=== PATIENT | female | born 1935 | race Caucasian/White ===

== ENCOUNTER 2016-09-18 09:58 | Outpatient (CLI) | payer MEDICARE, OTHER | END 2016-09-18 09:59 | disposition home or self-care (01) | DX: M75.02 Adhesive capsulitis of left shoulder (principal); S46.812A Strain of other muscles, fascia and tendons at shoulder and upper arm level, left arm, initial encounter; M19.012 Primary osteoarthritis, left shoulder ==

== ENCOUNTER 2016-10-07 11:17 | Outpatient (CLI) | payer MEDICARE, OTHER | END 2016-10-07 11:18 | disposition home or self-care (01) | DX: Z01.818 Encounter for other preprocedural examination (principal); L03.011 Cellulitis of right finger; L02.511 Cutaneous abscess of right hand ==

== ENCOUNTER 2016-10-09 10:15 | Day surgery (SDC) | payer MEDICARE, OTHER ==
[2016-10-09] MEDS ORDERED: LACTATED RINGERS 1,000 ML IV ONE ×2 (12:38→13:15)
[2016-10-09] MEDS ORDERED: ePHEDrine 50 MG/ML AMP IVP ONE (12:40)
[2016-10-09] MEDS ORDERED: HYDROmorphone 1 MG/ML SYRINGE IVP ONE (12:40)
[2016-10-09] MEDS ORDERED: KETOROLAC 30 MG/ML VIAL IVP ONE (12:40)
[2016-10-09] MEDS ORDERED: fentaNYL 100 MCG/2 ML VIAL IVP ONE (12:40)
[2016-10-09] MEDS ORDERED: LIDOCAINE-MPF 2% 5 ML VIAL IM ONE (12:40)
[2016-10-09] MEDS ORDERED: ACETAMINOPHEN 1,000 MG/100 ML VIAL IV ONE (12:40)
[2016-10-09] MEDS ORDERED: PROPOFOL 200 MG/20 ML VIAL IVP ONE (12:40)
[2016-10-09] MEDS ORDERED: SILVER SULFADIAZINE CREAM 25 GM TUBE TOP ONE (12:57)
== END 2016-10-09 10:16 | disposition home or self-care (01) ==
PROC: 0J9J0ZZ Drainage of Right Hand Subcutaneous Tissue and Fascia, Open Approach (ICD-10-PCS; principal; 2016-10-09 12:00)
DX: M00.041 Staphylococcal arthritis, right hand (principal); B95.62 Methicillin resistant Staphylococcus aureus infection as the cause of diseases classified elsewhere; Z16.24 Resistance to multiple antibiotics; Z88.0 Allergy status to penicillin; Z88.2 Allergy status to sulfonamides; Z79.82 Long term (current) use of aspirin; E78.5 Hyperlipidemia, unspecified; I10 Essential (primary) hypertension; J45.909 Unspecified asthma, uncomplicated; Z87.891 Personal history of nicotine dependence; J44.9 Chronic obstructive pulmonary disease, unspecified; M10.9 Gout, unspecified; I25.10 Atherosclerotic heart disease of native coronary artery without angina pectoris; Z95.1 Presence of aortocoronary bypass graft
CPT/HCPCS: 26010; 81599; 87015; 87070; 87077; 87101; 87116; 87181; 87205; 87206; A9270; J0131; J1170; J7120

== ENCOUNTER 2016-10-21 11:23 | Emergency (ER) | payer MEDICARE, OTHER ==
[2016-10-21] MEDS ORDERED: cefTRIAXone 1 GM in SODIUM CHLORIDE 0.9% MINIBAG 100 ML IV STA (14:02)
[2016-10-21] MEDS ORDERED: cefTRIAXone 1 GM VIAL ONE (14:03)
[2016-10-21] MEDS ORDERED: SODIUM CHLORIDE 0.9% 1,000 ML IV ONE (15:56)
== END 2016-10-21 16:56 | disposition home or self-care (01) ==
DX: E86.0 Dehydration (principal); R07.89 Other chest pain; N30.00 Acute cystitis without hematuria; K52.1 Toxic gastroenteritis and colitis; T36.95XA Adverse effect of unspecified systemic antibiotic, initial encounter; I10 Essential (primary) hypertension; E78.00 Pure hypercholesterolemia, unspecified; I25.10 Atherosclerotic heart disease of native coronary artery without angina pectoris; Z95.1 Presence of aortocoronary bypass graft; J44.9 Chronic obstructive pulmonary disease, unspecified; G47.30 Sleep apnea, unspecified; E11.9 Type 2 diabetes mellitus without complications; K21.9 Gastro-esophageal reflux disease without esophagitis; M19.90 Unspecified osteoarthritis, unspecified site; M10.9 Gout, unspecified; Z79.82 Long term (current) use of aspirin

== ENCOUNTER 2017-01-18 18:35 | Outpatient (CLI) | payer MEDICARE, OTHER | END 2017-01-18 18:36 | disposition critical access hospital (66) | LOC: EMS 18:35 | PROVIDERS: ATTEND Surgery | DX: S01.111A Laceration without foreign body of right eyelid and periocular area, initial encounter (principal); W20.8XXA Other cause of strike by thrown, projected or falling object, initial encounter; W18.39XA Other fall on same level, initial encounter; Y93.K9 Activity, other involving animal care; Y92.007 Garden or yard of unspecified non-institutional (private) residence as the place of occurrence of the external cause | CPT/HCPCS: A0425; A0429 ==

== ENCOUNTER 2017-01-18 19:00 | Emergency (ER) | payer MEDICARE, OTHER ==
[2017-01-18 19:07] VITALS: BP 145/73
--- NOTE | 2017-01-18 19:13 | ED Physician Documentation ---
History of Present Illness - Stated complaint Stated Complaint: FALL - Chief complaint Chief Complaint: Heent - History obtained from History obtained from: Patient, EMS - History of Present Illness Timing: Today Pain level max: 0 Pain level now: 0 - Additonal information Additional information: hit in head by a bird feeder and lacerated her forehead. No LOC. Not on blood thinners. No headache. 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 Cardiovascular: CABG HEENT: Tonsil/Adenoidectomy - Present Medications Home Medications: Ambulatory Orders Medication Instructions Recorded Confirmed Acyclovir 400 mg PO DAILY 04/04/13 01/18/17 Allopurinol 200 mg PO DAILY 04/04/13 01/18/17 Aspirin Chewable [St Matteo 81 mg PO DAILY 04/04/13 01/18/17 Aspirin] Cholecalciferol (Vitamin D3) 2,000 unit PO DAILY 04/04/13 01/18/17 [Vitamin D] Ubidecarenone [Coq-10] 200 mg PO DAILY 04/04/13 01/18/17 Adalimumab [Humira] 20 mg SQ ONCE 10/07/16 01/18/17 Metoprolol Tartrate 25 mg PO DAILY 10/09/16 01/18/17 Saccharomyces Boulardii [Florastor] 500 mg PO BID #30 capsule 10/21/16 01/18/17 - Allergies Allergies/Adverse Reactions: Allergies Allergy/AdvReac Type Severity Reaction Status Date / Time promethazine HCl * Allergy Severe UNCONSCIOUS Verified 10/21/16 11:35 [From Phenergan] fentanyl Allergy Unknown unknown Verified 10/21/16 11:35 Penicillins Allergy Hives Verified 10/21/16 11:35 Sulfa (Sulfonamide Allergy Hives Verified 10/21/16 11:35 Antibiotics) - Social History Does the pt smoke?: No Smoking Status: Never smoker Does the pt drink ETOH?: Yes Does the pt have substance abuse?: No - Immunizations Immunizations are current?: Yes - POLST Patient has POLST: Yes PD ED PE NORMAL - Vitals Vital signs reviewed: Yes - General General: Alert and oriented X 3, No acute distress, Well developed/nourished - HEENT HEENT: PERRL, EOMI, Ears normal, Moist mucous membranes, Pharynx benign, Other ( 1cm, vertical R sided forehead laceration. no scalp hematoma. No palpable skull fractures) - Neck Neck: Supple, no meningeal sign - Derm Derm: Warm and dry - Neuro Neuro: Alert and oriented X 3 - Psych Psych: Normal mood, Normal affect Results - Vitals Vitals: Vital Signs - 24 hr 01/18/17 19:01 Temperature 36.1 C L Heart Rate 52 L Respiratory 18 Rate Blood Pressure 145/73 H O2 Saturation 100 Oxygen O2 Source Room air Procedures - Laceration (location) forehead Length in cm: 1 Wound type: Linear, Into subcut fat, Clean Neurovascular status: Sensory intact, Motor intact, Vascular intact Wound Preparation: Irrigated copiously NS Skin layer closure: Dermabond, Steri strips Other: Patient tolerated well, No complications, Neurovascular intact, Dressing applied, Tetanus booster given (tdap) Complexity: Simple PD MEDICAL DECISION MAKING - ED course Complexity details: reviewed results, re-evaluated patient, considered differential, d/w patient, d/w family ED course: Patient is an 81-year-old female who sustained a laceration of the forehead today, this was repaired with Dermabond and Steri-Strips. Tolerated well. Warnings of infection and instructions on wound care given at bedside. Also counseled on how to minimize scarring. No evidence of intracranial hemorrhage, skull fracture. No evidence of concussion. Patient counseled regarding signs and symptoms for which I believe and urgent re-evaluation would be necessary. Patient with good understanding of and agreement to plan and is comfortable going home at this time This document was made in part using voice recognition software. While efforts are made to proofread this document, sound alike and grammatical errors may occur. Departure - Departure Disposition: 01 Home, Self Care Clinical Impression: Forehead laceration Qualifiers: Encounter type: initial encounter Qualified Code(s): S01.81XA - Laceration without foreign body of other part of head, initial encounter Condition: Good Instructions: ED Laceration Facial Skin Glue Follow-Up: Noah Tyler MD [Primary Care Provider] - Within 1 week (for wound check ) Comments: Return if you worsen. Keep the wound clean. Discharge Date/Time: 01/18/17 19:35
== END 2017-01-18 19:35 | disposition home or self-care (01) ==
LOC: EDUNIT# → SUPCPDRO 19:00 → ED 19:00
DX: S01.81XA Laceration without foreign body of other part of head, initial encounter (principal); W22.8XXA Striking against or struck by other objects, initial encounter; I10 Essential (primary) hypertension; E78.00 Pure hypercholesterolemia, unspecified; E11.9 Type 2 diabetes mellitus without complications; I25.10 Atherosclerotic heart disease of native coronary artery without angina pectoris; J44.9 Chronic obstructive pulmonary disease, unspecified; G47.30 Sleep apnea, unspecified; K21.9 Gastro-esophageal reflux disease without esophagitis; M19.90 Unspecified osteoarthritis, unspecified site; M10.9 Gout, unspecified; Z79.82 Long term (current) use of aspirin
CPT/HCPCS: 12011; 99282; 99283

== ENCOUNTER 2017-01-26 12:12 | Outpatient (CLI) | payer MEDICARE, OTHER ==
[2017-01-28 20:17] LABS: TEST RESULT REPORT (())
== END 2017-01-26 12:13 | disposition home or self-care (01) ==
LOC: LAB 12:12
PROVIDERS: ATTEND Physician Assistant Medical
DX: L40.0 Psoriasis vulgaris (principal); Z79.899 Other long term (current) drug therapy
CPT/HCPCS: 36415; 81599

== ENCOUNTER 2017-01-26 22:13 | Outpatient (CLI) | payer MEDICARE, OTHER | END 2017-01-26 22:14 | disposition critical access hospital (66) | LOC: EMS 22:13 | PROVIDERS: ATTEND Surgery | DX: R11.2 Nausea with vomiting, unspecified (principal); R51 Headache; R53.1 Weakness | CPT/HCPCS: A0425; A0427 ==

== ENCOUNTER 2017-01-26 22:28 | Emergency (ER) | payer MEDICARE, OTHER ==
[2017-01-26] MEDS ORDERED: ONDANSETRON 4 MG/2 ML VIAL IVP STA (22:46)
[2017-01-26] MEDS ORDERED: ONDANSETRON 4 MG/2 ML VIAL ONE (22:50)
--- NOTE | 2017-01-26 23:43 | ED Physician Documentation ---
PD HPI NVD - Stated complaint Stated Complaint: N/V/D - Chief complaint Chief Complaint: Abd Pain - History obtained from History obtained from: Patient - History of Present Illness Timing - onset: Today (this morning) Timing - details: Abrupt onset, Waxing and waning Pain level max: 0 Pain level now: 0 Associated symptoms: No: Fever, Abdominal pain Recently seen: Not recently seen - Additonal information Additional information: c/o nausea and vomiting since this AM, increasing fatigue and generalized headache Review of Systems Constitutional: reports: Fatigue. denies: Fever, Chills, Sweats Cardiac: reports: Reviewed and negative Respiratory: reports: Reviewed and negative GI: reports: Nausea, Vomiting. denies: Abdominal Pain, Constipation, Diarrhea : denies: Dysuria, Frequency Neurologic: reports: Generalized weakness, Headache. 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 Cardiovascular: CABG HEENT: Tonsil/Adenoidectomy - Present Medications Home Medications: Ambulatory Orders Medication Instructions Recorded Confirmed Acyclovir 400 mg PO DAILY 04/04/13 01/18/17 Allopurinol 200 mg PO DAILY 04/04/13 01/18/17 Aspirin Chewable [St Matteo 81 mg PO DAILY 04/04/13 01/18/17 Aspirin] Cholecalciferol (Vitamin D3) 2,000 unit PO DAILY 04/04/13 01/18/17 [Vitamin D] Ubidecarenone [Coq-10] 200 mg PO DAILY 04/04/13 01/18/17 Adalimumab [Humira] 20 mg SQ ONCE 10/07/16 01/18/17 Metoprolol Tartrate 25 mg PO DAILY 10/09/16 01/18/17 Saccharomyces Boulardii [Florastor] 500 mg PO BID #30 capsule 10/21/16 01/18/17 Ondansetron Odt [Zofran] 4 mg TL Q6H PRN #10 tablet 01/27/17 - Allergies Allergies/Adverse Reactions: Allergies Allergy/AdvReac Type Severity Reaction Status Date / Time promethazine HCl * Allergy Severe UNCONSCIOUS Verified 01/26/17 22:36 [From Phenergan] fentanyl Allergy Unknown unknown Verified 01/26/17 22:36 Penicillins Allergy Hives Verified 01/26/17 22:36 Sulfa (Sulfonamide Allergy Hives Verified 01/26/17 22:36 Antibiotics) - Social History Does the pt smoke?: No Smoking Status: Never smoker Does the pt drink ETOH?: Yes Does the pt have substance abuse?: No - Immunizations Immunizations are current?: Yes - POLST Patient has POLST: Yes PD ED PE NORMAL - Vitals Vital signs reviewed: Yes - General General: Alert and oriented X 3, No acute distress, Well developed/nourished - HEENT HEENT: PERRL, EOMI - Neck Neck: Supple, no meningeal sign - Cardiac Cardiac: RRR, No murmur - Respiratory Respiratory: No respiratory distress, Clear bilaterally - Abdomen Abdomen: Normal bowel sounds, Soft, Non tender, Non distended - Derm Derm: Normal color, Warm and dry - Neuro Neuro: Alert and oriented X 3 Results - Vitals Vitals: Vital Signs - 24 hr 01/26/17 01/27/17 01/27/17 22:33 00:14 01:23 Temperature 36.5 C Heart Rate 74 90 80 Respiratory 16 15 16 Rate Blood Pressure 178/96 H 170/78 H 149/118 H O2 Saturation 97 96 96 Oxygen O2 Source Room air - Labs Labs: Laboratory Tests 01/27/17 01/27/17 01/27/17 00:08 00:25 00:25 WBC 6.2 RBC 3.65 L Hgb 12.0 Hct 36.0 L MCV 98.8 MCH 32.9 H MCHC 33.3 RDW 14.1 Plt Count 179 MPV 7.8 L Neut # 4.0 Lymph # 1.5 [place] # 0.5 Eos # 0.2 Baso # 0.1 Absolute Nucleated RBC 0.00 Nucleated RBCs 0.0 Sodium 138 Potassium 4.1 Chloride 105 Carbon Dioxide 23 Anion Gap 10.0 BUN 25 H Creatinine 1.3 H Estimated GFR (MDRD) 39 L Glucose 112 H Calcium 8.8 Total Bilirubin 0.8 AST 20 ALT 12 Alkaline Phosphatase 72 Total Protein 6.5 L Albumin 3.9 Globulin 2.6 Albumin/Globulin Ratio 1.5 Lipase 16 L Urine Color YELLOW Urine Clarity CLEAR Urine pH 6.0 Ur Specific [place] 1.020 Urine Protein NEGATIVE Urine Glucose (UA) NEGATIVE Urine Ketones NEGATIVE Urine Occult Blood NEGATIVE Urine Nitrite NEGATIVE Urine Bilirubin NEGATIVE Urine Urobilinogen 0.2 (NORMAL) Ur Leukocyte Esterase NEGATIVE Ur Microscopic Review NOT INDICATED Urine Culture Comments NOT INDICATED PD MEDICAL DECISION MAKING - ED course Complexity details: reviewed results, re-evaluated patient, considered differential, d/w patient ED course: On reevaluation, after IV fluids and IV zofran, patient reports symptoms have resolved. MMM, she is comfortable with d/c home Departure - Departure Disposition: Home, Self Care Clinical Impression: Vomiting Condition: Good Instructions: ED Nausea Vomiting Follow-Up: Noah Tyler MD [Primary Care Provider] - Prescriptions: Ondansetron Odt [Zofran] 4 mg TL Q6H PRN #10 tablet PRN Reason: Nausea / Vomiting Discharge Date/Time: 01/27/17 01:35
[2017-01-27] MEDS ORDERED: SODIUM CHLORIDE 0.9% 500 ML IV STA
[2017-01-27 00:32] LABS: BASOPHILS # (AUTO) 0.1 10^3/uL (0.0-0.1); BASOPHILS % (AUTO) 1.3 %; EOSINOPHILS # (AUTO) 0.2 10^3/uL (0.0-0.7); EOSINOPHILS % (AUTO) 2.8 %; LYMPHOCYTES # (AUTO) 1.5 10^3/uL (1.5-3.5); LYMPHOCYTES % (AUTO) 23.6 %; MEAN CORPUSCULAR HEMOGLOBIN 32.9 pg (27.0-31.0); MEAN CORPUSCULAR HGB CONC 33.3 g/dL (32.0-36.0); MEAN CORPUSCULAR VOLUME 98.8 fL (81.0-99.0); MEAN PLATELET VOLUME 7.8 fL (7.9-10.8); MONOCYTES # (AUTO) 0.5 10^3/uL (0.0-1.0); MONOCYTES % (AUTO) 8.1 %; NEUTROPHILS % (AUTO) 64.2 %; RED BLOOD COUNT 3.65 10^6/uL (4.20-5.40); RED CELL DISTRIBUTION WIDTH 14.1 % (12.0-15.0); UNCORRECTED WHITE BLOOD COUNT 6.2 x10^3/uL; WHITE BLOOD COUNT 6.2 x10^3/uL (4.8-10.8)
[2017-01-27 00:43] LABS: ALBUMIN/GLOBULIN RATIO 1.5 (1.0-2.2); BILIRUBIN,TOTAL 0.8 mg/dL (0.2-1.0); CREATININE 1.3 mg/dL (0.4-1.0); TOTAL PROTEIN 6.5 g/dL (6.7-8.2)
[2017-01-27 00:51] LABS: CALCIUM 8.8 mg/dL (8.5-10.3); POTASSIUM 4.1 mmol/L (3.5-5.0)
[2017-01-27 00:52] LABS: BILIRUBIN,URINE NEGATIVE (NEGATIVE)
[2017-01-27 00:53] LABS: UA CHARGE (STRIP ONLY) YES; UR CULTURE IF IND NOT INDICATED
[2017-01-27] MEDS ORDERED: ONDANSETRON ODT 4 MG Prepack 2 TL STA (01:18)
[2017-01-27] MEDS ORDERED: ONDANSETRON ODT 4 MG Prepack 2 TL ONE (01:23)
[2017-01-27 01:29] VITALS: BP 149/118
== END 2017-01-27 01:35 | disposition home or self-care (01) ==
LOC: EDUNIT# → ED 22:28
DX: R11.2 Nausea with vomiting, unspecified (principal); I10 Essential (primary) hypertension; I25.10 Atherosclerotic heart disease of native coronary artery without angina pectoris; Z79.82 Long term (current) use of aspirin
CPT/HCPCS: 36415; 80053; 81001; 81003; 81599; 83690; 85025; 87086; 96361; 96374; 99283; 99284

== ENCOUNTER 2017-02-03 22:31 | Outpatient (CLI) | payer MEDICARE, OTHER | END 2017-02-03 22:32 | disposition EMS.NT | LOC: EMS 22:31 | PROVIDERS: ATTEND Surgery | DX: Z03.89 Encounter for observation for other suspected diseases and conditions ruled out (principal); W18.30XA Fall on same level, unspecified, initial encounter; Y92.002 Bathroom of unspecified non-institutional (private) residence as the place of occurrence of the external cause ==

== ENCOUNTER 2017-06-12 20:17 | Outpatient (CLI) | payer MEDICARE, OTHER | END 2017-06-12 20:18 | disposition critical access hospital (66) | LOC: EMS 20:17 | PROVIDERS: ATTEND Surgery | DX: R55 Syncope and collapse (principal) | CPT/HCPCS: A0425; A0427 ==

== ENCOUNTER 2017-06-12 21:17 | Emergency (ER) | payer MEDICARE, OTHER ==
--- NOTE | 2017-06-12 21:19 | ED Physician Documentation ---
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 When I ask if she felt like she was going to pass out before she did, she is unsure. She had similar episode few weeks ago but did not seek medical attention. EMS found blood sugar to be in the 60s, gave PO glucose. EMS also noted patient's SBP was 160s sitting but 90s standing Review of Systems Constitutional: reports: Reviewed and negative Eyes: reports: Reviewed and negative Ears: reports: Reviewed and negative Cardiac: reports: Reviewed and negative Respiratory: reports: Reviewed and negative GI: reports: Reviewed and negative : denies: Dysuria, Frequency Musculoskeletal: reports: Neck pain (chronic). denies: Back pain, Extremity pain, Joint pain, Pain with weight bearing Neurologic: denies: Generalized weakness, Focal weakness, Numbness PD PAST MEDICAL HISTORY - Past Medical History Cardiovascular: High cholesterol - Present Medications Home Medications: Ambulatory Orders Medication Instructions Recorded Confirmed Acyclovir 400 mg PO DAILY 04/04/13 01/18/17 Allopurinol 200 mg PO DAILY 04/04/13 01/18/17 Aspirin Chewable [St Matteo 81 mg PO DAILY 04/04/13 01/18/17 Aspirin] Cholecalciferol (Vitamin D3) 2,000 unit PO DAILY 04/04/13 01/18/17 [Vitamin D] Ubidecarenone [Coq-10] 200 mg PO DAILY 04/04/13 01/18/17 Adalimumab [Humira] 20 mg SQ ONCE 10/07/16 01/18/17 Metoprolol Tartrate 25 mg PO DAILY 10/09/16 01/18/17 Saccharomyces Boulardii [Florastor] 500 mg PO BID #30 capsule 10/21/16 01/18/17 Ondansetron Odt [Zofran] 4 mg TL Q6H PRN #10 tablet 01/27/17 - Allergies Allergies/Adverse Reactions: Allergies Allergy/AdvReac Type Severity Reaction Status Date / Time promethazine HCl * Allergy Severe UNCONSCIOUS Verified 06/12/17 21:25 [From Phenergan] fentanyl Allergy Unknown unknown Verified 06/12/17 21:25 Penicillins Allergy Hives Verified 06/12/17 21:25 Sulfa (Sulfonamide Allergy Hives Verified 06/12/17 21:25 Antibiotics) - Living Situation Living Situation: reports: Alone Living Arrangement: reports: At home PD ED PE NORMAL - Vitals Vital signs reviewed: Yes - General General: Alert and oriented X 3, No acute distress, Well developed/nourished - HEENT HEENT: PERRL, EOMI, Moist mucous membranes - Neck Neck: Supple, no meningeal sign, No bony TTP - Cardiac Cardiac: RRR, No murmur - Respiratory Respiratory: No respiratory distress, Clear bilaterally - Abdomen Abdomen: Soft, Non tender, Non distended - Back Back: No spinal TTP - Derm Derm: Warm and dry, Other (faint echymosis left side of face) - Extremities Extremities: No tenderness to palpate, Normal ROM s pain, No edema - Neuro Neuro: Alert and oriented X 3, 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[employer]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-12 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, No motor deficit, No sensory deficit, Normal speech Eye Opening: Spontaneous Motor: Obeys Commands Verbal: Oriented GCS Score: 15 Results - Vitals Vitals: Vital Signs - 24 hr 06/12/17 06/12/17 06/12/17 21:18 21:26 23:49 Temperature 36.2 C L Heart Rate 63 68 Respiratory 14 Rate Blood Pressure 144/62 H 107/59 L O2 Saturation 98 95 Oxygen O2 Source Room air - EKG (time done) No standard instances Rate: Rate (enter#) (67) Rhythm: NSR Black: LAD Intervals: Normal LA QRS: LVH Ischemia: ST elevation c/w repol, Other (biphasic T V4, inverted T waves V5, V6 , I, aVL) Compare to prior EKG: Unchanged from prior EKG (similiar morphology in all leads compared to 10/21/16 EKG) - Labs Labs: Laboratory Tests 06/12/17 06/12/17 06/12/17 21:35 21:35 21:35 WBC 4.9 RBC 3.50 L Hgb 11.6 L Hct 34.2 L MCV 97.5 MCH 33.1 H MCHC 34.0 RDW 13.9 Plt Count 188 MPV 7.9 Neut # 2.2 Lymph # 1.8 [place] # 0.4 Eos # 0.4 Baso # 0.0 Absolute Nucleated RBC 0.00 Nucleated RBC % 0.0 PT 11.2 INR 1.0 APTT 28.2 Sodium 137 Potassium 3.8 Chloride 102 Carbon Dioxide 22 Anion Gap 13.0 BUN 26 H Creatinine 1.3 H Estimated GFR (MDRD) 39 L Glucose 81 Calcium 8.8 Troponin I Urine Color Urine Clarity Urine pH Ur Specific [place] Urine Protein Urine Glucose (UA) Urine Ketones Urine Occult Blood Urine Nitrite Urine Bilirubin Urine Urobilinogen Ur Leukocyte Esterase Ur Microscopic Review Urine Culture Comments Ethyl Alcohol 220.8 06/12/17 06/12/17 21:35 22:21 WBC RBC Hgb Hct MCV MCH MCHC RDW Plt Count MPV Neut # Lymph # [place] # Eos # Baso # Absolute Nucleated RBC Nucleated RBC % PT INR APTT Sodium Potassium Chloride Carbon Dioxide Anion Gap BUN Creatinine Estimated GFR (MDRD) Glucose Calcium Troponin I < 0.04 Urine Color YELLOW Urine Clarity CLEAR Urine pH 5.5 Ur Specific [place] <=1.005 Urine Protein NEGATIVE Urine Glucose (UA) NEGATIVE Urine Ketones NEGATIVE Urine Occult Blood NEGATIVE Urine Nitrite NEGATIVE Urine Bilirubin NEGATIVE Urine Urobilinogen 0.2 (NORMAL) Ur Leukocyte Esterase NEGATIVE Ur Microscopic Review NOT INDICATED Urine Culture Comments NOT INDICATED Ethyl Alcohol - Rads (name of study) chest xray Radiology: Prelim report reviewed, See rad report PD MEDICAL DECISION MAKING - ED course Complexity details: reviewed old records, reviewed results, re-evaluated patient , considered differential, d/w patient ED course: EKG is unchanged compared to previous and blood tests, UA, and CXR are reassuring (elevated blood ethanol level noted, although she is AAOx3, answers quickly, clearly, and appropriately). Given her age, recurrence of syncope (two episodes within past few weeks), and h/o CABG, I recommended admission to hospital for further testing and cardiac monitoring, but she refuses this. She says she has an appointment tomorrow she cannot miss. Risks and benefits of admission vs. leaving AMA were discussed, including potential for recurrence of syncope, stroke, heart attack, permanent disability, and , were discussed. Patient expresses a clear understanding of this but still wishes to leave AMA. I encouraged her to return at any time she feels she needs to be reevaluated, and to follow-up with her doctor as soon as possible. Departure - Departure Disposition: 07 Against Medical Advice Clinical Impression: Syncope Qualifiers: Syncope type: unspecified Qualified Code(s): R55 - Syncope and collapse Condition: Stable Instructions: ED Fainting Unkn Cause Follow-Up: Noah Tyler MD [Primary Care Provider] - Discharge Date/Time: 06/13/17 00:33
[2017-06-12] MEDS ORDERED: SODIUM CHLORIDE 0.9% 500 ML IV STA (21:43)
[2017-06-12 21:45] LABS: BASOPHILS % (AUTO) 0.7 %; EOSINOPHILS # (AUTO) 0.4 10^3/uL (0.0-0.7); EOSINOPHILS % (AUTO) 9.2 %; HCT - HEMATOCRIT 34.2 % (37.0-47.0); HGB - HEMOGLOBIN 11.6 g/dL (12.0-16.0); LYMPHOCYTES # (AUTO) 1.8 10^3/uL (1.5-3.5); LYMPHOCYTES % (AUTO) 37.8 %; MEAN CORPUSCULAR HEMOGLOBIN 33.1 pg (27.0-31.0); MEAN CORPUSCULAR VOLUME 97.5 fL (81.0-99.0); MEAN PLATELET VOLUME 7.9 fL (7.9-10.8); MONOCYTES # (AUTO) 0.4 10^3/uL (0.0-1.0); MONOCYTES % (AUTO) 8.2 %; NEUTROPHILS # (AUTO) 2.2 10^3/uL (1.5-6.6); NEUTROPHILS % (AUTO) 44.1 %; RED CELL DISTRIBUTION WIDTH 13.9 % (12.0-15.0); UNCORRECTED WHITE BLOOD COUNT 4.9 x10^3/uL; WHITE BLOOD COUNT 4.9 x10^3/uL (4.8-10.8)
[2017-06-12 21:51] LABS: PT - PROTHROMBIN TIME 11.2 secs (9.9-12.6)
[2017-06-12 21:54] LABS: CALCIUM 8.8 mg/dL (8.5-10.3); CREATININE 1.3 mg/dL (0.4-1.0); POTASSIUM 3.8 mmol/L (3.5-5.0)
[2017-06-12 21:58] LABS: PARTIAL THROMBOPLASTIN TIME 28.2 secs (24.9-33.3)
--- NOTE | 2017-06-12 22:16 | XRAY Preliminary Report ---
Exam: XR CHEST 2 VIEW PA/LAT IMPRESSION: Stable exam. No acute cardiopulmonary disease seen. [facility] SITE ID: [id number]
--- NOTE | 2017-06-12 22:19 | XRAY Report ---
EXAM: CHEST RADIOGRAPHY EXAM DATE: 06/12/2017 09:48 PM. CLINICAL HISTORY: Syncope. COMPARISON: Chest 10/21/2016. TECHNIQUE: 2 views. FINDINGS: Lungs/Pleura: Small calcified right midlung pulmonary nodule appears unchanged. No pleural effusion, consolidation, airspace disease or pneumothorax. Mediastinum: Heart and mediastinal contours are unremarkable. Other: Sternotomy wires again noted. IMPRESSION: Stable exam. No acute cardiopulmonary disease seen. [facility] Referring Provider Line: [phone] SITE ID: [id number]
[2017-06-12 22:35] LABS: BILIRUBIN,URINE NEGATIVE (NEGATIVE); PH,URINE 5.5 PH (5.0-7.5)
[2017-06-12 22:39] LABS: UA CHARGE (STRIP ONLY) YES; UR CULTURE IF IND NOT INDICATED
[2017-06-12 23:50] VITALS: BP 107/59
== END 2017-06-13 00:33 | disposition left against medical advice (07) ==
LOC: EDUNIT# → ED 21:17
DX: R55 Syncope and collapse (principal); Z53.29 Procedure and treatment not carried out because of patient's decision for other reasons; I25.10 Atherosclerotic heart disease of native coronary artery without angina pectoris; Z95.1 Presence of aortocoronary bypass graft; E16.2 Hypoglycemia, unspecified; Z79.82 Long term (current) use of aspirin
CPT/HCPCS: 36415; 71020; 80048; 81003; 84484; 85025; 85610; 85730; 93005; 99284; 99285; G0480; 80320; 81001; 87086

== ENCOUNTER 2017-07-23 10:08 | Outpatient (CLI) | payer MEDICARE, OTHER ==
[2017-07-23 10:24] LABS: BASOPHILS # (AUTO) 0.1 10^3/uL (0.0-0.1); BASOPHILS % (AUTO) 1.2 %; EOSINOPHILS # (AUTO) 0.8 10^3/uL (0.0-0.7); EOSINOPHILS % (AUTO) 13.3 %; LYMPHOCYTES # (AUTO) 1.7 10^3/uL (1.5-3.5); LYMPHOCYTES % (AUTO) 29.2 %; MEAN CORPUSCULAR HEMOGLOBIN 32.3 pg (27.0-31.0); MEAN CORPUSCULAR HGB CONC 33.1 g/dL (32.0-36.0); MEAN CORPUSCULAR VOLUME 97.7 fL (81.0-99.0); MEAN PLATELET VOLUME 6.9 fL (7.9-10.8); MONOCYTES # (AUTO) 0.5 10^3/uL (0.0-1.0); MONOCYTES % (AUTO) 9.2 %; NEUTROPHILS # (AUTO) 2.8 10^3/uL (1.5-6.6); NEUTROPHILS % (AUTO) 47.1 %; PLT - PLATELET COUNT 202 10^3/uL (130-450); RED BLOOD COUNT 3.72 10^6/uL (4.20-5.40); RED CELL DISTRIBUTION WIDTH 13.5 % (12.0-15.0); WHITE BLOOD COUNT 5.9 x10^3/uL (4.8-10.8)
[2017-07-23 10:34] LABS: ALBUMIN 4.4 g/dL (3.2-5.5); ALBUMIN/GLOBULIN RATIO 1.8 (1.0-2.2); BILIRUBIN,TOTAL 0.6 mg/dL (0.2-1.0); CALCIUM 9.6 mg/dL (8.5-10.3); CREATININE 1.3 mg/dL (0.4-1.0); TOTAL PROTEIN 6.9 g/dL (6.7-8.2); URIC ACID 7.5 mg/dL (2.6-7.2)
== END 2017-07-23 10:09 | disposition home or self-care (01) ==
LOC: LAB 10:08
PROVIDERS: ATTEND Internal Medicine
DX: L40.9 Psoriasis, unspecified (principal); N18.4 Chronic kidney disease, stage 4 (severe); I12.9 Hypertensive chronic kidney disease with stage 1 through stage 4 chronic kidney disease, or unspecified chronic kidney disease; M10.9 Gout, unspecified
CPT/HCPCS: 36415; 80053; 84550; 85025

== ENCOUNTER 2017-07-23 10:31 | Outpatient (CLI) | payer MEDICARE, OTHER ==
--- NOTE | 2017-07-23 19:37 | XRAY Report ---
DATE OF SERVICE: 07/23/2017 TWO VIEW CHEST: 07/23/2017 CLINICAL INDICATION: Productive cough. COMPARISON: 06/12/2017 Frontal and lateral views of the chest demonstrate changes of previous cardiac surgery. Changes of old granulomatous disease are stable. The lungs are clear. No effusion or pneumothorax is present. IMPRESSION: Stable postoperative changes and changes of old granulomatous disease. No evidence of acute cardiopulmonary disease. No significant interval change. TD: 07/23/2017 20:35
== END 2017-07-23 10:32 | disposition home or self-care (01) ==
LOC: DI 10:31
PROVIDERS: ATTEND Internal Medicine
DX: R05 Cough (principal); L40.9 Psoriasis, unspecified; I12.9 Hypertensive chronic kidney disease with stage 1 through stage 4 chronic kidney disease, or unspecified chronic kidney disease; N18.4 Chronic kidney disease, stage 4 (severe); M10.9 Gout, unspecified
CPT/HCPCS: 36415; 71046; 80053; 84550; 85025

== ENCOUNTER 2017-09-16 08:46 | Outpatient (CLI) | payer MEDICARE, OTHER ==
--- NOTE | 2017-09-17 18:00 | Mammography Report ---
DIGITAL SCREENING MAMMOGRAM: 09/16/2017 CLINICAL INDICATION: An 82-year-old nulliparous patient with history of benign biopsy for screening. COMPARISON: 08/2011, 02/2010, 07/2008. TECHNIQUE: Routine CC and MLO projections were obtained of the breasts. FINDINGS: The breasts again demonstrate fatty replacement. Coarse and punctate, typically benign calcifications are present. Intramammary lymph nodes are stable. No suspicious masses, clustered microcalcifications, or regions of architectural distortion are identified. IMPRESSION: BENIGN FINDINGS. RECOMMENDATION: Routine annual screening unless otherwise clinically indicated. BIRADS category 2 benign findings. STANDARD QUALIFYING STATEMENTS 1. This examination was reviewed with the aid of Computed-Aided Detection (CAD). 2. A negative or benign imaging report should not delay biopsy if clinically suspicious findings are present. Consider surgical consultation if warranted. More than 5% of cancers are not identified by imaging. 3. Dense breasts may obscure an underlying neoplasm. TD: 09/17/2017 17:59
== END 2017-09-16 08:47 | disposition home or self-care (01) ==
LOC: DI 08:46
PROVIDERS: ATTEND Internal Medicine
DX: Z12.31 Encounter for screening mammogram for malignant neoplasm of breast (principal)
CPT/HCPCS: 77067

== ENCOUNTER 2017-09-16 08:48 | Outpatient (CLI) | payer MEDICARE, OTHER ==
--- NOTE | 2017-09-16 11:51 | Ultrasound Report ---
PELVIC ULTRASOUND: 09/16/2017 CLINICAL INDICATION: Postmenopausal bleeding. TECHNIQUE: Transabdominal pelvic ultrasound performed for global evaluation. Transvaginal pelvic ultrasound performed for detailed evaluation. Real-time scanning performed and static images obtained. FINDINGS: The transabdominal imaging is limited, as the patient is incontinent, and could not fill her bladder. The uterus and ovaries are surgically absent. No pelvic mass or free fluid is appreciated transabdominally or transvaginally. IMPRESSION: POSTOPERATIVE CHANGES OF HYSTERECTOMY. NO EVIDENCE OF PELVIC MASS. TD: 09/16/2017 11:50
== END 2017-09-16 08:49 | disposition home or self-care (01) ==
LOC: DI 08:48
PROVIDERS: ATTEND Obstetrics & Gynecology
DX: N95.0 Postmenopausal bleeding (principal); Z90.710 Acquired absence of both cervix and uterus
CPT/HCPCS: 76830; 76856

== ENCOUNTER 2017-12-13 08:44 | Inpatient (IN) | payer MEDICARE, OTHER ==
[2017-12-13] MEDS ORDERED: ONDANSETRON 4 MG/2 ML VIAL IVP STA (09:09)
[2017-12-13] MEDS ORDERED: ACETAMINOPHEN 1,000 MG/100 ML 100 ML IV STA (09:09)
[2017-12-13] MEDS ORDERED: SODIUM CHLORIDE 0.9% 1,000 ML IV ONE (09:09)
--- NOTE | 2017-12-13 09:13 | ED Physician Documentation ---
History of Present Illness - Stated complaint Stated Complaint: FEMALE - Chief complaint Chief Complaint: Abd Pain - Additonal information Additional information: hx from pt and friend 82 female pmhx HLD DM CAD s/p CABG 2005 COPD UTIs gout pshx hyst and appy seems she was dx with gout 12/02 and started on colchicine then developed NVD and suprapubic abd pain similar to sx with prior UTIs on 12/07 was dx with UTI in clinic (per pt report had + UA dipstick, no culture results in EMR) and rx macrobid her sx are not better she still has NVD - no just dry heaves, diarrhea is greeen s blood no specific urinary sx such as freq dysuria or hematuria abd pain is worse and more diffuse no flank pain no fever chills has been off colchicine for many days but sx persists no travel no bad food no sick contacts Review of Systems Constitutional: reports: Fatigue. denies: Fever, Chills Cardiac: denies: Chest pain / pressure Respiratory: denies: Dyspnea GI: reports: Abdominal Pain, Nausea, Vomiting, Diarrhea. denies: Hematemesis, Bloody / black stool : denies: Dysuria, Frequency, Hematuria Musculoskeletal: denies: Back pain Neurologic: reports: Generalized weakness Endocrine: denies: Easy bruising / bleeding Immunocompromised: denies: Immunocompromised PD PAST MEDICAL HISTORY - Past Medical History Cardiovascular: High cholesterol Respiratory: COPD, Shortness of breath, Sleep apnea, Other Endocrine/Autoimmune: Type 2 diabetes GI: GERD, GI bleed IT SYSTEMS ADMINISTRATOR: None : Incontinence HEENT: None Psych: Depression, Anxiety Musculoskeletal: Osteoarthritis, Gout, Chronic back pain Derm: None - Past Surgical History Past Surgical History: Yes General: Colonoscopy Ortho: Spine surgery /IT SYSTEMS ADMINISTRATOR: Hysterectomy Cardiovascular: CABG HEENT: Tonsil/Adenoidectomy - Present Medications Home Medications: Ambulatory Orders Medication Instructions Recorded Confirmed Acyclovir 400 mg PO DAILY 04/04/13 01/18/17 Allopurinol 200 mg PO DAILY 04/04/13 01/18/17 Aspirin Chewable [St Matteo 81 mg PO DAILY 04/04/13 01/18/17 Aspirin] Cholecalciferol (Vitamin D3) 2,000 unit PO DAILY 04/04/13 01/18/17 [Vitamin D] Ubidecarenone [Coq-10] 200 mg PO DAILY 04/04/13 01/18/17 Metoprolol Tartrate 25 mg PO DAILY 10/09/16 01/18/17 Saccharomyces Boulardii [Florastor] 500 mg PO BID #30 capsule 10/21/16 01/18/17 Ondansetron Odt [Zofran] 4 mg TL Q6H PRN #10 tablet 01/27/17 Ustekinumab [Stelara] 45 mg SUBQ 12/13/17 - Allergies Allergies/Adverse Reactions: Allergies Allergy/AdvReac Type Severity Reaction Status Date / Time promethazine HCl * Allergy Severe UNCONSCIOUS Verified 06/12/17 21:25 [From Phenergan] fentanyl Allergy Unknown unknown Verified 06/12/17 21:25 Penicillins Allergy Hives Verified 06/12/17 21:25 Sulfa (Sulfonamide Allergy Hives Verified 06/12/17 21:25 Antibiotics) - Social History Does the pt smoke?: No Smoking Status: Never smoker Does the pt drink ETOH?: Yes Does the pt have substance abuse?: No - Immunizations Immunizations are current?: Yes - POLST Patient has POLST: Yes PD ED PE NORMAL - Vitals Vital signs reviewed: Yes - HEENT HEENT: Atraumatic, Other (little dry) - Neck Neck: Supple, no meningeal sign - Cardiac Cardiac: RRR - Respiratory Respiratory: No respiratory distress, Clear bilaterally - Abdomen Abdomen: Other (+ BS soft, TTP diffusely but most TTP RUQ and RLQ, ? RLQ hernia , no rebound or guarding, no pulsatile mass) - Female Female : Deferred (s/p hyst) - Back Back: No CVA TTP - Derm Derm: Normal color - Extremities Extremities: No deformity - Neuro Neuro: Alert and oriented X 3 Results - Vitals Vitals: Vital Signs - 24 hr 12/13/17 12/13/17 12/13/17 08:53 10:46 13:15 Temperature 36.3 C L Heart Rate 69 67 69 Respiratory 18 18 18 Rate Blood Pressure 150/79 H 175/74 H 169/82 H O2 Saturation 96 97 97 Oxygen O2 Source Room air - Labs Labs: Laboratory Tests 12/13/17 12/13/17 12/13/17 09:20 09:20 11:40 WBC 4.1 L RBC 3.83 L Hgb 12.5 Hct 38.5 MCV 100.4 H MCH 32.6 H MCHC 32.5 RDW 14.7 Plt Count 176 MPV 8.6 Neut # (Auto) 1.9 Lymph # (Auto) 0.9 L Day # (Auto) 0.8 Eos # (Auto) 0.5 Baso # (Auto) 0.0 Absolute Nucleated RBC 0.00 Nucleated RBC % 0.0 Sodium 136 Potassium 4.1 Chloride 100 L Carbon Dioxide 24 Anion Gap 12.0 BUN 29 H Creatinine 1.5 H Estimated GFR (MDRD) 33 L Glucose 110 H Calcium 10.5 H Total Bilirubin 1.1 H AST 65 H ALT 44 Alkaline Phosphatase 110 Total Protein 6.6 L Albumin 3.7 Globulin 2.9 Albumin/Globulin Ratio 1.3 Lipase 18 L Urine Color YELLOW Urine Clarity CLEAR Urine pH 6.0 Ur Specific Basom 1.010 Urine Protein NEGATIVE Urine Glucose (UA) NEGATIVE Urine Ketones 15 H Urine Occult Blood NEGATIVE Urine Nitrite NEGATIVE Urine Bilirubin NEGATIVE Urine Urobilinogen 0.2 (NORMAL) Ur Leukocyte Esterase NEGATIVE Ur Microscopic Review NOT INDICATED Urine Culture Comments NOT INDICATED - Rads (name of study) CT AP Radiology: See rad report (hiatal hernia, calcified mitral valve, CBD 12 mm rec sono, no bowel infection/obstruction/perf) PD MEDICAL DECISION MAKING - ED course ED course: afebrile and nl WBC but slightly elev bili and AST and both CT and sono show a possible dilated CBD d/w pt and d/w hospitalist and will obs for MRCP no need to transfer at this point as not a confirmed dx and pt does not have sx of cholangitis - Sepsis Event Vital Signs: Vital Signs - 24 hr 12/13/17 12/13/17 12/13/17 08:53 10:46 13:15 Temperature 36.3 C L Heart Rate 69 67 69 Respiratory 18 18 18 Rate Blood Pressure 150/79 H 175/74 H 169/82 H O2 Saturation 96 97 97 Oxygen O2 Source Room air Departure - Departure Disposition: ED Place in Observation Clinical Impression: Diarrhea, Abnormal abdominal CT scan, Abnormal ultrasound of abdomen, Renal insufficiency Abdominal pain Qualifiers: Abdominal location: right upper quadrant Qualified Code(s): R10.11 - Right upper quadrant pain Vomiting Qualifiers: Vomiting type: unspecified Vomiting Intractability: non-intractable Nausea presence: with nausea Qualified Code(s): R11.2 - Nausea with vomiting, unspecified Condition: Fair Discharge Date/Time: 12/13/17 15:05
[2017-12-13 09:26] LABS: BASOPHILS % (AUTO) 0.5 %; EOSINOPHILS # (AUTO) 0.5 10^3/uL (0.0-0.7); EOSINOPHILS % (AUTO) 12.3 %; HGB - HEMOGLOBIN 12.5 g/dL (12.0-16.0); LYMPHOCYTES # (AUTO) 0.9 10^3/uL (1.5-3.5); LYMPHOCYTES % (AUTO) 21.4 %; MEAN CORPUSCULAR HEMOGLOBIN 32.6 pg (27.0-31.0); MEAN CORPUSCULAR HGB CONC 32.5 g/dL (32.0-36.0); MEAN CORPUSCULAR VOLUME 100.4 fL (81.0-99.0); MEAN PLATELET VOLUME 8.6 fL (7.9-10.8); MONOCYTES # (AUTO) 0.8 10^3/uL (0.0-1.0); MONOCYTES % (AUTO) 19.1 %; NEUTROPHILS # (AUTO) 1.9 10^3/uL (1.5-6.6); NEUTROPHILS % (AUTO) 46.7 %; PLT - PLATELET COUNT 176 10^3/uL (130-450); RED BLOOD COUNT 3.83 10^6/uL (4.20-5.40); RED CELL DISTRIBUTION WIDTH 14.7 % (12.0-15.0); WHITE BLOOD COUNT 4.1 x10^3/uL (4.8-10.8)
[2017-12-13 09:38] LABS: ALBUMIN 3.7 g/dL (3.2-5.5); ALBUMIN/GLOBULIN RATIO 1.3 (1.0-2.2); BILIRUBIN,TOTAL 1.1 mg/dL (0.2-1.0); CALCIUM 10.5 mg/dL (8.5-10.3); CREATININE 1.5 mg/dL (0.4-1.0); TOTAL PROTEIN 6.6 g/dL (6.7-8.2)
--- NOTE | 2017-12-13 10:09 | CT Report ---
Procedure Date: 12/13/2017 Accession Number: [id number] / [id number] Procedure: CT - Abdomen/Pelvis W/O CPT Code: FULL RESULT: EXAM: CT ABDOMEN AND PELVIS EXAM DATE: 12/13/2017 09:37 AM. CLINICAL HISTORY: Abd pain. COMPARISONS: None. TECHNIQUE: Routine helical CT imaging was performed through the abdomen and pelvis. IV contrast: No. Enteric contrast: No. Reconstructions: Coronal and sagittal. In accordance with CT protocol optimization, one or more of the following dose reduction techniques were utilized for this exam: automated exposure control, adjustment of mA and/or KV based on patient size, or use of iterative reconstructive technique. FINDINGS: Lung Bases: Small hiatal hernia. Calcification of the mitral annulus noted. Liver: Within normal limits. Gallbladder/Bile Ducts: There is apparent dilatation of the common bile duct measuring approximately 12 mm. Spleen: Within normal limits. Pancreas: Within normal limits. Adrenal Glands: With normal limits Kidneys: Within normal limits. Peritoneal Cavity/Bowel: A small amount of retained contrast is seen within the distal bowel. No free fluid, free air or adenopathy. No masses or acute inflammatory process. The appendix is not well visualized Pelvic Organs: Evaluation within the right pelvis is limited due to artifact from hip prosthesis. Appear within normal limits. Vasculature: No aneurysms or other significant abnormality. Bones: Right hip prosthesis noted. Extensive degenerative changes are seen in the lumbar spine. Other: None. IMPRESSION: 1. Apparent dilatation of the common bile duct measuring approximately 12 mm. Ultrasound may be useful for further evaluation. 2. Otherwise no acute abnormality identified on this limited noncontrast exam. RADIA
[2017-12-13] MEDS ORDERED: MORPHINE 2 MG/ML SYRINGE IVP STA (10:33)
[2017-12-13 11:46] LABS: BILIRUBIN,URINE NEGATIVE (NEGATIVE); GLUCOSE, URINE (UA) NEGATIVE (NEGATIVE); KETONES,URINE (UA) 15 mg/dL (NEGATIVE); LEUKOCYTE ESTERASE, URINE NEGATIVE (NEGATIVE); NITRITE,URINE NEGATIVE (NEGATIVE); OCCULT BLOOD,URINE NEGATIVE (NEGATIVE); PROTEIN,URINE NEGATIVE (NEGATIVE); UROBILINOGEN,URINE 0.2 (NORMAL) E.U./dL (NORMAL)
[2017-12-13 11:48] LABS: CLARITY,URINE CLEAR (CLEAR)
--- NOTE | 2017-12-13 12:07 | Ultrasound Report ---
Procedure Date: 12/13/2017 Accession Number: [id number] / [id number] Procedure: US - Abdomen Limited CPT Code: FULL RESULT: EXAM: ABDOMEN ULTRASOUND LIMITED, RUQ EXAM DATE: 12/13/2017 11:41 AM. CLINICAL HISTORY: Elevated bilirubin and dilated common bile duct on CT. COMPARISON: 12/13/2017. TECHNIQUE: Real-time scanning was performed with static images obtained. FINDINGS: Liver: Liver parenchyma is heterogeneous and mildly hyperechoic. No discrete liver masses or intrahepatic bile duct dilation. However, evaluation for masses is limited secondary to the echogenicity. 13.9 cm. Main portal vein flow: Hepatopetal. Gallbladder: No gallstones, pericholecystic fluid or gallbladder wall thickening. Per report, the patient had pain in the right upper quadrant during imaging. Biliary System: CBD measures 12 mm. Questionable echogenic, non-shadowing and nonobstructing debris in the lower common bile duct. No definite mass or intrahepatic bile duct dilation. Pancreas: Not well seen. No gross abnormality. Right kidney: 9.5 cm. Atrophic and echogenic. No hydronephrosis or stones. Other: None. IMPRESSION: 1. No gallstones or sonographic evidence of acute cholecystitis. The patient did have right upper quadrant pain during imaging. Findings are nonspecific. No intrahepatic bile duct dilation. 2. Pancreas poorly seen. 3. Mildly prominent common bile duct with possible debris in the lower common bile duct. This could be evaluated with ERCP. Choledocholithiasis remains on the differential. RADIA
[2017-12-13] MEDS ORDERED: ONDANSETRON 4 MG/2 ML VIAL IVP PRN (14:26)
[2017-12-13] MEDS ORDERED: ZOLPIDEM 5 MG TABLET PO PRN (14:26)
[2017-12-13] MEDS ORDERED: ACETAMINOPHEN 325 MG TABLET PO PRN (14:26)
[2017-12-13] MEDS ORDERED: cloNIDine 0.1 MG TABLET PO PRN (14:36)
--- NOTE | 2017-12-13 14:44 | HISTORY & PHYSICAL EXAMINATION ---
Chief Complaint - Chief Complaint Chief Complaint: right upper quadrant pain History of Present Illness - Admitted From Admitted From:: ER - History Obtained From History obtained from: Pt - History of Present Illness HPI Comment/Other: Ms. Regalado is 82-yrs-old female with a PMH significance for HLD, COPD, shortness of breath, sleep apnea, GERD, GI bleeding, urinary incontinence, Depression, Anxiety, psoriatic arthritis, Gout, Chronic back pain, who present ER for complaint of right upper quadrant pain. pt reported she started to have right upper quadrant pain from today morning. Pain was located at right upper quadrant and did not radiate to the back. Pt report she has been nausea and vomiting, and with ghzei-dytkm-[id number]-like diarrhea for a week. pt report she can not ate down food. Pt denies recent travel. Pt denies chest pain, shortness of breath, fever, chill, hematemesis, black stool. She report she was treated for UTI one week ago when she was found to have UTI in the PCP office. US of abdomen limited reveals no gallstones or sonographic evidence of acute cholecystitis, mildly prominent common bile duct with possible debris in the lower common bile duct. CT of abdomen without contrast reveals apparent dilatation of the common bile duct, otherwise no acute abnormality identified. pt is afebrile, slight elevated blood pressure otherwise hemodynamical stable. Lab test in ER reveals WBC 4.1, Lipase 18, AST 65, total bilirubin 1.1, Bun 29, creatinine 1.5. History - Past Medical History Cardiovascular: reports: High cholesterol Respiratory: reports: COPD, Shortness of breath, Sleep apnea, Other Endocrine/Autoimmune: reports: Type 2 diabetes GI: reports: GERD, GI bleed DIRECTOR CUSTOM: reports: None : reports: Incontinence HEENT: reports: None Psych: reports: Depression, Anxiety Musculoskeletal: reports: Osteoarthritis, Gout, Chronic back pain Derm: reports: None MRSA Hx?: No - Past Surgical History General: reports: Colonoscopy Ortho: reports: Spine surgery /DIRECTOR CUSTOM: reports: Hysterectomy Cardiovascular: reports: CABG HEENT: reports: Tonsil/Adenoidectomy - Family & Social History Family History: Mother: (pt does not know much about her father health conditons), CAD, CVA/TIA ( from major stroke), Father: Family History Comment/Other: pt report 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 she had three children. She is living [facility] with one of her child. Living arrangement: At home Living Situation: With family Social History Notes: pt report she quitted cigarette smoking 25 yrs ago, no alcohol and drug issue. - Substance History Use: Uses substance without health or social issues: NONE Abuse: Recurrent use of substance despite neg consequences: NONE - POLST Patient has POLST: Yes POLST Status: DNR Meds/Allgy - Home Medications Home Medications: Ambulatory Orders Medication Instructions Recorded Confirmed Acyclovir 400 mg PO DAILY 04/04/13 01/18/17 Allopurinol 200 mg PO DAILY 04/04/13 01/18/17 Aspirin Chewable [St Matteo 81 mg PO DAILY 04/04/13 01/18/17 Aspirin] Cholecalciferol (Vitamin D3) 2,000 unit PO DAILY 04/04/13 01/18/17 [Vitamin D] Ubidecarenone [Coq-10] 200 mg PO DAILY 04/04/13 01/18/17 Adalimumab [Humira] 20 mg SQ ONCE 10/07/16 01/18/17 Metoprolol Tartrate 25 mg PO DAILY 10/09/16 01/18/17 Saccharomyces Boulardii [Florastor] 500 mg PO BID #30 capsule 10/21/16 01/18/17 Ondansetron Odt [Zofran] 4 mg TL Q6H PRN #10 tablet 01/27/17 - Allergies Allergies/Adverse Reactions: Allergies Allergy/AdvReac Type Severity Reaction Status Date / Time promethazine HCl * Allergy Severe UNCONSCIOUS Verified 06/12/17 21:25 [From Phenergan] fentanyl Allergy Unknown unknown Verified 06/12/17 21:25 Penicillins Allergy Hives Verified 06/12/17 21:25 Sulfa (Sulfonamide Allergy Hives Verified 06/12/17 21:25 Antibiotics) Review of Systems - Constitutional Constitutional: reports: Fatigue. denies: Fever, Chills, Malaise, Weakness, Poor appetite, Diaphoresis, Night sweats - Eyes Eyes: denies: Pain, Irritation, Amaurosis, Blurred vision, Spots in vision, Field loss, Vision loss, Dipolpia - Ears, Nose & Throat Ears, Nose & Throat: denies: Ear pain, Hearing loss, Hearing aids, Tinnitus, Vertigo, Nasal pain, Nasal discharge, Nosebleeds, Nasal obstruction, Nasal congestion, Postnasal drainage, Sore throat, Mouth lesions, Bleeding gums - Cardiovascular Cariovascular: denies: Irregular heart rate, Palpitations, Chest pain, Edema, Lightheadedness, Syncope, Exertional dyspnea, Decr. exercise tolerance - Respiratory Respiratory: denies: Cough, Sputum production, Wheezing, Snoring, Hemoptysis, Orthopnea, SOB at rest, SOB with exertion, Apnea - Gastrointestinal Gastrointestinal: reports: Abdominal pain, Diarrhea, Nausea, Vomiting. denies: Abdominal distention, Constipation, Change in bowel habits, Rectal bleeding, Black stools, Bloody stools, Bile emesis, Pierre blood emesis, Coffee grounds emesis, Reflux/heartburn - Genitourinary Genitourinary: reports: Incontinence. denies: Dysuria, Frequency, Urgency, Hematuria, Flank pain, Nocturia, Urethral discharge - Musculoskeletal Musculoskeletal: denies: Muscle pain, Back pain, Muscle aches, Stiffness, Limited range of motion, Muscle weakness, Gout, Joint pain - Integumentary Integumentary: denies: Rash, Pruritis, Lesions, Dryness, Lumps, Acne, Pigment changes - Neurological Neurological: denies: General weakness, Focal weakness, Headache, Dizziness, Numbness, Memory problems, Pre-existing deficit, Abnormal gait, Seizures, Incoordination, Slurred speech - Psychiatric Psychiatric: denies: Depression, Anxiety, Suicidal, Delusions, Hallucinations, Homicidal - Endocrine Endocrine: denies: Polyuria, Polydypsia, Polyphagia, Intolerance to cold, Intolerance to heat - Hematologic/Lymphatic Hematologic/Lymphatic: denies: Anemia, Bruising, Petechiae, Blood clots, Lymphadenopathy, Bleeding tendencies, Recurrent infections Exam - Vital Signs Reviewed Vital Signs: Yes Vital Signs: Vital Signs x48h Temp Pulse Resp BP Pulse Ox 12/13/17 13:15 69 18 169/82 H 97 12/13/17 10:46 67 18 175/74 H 97 12/13/17 08:53 36.3 C L 69 18 150/79 H 96 - Physical Exam General Appearance: positive: Alert, Mild distress. negative: Lethargic Eyes Bilateral: positive: Normal inspection, PERRL, No lid inflammation, Conjunctivae nml ENT: positive: ENT inspection nml, Pharynx nml, No signs of dehydration. negative: Purulent nasal drainage, Pharyngeal erythema, Oral lesions Neck: positive: Nml inspection, Thyroid nml, No JVD, Trachea midline. negative : Thyromegaly, Lymphadenopathy (R), Lymphadenopathy (L), Stiff neck, Carotid bruit, Swelling/bruising, Tracheal deviation Respiratory: positive: Chest non-tender, No respiratory distress, Breath sounds nml. negative: Wheezes, Rales, Rhonchi Cardiovascular: positive: Regular rate & rhythm, No murmur, No gallop. negative : Irregularly irregular, Extrasystoles, Tachycardia, Bradycardia, JVD present, Systolic murmur, Diastolic murmur Peripheral Pulses: positive: 2+ Abdomen: positive: Non-tender, No organomegaly, Nml bowel sounds, No distention , Other (abdomen is soft, pt report pain when palpatation on right upper quadrant). negative: Tenderness, Guarding, Rebound Back: positive: Nml inspection. negative: CVA tenderness (R), CVA tenderness (L ) Skin: positive: Color nml, No rash, Warm, Dry. negative: Cyanosis, Diaphoresis , Pallor Extremities: positive: Non-tender, Full ROM, Nml appearance. negative: Calf tenderness Neurologic/Psychiatric: positive: Oriented x3, Motor nml, Sensation nml, Mood/ affect nml. negative: Weakness, Sensory loss, Facial droop, Slurred/abnml speech, Depressed mood/affect Conclusion/Plan - Problem List (1) Right upper quadrant abdominal pain Conclusion/Plan: pt present right upper quadrant beginning today. CT and US does not reveals clear etiology consult with surgeon, follow up pain control MRCP, follow up IVF with NS clear diet, advanced as tolerated renal adjusted Zosyn initiate (2) Nausea & vomiting Conclusion/Plan: unknown etiology, can be virus infection daily lab to correct electrolyte IVF of NS antiemesis PRN clear diet, advanced as tolerated (3) Diarrhea Conclusion/Plan: pt report green liquid diarrhea. check C.diff, Ova/para follow up IVF NS daily lab and vital monitor (4) Dehydration Conclusion/Plan: pt present elevated BUN and creatinine compared pervious study hydration with IVF of NS, precaution of fluid overload daily lab monitor (5) HTN (hypertension) Conclusion/Plan: resume home metoprolol add Clonidine PRN vital monitor (6) Hx of coronary artery disease Conclusion/Plan: stable, resume home Aspirin tele and vital monitor (7) Gout Conclusion/Plan: resume home Allopurinal (8) DVT prophylaxis Conclusion/Plan: SCD and Heparin (9) Do not intubate, cardiopulmonary resuscitation (CPR)-only code status Conclusion/Plan: pt clearly request DNR - Lab Results Fish Bones: 12/13/17 09:20 12/13/17 09:20 Core Measures - Anticipated LOS I expect patient to be DC'd or transferred within 96 hours.: Yes - DVT/VTE - Prophylaxis VTE/DVT Device ordered at admit?: Yes VTE/DVT Prophylaxis med ordered at admit?: Yes
[2017-12-13] MEDS ORDERED: SODIUM CHLORIDE 0.9% 1,000 ML IV SCH ×2 (15:00)
[2017-12-13] MEDS: PANTOPRAZOLE 40 MG VIAL IVP SCH (16:06)
[2017-12-13] MEDS: SODIUM CHLORIDE FLUSH 0.9% 10 ML SYRINGE IVP SCH (16:06)
[2017-12-13] MEDS: PIPERACILLIN/TAZOBACTAM 2.25 GM in SODIUM CHLORIDE 0.9% MINIBAG 100 ML IV SCH ×2 (16:11→21:07)
--- NOTE | 2017-12-13 17:59 | CONSULTATION NOTE ---
Referring Provider Name of Referring Provider:: Pablo Consult Date: 12/13/17 Chief Complaint - Chief Complaint Chief Complaint: N/V/D History of Present Illness - Admitted From Admitted From:: ER - History Obtained From Records Reviewed: yes History obtained from: pt Exam Limitations: none - History of Present Illness HPI Comment/Other: 82 yo female with 6 day hx of N/V/D, described as vomiting and retching after every meal, and 4-7 loose watery green stools/day. No fever,chills, hematemesis , hematochezia, melena. She has noted upper abdominal discomfort the past several days which she attributes to repeated vomiting. She reports a similar episode several yrs ago while living in [place], thought to be due to an UTI and treated with antibiotics with resolution. She saw her PCP 2 days ago and was started on an antibiotic, but she reports that she was unable to keep the medication down, so she presented to the ER today and was admittted. She reports chronic urinary incontinence but no suprapubic or flank pain. She reports a colonoscopy approx 8 yrs ago where several small polyps were removed and no f/u was scheduled. Neg FH CRC. She notes occasional heartburn without dysphagia. She denies food intolerance, hx hepatitis/jaundice, acholic stools, hx PUD. She reports FH gallbladder disease in her mother. She denies recent travel, unusual oral intake, or contact with others who are ill with similar sx. She lives locally. History - Past Medical History Cardiovascular: reports: High cholesterol Respiratory: reports: COPD, Shortness of breath, Sleep apnea, Other Neuro: reports: None Endocrine/Autoimmune: reports: Type 2 diabetes GI: reports: GERD (heartburn several times a week treated with papaya pills with relief.), GI bleed SCALEMAN: reports: None : reports: Incontinence HEENT: reports: None Psych: reports: Depression, Anxiety Musculoskeletal: reports: Osteoarthritis, Gout, Chronic back pain Derm: reports: Psoriasis MRSA Hx?: No - Past Surgical History General: reports: Appendectomy, Colonoscopy Ortho: reports: Spine surgery /SCALEMAN: reports: Hysterectomy, Oophrectomy Cardiovascular: reports: CABG HEENT: reports: Tonsil/Adenoidectomy - Family & Social History Family History: Mother: (pt does not know much about her father health conditons), CAD, CVA/TIA ( from major stroke), Father: Family History Comment/Other: Neg for GI tumors; + gallbladder disease in mother ; pt report she is . she had three children. She is living in [place]. Living arrangement: At home Living Situation: Alone Social History Notes: pt report she quitted cigarette smoking 25 yrs ago, no alcohol and drug issue. - Substance History Use: Uses substance without health or social issues: Alcohol (1 drink daily) Abuse: Recurrent use of substance despite neg consequences: NONE Dependence: Experiences withdrawal or developed tolerances: NONE - POLST Patient has POLST: Yes POLST Status: DNR Meds/Allgy - Home Medications Home Medications: Ambulatory Orders Medication Instructions Recorded Confirmed Acyclovir 400 mg PO DAILY 04/04/13 01/18/17 Allopurinol 200 mg PO DAILY 04/04/13 01/18/17 Aspirin Chewable [St Matteo 81 mg PO DAILY 04/04/13 01/18/17 Aspirin] Cholecalciferol (Vitamin D3) 2,000 unit PO DAILY 04/04/13 01/18/17 [Vitamin D] Ubidecarenone [Coq-10] 200 mg PO DAILY 04/04/13 01/18/17 Metoprolol Tartrate 25 mg PO DAILY 10/09/16 01/18/17 Saccharomyces Boulardii [Florastor] 500 mg PO BID #30 capsule 10/21/16 01/18/17 Ondansetron Odt [Zofran] 4 mg TL Q6H PRN #10 tablet 01/27/17 Ustekinumab [Stelara] 45 mg SUBQ 12/13/17 - Allergies Allergies/Adverse Reactions: Allergies Allergy/AdvReac Type Severity Reaction Status Date / Time promethazine HCl * Allergy Severe UNCONSCIOUS Verified 06/12/17 21:25 [From Phenergan] fentanyl Allergy Unknown unknown Verified 06/12/17 21:25 Penicillins Allergy Hives Verified 06/12/17 21:25 Sulfa (Sulfonamide Allergy Hives Verified 06/12/17 21:25 Antibiotics) Review of Systems - Constitutional Constitutional: denies: Fever, Chills - Cardiovascular Cariovascular: denies: Chest pain - Gastrointestinal Gastrointestinal: reports: Abdominal pain (upper abdominal discomfort past several days), Diarrhea, Change in bowel habits, Nausea, Vomiting, Reflux/ heartburn (several times per week). denies: Constipation, Rectal bleeding, Black stools, Bloody stools, Bile emesis, Pierre blood emesis, Coffee grounds emesis - Genitourinary Genitourinary: reports: Incontinence. denies: Dysuria, Hematuria, Flank pain - Hematologic/Lymphatic Hematologic/Lymphatic: denies: Bruising, Petechiae, Blood clots, Bleeding tendencies - All Other Systems All Other Systems: reports: Reviewed and negative Exam - Vital Signs Reviewed Vital Signs: Yes Vital Signs: Vital Signs x48h Temp Pulse Resp BP Pulse Ox 12/13/17 16:00 36.6 C 66 20 140/59 H 98 - Physical Exam General Appearance: positive: Alert, Mild distress (c/o nausea) Eyes Bilateral: positive: Normal inspection, Conjunctivae nml, No scleral icterus ENT: positive: Pharynx nml, Dry mucous membranes Neck: positive: Nml inspection, No JVD. negative: Lymphadenopathy (R), Lymphadenopathy (L) Respiratory: positive: Chest non-tender, No respiratory distress, Breath sounds nml. negative: Wheezes, Rales, Rhonchi Cardiovascular: positive: Regular rate & rhythm, No murmur, No gallop Abdomen: positive: Non-tender, No organomegaly, Nml bowel sounds, No distention. negative: Guarding, Rebound, Hepatomegaly, Splenomegaly, Mass Back: positive: Nml inspection. negative: CVA tenderness (R), CVA tenderness (L ) Skin: positive: Color nml, Warm, Dry Extremities: positive: Non-tender. negative: Pedal edema, Calf tenderness Neurologic/Psychiatric: positive: Oriented x3 Conclusion/Plan - Diagnosis Diagnosis: N/V/D associated with mild abn lft's and mild biliary ductal dilatation in an 82 yo. DDX includes viral syndrome, med side effect(? monoclonal antibody therapy, etc), biliary tract disease, including choledocholithiasis. Her abdomen is benign and there is no evidence of sepsis clinically at this time. - Plan Plan: Agree with admission, symptomatic therapy, hydration, empiric antibiotic therapy , and MRCP in am. Will follow. - Lab Results Lab results reviewed: Yes Fish Bones: 12/13/17 09:20 12/13/17 09:20 Other Lab Results: Bili 1.1; ALT 60's, other lft's nl; lipase nl. - Diagnostic Imaging Results Diagnostic Imaging Results: positive: Final report reviewed, Read independently Diagnostic Imaging Results Comments: CT abd/pelvis neg except dilated CBD at 1.2 cm. US abd: nl gallbladder, mild CBD dilatation with possible debris in distal duct. Results - Results Fish Bones: 12/13/17 09:20 12/13/17 09:20 - Intake & Output Intake & Output: Intake & Output 12/10/17 12/11/17 12/12/17 12/13/17 23:59 23:59 23:59 23:59 Intake Total 100 Balance 100
[2017-12-13] MEDS: MORPHINE 2 MG/ML SYRINGE IVP PRN (19:40)
[2017-12-13] MEDS: HEPARIN 5,000 UNIT/ML VIAL SUBQ SCH (20:02)
[2017-12-13] MEDS ORDERED: TEMAZEPAM 15 MG CAPSULE PO PRN (20:19)
[2017-12-14] MEDS: SODIUM CHLORIDE FLUSH 0.9% 10 ML SYRINGE IVP SCH ×3 (00:26→16:13)
[2017-12-14] MEDS: SODIUM CHLORIDE FLUSH 0.9% 10 ML SYRINGE IVP PRN ×4 (02:42→06:45)
[2017-12-14] MEDS: PIPERACILLIN/TAZOBACTAM 2.25 GM in SODIUM CHLORIDE 0.9% MINIBAG 100 ML IV SCH ×4 (04:10→21:58)
[2017-12-14 05:41] LABS: BASOPHILS % (AUTO) 1.1 %; EOSINOPHILS # (AUTO) 0.5 10^3/uL (0.0-0.7); EOSINOPHILS % (AUTO) 11.4 %; HGB - HEMOGLOBIN 11.1 g/dL (12.0-16.0); LYMPHOCYTES % (AUTO) 25.7 %; MEAN CORPUSCULAR HEMOGLOBIN 32.5 pg (27.0-31.0); MEAN CORPUSCULAR HGB CONC 32.2 g/dL (32.0-36.0); MEAN CORPUSCULAR VOLUME 100.8 fL (81.0-99.0); MEAN PLATELET VOLUME 8.8 fL (7.9-10.8); MONOCYTES # (AUTO) 0.8 10^3/uL (0.0-1.0); MONOCYTES % (AUTO) 20.8 %; NEUTROPHILS # (AUTO) 1.7 10^3/uL (1.5-6.6); PLT - PLATELET COUNT 151 10^3/uL (130-450); RED BLOOD COUNT 3.43 10^6/uL (4.20-5.40); RED CELL DISTRIBUTION WIDTH 14.8 % (12.0-15.0); WHITE BLOOD COUNT 4.1 x10^3/uL (4.8-10.8)
[2017-12-14 05:58] LABS: ALBUMIN 2.8 g/dL (3.2-5.5); ALBUMIN/GLOBULIN RATIO 1.1 (1.0-2.2); BILIRUBIN,TOTAL 0.8 mg/dL (0.2-1.0); CALCIUM 8.9 mg/dL (8.5-10.3); CREATININE 1.4 mg/dL (0.4-1.0); MAGNESIUM 1.3 mg/dL (1.7-2.8); TOTAL PROTEIN 5.3 g/dL (6.7-8.2)
[2017-12-14] MEDS: PANTOPRAZOLE 40 MG VIAL IVP SCH (06:41)
[2017-12-14] MEDS: MAGNESIUM SULFATE 2 GRAM 2 GM/50 ML BAG IV SCH ×2 (07:11→10:12)
[2017-12-14] MEDS: SODIUM CHLORIDE 0.9% 1,000 ML IV SCH (10:07)
[2017-12-14] MEDS: MAGNESIUM OXIDE 400 MG TABLET PO SCH (10:14)
[2017-12-14] MEDS: ASPIRIN CHEW 81 MG TABLET PO SCH (10:14)
[2017-12-14] MEDS: METOPROLOL TARTRATE 25 MG TABLET PO SCH (10:14)
[2017-12-14] MEDS: HEPARIN 5,000 UNIT/ML VIAL SUBQ SCH ×2 (10:15→20:18)
[2017-12-14] MEDS: POLYETHYLENE GLYCOL 3350 17 GM PACKET PO SCH (10:21)
--- NOTE | 2017-12-14 15:21 | PROVIDER PROGRESS NOTE ---
Subjective - Prog Note Date Prog Note Date: 12/14/17 - Subjective Pt reports feeling: Improved Subjective: pt report her upper quadrant pain is better controlled, report some nausea at morning but no vomiting. No chest pain, SOB, fever, chill. No diarrhea now. pt failed to do MRI and refused to try again with Ativan. pt presented extreme phobia in the MRI setting. She asked for opened MRI. Unfortunately we do not have opened MRI. I explained to pt, she may have it as out-pt. I called Dr. Jaya Cat. Dr. Cat recommend pt stay overnight to check if her upper quadrant pain is more controlled, N/V is better, may d/c tomorrow. Current Medications - Current Medications Current Medications: Active Medications Acetaminophen (Tylenol) 650 mg PO Q4HR PRN PRN Reason: Pain 1 to 4 Aspirin ([facility] Matteo Aspirin) 81 mg PO DAILY [facility] Last Admin: 12/14/17 10:14 Dose: 81 mg Clonidine HCl (Catapres) 0.1 mg PO BID PRN PRN Reason: Hypertensive Emergency Heparin Sodium (Porcine) () 2,500 unit SUBQ BID [facility] Last Admin: 12/14/17 10:15 Dose: 2,500 unit Piperacillin Sod/Tazobactam (Sod 2.25 gm/ Sodium Chloride) 100 mls @ 200 mls/ hr IV Q6H [facility] Last Infusion: 12/14/17 11:54 Dose: Infused Sodium Chloride (Normal Saline 0.9%) 1,000 mls @ 75 mls/hr IV .[id number] [facility] Last Admin: 12/14/17 10:07 Dose: 75 mls/hr Magnesium Oxide (Mag Ox) 400 mg PO DAILYWM [facility] Last Admin: 12/14/17 10:14 Dose: 400 mg Metoprolol Tartrate (Lopressor) 25 mg PO DAILY [facility] Last Admin: 12/14/17 10:14 Dose: 25 mg Morphine Sulfate (Morphine) 2 mg IVP Q2H PRN PRN Reason: Pain 8 to 10 Last Admin: 12/13/17 19:40 Dose: 2 mg Ondansetron HCl (Zofran Inj) 4 mg IVP Q6HR PRN PRN Reason: Nausea / Vomiting Pantoprazole Sodium (Protonix) 40 mg IVP QDAC [facility] Last Admin: 12/14/17 06:41 Dose: 40 mg Polyethylene Glycol (Miralax) 17 gm PO DAILY [facility] Last Admin: 12/14/17 10:21 Dose: Not Given Sodium Chloride (Normal Saline Flush 0.9%) 10 ml IVP PRN PRN PRN Reason: NEEDED PER PROVIDER ORDERS Last Admin: 12/14/17 06:45 Dose: 10 ml Sodium Chloride (Normal Saline Flush 0.9%) 10 ml IVP 0100,0900,1700 [facility] Last Admin: 12/14/17 14:43 Dose: Not Given Temazepam (Restoril) 15 mg PO QPM PRN PRN Reason: Insomnia Allopurinol 300 mg PO DAILY 04/04/13 Aspirin Chewable [[facility] Matteo Aspirin] 81 mg PO DAILY 04/04/13 Cholecalciferol (Vitamin D3) [Vitamin D] 2,000 unit PO DAILY 04/04/13 Ustekinumab [Stelara] 45 mg SUBQ 12/13/17 Atorvastatin Calcium [Atorvastatin Calcium] 20 mg PO DAILY 12/14/17 Mirabegron [Myrbetriq] 25 mg PO DAILY 12/14/17 Multivitamin/Iron/Folic Acid [Centrum Adults Tablet] 1 each PO DAILY 12/14/17 [place]-3/Dha/Epa/Fish Oil [Fish Oil Gummies] 1 each PO DAILY 12/14/17 Psyllium Husk [Fiber] 5 g PO DAILY 12/14/17 hydrOXYzine HCl [Hydroxyzine HCl] 10 mg PO QPM 12/14/17 Objective - Vital Signs/Intake & Output Reviewed Vital Signs: Yes Vital Signs: Vital Signs x48h Temp Pulse Resp BP Pulse Ox 12/14/17 13:00 36.4 C L 61 18 128/52 L 97 Intake & Output: Intake & Output 12/11/17 12/12/17 12/13/17 12/14/17 23:59 23:59 23:59 23:59 Intake Total 720 Balance 720 - Objective General Appearance: positive: No acute distress, Alert. negative: Lethargic Eyes Bilateral: positive: Normal inspection, PERRL, No lid inflammation, Conjunctivae nml ENT: positive: ENT inspection nml, Pharynx nml, No signs of dehydration. negative: Purulent nasal drainage, Pharyngeal erythema, Oral lesions Neck: positive: Nml inspection, Thyroid nml, No JVD, Trachea midline. negative : Thyromegaly, Lymphadenopathy (R), Lymphadenopathy (L), Stiff neck, Carotid bruit, Swelling/bruising, Tracheal deviation Respiratory: positive: Chest non-tender, No respiratory distress, Breath sounds nml. negative: Wheezes, Rales, Rhonchi Cardiovascular: positive: Regular rate & rhythm, No murmur, No gallop. negative : Irregularly irregular, Extrasystoles, Tachycardia, Bradycardia, JVD present, Systolic murmur, Diastolic murmur Peripheral Pulses: 2+ Radial (R), 2+ Radial (L), 2+ Dorsalis pedis (R), 2+ Dorsalis pedis (L) Abdomen: positive: Non-tender, No organomegaly, Nml bowel sounds, No distention. negative: Tenderness, Guarding, Rebound Back: positive: Nml inspection. negative: CVA tenderness (R), CVA tenderness (L ) Skin: positive: Color nml, No rash, Warm, Dry. negative: Cyanosis, Diaphoresis , Pallor Extremities: positive: Non-tender, Full ROM, Nml appearance. negative: Calf tenderness, Joint swelling, Rosana's sign/cords Neurologic/Psychiatric: positive: Oriented x3, Motor nml, Sensation nml, Mood/ affect nml. negative: Sensory loss, Facial droop, Slurred/abnml speech, Depressed mood/affect - Lab Results Fish Bones: 12/15/17 05:20 12/15/17 05:20 ABX Reporting Has patient been on IV antibiotics over the past 48 hours?: Yes Assessment/Plan - Problem List (1) Right upper quadrant abdominal pain Impression: Conclusion/Plan: pt report mild upper quadrant pain but is better than yesterday, once nausea at morning but no vomiting. pt refused to have MRCP due to phobia, even given ativan, pt does not desire to try plan transfer to other acute hospital for ERCP if pt continue to have symptoms IVF with NS clear diet, advanced as tolerated pt present right upper quadrant beginning today. CT and US does not reveals clear etiology consult with surgeon, follow up pain control MRCP, follow up IVF with NS clear diet, advanced as tolerated renal adjusted Zosyn initiate (2) Nausea & vomiting Conclusion/Plan: antiemesis PRN clear diet, advanced as tolerated unknown etiology, can be virus infection daily lab to correct electrolyte IVF of NS antiemesis PRN clear diet, advanced as tolerated (3) Diarrhea Conclusion/Plan: resolved pt report green liquid diarrhea. check C.diff, Ova/para follow up IVF NS daily lab and vital monitor (4) Dehydration Conclusion/Plan: improved, continue gently hydration IVF pt present elevated BUN and creatinine compared pervious study hydration with IVF of NS, precaution of fluid overload daily lab monitor (5) HTN (hypertension) Conclusion/Plan: resume home metoprolol add Clonidine PRN vital monitor (6) Hx of coronary artery disease Conclusion/Plan: stable, resume home Aspirin tele and vital monitor (7) Gout Conclusion/Plan: resume home Allopurinal
--- NOTE | 2017-12-14 16:20 | PROVIDER PROGRESS NOTE ---
Assessment/Plan - Problem List (1) Abdominal pain Qualifiers: Abdominal location: upper abdomen, unspecified Qualified Code(s): R10.10 - Upper abdominal pain, unspecified Assessment/Plan: Persistent nausea and upper abd pain associated with dilated common bile duct on CT & US; sx concerning for choledocholithiasis or ampullary lesion/ stricture.. Rec: Since pt was unable to tolerate MRCP, suggest ERCP for further evaluation. - Current Meds Current Meds: Current Medications Generic Name Dose Route Start Last Admin Trade Name Freq PRN Reason Stop Dose Admin Acetaminophen 650 mg 12/13/17 14:26 12/14/17 16:05 Tylenol PO 650 mg Q4HR PRN Administration Pain 1 to 4 Aspirin 81 mg 12/14/17 09:00 12/14/17 10:14 [facility] Matteo Aspirin PO 81 mg DAILY [facility] Administration Heparin Sodium (Porcine) 2,500 unit 12/13/17 21:00 12/14/17 10:15 SUBQ 2,500 unit BID [facility] Administration Piperacillin Sod/Tazobactam 100 mls @ 200 mls/hr 12/13/17 16:00 12/14/17 16: 05 Sod 2.25 gm/ Sodium Chloride IV 200 mls/hr Q6H [facility] Administration Sodium Chloride 1,000 mls @ 75 mls/hr 12/14/17 08:00 12/14/17 10:07 Normal Saline 0.9% IV 75 mls/hr .[id number] [facility] Administration Magnesium Oxide 400 mg 12/14/17 07:00 12/14/17 10:14 Mag Ox PO 400 mg DAILYWM [facility] Administration Metoprolol Tartrate 25 mg 12/14/17 09:00 12/14/17 10:14 Lopressor PO 25 mg DAILY [facility] Administration Morphine Sulfate 2 mg 12/13/17 14:26 12/13/17 19:40 Morphine IVP 2 mg Q2H PRN Administration Pain 8 to 10 Ondansetron HCl 4 mg 12/13/17 14:26 12/14/17 16:13 Zofran Inj IVP 4 mg Q6HR PRN Administration Nausea / Vomiting Pantoprazole Sodium 40 mg 12/13/17 15:00 12/14/17 06:41 Protonix IVP 40 mg QDAC [facility] Administration Polyethylene Glycol 17 gm 12/14/17 09:00 12/14/17 10:21 Miralax PO Not Given DAILY [facility] Sodium Chloride 10 ml 12/13/17 14:26 12/14/17 06:45 Normal Saline Flush 0.9% IVP 10 ml PRN PRN Administration NEEDED PER PROVIDER ORDERS Sodium Chloride 10 ml 12/13/17 17:00 12/14/17 16:13 Normal Saline Flush 0.9% IVP 10 ml 0100,0900,1700 [facility] Administration - Lab Result Fish Bone Diagrams: 12/14/17 05:06 12/14/17 05:06 - Additional Planning Condition/Complexity: Stable Plan Discussed with:: Patient Time Spent: 15-30 minutes Subjective - Subjective Patient Reports: Feeling Better, Abdominal Pain, Nausea (Vomiting and diarrhea resolved; nausea and upper abd pain persist; tolerating clear liquids so far.), Other (pt developed panic attack in MRI machine; procedure was cancelled.) Objective Vital Signs: Vital Signs - 24 hr 12/14/17 12/14/17 13:00 15:33 Temperature 36.4 C L 36.6 C Heart Rate [ 61 65 Apical] Respiratory 18 18 Rate Blood Pressure 128/52 L 124/49 L [Right Brachial artery] O2 Saturation 97 96 Oxygen O2 Source Room air I&O (Last 24 Hrs): Intake and Output Totals x24h 12/12/17 12/13/17 12/14/17 23:59 23:59 23:59 Intake Total 720 Balance 720 General: Alert, Oriented x3, Cooperative, Mild distress Neck: No JVD Neuro: Alert Cardiovascular: Regular rate, Normal S1, Normal S2, No murmurs, Gallops, Rubs Respiratory: Chest non-tender, No respiratory distress, Breath sounds nml Abdomen: Soft, Other (mild upper abd tenderness with guarding; no rebound or peritoneal signs) Extremities: No edema, No tenderness/swelling - Results Results: Laboratory Results WBC 4.1 x10^3/uL (4.8-10.8) L 12/14/17 05:06 RBC 3.43 10^6/uL (4.20-5.40) L 12/14/17 05:06 Hgb 11.1 g/dL (12.0-16.0) L 12/14/17 05:06 Hct 34.6 % (37.0-47.0) L 12/14/17 05:06 MCV 100.8 fL (81.0-99.0) H 12/14/17 05:06 MCH 32.5 pg (27.0-31.0) H 12/14/17 05:06 MCHC 32.2 g/dL (32.0-36.0) 12/14/17 05:06 RDW 14.8 % (12.0-15.0) 12/14/17 05:06 Plt Count 151 10^3/uL (130-450) 12/14/17 05:06 MPV 8.8 fL (7.9-10.8) 12/14/17 05:06 Neut # (Auto) 1.7 10^3/uL (1.5-6.6) 12/14/17 05:06 Lymph # (Auto) 1.0 10^3/uL (1.5-3.5) L 12/14/17 05:06 [place] # (Auto) 0.8 10^3/uL (0.0-1.0) 12/14/17 05:06 Eos # (Auto) 0.5 10^3/uL (0.0-0.7) 12/14/17 05:06 Baso # (Auto) 0.0 10^3/uL (0.0-0.1) 12/14/17 05:06 Absolute Nucleated RBC 0.00 x10^3/uL 12/14/17 05:06 Nucleated RBC % 0.0 /100WBC 12/14/17 05:06 Sodium 138 mmol/L (135-145) 12/14/17 05:06 Potassium 3.8 mmol/L (3.5-5.0) 12/14/17 05:06 Chloride 107 mmol/L (101-111) 12/14/17 05:06 Carbon Dioxide 24 mmol/L (21-32) 12/14/17 05:06 Anion Gap 7.0 (6-13) 12/14/17 05:06 BUN 23 mg/dL (6-20) H 12/14/17 05:06 Creatinine 1.4 mg/dL (0.4-1.0) H 12/14/17 05:06 Estimated GFR (MDRD) 36 (>89) L 12/14/17 05:06 Glucose 85 mg/dL (70-100) 12/14/17 05:06 Calcium 8.9 mg/dL (8.5-10.3) 12/14/17 05:06 Magnesium 1.3 mg/dL (1.7-2.8) L 12/14/17 05:06 Total Bilirubin 0.8 mg/dL (0.2-1.0) 12/14/17 05:06 AST 54 IU/L (10-42) H 12/14/17 05:06 ALT 36 IU/L (10-60) 12/14/17 05:06 Alkaline Phosphatase 84 IU/L (42-121) 12/14/17 05:06 Total Protein 5.3 g/dL (6.7-8.2) L 12/14/17 05:06 Albumin 2.8 g/dL (3.2-5.5) L 12/14/17 05:06 Globulin 2.5 g/dL (2.1-4.2) 12/14/17 05:06 Albumin/Globulin Ratio 1.1 (1.0-2.2) 12/14/17 05:06 Lipase 18 U/L (22-51) L 12/13/17 09:20 Urine Color YELLOW 12/13/17 11:40 Urine Clarity CLEAR (CLEAR) 12/13/17 11:40 Urine pH 6.0 PH (5.0-7.5) 12/13/17 11:40 Ur Specific [place] 1.010 (1.002-1.030) 12/13/17 11:40 Urine Protein NEGATIVE mg/dL (NEGATIVE) 12/13/17 11:40 Urine Glucose (UA) NEGATIVE mg/dL (NEGATIVE) 12/13/17 11:40 Urine Ketones 15 mg/dL (NEGATIVE) H 12/13/17 11:40 Urine Occult Blood NEGATIVE (NEGATIVE) 12/13/17 11:40 Urine Nitrite NEGATIVE (NEGATIVE) 12/13/17 11:40 Urine Bilirubin NEGATIVE (NEGATIVE) 12/13/17 11:40 Urine Urobilinogen 0.2 (NORMAL) E.U./dL (NORMAL) 12/13/17 11:40 Ur Leukocyte Esterase NEGATIVE (NEGATIVE) 12/13/17 11:40 Ur Microscopic Review NOT INDICATED 12/13/17 11:40 Urine Culture Comments NOT INDICATED 12/13/17 11:40 - Procedures Procedures: Procedures ATTACH PEDICLE TO HAND (04/20/13) DRAINAGE OF R HAND SUBCU/FASCIA, OPEN APPROACH (10/09/16) OTHER LOCAL DESTRUC SKIN (04/20/13) ABX Reporting Has patient been on IV antibiotics over the past 48 hours?: No
[2017-12-14] MEDS: MORPHINE 2 MG/ML SYRINGE IVP PRN (20:16)
[2017-12-15] MEDS: SODIUM CHLORIDE 0.9% 1,000 ML IV SCH ×2 (00:16→11:26)
[2017-12-15] MEDS: SODIUM CHLORIDE FLUSH 0.9% 10 ML SYRINGE IVP SCH ×2 (00:17→08:54)
[2017-12-15] MEDS: MORPHINE 2 MG/ML SYRINGE IVP PRN (00:17)
[2017-12-15] MEDS: PIPERACILLIN/TAZOBACTAM 2.25 GM in SODIUM CHLORIDE 0.9% MINIBAG 100 ML IV SCH ×2 (04:04→09:29)
[2017-12-15] MEDS: SODIUM CHLORIDE FLUSH 0.9% 10 ML SYRINGE IVP PRN ×2 (05:58→05:59)
[2017-12-15] MEDS: PANTOPRAZOLE 40 MG VIAL IVP SCH (05:58)
[2017-12-15 06:05] LABS: BASOPHILS % (AUTO) 1.1 %; EOSINOPHILS # (AUTO) 0.6 10^3/uL (0.0-0.7); EOSINOPHILS % (AUTO) 13.9 %; HGB - HEMOGLOBIN 10.9 g/dL (12.0-16.0); LYMPHOCYTES # (AUTO) 1.3 10^3/uL (1.5-3.5); LYMPHOCYTES % (AUTO) 31.7 %; MEAN CORPUSCULAR HEMOGLOBIN 32.7 pg (27.0-31.0); MEAN CORPUSCULAR HGB CONC 32.3 g/dL (32.0-36.0); MEAN CORPUSCULAR VOLUME 101.1 fL (81.0-99.0); MEAN PLATELET VOLUME 9.1 fL (7.9-10.8); MONOCYTES # (AUTO) 0.9 10^3/uL (0.0-1.0); MONOCYTES % (AUTO) 21.6 %; NEUTROPHILS # (AUTO) 1.3 10^3/uL (1.5-6.6); NEUTROPHILS % (AUTO) 31.7 %; PLT - PLATELET COUNT 154 10^3/uL (130-450); RED BLOOD COUNT 3.32 10^6/uL (4.20-5.40); RED CELL DISTRIBUTION WIDTH 14.3 % (12.0-15.0)
[2017-12-15 06:16] LABS: ALBUMIN 2.7 g/dL (3.2-5.5); ALBUMIN/GLOBULIN RATIO 1.2 (1.0-2.2); BILIRUBIN,TOTAL 0.5 mg/dL (0.2-1.0); CREATININE 1.4 mg/dL (0.4-1.0); MAGNESIUM 2.3 mg/dL (1.7-2.8)
[2017-12-15] MEDS: HEPARIN 5,000 UNIT/ML VIAL SUBQ SCH (08:54)
[2017-12-15] MEDS: POLYETHYLENE GLYCOL 3350 17 GM PACKET PO SCH (08:54)
[2017-12-15] MEDS: METOPROLOL TARTRATE 25 MG TABLET PO SCH (08:59)
[2017-12-15] MEDS: ASPIRIN CHEW 81 MG TABLET PO SCH (08:59)
[2017-12-15] MEDS: MAGNESIUM OXIDE 400 MG TABLET PO SCH (08:59)
--- NOTE | 2017-12-15 11:08 | Discharge Plan ---
Discharge Plan Disposition: Home, Self Care Condition: Poor Prescriptions: Ciprofloxacin HCl [Cipro] 250 mg PO BID #10 tablet Ondansetron HCl [Zofran] 4 mg PO Q6H PRN #15 tablet PRN Reason: Nausea / Vomiting oxyCODONE [Roxicodone] 5 mg PO Q6H PRN #15 tablet PRN Reason: Pain Diet: Regular Activity Restrictions: Activity as Tolerated Shower Restrictions: No (fall precaution) Weight Bearing: Full Weight Instruction Topics: Ciprofloxacin tablets, Oxycodone tablets or capsules, Ondansetron tablets Additional Instructions or Follow Up instructions: You may follow up your PCP in 2-3 days, may have ERCP procedure as out-pt. Should your symptoms return or worsen, you may present ER or call 911 for help. No Smoking: If you smoke, Please STOP! Call for help. Follow-up with: Noah Tyler MD [Primary Care Provider] -
--- NOTE | 2017-12-15 11:16 | DISCHARGE SUMMARY ---
Discharge Summary Discharge Date: 12/15/17 Discharging Provider: KULKARNI Primary Care Provider: Dr. Tyler Condition at Discharge: Poor Discharge Disposition: 01 Home, Self Care Discharge Facility Name: home - DIAGNOSES Admission Diagnoses: (1) Right upper quadrant abdominal pain (2) Nausea & vomiting (3) Diarrhea (4) Dehydration (5) HTN (hypertension) (6) Hx of coronary artery disease (7) Gout Discharge Diagnoses with Status of Each Condition: (1) Right upper quadrant abdominal pain resolved. pt is tolerated the diet, and request to be d/c to home today. Pt is advised to follow up her PCP, and have ERCP as out-pt setting per surgeon Dr. Jaya snyder's recommendation. Cipro is prescribed (2) Nausea & vomiting resolved (3) Diarrhea resolved (4) Dehydration resolved, (5) HTN (hypertension) stable, follow up PCP for management (6) Hx of coronary artery disease stable, follow up PCP for management (7) Gout stable, - HPI History of Present Illness: Ms. Regalado is 82-yrs-old female with a PMH significance for HLD, COPD, shortness of breath, sleep apnea, GERD, GI bleeding, urinary incontinence, Depression, Anxiety, psoriatic arthritis, Gout, Chronic back pain, who present ER for complaint of right upper quadrant pain. pt reported she started to have right upper quadrant pain from today morning. Pain was located at right upper quadrant and did not radiate to the back. Pt report she has been nausea and vomiting, and with vlkly-sbcue-dajaeq-like diarrhea for a week. pt report she can not ate down food. Pt denies recent travel. Pt denies chest pain, shortness of breath, fever, chill, hematemesis, black stool. She report she was treated for UTI one week ago when she was found to have UTI in the PCP office. US of abdomen limited reveals no gallstones or sonographic evidence of acute cholecystitis, mildly prominent common bile duct with possible debris in the lower common bile duct. CT of abdomen without contrast reveals apparent dilatation of the common bile duct, otherwise no acute abnormality identified. pt is afebrile, slight elevated blood pressure otherwise hemodynamical stable. Lab test in ER reveals WBC 4.1, Lipase 18, AST 65, total bilirubin 1.1, Bun 29, creatinine 1.5. - ALLERGIES Allergies/Adverse Reactions: Allergies Allergy/AdvReac Type Severity Reaction Status Date / Time promethazine HCl * Allergy Severe UNCONSCIOUS Verified 06/12/17 21:25 [From Phenergan] fentanyl Allergy Unknown unknown Verified 06/12/17 21:25 Penicillins Allergy Hives Verified 06/12/17 21:25 Sulfa (Sulfonamide Allergy Hives Verified 06/12/17 21:25 Antibiotics) - MEDICATIONS Home Medications: Ambulatory Orders Medication Instructions Recorded Confirmed Allopurinol 300 mg PO DAILY 04/04/13 12/14/17 Aspirin Chewable [St Matteo 81 mg PO DAILY 04/04/13 12/14/17 Aspirin] Cholecalciferol (Vitamin D3) 2,000 unit PO DAILY 04/04/13 12/14/17 [Vitamin D3] Ustekinumab [Stelara] 45 mg SUBQ 12/13/17 Atorvastatin Calcium 20 mg PO DAILY 12/14/17 12/14/17 Mirabegron [Myrbetriq] 25 mg PO DAILY 12/14/17 12/14/17 Multivitamin/Iron/Folic Acid 1 each PO DAILY 12/14/17 12/14/17 [Centrum Adults Tablet] [place]-3/Dha/Epa/Fish Oil [Fish Oil 1 each PO DAILY 12/14/17 12/14/17 Gummies] Psyllium Husk [Fiber] 5 g PO DAILY 12/14/17 12/14/17 hydrOXYzine HCl [Hydroxyzine HCl] 10 mg PO QPM 12/14/17 12/14/17 Ciprofloxacin HCl [Cipro] 250 mg PO BID #10 tablet 12/15/17 Ondansetron HCl [Zofran] 4 mg PO Q6H PRN #15 tablet 12/15/17 oxyCODONE [Roxicodone] 5 mg PO Q6H PRN #15 tablet 12/15/17 - PHYSICAL EXAM AT DISCHARGE General Appearance: positive: No acute distress, Alert. negative: Lethargic Eyes Bilateral: positive: Normal inspection, PERRL, No lid inflammation, Conjunctivae nml ENT: positive: ENT inspection nml, Pharynx nml, No signs of dehydration. negative: Purulent nasal drainage, Pharyngeal erythema, Oral lesions Neck: positive: Nml inspection, Thyroid nml, No JVD, Trachea midline. negative : Thyromegaly, Lymphadenopathy (R), Lymphadenopathy (L), Stiff neck, Swelling/ bruising, Tracheal deviation Respiratory: positive: Chest non-tender, No respiratory distress, Breath sounds nml. negative: Wheezes, Rales, Rhonchi Cardiovascular: positive: Regular rate & rhythm, No murmur, No gallop. negative : Irregularly irregular, Extrasystoles, Tachycardia, Bradycardia, JVD present, Systolic murmur, Diastolic murmur Peripheral Pulses: positive: 2+ Abdomen: positive: Non-tender, No organomegaly, Nml bowel sounds, No distention. negative: Tenderness, Guarding, Rebound Back: positive: Nml inspection. negative: CVA tenderness (R), CVA tenderness (L ) Skin: positive: Color nml, No rash, Warm, Dry. negative: Cyanosis, Diaphoresis , Pallor Extremities: positive: Non-tender, Full ROM, Nml appearance. negative: Calf tenderness, Joint swelling, Rosana's sign/cords Neurologic/Psychiatric: positive: Oriented x3, Motor nml, Sensation nml, Mood/ affect nml. negative: Sensory loss, Facial droop, Slurred/abnml speech, Depressed mood/affect - LABS Result Diagrams: 12/15/17 05:20 12/15/17 05:20 - FOLLOW UP Follow Up: You may follow up your PCP in 2-3 days, may have ERCP procedure as out-pt. Should your symptoms return or worsen, you may present ER or call 911 for help - TIME SPENT Time Spent in Discharge (Minutes): 45
[2017-12-15] MEDS ORDERED: SIMETHICONE CHEW 80 MG TABLET PO PRN (11:18)
[2017-12-15 11:28] VITALS: BP 121/99
--- NOTE | 2017-12-15 14:45 | PROVIDER PROGRESS NOTE ---
Assessment/Plan - Problem List (1) Abdominal pain Qualifiers: Abdominal location: upper abdomen, unspecified Qualified Code(s): R10.10 - Upper abdominal pain, unspecified Assessment/Plan: Now resolved; sx appear suggestive of biliary colic/choledocholithiasis. No evidence of cholangitis. Rec: OK to advance to low fat diet and if well tolerated, arrange for outpt ERCP. - Lab Result Lab results reviewed: Yes Fish Bone Diagrams: 12/15/17 05:20 12/15/17 05:20 Other Lab Results: LFTs nl except AST 48 - Additional Planning Condition/Complexity: Improved Plan Discussed with:: Patient Time Spent: 15-30 minutes Subjective - Subjective Patient Reports: Feeling Better (N/V/D/abd pain resolved; tolerating clear liquid diet well.), Resting Comfortably, No Complaints Nursing Reports: No Complaints Objective Vital Signs: Vital Signs - 24 hr 12/14/17 12/14/17 12/15/17 15:33 20:01 00:07 Temperature 36.6 C 36.7 C 36.8 C Heart Rate [ 65 59 L 62 Apical] Respiratory 18 18 18 Rate Blood Pressure 124/49 L 129/68 148/58 H [Right Brachial artery] O2 Saturation 96 98 97 12/15/17 12/15/17 12/15/17 05:10 08:58 11:24 Temperature 36.5 C 36.6 C 36.5 C Heart Rate [ 60 63 57 L Apical] Respiratory 18 16 16 Rate Blood Pressure 151/52 H 120/50 L 121/99 H [Right Brachial artery] O2 Saturation 98 100 96 Oxygen O2 Source Room air I&O (Last 24 Hrs): Intake and Output Totals x24h 12/13/17 12/14/17 12/15/17 23:59 23:59 23:59 Intake Total 2720 1656 Output Total 100 100 Balance 2620 1556 General: Alert, Oriented x3, Cooperative HEENT: Other (sclera nonicteric) Neck: No JVD Neuro: Alert Cardiovascular: Regular rate, Normal S1, Normal S2, No murmurs, Gallops, Rubs Respiratory: Chest non-tender, No respiratory distress, Breath sounds nml Abdomen: Normal bowel sounds, Soft, No tenderness, No hepatospenomegaly, No masses Extremities: No tenderness/swelling - Results Results: Laboratory Results WBC 4.0 x10^3/uL (4.8-10.8) L 12/15/17 05:20 RBC 3.32 10^6/uL (4.20-5.40) L 12/15/17 05:20 Hgb 10.9 g/dL (12.0-16.0) L 12/15/17 05:20 Hct 33.6 % (37.0-47.0) L 12/15/17 05:20 MCV 101.1 fL (81.0-99.0) H 12/15/17 05:20 MCH 32.7 pg (27.0-31.0) H 12/15/17 05:20 MCHC 32.3 g/dL (32.0-36.0) 12/15/17 05:20 RDW 14.3 % (12.0-15.0) 12/15/17 05:20 Plt Count 154 10^3/uL (130-450) 12/15/17 05:20 MPV 9.1 fL (7.9-10.8) 12/15/17 05:20 Neut # (Auto) 1.3 10^3/uL (1.5-6.6) L 12/15/17 05:20 Lymph # (Auto) 1.3 10^3/uL (1.5-3.5) L 12/15/17 05:20 [place] # (Auto) 0.9 10^3/uL (0.0-1.0) 12/15/17 05:20 Eos # (Auto) 0.6 10^3/uL (0.0-0.7) 12/15/17 05:20 Baso # (Auto) 0.0 10^3/uL (0.0-0.1) 12/15/17 05:20 Absolute Nucleated RBC 0.01 x10^3/uL 12/15/17 05:20 Nucleated RBC % 0.1 /100WBC 12/15/17 05:20 Sodium 136 mmol/L (135-145) 12/15/17 05:20 Potassium 3.8 mmol/L (3.5-5.0) 12/15/17 05:20 Chloride 107 mmol/L (101-111) 12/15/17 05:20 Carbon Dioxide 25 mmol/L (21-32) 12/15/17 05:20 Anion Gap 4.0 (6-13) L 12/15/17 05:20 BUN 18 mg/dL (6-20) 12/15/17 05:20 Creatinine 1.4 mg/dL (0.4-1.0) H 12/15/17 05:20 Estimated GFR (MDRD) 36 (>89) L 12/15/17 05:20 Glucose 89 mg/dL (70-100) 12/15/17 05:20 Calcium 8.0 mg/dL (8.5-10.3) L 12/15/17 05:20 Magnesium 2.3 mg/dL (1.7-2.8) 12/15/17 05:20 Total Bilirubin 0.5 mg/dL (0.2-1.0) 12/15/17 05:20 AST 48 IU/L (10-42) H 12/15/17 05:20 ALT 36 IU/L (10-60) 12/15/17 05:20 Alkaline Phosphatase 74 IU/L (42-121) 12/15/17 05:20 Total Protein 5.0 g/dL (6.7-8.2) L 12/15/17 05:20 Albumin 2.7 g/dL (3.2-5.5) L 12/15/17 05:20 Globulin 2.3 g/dL (2.1-4.2) 12/15/17 05:20 Albumin/Globulin Ratio 1.2 (1.0-2.2) 12/15/17 05:20 Lipase 18 U/L (22-51) L 12/13/17 09:20 Vitamin B12 675 pg/mL (180-914) 12/15/17 05:20 Urine Color YELLOW 12/13/17 11:40 Urine Clarity CLEAR (CLEAR) 12/13/17 11:40 Urine pH 6.0 PH (5.0-7.5) 12/13/17 11:40 Ur Specific [place] 1.010 (1.002-1.030) 12/13/17 11:40 Urine Protein NEGATIVE mg/dL (NEGATIVE) 12/13/17 11:40 Urine Glucose (UA) NEGATIVE mg/dL (NEGATIVE) 12/13/17 11:40 Urine Ketones 15 mg/dL (NEGATIVE) H 12/13/17 11:40 Urine Occult Blood NEGATIVE (NEGATIVE) 12/13/17 11:40 Urine Nitrite NEGATIVE (NEGATIVE) 12/13/17 11:40 Urine Bilirubin NEGATIVE (NEGATIVE) 12/13/17 11:40 Urine Urobilinogen 0.2 (NORMAL) E.U./dL (NORMAL) 12/13/17 11:40 Ur Leukocyte Esterase NEGATIVE (NEGATIVE) 12/13/17 11:40 Ur Microscopic Review NOT INDICATED 12/13/17 11:40 Urine Culture Comments NOT INDICATED 12/13/17 11:40 - Procedures Procedures: Procedures ATTACH PEDICLE TO HAND (04/20/13) DRAINAGE OF R HAND SUBCU/FASCIA, OPEN APPROACH (10/09/16) OTHER LOCAL DESTRUC SKIN (04/20/13) ABX Reporting Has patient been on IV antibiotics over the past 48 hours?: Yes
== END 2017-12-15 13:13 | disposition home or self-care (01) | DRG 446 ==
LOC: ED 08:44 → MS2 14:26 → OBSVTOIN 12-14 12:04
PROVIDERS: ADMIT Nurse Practitioner Gerontology; ATTEND Nurse Practitioner Gerontology
DX: R10.11 Right upper quadrant pain (principal); R19.7 Diarrhea, unspecified; R94.8 Abnormal results of function studies of other organs and systems; N28.9 Disorder of kidney and ureter, unspecified; R11.2 Nausea with vomiting, unspecified; E11.9 Type 2 diabetes mellitus without complications; K83.8 Other specified diseases of biliary tract; E86.0 Dehydration; I10 Essential (primary) hypertension; J44.9 Chronic obstructive pulmonary disease, unspecified; G47.30 Sleep apnea, unspecified; E78.00 Pure hypercholesterolemia, unspecified; M10.9 Gout, unspecified; K21.9 Gastro-esophageal reflux disease without esophagitis; L40.50 Arthropathic psoriasis, unspecified; I25.10 Atherosclerotic heart disease of native coronary artery without angina pectoris; E78.5 Hyperlipidemia, unspecified; R32 Unspecified urinary incontinence; F41.9 Anxiety disorder, unspecified; F32.9 Major depressive disorder, single episode, unspecified; M19.90 Unspecified osteoarthritis, unspecified site; G89.29 Other chronic pain; M54.9 Dorsalgia, unspecified; Z66 Do not resuscitate; Z79.82 Long term (current) use of aspirin; Z79.899 Other long term (current) drug therapy; Z95.1 Presence of aortocoronary bypass graft; Z87.440 Personal history of urinary (tract) infections; Z87.19 Personal history of other diseases of the digestive system
CPT/HCPCS: 36415; 74176; 76705; 80053; 81001; 81003; 82607; 83690; 83735; 85025; 87086; 96365; 96366; 96367; 96375; 96376; 99284

== ENCOUNTER 2017-12-26 16:24 | Outpatient (CLI) | payer MEDICARE, OTHER | END 2017-12-26 16:25 | disposition critical access hospital (66) | LOC: EMS 16:24 | PROVIDERS: ATTEND Surgery | DX: R10.11 Right upper quadrant pain (principal) | CPT/HCPCS: A0425; A0429 ==

== ENCOUNTER 2017-12-26 16:41 | Emergency (ER) | payer MEDICARE, OTHER ==
[2017-12-26] MEDS ORDERED: SODIUM CHLORIDE 0.9% 1,000 ML IV ONE (16:48)
[2017-12-26] MEDS ORDERED: oxyCODONE 5 MG TABLET PO STA (16:54)
--- NOTE | 2017-12-26 16:54 | ED Physician Documentation ---
PD HPI ABD PAIN - Stated complaint Stated Complaint: ABD PX - Chief complaint Chief Complaint: Abd Pain - History obtained from History obtained from: Patient, Friend, EMS - History of Present Illness Timing - onset: Other (This is a jeromy 82-year-old woman who was admitted a couple of weeks ago for right upper quadrant pain. The workup demonstrated abnormally large common bile duct on CT, 12 mm and certainly a concern for choledocholithiasis on ultrasound. She did not tolerate MRCP because of claustrophobia and was discharged with instructions to seek a referral for an outpatient ERCP. She has seen her doctor in the interim who because of the risk of ERCP wanted to try to wait it out, however she been in pain all day every day since discharge from here which is not managed by oxycodone and today she became a little worse and more cautious and had emesis 1. She really has not been eating at all but says if she does nibble the pain does get worse. It does not radiate and it is a sharp pain.) Review of Systems Ten Systems: 10 systems reviewed and negative Constitutional: denies: Fever, Chills Cardiac: denies: Chest pain / pressure, Palpitations Respiratory: denies: Dyspnea, Cough GI: denies: Constipation, Diarrhea, Hematemesis, Bloody / black stool PD PAST MEDICAL HISTORY - Past Medical History Cardiovascular: High cholesterol Respiratory: COPD, Shortness of breath, Sleep apnea, Other Neuro: None Endocrine/Autoimmune: Type 2 diabetes GI: GERD, GI bleed [employer] DEVELOPER: None : Incontinence HEENT: None Psych: Depression, Anxiety Musculoskeletal: Osteoarthritis, Gout, Chronic back pain Derm: None - Past Surgical History Past Surgical History: Yes General: Colonoscopy Ortho: Spine surgery /[employer] DEVELOPER: Hysterectomy Cardiovascular: CABG HEENT: Tonsil/Adenoidectomy - Present Medications Home Medications: Ambulatory Orders Medication Instructions Recorded Confirmed Allopurinol 300 mg PO DAILY 04/04/13 12/14/17 Aspirin Chewable [St Matteo 81 mg PO DAILY 04/04/13 12/14/17 Aspirin] Cholecalciferol (Vitamin D3) 2,000 unit PO DAILY 04/04/13 12/14/17 [Vitamin D3] Ustekinumab [Stelara] 45 mg SUBQ 12/13/17 Atorvastatin Calcium 20 mg PO DAILY 12/14/17 12/14/17 Mirabegron [Myrbetriq] 25 mg PO DAILY 12/14/17 12/14/17 Multivitamin/Iron/Folic Acid 1 each PO DAILY 12/14/17 12/14/17 [Centrum Adults Tablet] [place]-3/Dha/Epa/Fish Oil [Fish Oil 1 each PO DAILY 12/14/17 12/14/17 Gummies] Psyllium Husk [Fiber] 5 g PO DAILY 12/14/17 12/14/17 hydrOXYzine HCl [Hydroxyzine HCl] 10 mg PO QPM 12/14/17 12/14/17 Ondansetron HCl [Zofran] 4 mg PO Q6H PRN #15 tablet 12/15/17 oxyCODONE [Roxicodone] 5 mg PO Q6H PRN #15 tablet 12/15/17 - Allergies Allergies/Adverse Reactions: Allergies Allergy/AdvReac Type Severity Reaction Status Date / Time promethazine HCl * Allergy Severe UNCONSCIOUS Verified 12/26/17 16:48 [From Phenergan] fentanyl Allergy Unknown unknown Verified 12/26/17 16:48 Penicillins Allergy Hives Verified 12/26/17 16:48 Sulfa (Sulfonamide Allergy Hives Verified 12/26/17 16:48 Antibiotics) - Social History Does the pt smoke?: No Smoking Status: Never smoker Does the pt drink ETOH?: Yes Does the pt have substance abuse?: No - Family History Family history: reports: Non contributory - Immunizations Immunizations are current?: Yes - POLST Patient has POLST: Yes POLST Status: DNR PD ED PE NORMAL - Vitals Vital signs reviewed: Yes - General General: Alert and oriented X 3, No acute distress - HEENT HEENT: PERRL, EOMI - Neck Neck: Supple, no meningeal sign, No bony TTP - Cardiac Cardiac: RRR, No murmur - Respiratory Respiratory: No respiratory distress, Clear bilaterally - Abdomen Abdomen: Other (Soft, tender in the right upper quadrant with positive Liz sign, no guarding or rebound otherwise.) - Back Back: No CVA TTP, No spinal TTP - Derm Derm: Normal color, Warm and dry - Extremities Extremities: No edema, No calf tenderness / cord - Neuro Neuro: Alert and oriented X 3, Normal speech - Psych Psych: Normal mood, Normal affect Results - Vitals Vitals: Vital Signs - 24 hr 06/12/26/17 12/26/17 16:42 16:51 19:07 Temperature 36.3 C L Heart Rate 75 74 83 Respiratory 16 16 16 Rate Blood Pressure 102/72 102/72 178/126 H O2 Saturation 99 100 100 Oxygen O2 Source Room air - Labs Labs: Laboratory Tests 12/26/17 12/26/17 12/26/17 17:03 17:03 17:03 WBC 7.5 RBC 3.51 L Hgb 11.3 L Hct 34.9 L MCV 99.3 H MCH 32.1 H MCHC 32.3 RDW 15.0 Plt Count 225 MPV 7.6 L Neut # (Auto) 5.4 Lymph # (Auto) 0.9 L [place] # (Auto) 0.6 Eos # (Auto) 0.6 Baso # (Auto) 0.0 Absolute Nucleated RBC 0.00 Nucleated RBC % 0.0 PT 12.0 INR 1.1 Sodium 138 Potassium 4.1 Chloride 101 Carbon Dioxide 29 Anion Gap 8.0 BUN 20 Creatinine 1.3 H Estimated GFR (MDRD) 39 L Glucose 104 H Calcium 8.7 Total Bilirubin 0.8 AST 25 ALT 21 Alkaline Phosphatase 109 Total Protein 6.3 L Albumin 3.7 Globulin 2.6 Albumin/Globulin Ratio 1.4 Lipase 17 L - Rads (name of study) RUQ sono Radiology: EMP read contemporaneously (Dilated common bile duct similar to prior , 13 mm) PD MEDICAL DECISION MAKING - ED course ED course: 82-year-old woman with persistent right upper quadrant pain known abnormal previous ultrasound and CT which was suggestive of choledocholithiasis but did not tolerate MRCP here and was unable to obtain referral for ERCP presents with continued severe pain that is daily. Spoke with the on-call surgeon here, Dr. Jaya Cat who recommended transfer to a facility capable of ERCP in [place] was called for transfer at 6:29 PM. Took call from Dr Peterson, accepted for eval and tx at [facility]. - Sepsis Event Vital Signs: Vital Signs - 24 hr 12/26/17 12/26/17 12/26/17 16:42 16:51 19:07 Temperature 36.3 C L Heart Rate 75 74 83 Respiratory 16 16 16 Rate Blood Pressure 102/72 102/72 178/126 H O2 Saturation 99 100 100 Oxygen O2 Source Room air Departure - Departure Disposition: 02 Transfer Acute Care Hosp Clinical Impression: Abnormal ultrasound of abdomen, Right upper quadrant abdominal pain Condition: Stable
[2017-12-26 17:09] LABS: BASOPHILS % (AUTO) 0.5 %; EOSINOPHILS # (AUTO) 0.6 10^3/uL (0.0-0.7); EOSINOPHILS % (AUTO) 7.4 %; HGB - HEMOGLOBIN 11.3 g/dL (12.0-16.0); LYMPHOCYTES # (AUTO) 0.9 10^3/uL (1.5-3.5); LYMPHOCYTES % (AUTO) 11.8 %; MEAN CORPUSCULAR HEMOGLOBIN 32.1 pg (27.0-31.0); MEAN CORPUSCULAR HGB CONC 32.3 g/dL (32.0-36.0); MEAN CORPUSCULAR VOLUME 99.3 fL (81.0-99.0); MEAN PLATELET VOLUME 7.6 fL (7.9-10.8); MONOCYTES # (AUTO) 0.6 10^3/uL (0.0-1.0); MONOCYTES % (AUTO) 7.7 %; NEUTROPHILS # (AUTO) 5.4 10^3/uL (1.5-6.6); NEUTROPHILS % (AUTO) 72.6 %; PLT - PLATELET COUNT 225 10^3/uL (130-450); RED BLOOD COUNT 3.51 10^6/uL (4.20-5.40); WHITE BLOOD COUNT 7.5 x10^3/uL (4.8-10.8)
[2017-12-26 17:13] LABS: INR 1.1 (0.8-1.2)
[2017-12-26 17:20] LABS: ALBUMIN 3.7 g/dL (3.2-5.5); ALBUMIN/GLOBULIN RATIO 1.4 (1.0-2.2); BILIRUBIN,TOTAL 0.8 mg/dL (0.2-1.0); CALCIUM 8.7 mg/dL (8.5-10.3); CREATININE 1.3 mg/dL (0.4-1.0); TOTAL PROTEIN 6.3 g/dL (6.7-8.2)
--- NOTE | 2017-12-26 18:20 | Ultrasound Report ---
Procedure Date: 12/26/2017 Accession Number: [id number] / [id number] Procedure: US - Abdomen Limited CPT Code: FULL RESULT: EXAM: ABDOMEN ULTRASOUND LIMITED, RUQ EXAM DATE: 12/26/2017 05:47 PM. CLINICAL HISTORY: RUQ pain. COMPARISON: 12/13/2017. TECHNIQUE: Real-time scanning was performed with static images obtained. FINDINGS: Liver: Normal in size with mildly heterogeneous echotexture. 14.1 cm. Main portal vein flow: Hepatopetal. Gallbladder: No stones, wall thickening, or sonographic Liz's sign. Biliary System: CBD measures 13 mm, similar to prior. No intraparenchymal duct dilation. No common duct stones evident. Distal common bile duct not well evaluated. Other: Limited evaluation of the right kidney is unremarkable. IMPRESSION: 1. No cholelithiasis. Dilated common bile duct up to 13 mm, similar to prior. No choledocholithiasis evident. Distal common bile duct is not visualized. 2. Mildly heterogeneous hepatic echotexture may reflect steatosis or other hepatocellular disease. RADIA
[2017-12-26] MEDS ORDERED: ONDANSETRON 4 MG/2 ML VIAL IVP STA ×2 (18:57→21:31)
[2017-12-26] MEDS ORDERED: KETOROLAC 60 MG/2 ML VIAL IVP STA (18:57)
[2017-12-26] MEDS ORDERED: ONDANSETRON 4 MG/2 ML VIAL IM STA (21:14)
[2017-12-26] MEDS ORDERED: ONDANSETRON 4 MG/2 ML VIAL ONE (21:25)
[2017-12-26 21:34] VITALS: BP 179/74
== END 2017-12-26 21:20 | disposition short-term general hospital (02) ==
LOC: EDUNIT# → ED 16:41
DX: R10.11 Right upper quadrant pain (principal); R93.5 Abnormal findings on diagnostic imaging of other abdominal regions, including retroperitoneum; E11.9 Type 2 diabetes mellitus without complications; J44.9 Chronic obstructive pulmonary disease, unspecified; Z79.82 Long term (current) use of aspirin
CPT/HCPCS: 36415; 76705; 80053; 83690; 85025; 85610; 96374; 96375; 99284; 99285; A9270

== ENCOUNTER 2018-03-01 08:23 | Outpatient (CLI) | payer MEDICARE, OTHER ==
[2018-03-01 08:55] LABS: BASOPHILS # (AUTO) 0.1 10^3/uL (0.0-0.1); BASOPHILS % (AUTO) 1.3 %; EOSINOPHILS # (AUTO) 1.1 10^3/uL (0.0-0.7); EOSINOPHILS % (AUTO) 18.2 %; LYMPHOCYTES # (AUTO) 1.9 10^3/uL (1.5-3.5); LYMPHOCYTES % (AUTO) 32.2 %; MEAN CORPUSCULAR HEMOGLOBIN 32.8 pg (27.0-31.0); MEAN CORPUSCULAR HGB CONC 34.1 g/dL (32.0-36.0); MEAN CORPUSCULAR VOLUME 96.1 fL (81.0-99.0); MEAN PLATELET VOLUME 7.6 fL (7.9-10.8); MONOCYTES # (AUTO) 0.5 10^3/uL (0.0-1.0); MONOCYTES % (AUTO) 7.8 %; NEUTROPHILS # (AUTO) 2.4 10^3/uL (1.5-6.6); NEUTROPHILS % (AUTO) 40.5 %; PLT - PLATELET COUNT 233 10^3/uL (130-450); RED BLOOD COUNT 3.97 10^6/uL (4.20-5.40)
[2018-03-01 09:02] LABS: ALT ALANINE AMINOTRANSFERASE 17 IU/L (10-60); AST ASPARTATE AMINOTRANSFERASE 25 IU/L (10-42)
[2018-03-01 10:10] LABS: PLATELET ESTIMATE, MANUAL NORMAL (130-450,000) (NORMAL); PLATELET MORPHOLOGY NORMAL APPEARANCE (NORMAL); RBC MORPHOLOGY (MULTIPLE) NORMAL APPEARANCE (NORMAL)
[2018-03-03 08:17] LABS: HEPATITIS B SURFACE ANTIGEN NON-REACTIVE (NON-REACTIVE)
== END 2018-03-01 08:24 | disposition home or self-care (01) ==
LOC: LAB 08:23
PROVIDERS: ATTEND Physician Assistant Medical
DX: L40.0 Psoriasis vulgaris (principal); Z79.899 Other long term (current) drug therapy
CPT/HCPCS: 36415; 81599; 84450; 84460; 85025; 86317; 86480; 87340

== ENCOUNTER 2018-05-01 20:54 | Outpatient (CLI) | payer MEDICARE, OTHER | END 2018-05-01 20:55 | disposition EMS.NT | LOC: EMS 20:54 | PROVIDERS: ATTEND Surgery | DX: R53.1 Weakness (principal); W01.0XXA Fall on same level from slipping, tripping and stumbling without subsequent striking against object, initial encounter; Y92.008 Other place in unspecified non-institutional (private) residence as the place of occurrence of the external cause ==

== ENCOUNTER 2018-07-10 09:24 | Outpatient (CLI) | payer MEDICARE ==
--- NOTE | 2018-07-12 11:28 | XRAY Report ---
Reason: MASS ON SUPERIOR LATERAL ASPECT OF LEFT KNEE Procedure Date: 07/10/2018 Accession Number: [id number] / [id number] Procedure: XR - Knee 2 View LT CPT Code: FULL RESULT: EXAM: LEFT KNEE RADIOGRAPHY EXAM DATE: 07/10/2018 09:43 AM. CLINICAL HISTORY: Mass on superior lateral aspect of left knee. COMPARISON: None. TECHNIQUE: 2 views. FINDINGS: Bones: No acute fractures or bone lesions demonstrated. Findings consistent with a healed or healing proximal fibular fracture. Joints: Normal. No effusion. No subluxations. Soft Tissues: There are 2 nodular calcifications within the medial soft tissues of the knee at the plane of the distal femoral metaphysis. There are multiple nodular and serpiginous calcifications within the medial soft tissues of the knee at the level of the tibial metaphysis with a small linear density which suggests a small surgical clip. Other radiopaque foreign body is not excluded. IMPRESSION: 1. No definite acute abnormality. 2. Multiple soft tissue calcifications within the medial knee, as above. There is also a single small linear metallic density which could represent a surgical clip or radiopaque foreign body. 3. Healed or healing proximal fibular fracture. If further evaluation for a palpable mass were indicated, MR imaging would be recommended. RADIA
== END 2018-07-10 09:25 | disposition home or self-care (01) ==
LOC: DI 09:24
PROVIDERS: ATTEND Internal Medicine
DX: M25.862 Other specified joint disorders, left knee (principal)

== ENCOUNTER 2019-05-05 16:06 | Outpatient (CLI) | payer MEDICARE ==
--- NOTE | 2019-05-06 12:26 | XRAY Report ---
Reason: L SHOULDER PAIN Procedure Date: 05/05/2019 Accession Number: [id number] / [id number] Procedure: XR - Shoulder 3 View LT CPT Code: Final Report FULL RESULT: EXAM: LEFT SHOULDER RADIOGRAPHY EXAM DATE: 05/05/2019 04:29 PM. CLINICAL HISTORY: Left shoulder pain. COMPARISON: No radiographic comparison. TECHNIQUE: 3 views. FINDINGS: Bones: Normal. No fracture or bone lesion. Joints: The glenohumeral and acromioclavicular joints are normally aligned. Mild acromioclavicular joint degenerative disease. There is severe glenohumeral joint space narrowing with a substantial subchondral sclerosis and also moderate marginal spurring and glenoid articular surface remodeling. Soft tissues: The visualized hemithorax is unremarkable. No soft tissue swelling. Vascular calcifications demonstrated. IMPRESSION: Moderate to severe glenohumeral joint osteoarthritis. RADIA
== END 2019-05-05 16:07 | disposition home or self-care (01) ==
LOC: DI 16:06
PROVIDERS: ATTEND Family Medicine
DX: M19.012 Primary osteoarthritis, left shoulder (principal)

== ENCOUNTER 2019-05-13 15:19 | Inpatient (IN) | payer MEDICARE ==
[2019-05-13 16:12] LABS: BASOPHILS # (AUTO) 0.1 10^3/uL (0.0-0.1); BASOPHILS % (AUTO) 0.6 %; EOSINOPHILS # (AUTO) 0.5 10^3/uL (0.0-0.7); EOSINOPHILS % (AUTO) 6.3 %; HGB - HEMOGLOBIN 13.6 g/dL (12.0-16.0); LYMPHOCYTES # (AUTO) 1.5 10^3/uL (1.5-3.5); LYMPHOCYTES % (AUTO) 18.3 %; MEAN CORPUSCULAR HEMOGLOBIN 31.6 pg (27.0-31.0); MEAN CORPUSCULAR HGB CONC 31.6 g/dL (32.0-36.0); MEAN PLATELET VOLUME 10.2 fL (7.9-10.8); MONOCYTES # (AUTO) 0.6 10^3/uL (0.0-1.0); MONOCYTES % (AUTO) 7.5 %; NEUTROPHILS # (AUTO) 5.5 10^3/uL (1.5-6.6); NEUTROPHILS % (AUTO) 67.1 %; PLT - PLATELET COUNT 228 10^3/uL (130-450); RED CELL DISTRIBUTION WIDTH 13.8 % (12.0-15.0); WHITE BLOOD COUNT 8.2 x10^3/uL (4.8-10.8)
[2019-05-13 16:28] LABS: ALBUMIN 3.9 g/dL (3.2-5.5); ALBUMIN/GLOBULIN RATIO 1.6 (1.0-2.2); BILIRUBIN,TOTAL 0.7 mg/dL (0.2-1.0); CALCIUM 9.5 mg/dL (8.5-10.3); CREATININE 1.3 mg/dL (0.4-1.0); TOTAL PROTEIN 6.4 g/dL (6.7-8.2)
[2019-05-13] MEDS ORDERED: HYDROmorphone 1 MG/ML CARPUJECT IVP STA ×2 (16:43→18:12)
[2019-05-13] MEDS ORDERED: SODIUM CHLORIDE 0.9% 1,000 ML IV ONE (16:43)
[2019-05-13] MEDS ORDERED: IOVERSOL 320 100 ML VIAL IVP ONE ×2 (16:45→17:16)
--- NOTE | 2019-05-13 16:45 | ED Physician Documentation ---
PD HPI ABD PAIN - Stated complaint Stated Complaint: ABD PX - Chief complaint Chief Complaint: Abd Pain - History obtained from History obtained from: Patient - History of Present Illness Timing - onset: Other (This is a 83-year-old woman who complains of pain that goes basically from the hyoid down to the pubis.'s been going on for 3 weeks and is associated with diarrhea. The diarrhea is more chronic though. She has not been nauseous. She does note long-term weight loss. We sent her to [place] for similar symptoms last year after noting a dilated common bile duct, per her the work-up showed only gallbladder sludge. She does have a history of vascular disease with carotid endarterectomy and coronary bypass.) Review of Systems Constitutional: reports: Fatigue, Weight Loss. denies: Fever, Chills Cardiac: denies: Chest pain / pressure, Palpitations Respiratory: denies: Dyspnea, Cough GI: reports: Abdominal Pain, Diarrhea. 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 : Incontinence HEENT: None Psych: Depression, Anxiety Musculoskeletal: Osteoarthritis, Gout, Chronic back pain Derm: None - Past Surgical History Past Surgical History: Yes General: Colonoscopy Ortho: Spine surgery /RACING SECRETARY AND HANDICAPPER: Hysterectomy Cardiovascular: CABG HEENT: Tonsil/Adenoidectomy - Present Medications Home Medications: Ambulatory Orders Medication Instructions Recorded Confirmed Allopurinol 300 mg PO DAILY 04/04/13 12/14/17 Aspirin Chewable [St Mat[place] 81 mg PO DAILY 04/04/13 12/14/17 Aspirin] Cholecalciferol (Vitamin D3) 2,000 unit PO DAILY 04/04/13 12/14/17 [Vitamin D3] Ustekinumab [Stelara] 45 mg SUBQ 12/13/17 Atorvastatin Calcium 20 mg PO DAILY 12/14/17 12/14/17 Mirabegron [Myrbetriq] 25 mg PO DAILY 12/14/17 12/14/17 Multivitamin/Iron/Folic Acid 1 each PO DAILY 12/14/17 12/14/17 [Centrum Adults Tablet] [place]-3/Dha/Epa/Fish Oil [Fish Oil 1 each PO DAILY 12/14/17 12/14/17 Gummies] Psyllium Husk [Fiber] 5 g PO DAILY 12/14/17 12/14/17 hydrOXYzine HCl [Hydroxyzine HCl] 10 mg PO QPM 12/14/17 12/14/17 Ondansetron HCl [Zofran] 4 mg PO Q6H PRN #15 tablet 12/15/17 oxyCODONE [Roxicodone] 5 mg PO Q6H PRN #15 tablet 12/15/17 - Allergies Allergies/Adverse Reactions: Allergies Allergy/AdvReac Type Severity Reaction Status Date / Time promethazine HCl * Allergy Severe UNCONSCIOUS Verified 05/13/19 15:45 [From Phenergan] fentanyl Allergy Unknown unknown Verified 05/13/19 15:45 Penicillins Allergy Hives Verified 05/13/19 15:45 Sulfa (Sulfonamide Allergy Hives Verified 05/13/19 15:45 Antibiotics) - Social History Does the pt smoke?: No Smoking Status: Never smoker Does the pt drink ETOH?: Yes Does the pt have substance abuse?: No - Immunizations Immunizations are current?: Yes - POLST Patient has POLST: Yes POLST Status: DNR PD ED PE NORMAL - Vitals Vital signs reviewed: Yes - General General: Alert and oriented X 3, No acute distress - HEENT HEENT: PERRL, EOMI - Neck Neck: Supple, no meningeal sign, No bony TTP - Cardiac Cardiac: RRR, No murmur - Respiratory Respiratory: No respiratory distress, Clear bilaterally - Abdomen Abdomen: Soft (Hyperactive bowel tones), Other (Minimal right upper quadrant tenderness with negative Liz sign, no surgical signs otherwise.) - Derm Derm: Normal color, Warm and dry - Extremities Extremities: No edema, No calf tenderness / cord - Neuro Neuro: Alert and oriented X 3, Normal speech Results - Vitals Vitals: Vital Signs - 24 hr 05/13/19 05/13/19 15:45 18:24 Temperature 36.6 C Heart Rate 57 L 88 Respiratory 16 18 Rate Blood Pressure 122/43 L 132/58 H O2 Saturation 97 98 Oxygen O2 Source Room air - Labs Labs: Laboratory Tests 05/13/19 05/13/19 05/13/19 16:03 16:05 16:05 WBC 8.2 RBC 4.30 Hgb 13.6 Hct 43.0 MCV 100.0 H MCH 31.6 H MCHC 31.6 L RDW 13.8 Plt Count 228 MPV 10.2 Neut # (Auto) 5.5 Lymph # (Auto) 1.5 [place] # (Auto) 0.6 Eos # (Auto) 0.5 Baso # (Auto) 0.1 Absolute Nucleated RBC 0.00 Nucleated RBC % 0.0 Sodium 140 Potassium 4.4 Chloride 105 Carbon Dioxide 26 Anion Gap 9.0 BUN 40 H Creatinine 1.3 H Estimated GFR (MDRD) 39 L Glucose 104 H Lactic Acid Calcium 9.5 Total Bilirubin 0.7 AST 17 ALT 11 Alkaline Phosphatase 70 Total Protein 6.4 L Albumin 3.9 Globulin 2.5 Albumin/Globulin Ratio 1.6 Lipase 20 L Urine Color Urine Clarity Urine pH Ur Specific [place] Urine Protein Urine Glucose (UA) Urine Ketones Urine Occult Blood Urine Nitrite Urine Bilirubin Urine Urobilinogen Ur Leukocyte Esterase Urine RBC Urine WBC Ur Squamous Epith Cells Urine Bacteria Ur Microscopic Review Urine Culture Comments Ethyl Alcohol < 5.0 05/13/19 05/13/19 17:23 18:27 WBC RBC Hgb Hct MCV MCH MCHC RDW Plt Count MPV Neut # (Auto) Lymph # (Auto) [place] # (Auto) Eos # (Auto) Baso # (Auto) Absolute Nucleated RBC Nucleated RBC % Sodium Potassium Chloride Carbon Dioxide Anion Gap BUN Creatinine Estimated GFR (MDRD) Glucose Lactic Acid 0.7 Calcium Total Bilirubin AST ALT Alkaline Phosphatase Total Protein Albumin Globulin Albumin/Globulin Ratio Lipase Urine Color YELLOW Urine Clarity CLEAR Urine pH 5.5 Ur Specific [place] 1.010 Urine Protein NEGATIVE Urine Glucose (UA) NEGATIVE Urine Ketones NEGATIVE Urine Occult Blood NEGATIVE Urine Nitrite NEGATIVE Urine Bilirubin NEGATIVE Urine Urobilinogen 0.2 (NORMAL) Ur Leukocyte Esterase TRACE H Urine RBC None Seen Urine WBC 0-3 Ur Squamous Epith Cells FEW Squamous Urine Bacteria None Seen Ur Microscopic Review INDICATED Urine Culture Comments INDICATED Ethyl Alcohol - Rads (name of study) CT A/P Radiology: EMP read contemporaneously (Ileocolic intussusception with possible mass as the cause with atherosclerosis) PD MEDICAL DECISION MAKING - ED course ED course: 83-year-old woman presents with almost subacute right-sided abdominal pain and found to have an ileocolic intussusception, potential underlying mass. Case was discussed with the surgeon, Dr. Martin at 1715., there was a delay as he was in the OR when the diagnosis was originally made. He defers to medicine for admission given her comorbidities and preop work-up. Departure - Departure Disposition: [facility] DC/Xfer Clinical Impression: Ileocolic intussusception Condition: Fair
--- NOTE | 2019-05-13 18:07 | CT Report ---
Reason: IV only, upper abd pain Procedure Date: 05/13/2019 Accession Number: [id number] / [id number] Procedure: CT - Abdomen/Pelvis W CPT Code: Final Report FULL RESULT: EXAM: CT ABDOMEN AND PELVIS EXAM DATE: 05/13/2019 05:13 PM. CLINICAL HISTORY: IV only, upper abdominal pain. COMPARISONS: ABDOMEN/PELVIS W/O 12/13/2017 9:29 AM. TECHNIQUE: Routine helical CT imaging was performed through the abdomen and pelvis. IV contrast: Yes . Enteric contrast: No . Reconstructions: Coronal and sagittal. In accordance with CT protocol optimization, one or more of the following dose reduction techniques were utilized for this exam: automated exposure control, adjustment of mA and/or KV based on patient size, or use of iterative reconstructive technique. FINDINGS: Lung Bases: Severe coronary and mitral annular calcifications. Previous median sternotomy. Liver: Unremarkable. No suspicious masses. Gallbladder/Bile Ducts: Unremarkable. Spleen: Unremarkable. Pancreas: Unremarkable. Adrenal Glands: Unremarkable. Kidneys: Unremarkable. No suspicious masses or hydronephrosis. Peritoneal Cavity/Bowel: Moderately long (approximately 10 cm) ileocolic intussusception without significant upstream obstruction or bowel dilatation. No significant mesenteric edema. Possible soft tissue density lead point on image 32 series 3 is grossly measuring 36 x 36 mm in cross-section and extending 37 mm in craniocaudal dimension on sagittal image 49. Pelvic Organs: Post hysterectomy with no adnexal masses seen. The bladder appears within normal limits. Vasculature: Severe atherosclerotic disease of the aorta and branches. No aneurysm seen. Bones: Previous right hip replacement. Severe degenerate changes of the lumbar spine. No definite acute more aggressive abnormality seen. Previous median sternotomy. Other: None. IMPRESSION: 1. Moderately long ileocolic intussusception with possible 3.7 cm mass likely point as cause. Malignancy needs to be excluded. No apparent upstream obstruction or gross acute complication. Surgical consultation suggested. 2. Severe atherosclerotic disease of the aorta and branches. Post hysterectomy. RADIA The call report notification system was initiated by Dr. Paco Torres at 06:01 PM on 05/13/2019. The above call report findings were discussed with Drew Hernandez by Dr. Paco Torres at 06:05 PM on 05/13/2019.
[2019-05-13 18:31] LABS: BILIRUBIN,URINE NEGATIVE (NEGATIVE); GLUCOSE, URINE (UA) NEGATIVE (NEGATIVE); KETONES,URINE (UA) NEGATIVE (NEGATIVE); LEUKOCYTE ESTERASE, URINE TRACE (NEGATIVE); NITRITE,URINE NEGATIVE (NEGATIVE); OCCULT BLOOD,URINE NEGATIVE (NEGATIVE); PH,URINE 5.5 PH (5.0-7.5); PROTEIN,URINE NEGATIVE (NEGATIVE); UROBILINOGEN,URINE 0.2 (NORMAL) E.U./dL (NORMAL)
[2019-05-13 18:32] LABS: CLARITY,URINE CLEAR (CLEAR)
[2019-05-13 18:39] LABS: BACTERIA,URINE None Seen /HPF (None Seen); RBC,URINE None Seen /HPF (0-5); SQUAMOUS EPITHELIAL CELL,UR FEW Squamous (<= Few)
[2019-05-13] MEDS ORDERED: oxyCODONE 5 MG TABLET PO STA (19:10)
[2019-05-13] MEDS ORDERED: cefTRIAXone 1 GM in SODIUM CHLORIDE 0.9% MINIBAG 100 ML IV STA (19:12)
[2019-05-13] MEDS ORDERED: metroNIDAZOLE 500 MG/100 ML 500 MG/100 ML BAG IV ONE (19:12)
[2019-05-13] MEDS ORDERED: SODIUM CHLORIDE FLUSH 0.9% 10 ML SYRINGE IVP PRN (19:32)
[2019-05-13] MEDS ORDERED: ONDANSETRON ODT 4 MG TABLET TL PRN (19:32)
[2019-05-13] MEDS ORDERED: ONDANSETRON 4 MG/2 ML VIAL IVP PRN (19:32)
[2019-05-13] MEDS: metroNIDAZOLE 500 MG/100 ML 500 MG/100 ML BAG IV SCH (20:04)
[2019-05-13] MEDS: HYDROmorphone 0.5 MG/0.5 ML SYRINGE IVP PRN (21:59)
[2019-05-13] MEDS: SODIUM CHLORIDE 0.9% 1,000 ML IV SCH (21:59)
[2019-05-14] MEDS: HYDROmorphone 0.5 MG/0.5 ML SYRINGE IVP PRN ×3 (00:14→06:13)
[2019-05-14] MEDS: SODIUM CHLORIDE FLUSH 0.9% 10 ML SYRINGE IVP SCH ×2 (00:49→08:38)
--- NOTE | 2019-05-14 01:16 | ADVANCE CARE PLANNING NOTE ---
Advance Care Planning - Planning Encounter Date: 05/13/19 Time: 21:00 Purpose: establish understanding of her risk of surgery in face of chronic stable angina Parties in Attendance: Niece, patient, hospitalist Decisional Capacity of the Patient: Intact. She is alert, oriented, still living independently, driving, paying her own bills, cleaning her own house. Niece, at the bedside, confirms this - Diagnosis for Encounter (1) Angina of effort Summary: This patient had an CT and had triple bypass surgery as well as coronary stenting at the same time. This was in [place], [place] in 2006. She has not had any imaging of her heart since then. No echocardiogram, no stress test that she recalls. She has almost weekly angina with moderate exertion. If she tries to do too much, too fast, she would get substernal chest pain that radiates to the left jaw, or the left arm, or at times both shoulders. It subsides with rest. She does not use sublingual nitroglycerin. She has no symptoms of congestive heart failure and denies orthopnea, pedal edema or new dyspnea on exertion in a patient has chronic emphysema. - Encounter Subjective/Patient's Story: She is a jeromy elderly female who was born in [place], but lived in [place]. Once she then moved to [place] and lived there for 54 years. She is been twice. She was a former smoker this started smoking at the age of 17 and smoked 2 packs/day until approximately 1989. She also drinks a little bit too much and drinks a bottle of scotch about every 10 days. Her second in 2004. And she was living alone when she had an CT and underwent triple bypass surgery in [place], [place], and 2006. She had three-way bypass surgery and had some intracoronary stents at that time. In 2007 she had a right carotid endarterectomy. In spite of these aggressive interventions, she felt that although she was independent, she was lonely, and she moved to be close to a nephew who invited her to move out here. While she does have 2 children, she did not necessarily want to live near them. But in 2013 she decided to live with her son in [place] and had been living with him quite happily. She adored him. He suddenly while deep sea diving in June 2016 and this threw her into a tailspin of grief, anger, severe depres prerna and anxiety. She has slowly come out of it and is very content with her life. Feels blessed with her niece and nephew in her life, and very happy to be living back on [facility] since 2016. She is still independent in that she still drives her car, does her own grocery shopping, pays her own bills. She has promised her niece and nephew never to do heavy lifting because she has back pain. She has had 4 back surgeries. She has also promised them she will not get on a step stool to get anything. The main things that bother her in life are her psoriatic arthritis with its itching ra sh, and diffuse joint pain. 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 It drives her absolutely insane and if she could find any relief and that it would tremendously improve the quality of her life. The itching and discomfort will wake her up at night to keep her up all night. But she still socialized with friends in the community, is active within her scientology (but laments that "we're all a bunch of senior citizens"), and loves being with her niece and nephew. She has chronic approximately weekly stable angina. She was admitted in November 2017 with abdominal pain and nausea, vomiting, and acute worsening of chronic diarrhea. CT of the abdomen at that time showed a dilated common bile duct at 12 mm. She was supposed to have had an ERCP at [facility]. To her knowledge that has not happened. She has not had a substantial change in her overall physical status or medical status between November 2017 and now. But 3 weeks ago she developed generalized abdominal discomfort that is worsened over the last 2 weeks. It starts in the epigastrium and goes all the way down to her suprapubic area. Chronic diarrhea is worsened again. But she denies fever, chills. She is having less and less appetite. But food does not necessarily make it worse. She came to the emergency room with this discomfort and on CAT scan she has ileocolic intussusception. She does not have a fever, she does not have an elevated white cell count. General surgery has consulted. They plan on taking the patient to the operating room. I have advised both general surgery and the patient that her NSQIP risk score is quite high because of her angina and comorbidities. She still wants to be operated on here. She does not feel that being transferred to a higher level of care with cardiology available will necessarily result in a better outcome for her. She feels that if she has a heart attack, she is not a candidate for intervention nor does she want intervention in the form of stenting or angiograms. Objective/Medical Story: Elderly female who still lives independently and is able to do her activities of daily living the presents with generalized abdominal discomfort. She is found to have intussusception without a fever or elevated white cell count. Her past medical history significant for obstructive sleep apnea, psoriatic arthritis, severe vulvar leukoplakia and lichenification that results in vulvar itching and dysuria, depression with anxiety, and coronary artery disease with bypass surgery and stenting but still with weekly stable angina on exertion. She is an ex-smoker who smoked 2 packs/day from the age of 17 until approximately a year 1989. Her COPD is stable. NSQIP score is quite high. Goals of Care: 1. To be independent as long as possible. She would always like to remain in her own home. 2. She has a strong tenriism luz maria where she feels that she will go to [facility] when she dies. She will join her son and there. As such, she would like to be DO NOT RESUSCITATE in the event of a cardiopulmonary arrest. 3. Find some relief of her vulvardynia. Plan: 1. Risk of surgery discussed with the patient, her niece, general surgeon, and anesthesia will be advised. 2. She is to have her knees bring him to her advance care directive from home which dates which she wants with end-of-life wishes and her DO NOT RESUSCITATE status 3. Probable bowel resection for her intussusception in the morning 4. When out of the hospital, ask for referral to [facility] locally for estrogen cream once a week with her clobetasol with close monthly followup until her vulvar skin improves. If this doesn't work find out of and a gyne artificial foliage arranger. Code Status: Do Not Attempt Resuscitation Time spent on advance care plannin
--- NOTE | 2019-05-14 02:38 | HISTORY & PHYSICAL EXAMINATION ---
DATE OF SERVICE: 05/13/2019 Physician: Yancy Hightower MD PRIMARY CARE PROVIDER: Isai Martin MD ADMITTING PROVIDER: Yancy Hightower MD CHIEF COMPLAINT: Abdominal pain. HISTORY OF PRESENT ILLNESS: She is a jeromy 83-year-old female who still lives independently. She drives her own car, does her own errands, dresses and feeds herself. Her abdominal history consists of a colonoscopy that was done approximately 2006 and was negative. She has had a hysterectomy. She has also had an admission for abdominal pain back in November 2017 to our hospital. At that time, an ultrasound in the emergency room showed her to have mild common bile duct dilation and normal liver function studies. A CT of the abdomen showed her to have a dilated common bile duct at 12, but otherwise normal CT with regards to gallbladder, pancreas, etc. She had a small hiatal hernia and her bilirubin was mildly elevated at 1.1. She ended up being admitted for a few days for nausea and vomiting accompanying that abdominal pain as well as diarrhea. In the discharge instructions, she was supposed to have been seen by her primary care provider and considered for a possible ERCP. As far as the patient knows, and her niece who accompanies her, there has been no ERCP. She was not aware that was being recommended. She has not had any icterus, abdominal pain or change in the color of her stool. However, starting 3 weeks ago, she started having generalized abdominal pain that started just below the hyoid down to her pubis. It has been accompanied by lack of appetite. There has been no blood in the stool. The pain is not agonizing, just constant and unremitting. She has had intermittent diarrhea. She always has loose stools, but this is worse than usual. No one else is sick around her. With kathryn's weight, she is 63.9 kg. Her weight in November 2017 was 73 kg. There have been a couple of times that she has been noted to be 158 kg in the medical record, but I think that is an error. This woman's highest weight was 86 kg in March 2013. She denies fevers, sweats. She has not had any coughing, wheezing. Her main complaints, other than this new abdominal pain, center around her joints and psoriatic arthritis and psoriasis. 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 She tries to control her vaginal discomfort and dysuria with Aspercreme. Clobetasol really does not help and Lidoderm cream does not really help. Although she has been seen by gynecology, a topical estrogen cream has not been offered. She came to the emergency room for the increasing abdominal discomfort and lack of appetite. She was evaluated by Dr. Hernandez when her temperature was 36.6, pulse rate was 57, blood pressure 122/43, respirations 16, and 97% on room air. He describes her as an alert, oriented female in no acute distress. No respiratory distress. A soft abdomen with hyperactive bowel tones. Minimal right upper quadrant tenderness with a negative Liz sign, no surgical signs seen. Her labs showed her to have a white cell count that was normal and a stable BUN and creatinine for her, maybe mildly elevated creatinine at 1.3. Liver function studies were normal. He went on to do a CT of the abdomen. CT of the abdomen shows her to have a moderately long ileocolic intussusception with possible 3.7 cm mass as the likely point of the cause of the intussusception. Malignancy as a differential is put out there. There is no apparent obstruction or gross acute complication. She has severe atherosclerotic disease of the aorta and branches. He consulted with general surgery metal bonding crib attendant, Dr. Martin. He would like to take the patient to the operating room tomorrow. In reviewing her preoperative review of systems, this patient has coronary artery disease. She had triple bypass surgery in [place], [place] in 2006 after presenting as severe angina. She also had stenting in her coronary arteries at the same time. She is not plagued by congestive heart failure or atrial fibrillation. She also has undergone a right carotid endarterectomy approximately 2007. That was done in [place]. She has angina on a regular basis, usually about once a week. She does not take nitroglycerin for it. She describes it as a substernal heaviness and discomfort that will radiate to the left arm, sometimes to both arms. It will occasionally radiate to her jaw and give her a sensation of "TMJ." She denies nausea, diaphoresis, palpitations with this angina. She has gotten so used to it that it does not alarm her. To make it go away, she just sits down, tries to relax as much as possible, and then it will go away. She has not had a stress test since her bypass surgery in 2006. She has not had an echocardiogram. She denies any history of valvular heart disease. PAST MEDICAL HISTORY 1. Coronary artery disease as above. Triple bypass surgery in [place], [place] in 2006 with intraoperative stenting as well. 2. Hypertension. 3. Hyperlipidemia. 4. G0, P0 with a total abdominal hysterectomy. 5. Urge incontinence. 6. 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 7. Psoriatic arthritis. 8. Gout has been thrown in as a diagnosis. 9. Staph arthritis infection in her right finger in September 2016 after an I and D for a ganglion cyst. 10. Depression with anxiety that was very severe at the time of her son's in 2016. She wanted to at that time. She was very angry with God that he did not take her so that she could go be with her son and previous . She says that she still has moments where she is angry and depressed, but she is much better and much happier since that time. 11. Psoriatic arthritis with pain in her shoulders, ankles, and back. 12. Spinal stenosis with 4 back surgeries. She has also had lumbar epidural steroid injections. 13. Osteoporosis. She fell and fractured her right hip in March 2014, had a repair, and 30 days later she fell again in April 2014 and had to have a redo of her hip fracture repair. 14. Obstructive sleep apnea. She really hated how the mask never fit her face. After several weeks of attempting to get used to it, she just took it off her face and has never worn a face mask again for EZRA. 15. Gastroesophageal reflux disease. 16. Hemorrhoidectomy. 17. Appendectomy. ALLERGIES: SHE IS ALLERGIC TO PROMETHAZINE, FENTANYL AND PENICILLIN. She gets a rash with the promethazine and the penicillin. Fentanyl caused her to go to sleep and not wake up because she was "in a coma" for close to 2 weeks. SHE IS ALSO ALLERGIC TO SULFA, which causes hives. MEDICATIONS ON ADMISSION 1. Allopurinol 300 mg daily. 2. Aspirin 81 mg daily. 3. Atorvastatin 20 mg daily. 4. Vitamin D 2000 units daily. 5. Hydroxyzine 10 mg q.p.m. for itching skin. 6. Myrbetriq 25 mg daily for urinary incontinence. 7. Multivitamin with iron and folic acid daily. 8. [place]-3 fish oil tablets daily. 9. Fiber daily. 10. Stelara 45 mg subcutaneous every 12 week. SOCIAL HISTORY: She was born in [place]. Quickly left that state and was taken to [place] by her father and mother; but then when she got to her , they moved to [place] and lived there for 54 years. She has been twice. Not able to have children but adopted 2. Her second in 2004. When he , her nephew asked if she wanted to come live near him here on [facility], so she came to [facility] in 2007. Lives independently. Somewhere around 2009, her son asked her to come live with him in [place] and she went to go live in [place]. Unfortunately, her son having a massive heart attack during a deep sea dive 06/2016, never survived. She came back to live on [facility] to be close to her niece and nephew. She smoked 2 packs per day starting at the age of 17 and did not stop until approximately 1989. She drinks too much. She says she will drink a large bottle of scotch and will finish it every 10 days, but because her stomach has been grumbling, she has not drank anything for 2 weeks. She has never gone through withdrawal or had drank so much that she had blackouts. PREVIOUS LEVEL OF FUNCTION: She is an independent elderly person who still drives, pays her own bills, does her own housekeeping. She has promised her niece and nephew that she will never get up on a stool, so any heavy lifting or any lifting of any objects above her head are done by her niece and nephew. She is active in her anabaptism and in her community. She had come back to live on [facility] in June 2016. FAMILY HISTORY: Dad of alcoholism, heart disease, and had a history of headaches. Mom of a stroke, but also had coronary artery disease, hyperlipidemia, arthritis, severe allergies, osteoporosis, and headaches. She had 1 brother whom she loved dearly. That was another that made her to be very anxious, depressed. He of alcoholism, anxiety, heart disease, hyperlipidemia and headaches as well. She has no children, but 2 adopted children. REVIEW OF SYSTEMS ENT: Decreased vision from presbyopia, but no problems with swallowing. PULMONARY: Emphysema is stable. She says she takes a rare inhaler, but has no recent change in cardiopulmonary endurance. No coughing, no wheezing, no phlegm production. CARDIOVASCULAR: As above. GASTROINTESTINAL: As above. JOINTS: Constantly aching. Diffuse joint pain and swelling accompanied by rashes. She has chronic back pain. 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 SKIN: Psoriatic rash. PSYCHIATRIC: Depression and anxiety as above. Currently happy. Denies any suicidal or homicidal ideation. Not depressed. ENDOCRINE: Denies polyphagia or polydipsia. CENTRAL NERVOUS SYSTEM: She has numbness and tingling of her feet and hands at times. She denies seizure, syncope. She denies memory loss. PHYSICAL EXAMINATION: She is seen in her room after being transferred from ICU to med/surg. VITAL SIGNS: Temperature is 36.6, pulse is 88, blood pressure 132/58, respirations 18, 98% on room air. She is 4 feet 11 inches tall and weighs 63.9 kg. GENERAL: She is an alert, oriented, elderly female who seems to be thin, but in no acute distress. She is comfortable lying in the bed. The generalized abdominal aching has improved since being in the ER. Niece is at the bedside. HEAD AND NECK: Unremarkable. She does not appear to be dehydrated. Oral mucosa is pink. Voice is slightly hoarse. She is slightly deaf. Pupils are reactive. No facial asymmetry. Neck is supple with shotty cervical adenopathy in the anterior cervical chains. No goiter. A right carotid endarterectomy scar is present. Left carotid bruit is audible. LUNGS: Quiet. No increased respiratory effort. No crackles, rhonchi or wheezing. No tachypnea. No use of accessory muscles and no right ventricular lift. HEART: PMI is normally placed with a regular rate and rhythm and a soft systolic ejection murmur. No rubs or gallops. ABDOMEN: Slightly distended, soft, hypoactive bowel sounds. Whereas the ER physician got right upper quadrant pain on palpation, she has no pain to my palpation right now. No rebound or guarding. EXTREMITIES: Nodular deformity of her joints, mainly hands and toes. Left shoulder has limited range of motion and she really cannot abduct more than about 40 degrees. Painful to do otherwise. No clubbing, cyanosis or edema. NEUROLOGIC: She is alert and oriented to person, place and time. Cranial nerves appear grossly intact except for mild deafness. She has focused, purposeful movements with no focal deficits on neurologic testing for strength and movement. Reflexes are symmetrical at the biceps. Slightly diminished at the knees. Unable to be obtained in the Achilles. Babinskis are negative. No tremors. LABORATORY DATA: Labs and films noted in history of present illness. ASSESSMENT/PLAN: 1. Generalized abdominal pain. This is due to intussusception of the bowel. Possible colonic mass. She does not have a fever. She does not have an elevated white cell count. Plan: Inpatient admission. Attestation: The patient will be discharged within 96 hours. General surgery consultation has already been obtained with Dr. Martin. N.p.o. after midnight. IV fluids will be continued until surgery. 2. Preoperative evaluation. Unfortunately, this elderly female has documented angina. It is stable angina, but nevertheless angina, and the patient has had triple bypass surgery and stenting. She does not have congestive heart failure, does not have atrial fibrillation, no recent MN in the last 6 months. She has stable emphysema and chronic kidney disease with a GFR of 39. Creatinine at 1.3 is stable and comparable with all her other visits in the EMR. NSQIP surgical risk calculator has her having a serious complication of 16%, any complication 19%. Cardiac complication is only 2.6%, but does not allow for current ongoing angina. She is at 11% risk of readmission and a 26% risk of being discharged to a rehab facility. Predicted length of stay is 5 days. I have shared her risk assessment with the patient, her niece, who is at the bedside, and Dr. Martin. The patient has had a rough go after losing a beloved , a beloved brother, and her son. She feels that she has a strong rastafari luz maria. She feels that whether she is operated on here or operated on at a facility with a higher level of care with specialty service available will not make a difference. If she goes on to have an MN or cardiac complication, she may consider being transferred, but she doubts she will want that. She says that she has lived a good life, she really does not feel like she is up for having some cardiac intervention, even if she does have a heart attack. As such, even though offered the possibility of transfer to a higher level of care, she has declined. 3. Stable angina. I would recommend daily EKG and daily troponins in a person who is at high risk for postoperative complication of MN. I will discuss the case with general surgery and nitrates may be used temporarily. She is not having any angina right now. Current EKG shows sinus rhythm with PACs. I think lead placement is problematic in that V2 has an R, where there is no R-wave present in V1 or V3. She has inverted T waves in the lateral leads. 4. Chronic kidney disease. While her creatinine is stable overall, there appears to be an element of some dehydration in that her BUN is 40. BUN is usually in the 20s, if not normal. Although she does not have [id number] kidney failure, I will ADD dehydration as a possibility. She has gotten IV fluids in the emergency room and will continue to get IV fluids until she goes to the OR. 5. Hypertension. The patient is currently controlled. She has been 122 and 132 systolic. Medications at home do not include antihypertensives. During her stay here, she would be a candidate for a beta-daiana because of her angina history. 6. Chronic joint pain from psoriatic arthritis. That will be treated with p.r.n. Tylenol and p.r.n. oxycodone. 7. Severe atrophic vaginitis. I did not examine her. I reviewed her medical record and discussed her review of systems. She says if there is one thing that she would like to address in her life to make her happier and more satisfied with the quality of life, is that somebody please address this problem. I explained to her to go ahead and make a followup appointment with gynecology. I would recommend low-dose estrogen therapy in the form of estrogen cream maybe once a week to the labia and introitus. Continue the clobetasol. More frequent followup with gynecology. 8. Obstructive sleep apnea history noted. The patient does not wear a mask, but it should be noted for anesthetic purposes. 9. DO NOT RESUSCITATE status. She says that has been present for a few years now. 10. Deep venous thrombosis prophylaxis with AUGUSTUS chen. TD: 05/14/2019 00:24 MTDD
[2019-05-14] MEDS: metroNIDAZOLE 500 MG/100 ML 500 MG/100 ML BAG IV SCH ×2 (03:54→11:50)
[2019-05-14 05:21] LABS: BASOPHILS % (AUTO) 0.6 %; EOSINOPHILS # (AUTO) 0.5 10^3/uL (0.0-0.7); EOSINOPHILS % (AUTO) 7.4 %; HGB - HEMOGLOBIN 12.3 g/dL (12.0-16.0); LYMPHOCYTES # (AUTO) 1.7 10^3/uL (1.5-3.5); LYMPHOCYTES % (AUTO) 26.3 %; MEAN CORPUSCULAR HEMOGLOBIN 31.7 pg (27.0-31.0); MEAN CORPUSCULAR HGB CONC 31.5 g/dL (32.0-36.0); MEAN CORPUSCULAR VOLUME 100.8 fL (81.0-99.0); MEAN PLATELET VOLUME 10.6 fL (7.9-10.8); MONOCYTES # (AUTO) 0.7 10^3/uL (0.0-1.0); MONOCYTES % (AUTO) 10.5 %; NEUTROPHILS # (AUTO) 3.6 10^3/uL (1.5-6.6); NEUTROPHILS % (AUTO) 54.9 %; PLT - PLATELET COUNT 195 10^3/uL (130-450); RED BLOOD COUNT 3.88 10^6/uL (4.20-5.40); RED CELL DISTRIBUTION WIDTH 13.8 % (12.0-15.0); WHITE BLOOD COUNT 6.6 x10^3/uL (4.8-10.8)
[2019-05-14 05:30] LABS: CALCIUM 8.8 mg/dL (8.5-10.3); CREATININE 1.1 mg/dL (0.4-1.0)
[2019-05-14] MEDS ORDERED: PANTOPRAZOLE 40 MG VIAL IVP SCH (07:00)
--- NOTE | 2019-05-14 07:33 | PROVIDER PROGRESS NOTE ---
Subjective - Prog Note Date Prog Note Date: 05/14/19 Prog Note Time: 07:31 - Subjective Pt reports feeling: No change Subjective: she is asleep, abd pain overall mild. No emesis. wakes easily to voice when I walk in the room In her notes from the ER there is mention she has DM. To her knowledge she does not and her glucose was 104 last night and this am 94. So I will not be ordering accuchecks or SS insulin. Current Medications - Current Medications Current Medications: Active Medications Hydromorphone HCl (Dilaudid Inj Syringe) 0.5 mg IVP Q2H PRN PRN Reason: PAIN 8 TO 10 Last Admin: 05/14/19 06:13 Dose: 0.5 mg Ceftriaxone Sodium 1 gm/ (Sodium Chloride) 100 mls @ 200 mls/hr IV DAILY [facility] Metronidazole (Flagyl 500 Mg/100 Ml) 500 mg in 100 mls @ 100 mls/hr IV Q8H [facility] Last Infusion: 05/14/19 05:01 Dose: Infused Sodium Chloride (Normal Saline 0.9%) 1,000 mls @ 100 mls/hr IV .Q10H [facility] Last Admin: 05/13/19 21:59 Dose: 100 mls/hr Ondansetron HCl (Zofran Inj) 4 mg IVP Q6HR PRN PRN Reason: Nausea / Vomiting Ondansetron HCl (Zofran Odt) 4 mg TL Q6HR PRN PRN Reason: Nausea / Vomiting Last Admin: 05/14/19 02:56 Dose: 4 mg Pantoprazole Sodium (Protonix) 40 mg IVP QDAC [facility] Last Admin: 05/14/19 06:13 Dose: 40 mg Sodium Chloride (Normal Saline Flush 0.9%) 10 ml IVP PRN PRN PRN Reason: NEEDED PER PROVIDER ORDERS Last Admin: 05/13/19 22:00 Dose: 10 ml Sodium Chloride (Normal Saline Flush 0.9%) 10 ml IVP 0100,0900,1700 [facility] Last Admin: 05/14/19 00:49 Dose: Not Given Allopurinol 300 mg PO DAILY 04/04/13 Aspirin Chewable [St Matteo Aspirin] 81 mg PO DAILY 04/04/13 Cholecalciferol (Vitamin D3) [Vitamin D3] 2,000 unit PO DAILY 04/04/13 Ustekinumab [Stelara] 45 mg SUBQ 12/13/17 Atorvastatin Calcium 20 mg PO DAILY 12/14/17 Mirabegron [Myrbetriq] 25 mg PO DAILY 12/14/17 Multivitamin/Iron/Folic Acid [Centrum Adults Tablet] 1 each PO DAILY 12/14/17 [place]-3/Dha/Epa/Fish Oil [Fish Oil Gummies] 1 each PO DAILY 12/14/17 Psyllium Husk [Fiber] 5 g PO DAILY 12/14/17 hydrOXYzine HCl [Hydroxyzine HCl] 10 mg PO QPM 12/14/17 Objective - Vital Signs/Intake & Output Reviewed Vital Signs: Yes Vital Signs: Vital Signs x48h Temp Pulse Resp BP Pulse Ox 05/14/19 00:00 36.3 C L 54 L 18 135/58 H 97 Intake & Output: Intake & Output 05/11/19 05/12/19 05/13/19 05/14/19 23:59 23:59 23:59 23:59 Intake Total 1200 100 Balance 1200 100 - Objective General Appearance: positive: No acute distress, Alert Eyes Bilateral: positive: PERRL ENT: positive: Dry mucous membranes (from open mouth breathing I suspect) Neck: positive: No JVD, Lymphadenopathy (R) (shotty), Lymphadenopathy (L) (shotty), Carotid bruit. negative: Stiff neck Respiratory: positive: Chest non-tender, No respiratory distress. negative: Whe ezes, Rales, Rhonchi Cardiovascular: positive: Irregularly irregular (but is sinus w PAC), Systolic murmur. negative: Tachycardia, Gallop/S4, Friction rub Abdomen: positive: No organomegaly, No distention, Other (hypoactive bowel sounds). negative: Guarding, Rebound Skin: positive: Warm, Dry Extremities: positive: Non-tender, No pedal edema Neurologic/Psychiatric: positive: Oriented x3, CN's nml (2-12), Motor nml - Lab Results Fish Bones: 05/14/19 04:35 05/14/19 04:35 Other Labs: Lab Results x24hrs 05/14/19 05/14/19 05/14/19 Range/Units 04:35 04:35 04:35 WBC 6.6 (4.8-10.8) x10^3/uL RBC 3.88 L (4.20-5.40) 10^6/uL Hgb 12.3 (12.0-16.0) g/dL Hct 39.1 (37.0-47.0) % MCV 100.8 H (81.0-99.0) fL MCH 31.7 H (27.0-31.0) pg MCHC 31.5 L (32.0-36.0) g/dL RDW 13.8 (12.0-15.0) % Plt Count 195 (130-450) 10^3/uL MPV 10.6 (7.9-10.8) fL Neut # (Auto) 3.6 (1.5-6.6) 10^3/uL Lymph # (Auto) 1.7 (1.5-3.5) 10^3/uL [place] # (Auto) 0.7 (0.0-1.0) 10^3/uL Eos # (Auto) 0.5 (0.0-0.7) 10^3/uL Baso # (Auto) 0.0 (0.0-0.1) 10^3/uL Absolute Nucleated RBC 0.00 x10^3/uL Nucleated RBC % 0.0 /100WBC Sodium 141 (135-145) mmol/L Potassium 4.2 (3.5-5.0) mmol/L Chloride 108 (101-111) mmol/L Carbon Dioxide 25 (21-32) mmol/L Anion Gap 8.0 (6-13) BUN 35 H (6-20) mg/dL Creatinine 1.1 H (0.4-1.0) mg/dL Estimated GFR (MDRD) 48 L (>89) Glucose 94 (70-100) mg/dL Lactic Acid (0.5-2.2) mmol/L Calcium 8.8 (8.5-10.3) mg/dL Total Bilirubin (0.2-1.0) mg/dL AST (10-42) IU/L ALT (10-60) IU/L Alkaline Phosphatase (42-121) IU/L Lactate Dehydrogenase (91-225) IU/L Troponin I High Sens 9.4 (2.3-14.8) ng/L Total Protein (6.7-8.2) g/dL Albumin (3.2-5.5) g/dL Globulin (2.1-4.2) g/dL Albumin/Globulin Ratio (1.0-2.2) Lipase (22-51) U/L Urine Color Urine Clarity (CLEAR) Urine pH (5.0-7.5) PH Ur Specific [place] (1.002-1.030) Urine Protein (NEGATIVE) mg/dL Urine Glucose (UA) (NEGATIVE) mg/dL Urine Ketones (NEGATIVE) mg/dL Urine Occult Blood (NEGATIVE) Urine Nitrite (NEGATIVE) Urine Bilirubin (NEGATIVE) Urine Urobilinogen (NORMAL) E.U./dL Ur Leukocyte Esterase (NEGATIVE) Urine RBC (0-5) /HPF Urine WBC (0-5) /HPF Ur Squamous Epith Cells (<= Few) Urine Bacteria (None Seen) /HPF Ur Microscopic Review Urine Culture Comments Ethyl Alcohol mg/dL 05/13/19 05/13/19 05/13/19 Range/Units 18:27 17:23 16:05 WBC (4.8-10.8) x10^3/uL RBC (4.20-5.40) 10^6/uL Hgb (12.0-16.0) g/dL Hct (37.0-47.0) % MCV (81.0-99.0) fL MCH (27.0-31.0) pg MCHC (32.0-36.0) g/dL RDW (12.0-15.0) % Plt Count (130-450) 10^3/uL MPV (7.9-10.8) fL Neut # (Auto) (1.5-6.6) 10^3/uL Lymph # (Auto) (1.5-3.5) 10^3/uL [place] # (Auto) (0.0-1.0) 10^3/uL Eos # (Auto) (0.0-0.7) 10^3/uL Baso # (Auto) (0.0-0.1) 10^3/uL Absolute Nucleated RBC x10^3/uL Nucleated RBC % /100WBC Sodium 140 (135-145) mmol/L Potassium 4.4 (3.5-5.0) mmol/L Chloride 105 (101-111) mmol/L Carbon Dioxide 26 (21-32) mmol/L Anion Gap 9.0 (6-13) BUN 40 H (6-20) mg/dL Creatinine 1.3 H (0.4-1.0) mg/dL Estimated GFR (MDRD) 39 L (>89) Glucose 104 H (70-100) mg/dL Lactic Acid 0.7 (0.5-2.2) mmol/L Calcium 9.5 (8.5-10.3) mg/dL Total Bilirubin 0.7 (0.2-1.0) mg/dL AST 17 (10-42) IU/L ALT 11 (10-60) IU/L Alkaline Phosphatase 70 (42-121) IU/L Lactate Dehydrogenase (91-225) IU/L Troponin I High Sens (2.3-14.8) ng/L Total Protein 6.4 L (6.7-8.2) g/dL Albumin 3.9 (3.2-5.5) g/dL Globulin 2.5 (2.1-4.2) g/dL Albumin/Globulin Ratio 1.6 (1.0-2.2) Lipase 20 L (22-51) U/L Urine Color YELLOW Urine Clarity CLEAR (CLEAR) Urine pH 5.5 (5.0-7.5) PH Ur Specific [place] 1.010 (1.002-1.030) Urine Protein NEGATIVE (NEGATIVE) mg/dL Urine Glucose (UA) NEGATIVE (NEGATIVE) mg/dL Urine Ketones NEGATIVE (NEGATIVE) mg/dL Urine Occult Blood NEGATIVE (NEGATIVE) Urine Nitrite NEGATIVE (NEGATIVE) Urine Bilirubin NEGATIVE (NEGATIVE) Urine Urobilinogen 0.2 (NORMAL) (NORMAL) E.U./dL Ur Leukocyte Esterase TRACE H (NEGATIVE) Urine RBC None Seen (0-5) /HPF Urine WBC 0-3 (0-5) /HPF Ur Squamous Epith Cells FEW Squamous (<= Few) Urine Bacteria None Seen (None Seen) /HPF Ur Microscopic Review INDICATED Urine Culture Comments INDICATED Ethyl Alcohol mg/dL 05/13/19 05/13/19 05/13/19 Range/Units 16:05 16:03 16:03 WBC 8.2 (4.8-10.8) x10^3/uL RBC 4.30 (4.20-5.40) 10^6/uL Hgb 13.6 (12.0-16.0) g/dL Hct 43.0 (37.0-47.0) % MCV 100.0 H (81.0-99.0) fL MCH 31.6 H (27.0-31.0) pg MCHC 31.6 L (32.0-36.0) g/dL RDW 13.8 (12.0-15.0) % Plt Count 228 (130-450) 10^3/uL MPV 10.2 (7.9-10.8) fL Neut # (Auto) 5.5 (1.5-6.6) 10^3/uL Lymph # (Auto) 1.5 (1.5-3.5) 10^3/uL [place] # (Auto) 0.6 (0.0-1.0) 10^3/uL Eos # (Auto) 0.5 (0.0-0.7) 10^3/uL Baso # (Auto) 0.1 (0.0-0.1) 10^3/uL Absolute Nucleated RBC 0.00 x10^3/uL Nucleated RBC % 0.0 /100WBC Sodium (135-145) mmol/L Potassium (3.5-5.0) mmol/L Chloride (101-111) mmol/L Carbon Dioxide (21-32) mmol/L Anion Gap (6-13) BUN (6-20) mg/dL Creatinine (0.4-1.0) mg/dL Estimated GFR (MDRD) (>89) Glucose (70-100) mg/dL Lactic Acid (0.5-2.2) mmol/L Calcium (8.5-10.3) mg/dL Total Bilirubin (0.2-1.0) mg/dL AST (10-42) IU/L ALT (10-60) IU/L Alkaline Phosphatase (42-121) IU/L Lactate Dehydrogenase 143 (91-225) IU/L Troponin I High Sens (2.3-14.8) ng/L Total Protein (6.7-8.2) g/dL Albumin (3.2-5.5) g/dL Globulin (2.1-4.2) g/dL Albumin/Globulin Ratio (1.0-2.2) Lipase (22-51) U/L Urine Color Urine Clarity (CLEAR) Urine pH (5.0-7.5) PH Ur Specific [place] (1.002-1.030) Urine Protein (NEGATIVE) mg/dL Urine Glucose (UA) (NEGATIVE) mg/dL Urine Ketones (NEGATIVE) mg/dL Urine Occult Blood (NEGATIVE) Urine Nitrite (NEGATIVE) Urine Bilirubin (NEGATIVE) Urine Urobilinogen (NORMAL) E.U./dL Ur Leukocyte Esterase (NEGATIVE) Urine RBC (0-5) /HPF Urine WBC (0-5) /HPF Ur Squamous Epith Cells (<= Few) Urine Bacteria (None Seen) /HPF Ur Microscopic Review Urine Culture Comments Ethyl Alcohol < 5.0 mg/dL ABX Reporting Has patient been on IV antibiotics over the past 48 hours?: Yes Assessment/Plan - Problem List (1) Ileocolic intussusception Impression: causing generalized abd pain that seems to have improved since being here. Exam is with soft abd and no rebound or guarding. Has bowel tones. High NSQIP risk calculated. She does not want transfer to higher level with Cardiology service. Plan: Gen Surgery consult to see her this am. she has been NPO since last night. Day #2 flagyl and rocephin per surgery request (2) CKD (chronic kidney disease) Impression: with mild dehydration from lack of po intake. Creat 1.3>1.1 BUN 40>35 improving w IVF Plan: continue fluids for now. monitor daily Qualifiers: Chronic kidney disease stage: stage 3 (moderate) Qualified Code(s): N18.3 - Chronic kidney disease, stage 3 (moderate) (3) Angina of effort Impression: with hx of CAD, s/p 3 CABG and stents. Unknown anatomy. She denies symptoms of chf. Does have approx weekly angina on average. This morning her EKG is unchanged from 05/2017 and her troponin is 9. Plan: will call anesthesia and let them know since plan is for her to go to OR today she has been on a statin. consider adding metoprolol while in house? but on her own, without meds, she is in the 50's w her pulse (4) HTN (hypertension) Impression: Systolic 132, 135 without meds. Plan: continue to monitor and add meds as necessary. Qualifiers: Hypertension type: essential hypertension Qualified Code(s): I10 - Essential (primary) hypertension
[2019-05-14] MEDS ORDERED: ALBUTEROL NEB 2.5 MG/3 ML INH PRN (07:37)
[2019-05-14] MEDS: SODIUM CHLORIDE 0.9% 1,000 ML IV SCH (08:37)
[2019-05-14] MEDS: HYDROmorphone 1 MG/ML CARPUJECT IVP PRN ×3 (08:37→14:16)
[2019-05-14] MEDS ORDERED: cefTRIAXone 1 GM in SODIUM CHLORIDE 0.9% MINIBAG 100 ML IV SCH (09:00)
--- NOTE | 2019-05-14 09:04 | CONSULTATION NOTE ---
Referring Provider Consult Date: 05/14/19 Chief Complaint - Chief Complaint Chief Complaint: intusseption terminal ileum/cecum likely due to mass History of Present Illness - Admitted From Admitted From:: ED - History Obtained From Records Reviewed: ED History - Past Medical History Cardiovascular: reports: High cholesterol Respiratory: reports: COPD, Shortness of breath, Sleep apnea, Other Neuro: reports: None Endocrine/Autoimmune: reports: Type 2 diabetes GI: reports: GERD, GI bleed SEED SORTER: reports: None : reports: Incontinence HEENT: reports: None Psych: reports: Depression, Anxiety Musculoskeletal: reports: Osteoarthritis, Gout, Chronic back pain Derm: reports: None MRSA Hx?: No - Past Surgical History General: reports: Colonoscopy Ortho: reports: Spine surgery /SEED SORTER: reports: Hysterectomy Cardiovascular: reports: CABG HEENT: reports: Tonsil/Adenoidectomy - Family & Social History Family History: Mother: (pt does not know much about her father health conditons), CAD, CVA/TIA ( from major stroke), Father: Family History Comment/Other: Neg for GI tumors; + gallbladder disease in mother; pt report she is . she had three children. She is living in [place]. Social History Notes: pt report she quitted cigarette smoking 25 yrs ago, no alcohol and drug issue. - Substance History Use: Uses substance without health or social issues: Alcohol (1 drink daily) - POLST Patient has POLST: Yes POLST Status: DNR Meds/Allgy - Home Medications Home Medications: Ambulatory Orders Medication Instructions Recorded Confirmed Allopurinol 300 mg PO DAILY 04/04/13 12/14/17 Aspirin Chewable [St Matteo 81 mg PO DAILY 04/04/13 12/14/17 Aspirin] Cholecalciferol (Vitamin D3) 2,000 unit PO DAILY 04/04/13 12/14/17 [Vitamin D3] Ustekinumab [Stelara] 45 mg SUBQ 12/13/17 Atorvastatin Calcium 20 mg PO DAILY 12/14/17 12/14/17 Mirabegron [Myrbetriq] 25 mg PO DAILY 12/14/17 12/14/17 Multivitamin/Iron/Folic Acid 1 each PO DAILY 12/14/17 12/14/17 [Centrum Adults Tablet] [place]-3/Dha/Epa/Fish Oil [Fish Oil 1 each PO DAILY 12/14/17 12/14/17 Gummies] Psyllium Husk [Fiber] 5 g PO DAILY 12/14/17 12/14/17 hydrOXYzine HCl [Hydroxyzine HCl] 10 mg PO QPM 12/14/17 12/14/17 Ondansetron HCl [Zofran] 4 mg PO Q6H PRN #15 tablet 12/15/17 oxyCODONE [Roxicodone] 5 mg PO Q6H PRN #15 tablet 12/15/17 - Allergies Allergies/Adverse Reactions: Allergies Allergy/AdvReac Type Severity Reaction Status Date / Time promethazine HCl * Allergy Severe UNCONSCIOUS Verified 05/13/19 15:45 [From Phenergan] fentanyl Allergy Unknown unknown Verified 05/13/19 15:45 Penicillins Allergy Hives Verified 05/13/19 15:45 Sulfa (Sulfonamide Allergy Hives Verified 05/13/19 15:45 Antibiotics) Review of Systems - Constitutional Constitutional: reports: Fatigue - Cardiovascular Cariovascular: reports: Chest pain - Gastrointestinal Gastrointestinal: reports: Abdominal pain (RLQ) Exam - Vital Signs Vital Signs: Vital Signs x48h Temp Pulse Resp BP Pulse Ox 05/14/19 08:05 36.5 C 55 L 18 127/60 92 - Physical Exam General Appearance: positive: No acute distress, Alert Eyes Bilateral: positive: Normal inspection Respiratory: positive: No respiratory distress, Breath sounds nml Cardiovascular: positive: Regular rate & rhythm Abdomen: positive: Tenderness (Mild generalized tenderness Mass not palpable) Conclusion and Plan - Lab Results Laboratory Results 05/14/19 04:35: Troponin I High Sens 9.4 05/14/19 04:35: Sodium 141, Potassium 4.2, Chloride 108, Carbon Dioxide 25, Anion Gap 8.0, BUN 35 H, Creatinine 1.1 H, Estimated GFR (MDRD) 48 L, Glucose 94, Calcium 8.8 05/14/19 04:35: WBC 6.6, RBC 3.88 L, Hgb 12.3, Hct 39.1, MCV 100.8 H, MCH 31.7 H, MCHC 31.5 L, RDW 13.8, Plt Count 195, MPV 10.6, Neut # (Auto) 3.6, Lymph # (Auto) 1.7, [place] # (Auto) 0.7, Eos # (Auto) 0.5, Baso # (Auto) 0.0, Absolute Nucleated RBC 0.00, Nucleated RBC % 0.0 05/13/19 18:27: Urine Color YELLOW, Urine Clarity CLEAR, Urine pH 5.5, Ur Specific [place] 1.010, Urine Protein NEGATIVE, Urine Glucose (UA) NEGATIVE, Urine Ketones NEGATIVE, Urine Occult Blood NEGATIVE, Urine Nitrite NEGATIVE, Urine Bilirubin NEGATIVE, Urine Urobilinogen 0.2 (NORMAL), Ur Leukocyte Esterase TRACE H, Urine RBC None Seen, Urine WBC 0-3, Ur Squamous Epith Cells FEW Squamous, Urine Bacteria None Seen, Ur Microscopic Review INDICATED, Urine Culture Comments INDICATED 05/13/19 17:23: Lactic Acid 0.7 05/13/19 16:05: Sodium 140, Potassium 4.4, Chloride 105, Carbon Dioxide 26, Anion Gap 9.0, BUN 40 H, Creatinine 1.3 H, Estimated GFR (MDRD) 39 L, Glucose 104 H, Calcium 9.5, Total Bilirubin 0.7, AST 17, ALT 11, Alkaline Phosphatase 70, Total Protein 6.4 L, Albumin 3.9, Globulin 2.5, Albumin/Globulin Ratio 1.6, Lipase 20 L 05/13/19 16:05: WBC 8.2, RBC 4.30, Hgb 13.6, Hct 43.0, MCV 100.0 H, MCH 31.6 H, MCHC 31.6 L, RDW 13.8, Plt Count 228, MPV 10.2, Neut # (Auto) 5.5, Lymph # (Auto) 1.5, [place] # (Auto) 0.6, Eos # (Auto) 0.5, Baso # (Auto) 0.1, Absolute Nucleated RBC 0.00, Nucleated RBC % 0.0 05/13/19 16:03: Lactate Dehydrogenase 143 05/13/19 16:03: Ethyl Alcohol < 5.0 - Diagnostic Imaging Results Diagnostic Imaging Results: positive: Final report reviewed - Diagnosis Diagnosis: Ileocolic intususseption w/mass - Plan Plan: Right colon resection once optimally managed medically.
--- NOTE | 2019-05-14 10:04 | PROVIDER PROGRESS NOTE ---
Subjective - General Admit Date: 05/13/19 Objective - Patient Data Vital Signs: Vital Signs x48h Temp Pulse Resp BP Pulse Ox 05/14/19 08:05 36.5 C 55 L 18 127/60 92 Weight: Weight 05/12/19 05/13/19 05/14/19 23:59 23:59 23:59 Weight (kg) 63.9 kg Intake & Output: Intake and Output Totals x24h 05/12/19 05/13/19 05/14/19 23:59 23:59 23:59 Intake Total 1200 1101.667 Balance 1200 1101.667 - Lab Results Lab Results: 05/14/19 04:35 05/14/19 04:35 Other Lab Results: Lab Results x24hrs 05/14/19 05/14/19 05/14/19 Range/Units 04:35 04:35 04:35 WBC 6.6 (4.8-10.8) x10^3/uL RBC 3.88 L (4.20-5.40) 10^6/uL Hgb 12.3 (12.0-16.0) g/dL Hct 39.1 (37.0-47.0) % MCV 100.8 H (81.0-99.0) fL MCH 31.7 H (27.0-31.0) pg MCHC 31.5 L (32.0-36.0) g/dL RDW 13.8 (12.0-15.0) % Plt Count 195 (130-450) 10^3/uL MPV 10.6 (7.9-10.8) fL Neut # (Auto) 3.6 (1.5-6.6) 10^3/uL Lymph # (Auto) 1.7 (1.5-3.5) 10^3/uL [place] # (Auto) 0.7 (0.0-1.0) 10^3/uL Eos # (Auto) 0.5 (0.0-0.7) 10^3/uL Baso # (Auto) 0.0 (0.0-0.1) 10^3/uL Absolute Nucleated RBC 0.00 x10^3/uL Nucleated RBC % 0.0 /100WBC Sodium 141 (135-145) mmol/L Potassium 4.2 (3.5-5.0) mmol/L Chloride 108 (101-111) mmol/L Carbon Dioxide 25 (21-32) mmol/L Anion Gap 8.0 (6-13) BUN 35 H (6-20) mg/dL Creatinine 1.1 H (0.4-1.0) mg/dL Estimated GFR (MDRD) 48 L (>89) Glucose 94 (70-100) mg/dL Lactic Acid (0.5-2.2) mmol/L Calcium 8.8 (8.5-10.3) mg/dL Total Bilirubin (0.2-1.0) mg/dL AST (10-42) IU/L ALT (10-60) IU/L Alkaline Phosphatase (42-121) IU/L Lactate Dehydrogenase (91-225) IU/L Troponin I High Sens 9.4 (2.3-14.8) ng/L Total Protein (6.7-8.2) g/dL Albumin (3.2-5.5) g/dL Globulin (2.1-4.2) g/dL Albumin/Globulin Ratio (1.0-2.2) Lipase (22-51) U/L Urine Color Urine Clarity (CLEAR) Urine pH (5.0-7.5) PH Ur Specific [place] (1.002-1.030) Urine Protein (NEGATIVE) mg/dL Urine Glucose (UA) (NEGATIVE) mg/dL Urine Ketones (NEGATIVE) mg/dL Urine Occult Blood (NEGATIVE) Urine Nitrite (NEGATIVE) Urine Bilirubin (NEGATIVE) Urine Urobilinogen (NORMAL) E.U./dL Ur Leukocyte Esterase (NEGATIVE) Urine RBC (0-5) /HPF Urine WBC (0-5) /HPF Ur Squamous Epith Cells (<= Few) Urine Bacteria (None Seen) /HPF Ur Microscopic Review Urine Culture Comments Ethyl Alcohol mg/dL 05/13/19 05/13/19 05/13/19 Range/Units 18:27 17:23 16:05 WBC (4.8-10.8) x10^3/uL RBC (4.20-5.40) 10^6/uL Hgb (12.0-16.0) g/dL Hct (37.0-47.0) % MCV (81.0-99.0) fL MCH (27.0-31.0) pg MCHC (32.0-36.0) g/dL RDW (12.0-15.0) % Plt Count (130-450) 10^3/uL MPV (7.9-10.8) fL Neut # (Auto) (1.5-6.6) 10^3/uL Lymph # (Auto) (1.5-3.5) 10^3/uL [place] # (Auto) (0.0-1.0) 10^3/uL Eos # (Auto) (0.0-0.7) 10^3/uL Baso # (Auto) (0.0-0.1) 10^3/uL Absolute Nucleated RBC x10^3/uL Nucleated RBC % /100WBC Sodium 140 (135-145) mmol/L Potassium 4.4 (3.5-5.0) mmol/L Chloride 105 (101-111) mmol/L Carbon Dioxide 26 (21-32) mmol/L Anion Gap 9.0 (6-13) BUN 40 H (6-20) mg/dL Creatinine 1.3 H (0.4-1.0) mg/dL Estimated GFR (MDRD) 39 L (>89) Glucose 104 H (70-100) mg/dL Lactic Acid 0.7 (0.5-2.2) mmol/L Calcium 9.5 (8.5-10.3) mg/dL Total Bilirubin 0.7 (0.2-1.0) mg/dL AST 17 (10-42) IU/L ALT 11 (10-60) IU/L Alkaline Phosphatase 70 (42-121) IU/L Lactate Dehydrogenase (91-225) IU/L Troponin I High Sens (2.3-14.8) ng/L Total Protein 6.4 L (6.7-8.2) g/dL Albumin 3.9 (3.2-5.5) g/dL Globulin 2.5 (2.1-4.2) g/dL Albumin/Globulin Ratio 1.6 (1.0-2.2) Lipase 20 L (22-51) U/L Urine Color YELLOW Urine Clarity CLEAR (CLEAR) Urine pH 5.5 (5.0-7.5) PH Ur Specific [place] 1.010 (1.002-1.030) Urine Protein NEGATIVE (NEGATIVE) mg/dL Urine Glucose (UA) NEGATIVE (NEGATIVE) mg/dL Urine Ketones NEGATIVE (NEGATIVE) mg/dL Urine Occult Blood NEGATIVE (NEGATIVE) Urine Nitrite NEGATIVE (NEGATIVE) Urine Bilirubin NEGATIVE (NEGATIVE) Urine Urobilinogen 0.2 (NORMAL) (NORMAL) E.U./dL Ur Leukocyte Esterase TRACE H (NEGATIVE) Urine RBC None Seen (0-5) /HPF Urine WBC 0-3 (0-5) /HPF Ur Squamous Epith Cells FEW Squamous (<= Few) Urine Bacteria None Seen (None Seen) /HPF Ur Microscopic Review INDICATED Urine Culture Comments INDICATED Ethyl Alcohol mg/dL 05/13/19 05/13/19 05/13/19 Range/Units 16:05 16:03 16:03 WBC 8.2 (4.8-10.8) x10^3/uL RBC 4.30 (4.20-5.40) 10^6/uL Hgb 13.6 (12.0-16.0) g/dL Hct 43.0 (37.0-47.0) % MCV 100.0 H (81.0-99.0) fL MCH 31.6 H (27.0-31.0) pg MCHC 31.6 L (32.0-36.0) g/dL RDW 13.8 (12.0-15.0) % Plt Count 228 (130-450) 10^3/uL MPV 10.2 (7.9-10.8) fL Neut # (Auto) 5.5 (1.5-6.6) 10^3/uL Lymph # (Auto) 1.5 (1.5-3.5) 10^3/uL [place] # (Auto) 0.6 (0.0-1.0) 10^3/uL Eos # (Auto) 0.5 (0.0-0.7) 10^3/uL Baso # (Auto) 0.1 (0.0-0.1) 10^3/uL Absolute Nucleated RBC 0.00 x10^3/uL Nucleated RBC % 0.0 /100WBC Sodium (135-145) mmol/L Potassium (3.5-5.0) mmol/L Chloride (101-111) mmol/L Carbon Dioxide (21-32) mmol/L Anion Gap (6-13) BUN (6-20) mg/dL Creatinine (0.4-1.0) mg/dL Estimated GFR (MDRD) (>89) Glucose (70-100) mg/dL Lactic Acid (0.5-2.2) mmol/L Calcium (8.5-10.3) mg/dL Total Bilirubin (0.2-1.0) mg/dL AST (10-42) IU/L ALT (10-60) IU/L Alkaline Phosphatase (42-121) IU/L Lactate Dehydrogenase 143 (91-225) IU/L Troponin I High Sens (2.3-14.8) ng/L Total Protein (6.7-8.2) g/dL Albumin (3.2-5.5) g/dL Globulin (2.1-4.2) g/dL Albumin/Globulin Ratio (1.0-2.2) Lipase (22-51) U/L Urine Color Urine Clarity (CLEAR) Urine pH (5.0-7.5) PH Ur Specific [place] (1.002-1.030) Urine Protein (NEGATIVE) mg/dL Urine Glucose (UA) (NEGATIVE) mg/dL Urine Ketones (NEGATIVE) mg/dL Urine Occult Blood (NEGATIVE) Urine Nitrite (NEGATIVE) Urine Bilirubin (NEGATIVE) Urine Urobilinogen (NORMAL) E.U./dL Ur Leukocyte Esterase (NEGATIVE) Urine RBC (0-5) /HPF Urine WBC (0-5) /HPF Ur Squamous Epith Cells (<= Few) Urine Bacteria (None Seen) /HPF Ur Microscopic Review Urine Culture Comments Ethyl Alcohol < 5.0 mg/dL - Current Medications Current Medications: Current Medications Generic Name Dose Route Start Last Admin Trade Name Eliaq PRN Reason Stop Dose Admin Hydromorphone HCl 1 mg 05/14/19 08:21 05/14/19 08:37 Dilaudid Inj Carp IVP 1 mg Q2H PRN Administration PAIN 8 TO 10 Ceftriaxone Sodium 1 gm/ 100 mls @ 200 mls/hr 05/14/19 09:00 05/14/19 08:38 Sodium Chloride IV 200 mls/hr DAILY TRISTEN Administration Metronidazole 500 mg in 100 mls @ 100 mls/hr 05/13/19 20:00 05/14/19 05:01 Flagyl 500 Mg/100 Ml IV Infused Q8H TRISTEN Infusion Sodium Chloride 1,000 mls @ 100 mls/hr 05/13/19 20:00 05/14/19 08:38 Normal Saline 0.9% IV 0 mls/hr .Q10H TRISTEN Infusion Ondansetron HCl 4 mg 05/13/19 19:32 05/14/19 02:56 Zofran Odt TL 4 mg Q6HR PRN Administration Nausea / Vomiting Pantoprazole Sodium 40 mg 05/14/19 07:00 05/14/19 06:13 Protonix IVP 40 mg QDAC TRISTEN Administration Sodium Chloride 10 ml 05/13/19 19:32 05/13/19 22:00 Normal Saline Flush 0.9% IVP 10 ml PRN PRN Administration NEEDED PER PROVIDER ORDERS Sodium Chloride 10 ml 05/14/19 01:00 05/14/19 08:38 Normal Saline Flush 0.9% IVP 10 ml 0100,0900,1700 TRISTEN Administration Impression/Plan - Problem List Problem List: Discussion w/Anesthesia regarding this patient's significant cardiac history especially angina at rest in the past 3 weeks has led us to the conclusion it would not be safe to proceed w/right colon resection here. She will be best served to have cardiology work up prior to surgery. The fact she is not obst ructed decreases the emergent nature of her situation. She is now amenable to receiving care at a higher level institution. Arrangements are in progress for transfer.
--- NOTE | 2019-05-14 10:14 | CONSULTATION NOTE ---
Consultation Report: Pt has a significant cardiac history with a history of "three coronary stents and tripple bypass" pt has also reported on and off angina with the most recent episode three weeks ago sitting down while knitting. Spoke with the surgeon and it was decided that patient will be best served to have a cardiac work up done and have her surgery at a place with availability of interventional cardiology. Pt is in agreement with this decision.
--- NOTE | 2019-05-14 12:40 | DISCHARGE SUMMARY ---
"Discharge Summary Admit Date: 05/13/19 Discharge Date: 05/14/19 Discharging Provider: [facility] Primary Care Provider: Noah Tyler Code Status: Do Not Attempt Resuscitation Condition at Discharge: Stable Discharge Disposition: 02 Transfer Acute Care Hosp Discharge Facility Name: [facility] - DIAGNOSES Admission Diagnoses: Generalized abdominal pain secondary to intussusception of the bowel Preoperative evaluation Table angina Chronic kidney disease Hypertension Chronic joint pain from psoriatic arthritis Severe atrophic vaginitis Obstructive sleep apnea Discharge Diagnoses with Status of Each Condition: Ileocolic Intussusception - stable. Plan on CT of the abdomen and pelvis. General surgery and anesthesia feel she is too high of a risk to be operated on at this facility given her history of coronary artery disease and her stable angina. She will be transferred to [facility] as she requires a higher level of care. She has been accepted by Dr. Cueva of general surgery and we are grateful for this. Rahul on ceftriaxone and Flagyl IV. She is n.p.o. and receiving IV hydration with normal saline. Lactic is normal. Stable angina - Troponin was negative here but EKG does show sinus rhythm with PACs. She does have inverted T waves in the lateral leads. Chronic kidney disease - stable. Her creatinine is stable at 1.3 which is her baseline. History of coronary artery disease - She underwent triple bypass surgery in [facility] back in 2006. She also has had intraoperative stenting. She is on aspirin and statin. Psoriatic arthritis - stable. On Stelara at home. Hypertension - stable. Is not on medications at home. Obstructive sleep apnea - stable. She is not on CPAP. - HPI History of Present Illness: H&P per Dr. Hightower on 05/13/19: She is a jeromy 83-year-old female who still lives independently. She drives her own car, does her own errands, dresses and feeds herself. Her abdominal history consists of a colonoscopy that was done approximately 2006 and was negative. She has had a hysterectomy. She is also had an admission for abdominal pain back in November 2017 to our hospital. At that time, an ultrasound in the emergency room showed her to have mild common but doubt dilatation and normal liver and liver function studies. A CT of the abdomen showed her to have a dilated common bile duct at 12, but otherwise normal CT with regards to gallbladder, pancreas, etc. She has a small hiatal hernia and her bilirubin was mildly elevated at 1.1. She ended up being admitted for a few days for nausea and vomiting accompanying that abdominal pain as well as diarrhea. In the discharge instructions, she is supposed to have been seen by her primary primary care provider and considered for possible ERCP. As far as the patient knows, and her niece who accompanies her, there has been no ERCP. She was not aware that was being recommended. She has not had any icterus, abdominal pain or change in the color of her stool. However, starting 3 weeks ago, she started having generalized abdominal pain that started just below the hyoid down to the pubis. It has been accompanied by a lack of appetite. There has been no blood in the stool. The pain is not agonizing, just constant and unremitting. She has had intermittent diarrhea. She has always has loose stools, but this is worse than usual. No one else is sick around her. With kathryn's weight, she is 63.9 kg. Her weight in November 2017 was 73 kg. There have been a couple of times that she has been noted to be 150 kg in the medical record, but I think that is an error. This woman's highest weight was 86 kg in March 2013. She denies fevers, sweats. She has not had any coughing, wheezing. Her main complaints, other than this new abdominal pain, centered around her joints and Psoriatec arthritis and psoriasis. She has had daily chronic joint pain, rash that itches and, more than anything else, is getting crazy vulvar leukoplakia and lichenification from atrophic vaginitis. She tries to control her vaginal discomfort and dysuria with a aspercreme. Clobetasol really does not help and Lidoderm cream does not really help. Although she has been seen by gynecology, topical estrogen cream has not been offered. She came to emergency room for the increasing abdominal discomfort and lack of appetite. She was evaluated by Dr. Coronel when her temperature was 36.6, pulse rate is 57, blood pressure 122/43, respirations 16, and 97% on room air. He describes as an alert, oriented female in no acute distress. No respiratory distress. Soft abdomen with hyperactive bowel tones. Minimal right upper quadrant tenderness with a negative [facility] sign, no surgical signs seen. Her labs showed her to have a white cell count that was 20 that was normal and a stable BUN and creatinine for her, may be mildly elevated creatinine at 1.3. Liver function studies were normal. He went on to do a CT of the abdomen. CT of the abdomen shows her to have a moderately long ileocolic intussusception with a possible 3.7 cm mass as likely point of the cause of the intussusception. Malignancy as a differential is put out there. There is no apparent obstruction or gross acute complication. She has severe atherosclerotic disease of the aorta and branches. He consulted with general surgery on-call, Dr. Martin. He would like the patient to the operating room tomorrow. In reviewing her tres-preoperative review of systems, this patient has coronary artery disease. She had triple bypass surgery in [place], [place] in 2006 after presenting as severe angina. She also had stenting in her coronary arteries at the same time. She is not plagued by congestive heart failure or atrial fibrillation. She is also undergone a right carotid endarterectomy approximately 2007. That was done in [place]. She has angina on a regular basis, usually about once a week. She does not take nitroglycerin for it she d escribes it as a substernal heaviness and discomfort that will radiate to left arm, sometimes to both arms. It will occasionally radiate to her jaw and give us her sensation of TMJ. She denies nausea, diaphoresis, palpitation with this angina. She has gotten so used to it that there is now on her. May go away, she has sits down, tries to relax as much as possible, then it will go away. She has not had a stress test since her bypass surgery 2006. She has not had an echocardiogram. She denies any history of valvular heart disease. - CONSULTS | PROCEDURES Consultations: General surgery. Anesthesia. Procedures: CT of the abdomen and pelvis. Abdominal ultrasound. - HOSPITAL COURSE Hospital Course: She was admitted for abdominal pain secondary to ileocolic Intussusception. She was made n.p.o. treated with IV saline. She was started on ceftriaxone and Flagyl IV. Her pain has been well controlled with Dilaudid 1 mg IV. General surgery evaluate the patient and recommended intervention. After discussing with general surgery and anesthesia, given her angina and history of coronary artery disease, there is concern she is too high of a risk to operate on at this facility. It is recommended she be transferred to higher level of care where cardiology is available. The patient has been graciously accepted by Dr. Cueva of general surgery at [facility]. Her vitals on discharge are: Temperatire of 36.6, blood pressure of 142/58, heart rate 69, respirations 20, saturating 93% on 2 L of oxygen. - ALLERGIES Allergies/Adverse Reactions: Allergies Allergy/AdvReac Type Severity Reaction Status Date / Time promethazine HCl * Allergy Severe UNCONSCIOUS Verified 05/13/19 15:45 [From Phenergan] fentanyl Allergy Unknown unknown Verified 05/13/19 15:45 Penicillins Allergy Hives Verified 05/13/19 15:45 Sulfa (Sulfonamide Allergy Hives Verified 05/13/19 15:45 Antibiotics) - MEDICATIONS Home Medications: Ambulatory Orders Medication Instructions Recorded Confirmed Allopurinol 300 mg PO DAILY 04/04/13 12/14/17 Aspirin Chewable [St Matteo 81 mg PO DAILY 04/04/13 12/14/17 Aspirin] Cholecalciferol (Vitamin D3) 2,000 unit PO DAILY 04/04/13 12/14/17 [Vitamin D3] Ustekinumab [Stelara] 45 mg SUBQ 12/13/17 Atorvastatin Calcium 20 mg PO DAILY 12/14/17 12/14/17 Mirabegron [Myrbetriq] 25 mg PO DAILY 12/14/17 12/14/17 Multivitamin/Iron/Folic Acid 1 each PO DAILY 12/14/17 12/14/17 [Centrum Adults Tablet] [place]-3/Dha/Epa/Fish Oil [Fish Oil 1 each PO DAILY 12/14/17 12/14/17 Gummies] Psyllium Husk [Fiber] 5 g PO DAILY 12/14/17 12/14/17 hydrOXYzine HCl [Hydroxyzine HCl] 10 mg PO QPM 12/14/17 12/14/17 Ondansetron HCl [Zofran] 4 mg PO Q6H PRN #15 tablet 12/15/17 oxyCODONE [Roxicodone] 5 mg PO Q6H PRN #15 tablet 12/15/17 - PHYSICAL EXAM AT DISCHARGE General Appearance: positive: No acute distress, Alert Eyes Bilateral: positive: Normal inspection ENT: positive: ENT inspection nml Neck: positive: Nml inspection Respiratory: positive: No respiratory distress. negative: Wheezes, Rales, Rhonchi Cardiovascular: positive: Regular rate & rhythm, Systolic murmur. negative: Tachycardia, Bradycardia, Diastolic murmur Abdomen: positive: No organomegaly, Tenderness (The right upper and lower quadrant. No guarding or rebound.), Abnml bowel sounds (Hypoactive). negative: Guarding, Rebound Skin: positive: No rash, Warm, Dry Extremities: positive: No pedal edema Neurologic/Psychiatric: positive: Oriented x3, Other (No focal motor deficits.). negative: Disoriented to person, Disoriented to place, Disoriented to time - LABS Result Diagrams: 05/14/19 04:35 05/14/19 04:35 - DIAGNOSTIC IMAGING Diagnostic Imaging Results: Final report reviewed - TIME SPENT Time Spent in Discharge (Minutes): 40"
[2019-05-14 14:29] VITALS: BP 142/58
== END 2019-05-14 14:48 | disposition short-term general hospital (02) | DRG 389 ==
LOC: ED 15:19 → MS2 19:32
PROVIDERS: ADMIT Specialist; ATTEND Internal Medicine
DX: K56.1 Intussusception (principal); R93.3 Abnormal findings on diagnostic imaging of other parts of digestive tract; C18.0 Malignant neoplasm of cecum; I25.119 Atherosclerotic heart disease of native coronary artery with unspecified angina pectoris; I12.9 Hypertensive chronic kidney disease with stage 1 through stage 4 chronic kidney disease, or unspecified chronic kidney disease; N18.3 Chronic kidney disease, stage 3 (moderate); I70.0 Atherosclerosis of aorta; Z86.39 Personal history of other endocrine, nutritional and metabolic disease; I49.1 Atrial premature depolarization; L40.50 Arthropathic psoriasis, unspecified; G89.29 Other chronic pain; N95.2 Postmenopausal atrophic vaginitis; E86.0 Dehydration; G47.33 Obstructive sleep apnea (adult) (pediatric); K21.9 Gastro-esophageal reflux disease without esophagitis; E78.5 Hyperlipidemia, unspecified; M81.0 Age-related osteoporosis without current pathological fracture; N39.41 Urge incontinence; J43.9 Emphysema, unspecified; K52.9 Noninfective gastroenteritis and colitis, unspecified; Z66 Do not resuscitate; Z95.1 Presence of aortocoronary bypass graft; Z95.5 Presence of coronary angioplasty implant and graft; Z79.82 Long term (current) use of aspirin; Z79.899 Other long term (current) drug therapy; Z90.710 Acquired absence of both cervix and uterus; Z87.19 Personal history of other diseases of the digestive system; Z87.310 Personal history of (healed) osteoporosis fracture; Z87.891 Personal history of nicotine dependence; Z86.59 Personal history of other mental and behavioral disorders
CPT/HCPCS: 36415; 74177; 80048; 80053; 81001; 83605; 83615; 83690; 84484; 85025; 87086; 93005; 96374; 96376; 99284; 99285; J1170; Q0162; Q9967; 80320; 81003

== ENCOUNTER 2019-05-14 14:49 | Outpatient (CLI) | payer MEDICARE | END 2019-05-14 14:50 | disposition home or self-care (01) | LOC: EMS 14:49 | PROVIDERS: ATTEND Surgery | DX: R10.9 Unspecified abdominal pain (principal) | CPT/HCPCS: A0425; A0428 ==

== ENCOUNTER 2020-01-14 01:25 | Outpatient (CLI) | payer MEDICARE | END 2020-01-14 01:26 | disposition critical access hospital (66) | LOC: EMS 01:25 | PROVIDERS: ATTEND Surgery | DX: M54.5 Low back pain (principal); M43.6 Torticollis | CPT/HCPCS: A0425; A0429 ==

== ENCOUNTER 2020-01-14 01:44 | Emergency (ER) | payer MEDICARE ==
--- NOTE | 2020-01-14 03:20 | ED Physician Documentation ---
PD HPI Fall - Stated complaint Stated Complaint: GLF/C/o NECK, BACK BILAT LE'S PX - Chief complaint Chief Complaint: Trauma Hd/Nk - History obtained from History obtained from: Patient, EMS - History of Present Illness Mechanism of injury: Slipped Fall distance: From bed Where injury occurred: Home Timing - onset: Enter time (99), Today Injury(ies) location: Neck, Back, Right Lower Extremity Quality of pain: Pain Associated symptoms: Neck pain. No: LOC, AMS, Amnesia, Seizures, Ear drainage, Nasal drainage, Weakness, Paresthesias, Dyspnea, Nausea / vomiting, Hematemesis, Abdominal distension Symptoms improve with: Rest, Position Worsens with: Movement, Palpation Contributing factors: No: Anticoagulated, Intoxicated Similar symptoms before: Diagnosis (dehydration) Recently seen: Not recently seen - Additional information Additional information: 84-year-old female with a history of coronary artery disease status post CABG and peripheral vascular disease status post carotid endarterectomy has also a history of COPD and type 2 diabetes. She has been on a recent road trip to [place] she drove to [place] and she has driven back from [place] and she arrived back from [place] yesterday. This evening she was getting out of bed to go to the bathroom and she had severe pain all over. She states she had the pain before she had a collapsed to the ground. She went to stand up and collapsed next to her bed landing on her buttocks. She complains of pain in her right hip and her low back and in the right side of her neck. She feels dehydrated. She has been driving for the past 2 days and yesterday she [place] of [place]. She denies any other specific symptoms of illness. She states the pain she is having started before her fall. Review of Systems Constitutional: reports: Myalgias, Fatigue. denies: Fever Eyes: denies: Decreased vision Ears: denies: Ear pain Nose: denies: Rhinorrhea / runny nose, Congestion Throat: denies: Sore throat Cardiac: denies: Chest pain / pressure, Palpitations, Pedal edema, Calf pain Respiratory: denies: Dyspnea, Cough GI: reports: Diarrhea. denies: Abdominal Pain, Nausea, Vomiting : denies: Dysuria, Frequency Skin: denies: Rash Musculoskeletal: reports: Neck pain, Back pain, Extremity pain, Joint pain, Pain with weight bearing Neurologic: reports: Generalized weakness. denies: Focal weakness, Numbness, Difficulty speaking, Altered mental status, Headache, Head injury, LOC PD PAST MEDICAL HISTORY - Past Medical History Past Medical History: Yes Cardiovascular: High cholesterol Respiratory: COPD, Shortness of breath, Sleep apnea, Other Neuro: None Endocrine/Autoimmune: Type 2 diabetes GI: GERD, GI bleed COMFORT FILLER: None : Incontinence HEENT: None Psych: Depression, Anxiety Musculoskeletal: Osteoarthritis, Gout, Chronic back pain Derm: None - Past Surgical History Past Surgical History: Yes General: Colonoscopy Ortho: Spine surgery /COMFORT FILLER: Hysterectomy Cardiovascular: CABG HEENT: Tonsil/Adenoidectomy - Present Medications Home Medications: Ambulatory Orders Medication Instructions Recorded Confirmed Aspirin Chewable [St Matteo 81 mg PO DAILY 04/04/13 12/14/17 Aspirin] Cholecalciferol (Vitamin D3) 2,000 unit PO DAILY 04/04/13 12/14/17 [Vitamin D3] allopurinoL [Allopurinol] 300 mg PO DAILY 04/04/13 12/14/17 Ustekinumab [Stelara] 45 mg SUBQ 12/13/17 Atorvastatin Calcium 20 mg PO DAILY 12/14/17 12/14/17 Mirabegron [Myrbetriq] 25 mg PO DAILY 12/14/17 12/14/17 Multivitamin/Iron/Folic Acid 1 each PO DAILY 12/14/17 12/14/17 [Centrum Adults Tablet] [place]-3/Dha/Epa/Fish Oil [Fish Oil 1 each PO DAILY 12/14/17 12/14/17 Gummies] Psyllium Husk [Fiber] 5 g PO DAILY 12/14/17 12/14/17 hydrOXYzine HCL [Hydroxyzine HCl] 10 mg PO QPM 12/14/17 12/14/17 Ondansetron HCl [Zofran] 4 mg PO Q6H PRN #15 tablet 12/15/17 oxyCODONE [Roxicodone] 5 mg PO Q6H PRN #15 tablet 12/15/17 - Allergies Allergies/Adverse Reactions: Allergies Allergy/AdvReac Type Severity Reaction Status Date / Time promethazine HCl * Allergy Severe UNCONSCIOUS Verified 01/14/20 01:55 [From Phenergan] fentanyl Allergy Unknown unknown Verified 01/14/20 01:55 codeine Allergy Unknown Verified 01/14/20 01:56 morphine Allergy Hallucinati Verified 01/14/20 01:56 ons Penicillins Allergy Hives Verified 01/14/20 01:55 Sulfa (Sulfonamide Allergy Hives Verified 01/14/20 01:55 Antibiotics) - Social History Does the pt smoke?: No Smoking Status: Never smoker Does the pt drink ETOH?: Yes Does the pt have substance abuse?: No - Immunizations Immunizations are current?: Yes - POLST Patient has POLST: Yes POLST Status: DNR PD ED PE NORMAL - Vitals Vital signs reviewed: Yes (Hypertensive) - General General: Alert and oriented X 3, No acute distress, Well developed/nourished - HEENT HEENT: Atraumatic, PERRL, EOMI - Neck Neck: Supple, no meningeal sign, No bony TTP, Other (There is tenderness to the right side of the neck and the paraspinous muscles) - Cardiac Cardiac: RRR, No murmur - Respiratory Respiratory: No respiratory distress, Clear bilaterally - Abdomen Abdomen: Normal bowel sounds, Soft, Non tender, Non distended, No organomegaly - Back Back: No CVA TTP, No spinal TTP - Derm Derm: Normal color, Warm and dry, No rash, Other (Skin is dry) - Extremities Extremities: No deformity, No edema, Other (The legs are equal length there is pain to palpation of the trochanter on the right and there is pain in the right hip joint with flexion extension and internal and external rotation.) - Neuro Neuro: Alert and oriented X 3, server 2-12 intact, No motor deficit, No sensory deficit, Normal speech Eye Opening: Spontaneous Motor: Obeys Commands Verbal: Oriented GCS Score: 15 - Psych Psych: Normal mood, Normal affect Results - Vitals Vitals: Vital Signs - 24 hr 01/14/20 01/14/20 01/14/20 01:43 02:41 04:41 Temperature 37.6 C H Heart Rate 78 78 76 Respiratory 16 18 16 Rate Blood Pressure 141/73 H 128/61 122/55 L O2 Saturation 98 98 97 01/14/20 01/14/20 01/14/20 06:16 07:39 08:39 Temperature 36.6 C Heart Rate 74 74 75 Respiratory 18 16 17 Rate Blood Pressure 141/57 H 120/57 L 112/81 H O2 Saturation 96 98 97 01/14/20 01/14/20 01/14/20 09:19 09:23 09:48 Temperature 36.5 C Heart Rate 72 70 Respiratory 19 21 Rate Blood Pressure 108/54 L 129/49 L O2 Saturation 98 88 L 99 Oxygen O2 Source Room air Oxygen Flow Rate 2 - Labs Labs: Laboratory Tests 01/14/20 01/14/20 01/14/20 03:55 03:55 03:55 WBC 12.5 H RBC 3.74 L Hgb 12.5 Hct 38.1 MCV 101.9 H MCH 33.4 H MCHC 32.8 RDW 13.3 Plt Count 174 MPV 9.7 Neut # (Auto) 10.3 H Lymph # (Auto) 1.1 L [place] # (Auto) 0.9 Eos # (Auto) 0.1 Baso # (Auto) 0.1 Absolute Nucleated RBC 0.00 Nucleated RBC % 0.0 Sodium 136 Potassium 4.5 Chloride 105 Carbon Dioxide 21 Anion Gap 10.0 BUN 35 H Creatinine 1.3 H Estimated GFR (MDRD) 39 L Glucose 100 Lactic Acid 0.8 Calcium 8.8 Total Bilirubin 0.6 AST 17 ALT 14 Alkaline Phosphatase 71 Total Protein 6.6 L Albumin 3.9 Globulin 2.7 Albumin/Globulin Ratio 1.4 Lipase 21 L Urine Color Urine Clarity Urine pH Ur Specific [place] Urine Protein Urine Glucose (UA) Urine Ketones Urine Occult Blood Urine Nitrite Urine Bilirubin Urine Urobilinogen Ur Leukocyte Esterase Ur Microscopic Review Urine Culture Comments 01/14/20 07:15 WBC RBC Hgb Hct MCV MCH MCHC RDW Plt Count MPV Neut # (Auto) Lymph # (Auto) [place] # (Auto) Eos # (Auto) Baso # (Auto) Absolute Nucleated RBC Nucleated RBC % Sodium Potassium Chloride Carbon Dioxide Anion Gap BUN Creatinine Estimated GFR (MDRD) Glucose Lactic Acid Calcium Total Bilirubin AST ALT Alkaline Phosphatase Total Protein Albumin Globulin Albumin/Globulin Ratio Lipase Urine Color YELLOW Urine Clarity CLEAR Urine pH 5.0 Ur Specific [place] 1.025 Urine Protein NEGATIVE Urine Glucose (UA) NEGATIVE Urine Ketones NEGATIVE Urine Occult Blood NEGATIVE Urine Nitrite NEGATIVE Urine Bilirubin NEGATIVE Urine Urobilinogen 0.2 (NORMAL) Ur Leukocyte Esterase NEGATIVE Ur Microscopic Review NOT INDICATED Urine Culture Comments NOT INDICATED Procedures - IVC sono (time) 0340 Bedside IVC sono: IVC measures (cm) (0.66), IVC collapsed c insp (cm) (complete), Profound dehydration (est 3 liter deficit) PD MEDICAL DECISION MAKING - ED course Complexity details: reviewed results, re-evaluated patient, considered differential, d/w patient ED course: 84 y/o female with a collapse at home after a 2500mile road trip is found to be severely dehydrated on interrogation of the IVC. She is complaining of overall pain and she is administered 30 mg of Toradol intravenously as well as 2 L of saline. She has marked improvement in her pain she is able to sleep easily and there are no evidence of fracture in the 3 areas imaged. We imaged her hip which shows a prior prosthesis as well as a revision. Her back show severe degenerative disease as well as her neck. These areas would be expected to hurt. I am suspecting her pain presentation has more to do with her dehydration than the mechanical fall which was only slumping to the floor from the edge of the bed. At shift change urinalysis is pending care is turned over to Dr. Aguilar. Departure - Departure Disposition: 01 Home, Self Care Clinical Impression: Dehydration, Near syncope, Generalized weakness Back strain Qualifiers: Encounter type: initial encounter Qualified Code(s): S39.012A - Strain of muscle, fascia and tendon of lower back, initial encounter Neck strain Qualifiers: Encounter type: initial encounter Qualified Code(s): S16.1XXA - Strain of muscle, fascia and tendon at neck level, initial encounter Fall from standing Qualifiers: Encounter type: initial encounter Qualified Code(s): W19.XXXA - Unspecified fall, initial encounter Condition: Stable Instructions: ED Dehydration Follow-Up: Mitch George MD [Primary Care Provider] - Comments: Frequent fluids and normal food at home. Stay well-hydrated. Return if symptoms again. Discharge Date/Time: 01/14/20 10:00
[2020-01-14] MEDS ORDERED: KETOROLAC 30 MG/ML VIAL IVP STA (03:41)
[2020-01-14] MEDS ORDERED: SODIUM CHLORIDE 0.9% 1,000 ML IV STA ×3 (03:41→07:24)
[2020-01-14 04:04] LABS: BASOPHILS # (AUTO) 0.1 10^3/uL (0.0-0.1); BASOPHILS % (AUTO) 0.4 %; EOSINOPHILS # (AUTO) 0.1 10^3/uL (0.0-0.7); EOSINOPHILS % (AUTO) 0.6 %; HGB - HEMOGLOBIN 12.5 g/dL (12.0-16.0); LYMPHOCYTES # (AUTO) 1.1 10^3/uL (1.5-3.5); MEAN CORPUSCULAR HEMOGLOBIN 33.4 pg (27.0-31.0); MEAN CORPUSCULAR HGB CONC 32.8 g/dL (32.0-36.0); MEAN CORPUSCULAR VOLUME 101.9 fL (81.0-99.0); MEAN PLATELET VOLUME 9.7 fL (7.9-10.8); MONOCYTES # (AUTO) 0.9 10^3/uL (0.0-1.0); MONOCYTES % (AUTO) 7.4 %; NEUTROPHILS # (AUTO) 10.3 10^3/uL (1.5-6.6); PLT - PLATELET COUNT 174 10^3/uL (130-450); RED BLOOD COUNT 3.74 10^6/uL (4.20-5.40); RED CELL DISTRIBUTION WIDTH 13.3 % (12.0-15.0); WHITE BLOOD COUNT 12.5 x10^3/uL (4.8-10.8)
[2020-01-14 04:22] LABS: ALBUMIN 3.9 g/dL (3.2-5.5); ALBUMIN/GLOBULIN RATIO 1.4 (1.0-2.2); BILIRUBIN,TOTAL 0.6 mg/dL (0.2-1.0); CALCIUM 8.8 mg/dL (8.5-10.3); CREATININE 1.3 mg/dL (0.4-1.0); TOTAL PROTEIN 6.6 g/dL (6.7-8.2)
[2020-01-14 07:19] LABS: GLUCOSE, URINE (UA) NEGATIVE (NEGATIVE); KETONES,URINE (UA) NEGATIVE (NEGATIVE); LEUKOCYTE ESTERASE, URINE NEGATIVE (NEGATIVE); NITRITE,URINE NEGATIVE (NEGATIVE); OCCULT BLOOD,URINE NEGATIVE (NEGATIVE); PROTEIN,URINE NEGATIVE (NEGATIVE); UROBILINOGEN,URINE 0.2 (NORMAL) E.U./dL (NORMAL)
[2020-01-14 07:36] LABS: BILIRUBIN,URINE NEGATIVE (NEGATIVE); CLARITY,URINE CLEAR (CLEAR); ICTOTEST,URINE NEGATIVE
--- NOTE | 2020-01-14 09:34 | ED Physician Documentation ---
ED Addendum - Addendum Addendum: 01/14/20 09:33 Recheck of the patient after change of shift finds her to be eating breakfast and feeling hungry. She states her pains in her neck and back are improved. She is feeling an improvement on her general weakness. She would like to go home at this time. She does appear well and no obvious significant process going on. Her urine result is normal. She had received IV hydration aiding in her improvement. Disposition the patient is discharged home in stable condition Diagnoses: 1. Dehydration 2. General weakness with near syncope 3. Neck and back strain 4. Fall from standing
[2020-01-14 09:49] VITALS: BP 129/49
--- NOTE | 2020-01-14 10:02 | XRAY Report ---
PROCEDURE: Hip w/Pelvis 2-3V RT INDICATIONS: severe right hip pain TECHNIQUE: AP pelvis with lateral view(s) of the bilateral hip(s). COMPARISON: Correlation is made with lumbar spine radiographs 01/14/2020. Correlation is made with [facility] pelvis CT 05/13/2019. FINDINGS: Bones: Right hip arthroplasty hardware is seen. No findings of hardware failure or hardware loosenin g can be seen. No fractures or dislocations. Pelvic ring appears intact. No suspicious bony lesions. Note is made of age-appropriate degenerative change of the lower lumbar spine. Soft tissues: The visualized bowel gas pattern is normal. No suspicious soft tissue calcifications. IMPRESSION: Unremarkable right hip arthroplasty hardware. Note: No significant discrepancy from the preliminary report. Reviewed by: Thierry Park MD on 01/14/2020 9:01 AM [facility] Approved by: Thierry Park MD on 01/14/2020 9:01 AM [facility] Station ID: [id number]
--- NOTE | 2020-01-14 10:07 | XRAY Report ---
PROCEDURE: Lumbar Spine 2 View INDICATIONS: fall onto buttocks pain in lower back TECHNIQUE: 3 views of the lumbar spine were acquired. COMPARISON: Correlation is made with hip radiographs 01/14/2020 and prior abdomen pelvis CT 9. FINDINGS: Study is limited by nonstandard positioning. Bones: 5 [id number] vertebrae are present. No acute vertebral body compression fractures. No suspicious bony lesions. Mild, chronic anterior wedge deformities are seen involving L2 and L3. There is a degree of vertebral body fusion seen at L1-L2 and L2-L3. Prominent disc space narrowing is seen at L3-L4 and L4-L5 and L 5-S1. Soft tissues: Overlying bowel gas pattern is normal. No suspicious soft tissue calcifications. Ath erosclerotic calcification is seen. IMPRESSION: Advanced degenerative changes are seen, which are similar to the prior CT examination. Please correlate with focal tenderness. If there is point tenderness (or other clinical concern for a fracture not seen on these plain films) then please consider a dedicated CT study for further evalua tion. Note: No significant discrepancy from the preliminary report. Reviewed by: Thierry Park MD on 01/14/2020 9:06 AM [facility] Approved by: Thierry Park MD on 01/14/2020 9:06 AM [facility] Station ID: [id number]
--- NOTE | 2020-01-14 10:19 | CT Report ---
PROCEDURE: CERVICAL SPINE WO INDICATIONS: R sided neck pain after fall TECHNIQUE: Noncontrast 3 mm thick sections acquired from the skull base to the T4 level. Sagittal and coronal r eformats were then constructed. For radiation dose reduction, the following was used: automated exp osure control, adjustment of mA and/or kV according to patient size. COMPARISON: No prior cervical spine imaging is available for review at the time of this dictation. FINDINGS: Image quality: Excellent. Bones: No fractures or dislocations. Visualized superior ribs are intact. Prominent degenerative changes are seen involving the lower cervical spine, with at least moderate di sc space narrowing at C4-C5, with moderate to severe disc space narrowing at C5-C6 and C6-C7. Relativ briseida prominent upper thoracic spine degenerative changes are seen. Calcified pannus is seen posterior to the dens. Sternotomy changes are noted. Soft tissues: Prevertebral soft tissues are normal in thickness. No paravertebral hematomas. No ap ical pneumothoraces. Atherosclerotic calcification can be seen, particularly involving the aortic arch and the left caroti d bifurcation. IMPRESSION: No acute fracture is seen. Cervical spine degenerative changes are seen, which are most prominent inferiorly. Incidental note is made of: Sternotomy Vascular calcification, including involving the left carotid bifurcation. Note: No significant discrepancy from the preliminary report. Reviewed by: Thierry Park MD on 01/14/2020 9:18 AM [facility] Approved by: Thierry Park MD on 01/14/2020 9:18 AM [facility] Station ID: [id number]
== END 2020-01-14 10:00 | disposition home or self-care (01) ==
LOC: EDUNIT# → ED 01:44
DX: E86.0 Dehydration (principal); R55 Syncope and collapse; R53.1 Weakness; S39.012A Strain of muscle, fascia and tendon of lower back, initial encounter; S16.1XXA Strain of muscle, fascia and tendon at neck level, initial encounter; W18.39XA Other fall on same level, initial encounter; Y92.003 Bedroom of unspecified non-institutional (private) residence as the place of occurrence of the external cause; M50.321 Other cervical disc degeneration at C4-C5 level; M51.36 Other intervertebral disc degeneration, lumbar region; Z96.641 Presence of right artificial hip joint; E11.9 Type 2 diabetes mellitus without complications; E11.51 Type 2 diabetes mellitus with diabetic peripheral angiopathy without gangrene; I25.10 Atherosclerotic heart disease of native coronary artery without angina pectoris; Z95.1 Presence of aortocoronary bypass graft; J44.9 Chronic obstructive pulmonary disease, unspecified; Z79.82 Long term (current) use of aspirin
CPT/HCPCS: 36415; 72100; 72125; 80053; 81001; 81003; 83605; 83690; 85025; 87040; 87086; 96361; 96374; 99284

== ENCOUNTER 2020-06-25 08:07 | Outpatient (CLI) | payer MEDICARE ==
--- NOTE | 2020-06-25 16:47 | XRAY Report ---
PROCEDURE: Shoulder 3 View LT INDICATIONS: FROZEN L SHOULDER TECHNIQUE: 4 views of the shoulder were acquired. COMPARISON: 05/05/2019. FINDINGS: Bones: No fractures or dislocations, but there is a moderate degree of AC joint osteoarthritis and a severe degree of glenohumeral joint degenerative osteoarthritis where [id number] articulation and mild to moderate remodeling of the glenoid fossa is seen.. No suspicious bony lesions. Visualized r ibs appear intact. Soft tissues: No suspicious soft tissue calcifications. IMPRESSION: No acute trauma found. Asymmetric shoulder joint osteoarthritis on the left only moderat e in severity at the AC joint but severe at the glenohumeral joint. Reviewed by: Victor M Johnston MD on 06/25/2020 4:46 PM PST Approved by: Victor M Johnston MD on 06/25/2020 4:46 PM PST Station ID: [id number]
== END 2020-06-25 23:59 | disposition home or self-care (01) ==
LOC: DI.N 08:07
PROVIDERS: ATTEND Orthopaedic Surgery
DX: M75.02 Adhesive capsulitis of left shoulder (principal); M19.012 Primary osteoarthritis, left shoulder

== ENCOUNTER 2020-10-23 02:53 | Outpatient (CLI) | payer MEDICARE | END 2020-10-23 02:54 | disposition EMS.NT | LOC: EMS 02:53 | DX: Z03.89 Encounter for observation for other suspected diseases and conditions ruled out (principal) ==

== ENCOUNTER 2021-01-31 14:50 | Emergency (ER) | payer MEDICARE ==
[2021-01-31] MEDS ORDERED: IBUPROFEN 600 MG TABLET PO STA (15:15)
--- NOTE | 2021-01-31 15:21 | ED Physician Documentation ---
History of Present Illness - Stated complaint Stated Complaint: LT LEG INJ/GLF - Chief complaint Chief Complaint: Trauma Ext - Additonal information Additional information: This is a very pleasant and well-appearing 85-year-old female who presents to the emergency department after a ground-level fall this morning. She had woken up and gone to the restroom and when walking to her chair in the kitchen she felt something sharp under her foot which caused her leg to buckle and she fell to the ground. She did not strike her head or lose consciousness. She has a history of a previous frozen shoulder and did strike her left shoulder in the fall now with increasing pain but no deformity. She is also reporting left lateral knee pain. She is typically ambulatory without a cane but has required the use of a cane today. She denies any loss of consciousness denies any headache or neck pain. No abdominal pain nausea or vomiting. Denies chest pain or shortness of air she does carry history of coronary artery disease status post CABG. Review of Systems Constitutional: denies: Fever, Chills Eyes: denies: Loss of vision, Decreased vision Ears: reports: Reviewed and negative Nose: reports: Reviewed and negative Throat: reports: Reviewed and negative Cardiac: denies: Chest pain / pressure, Palpitations, Pedal edema, Calf pain Respiratory: denies: Dyspnea, Cough GI: denies: Abdominal Pain : reports: Reviewed and negative Skin: reports: Abrasion (s) (left knee, left elbow) Musculoskeletal: reports: Joint pain (left shoulder, left knee) Neurologic: denies: Generalized weakness, Focal weakness, Numbness, Difficulty speaking, Near syncope, Syncope, Confused, Altered mental status, Headache, Head injury, LOC Psychiatric: reports: Reviewed and negative PD PAST MEDICAL HISTORY - Past Medical History Cardiovascular: High cholesterol Respiratory: COPD, Shortness of breath, Sleep apnea, Other Neuro: None Endocrine/Autoimmune: Type 2 diabetes GI: GERD, GI bleed 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 : Incontinence HEENT: None Psych: Depression, Anxiety Musculoskeletal: Osteoarthritis, Gout, Chronic back pain Derm: None - Past Surgical History Past Surgical History: Yes General: Colonoscopy Ortho: Spine surgery /BANK TELLER: Hysterectomy Cardiovascular: CABG HEENT: Tonsil/Adenoidectomy - Present Medications Home Medications: Ambulatory Orders Medication Instructions Recorded Confirmed Aspirin Chewable [St Matteo 81 mg PO DAILY 04/04/13 12/14/17 Aspirin] Cholecalciferol (Vitamin D3) 2,000 unit PO DAILY 04/04/13 12/14/17 [Vitamin D3] allopurinoL [Allopurinol] 300 mg PO DAILY 04/04/13 12/14/17 Ustekinumab [Stelara] 45 mg SUBQ 12/13/17 Atorvastatin Calcium 20 mg PO DAILY 12/14/17 12/14/17 Mirabegron [Myrbetriq] 25 mg PO DAILY 12/14/17 12/14/17 Multivitamin/Iron/Folic Acid 1 each PO DAILY 12/14/17 12/14/17 [Centrum Adults Tablet] [place]-3/Dha/Epa/Fish Oil [Fish Oil 1 each PO DAILY 12/14/17 12/14/17 Gummies] Psyllium Husk [Fiber] 5 g PO DAILY 12/14/17 12/14/17 hydrOXYzine HCL [Hydroxyzine HCl] 10 mg PO QPM 12/14/17 12/14/17 Ondansetron HCl [Zofran] 4 mg PO Q6H PRN #15 tablet 12/15/17 oxyCODONE [Roxicodone] 5 mg PO Q6H PRN #15 tablet 12/15/17 - Allergies Allergies/Adverse Reactions: Allergies Allergy/AdvReac Type Severity Reaction Status Date / Time promethazine HCl * Allergy Severe UNCONSCIOUS Verified 01/31/21 14:54 [From Phenergan] fentanyl Allergy Unknown unknown Verified 01/31/21 14:54 codeine Allergy Unknown Verified 01/31/21 14:54 morphine Allergy Hallucinati Verified 01/31/21 14:54 ons Penicillins Allergy Hives Verified 01/31/21 14:54 Sulfa (Sulfonamide Allergy Hives Verified 01/31/21 14:54 Antibiotics) - Social History Does the pt smoke?: No Smoking Status: Never smoker Does the pt drink ETOH?: Yes Does the pt have substance abuse?: No - Immunizations Immunizations are current?: Yes - POLST Patient has POLST: Yes POLST Status: DNR PD ED PE EXPANDED - General General: Alert, No acute distress, Well developed/nourished - Neck Neck: Supple w/out meningeal sx. No: Adenopathy, No tenderness, Soft tissue TTP, Bony TTP, Limited ROM (Full unrestricted range of motion of cervical spine without pain or tenderness elicited.) - Cardiac Cardiac: Regular Rate, Radial strong equal, Pedal strong equal, Cap refill < 2 sec - Respiratory Respiratory: Clear to ausultation juanpablo. No: Distress, Labored - Abdomen Abdomen: Normal Bowel sounds. No: Tender to palpation - Derm Derm: Normal color, Warm and dry. No: Rash - Extremities Extremities: Normal, Tenderness, Left elbow (superficial abrasion laterla elbow. normal flexion/extension and supination/pronation without pain elicited. no deformity), Left knee (Mild tenderness with varus stressing left knee. Some abrasion laterally. Normal Flexion and extension.). No: Deformity Results - Vitals Vitals: Vital Signs - 24 hr 01/31/21 14:54 Temperature 36.5 C Heart Rate 73 Respiratory 16 Rate Blood Pressure 150/60 H O2 Saturation 97 Oxygen O2 Source Room air - Rads (name of study) left foot Radiology: Final report received (No fracture. No acute osseous lesions.) left knee Radiology: Final report received (No fracture. No osseous lesion.) left shoulder Radiology: Final report received (No fracture. No acute osseous lesion.) left hip/pelvis Radiology: Final report received (no fracture and no osseous lesion) PD MEDICAL DECISION MAKING - ED course Complexity details: reviewed results, re-evaluated patient, d/w patient ED course: This is a very pleasant and well-appearing 85-year-old female that presents to the emergency department after ground-level fall this a.m. in which she did not strike her head but fell onto her left side shoulder and knee. She is ambulatory with a cane and requires minimal assistance. There was no neck pain or findings of head injury and she is not anticoagulated thus CT imaging of the head neck was deferred. X-ray of the left shoulder shows no acute fracture. It should be noted she does have a history of previous frozen shoulder of this joint for which she is seeing physical therapy. X-ray of the hip and knee also show no fracture. She did feel the pain in the knee was somewhat improved with an Antonio bandage. Given her age and the recurrent falls I have encouraged her to have somebody come stay with her for at least the next few days. If her pain is not improving with Tylenol or ibuprofen or she has any further falls she is to return to the ER for a second evaluation. Departure - Departure Disposition: 01 Home, Self Care Clinical Impression: Left lateral knee pain Fall Qualifiers: Encounter type: initial encounter Qualified Code(s): W19.XXXA - Unspecified fall, initial encounter Condition: Stable Record reviewed to determine appropriate education?: Yes Comments: You were seen in the emergency department today after a fall. The x-ray of your shoulder, left hip, knee and foot do not show any broken bones. I would like you to use the Antonio wrap on your leg when out of bed. Please always use a cane or walker when ambulating. I think it is best if you stay with someone or have a family member come stay with you for the next 48 to 72 hours to ensure that you are feeling okay. You can take Tylenol or ibuprofen [id number] for discomfort. If at any point you feel that your symptoms are worsening or you have another fall please return immediately to the ER for a second evaluation.
--- NOTE | 2021-01-31 16:11 | XRAY Report ---
PROCEDURE: Hip w/Pelvis 2-3V LT INDICATIONS: GLF TECHNIQUE: AP pelvis with lateral view(s) of the left hip(s). COMPARISON: None. FINDINGS: Bones: No fractures or dislocations. Postsurgical changes compatible right hip arthroplasty noted. P elvic ring appears intact. No suspicious bony lesions. Severe spine degenerative disc disease and fa cet arthropathy. Soft tissues: The visualized bowel gas pattern is normal. No suspicious soft tissue calcifications. IMPRESSION: No fracture. No acute osseous lesion. If there persistent symptoms or continued clinical concern for pathology, then repeat plain film radiographs (7-10 days) or advanced imaging (CT, MR, bone scan) sh ould be considered for further evaluation. Reviewed by: Barbara Haley MD, PhD on 01/31/2021 4:10 PM PDT Approved by: Barbara Haley MD, PhD on 01/31/2021 4:10 PM PDT Station ID: [id number]
--- NOTE | 2021-01-31 16:12 | XRAY Report ---
PROCEDURE: Foot 2 View LT INDICATIONS: fall, pain TECHNIQUE: 2 views of the foot were acquired. COMPARISON: None FINDINGS: Bones: No acute fractures or dislocations. Partially visualized orthopedic hardware placed for ORIF of medial and lateral malleoli fractures. No suspicious bony lesions. Soft tissues: No tibiotalar joint effusion. Achilles tendon appears normal. Heterotopic calcificati on noted adjacent to the base of the fifth metatarsal. IMPRESSION: No fracture. No acute osseous lesion. If there persistent symptoms or continued clinical concern for pathology, then repeat plain film radiographs (7-10 days) or advanced imaging (CT, MR, bone scan) avery uld be considered for further evaluation. Reviewed by: Barbara Haley MD, PhD on 01/31/2021 4:11 PM PDT Approved by: Barbara Haley MD, PhD on 01/31/2021 4:11 PM PDT Station ID: [id number]
--- NOTE | 2021-01-31 16:13 | XRAY Report ---
PROCEDURE: Knee 3 View LT INDICATIONS: fall; lateral pain TECHNIQUE: 3 views of the left knee(s) were acquired. COMPARISON: None. FINDINGS: Bones: No fractures or dislocations. No suspicious bony lesions. Soft tissues: No joint effusion. No suspicious soft tissue calcifications. IMPRESSION: No fracture. No osseous lesion. If there are persistent symptoms or continued clinical concern for pa thology, then repeat plain film radiographs (7-10 days) or advanced imaging (CT, MR, bone scan) shoul d be considered for further evaluation. Reviewed by: Barbara Haley MD, PhD on 01/31/2021 4:12 PM PDT Approved by: Barbara Haley MD, PhD on 01/31/2021 4:12 PM PDT Station ID: [id number]
--- NOTE | 2021-01-31 16:15 | XRAY Report ---
PROCEDURE: Shoulder 2 View LT INDICATIONS: fall; eval for fx TECHNIQUE: 2 views of the shoulder were acquired. COMPARISON: 06/25/2020. FINDINGS: Bones: No fractures or dislocations. No suspicious bony lesions. Visualized ribs appear intact. Se dada glenohumeral joint and mild acromioclavicular joint osteoarthritis. Soft tissues: No suspicious soft tissue calcifications. IMPRESSION: No fracture. No acute osseous lesion. If there persistent symptoms or continued clinical concern for pathology, then repeat plain film radiographs (7-10 days) or advanced imaging (CT, MR, bone scan) avery uld be considered for further evaluation. Reviewed by: Barbara Haley MD, PhD on 01/31/2021 4:13 PM PDT Approved by: Barbara Haley MD, PhD on 01/31/2021 4:13 PM PDT Station ID: [id number]
[2021-01-31 16:57] VITALS: BP 144/91
== END 2021-01-31 16:57 | disposition home or self-care (01) ==
LOC: ED 14:50
DX: S80.212A Abrasion, left knee, initial encounter (principal); S50.312A Abrasion of left elbow, initial encounter; W18.39XA Other fall on same level, initial encounter; Y93.01 Activity, walking, marching and hiking; Y92.000 Kitchen of unspecified non-institutional (private) residence as the place of occurrence of the external cause
CPT/HCPCS: 73030; 73502; 73562; 73620; 99282; 99284; A9270

== ENCOUNTER 2021-02-06 08:00 | Outpatient (CLI) | payer MEDICARE ==
[2021-02-06 17:52] LABS: BASOPHILS # (AUTO) 0.1 10^3/uL (0.0-0.1); BASOPHILS % (AUTO) 0.8 %; EOSINOPHILS # (AUTO) 0.3 10^3/uL (0.0-0.7); EOSINOPHILS % (AUTO) 4.1 %; HCT - HEMATOCRIT 44.6 % (37.0-47.0); HGB - HEMOGLOBIN 13.9 g/dL (12.0-16.0); LYMPHOCYTES # (AUTO) 1.4 10^3/uL (1.5-3.5); LYMPHOCYTES % (AUTO) 21.2 %; MEAN CORPUSCULAR HGB CONC 31.2 g/dL (32.0-36.0); MEAN CORPUSCULAR VOLUME 102.5 fL (81.0-99.0); MEAN PLATELET VOLUME 10.5 fL (7.9-10.8); MONOCYTES # (AUTO) 0.4 10^3/uL (0.0-1.0); MONOCYTES % (AUTO) 6.1 %; NEUTROPHILS # (AUTO) 4.4 10^3/uL (1.5-6.6); NEUTROPHILS % (AUTO) 67.6 %; PLT - PLATELET COUNT 218 10^3/uL (130-450); RED BLOOD COUNT 4.35 10^6/uL (4.20-5.40); RED CELL DISTRIBUTION WIDTH 15.4 % (12.0-15.0); WHITE BLOOD COUNT 6.6 x10^3/uL (4.8-10.8)
[2021-02-06 18:15] LABS: ALBUMIN 4.5 g/dL (3.2-5.5); CALCIUM 9.7 mg/dL (8.5-10.3); CREATININE 1.8 mg/dL (0.4-1.0); POTASSIUM 4.9 mmol/L (3.5-5.0); TOTAL PROTEIN 6.8 g/dL (6.7-8.2)
[2021-02-06 18:36] LABS: THYROID STIMULATING HORMONE 4.27 uIU/mL (0.34-5.60)
[2021-02-06 18:38] LABS: FREE T3 3.36 pg/mL (2.5-3.9)
== END 2021-02-06 23:59 | disposition home or self-care (01) ==
LOC: LAB.WCP 08:00
PROVIDERS: ATTEND Family Medicine
DX: I25.10 Atherosclerotic heart disease of native coronary artery without angina pectoris (principal); K21.9 Gastro-esophageal reflux disease without esophagitis; M10.9 Gout, unspecified; E03.9 Hypothyroidism, unspecified; G62.9 Polyneuropathy, unspecified
CPT/HCPCS: 36415; 80053; 82607; 84439; 84443; 84481; 85025

== ENCOUNTER 2021-03-20 12:52 | Outpatient (CLI) | payer MEDICARE | END 2021-03-20 12:53 | disposition EMS.NT | LOC: EMS 12:52 | DX: R53.81 Other malaise (principal); R53.1 Weakness ==

== ENCOUNTER 2021-04-02 20:24 | Outpatient (CLI) | payer MEDICARE | END 2021-04-02 20:25 | disposition critical access hospital (66) | LOC: EMS 20:24 | DX: S01.21XA Laceration without foreign body of nose, initial encounter (principal); S81.012A Laceration without foreign body, left knee, initial encounter; W18.30XA Fall on same level, unspecified, initial encounter; Y93.89 Activity, other specified; Y92.008 Other place in unspecified non-institutional (private) residence as the place of occurrence of the external cause | CPT/HCPCS: A0425; A0429 ==

== ENCOUNTER 2021-04-02 20:40 | Emergency (ER) | payer MEDICARE ==
--- NOTE | 2021-04-02 21:16 | ED Physician Documentation ---
History of Present Illness - Stated complaint Stated Complaint: GLF/ FACE LAC - Chief complaint Chief Complaint: Trauma Hd/Nk - History obtained from History obtained from: Patient - Additonal information Additional information: Patient comes emergency department chief complaint of ground-level fall after drinking alcohol tonight. Patient states that she lost her balance and fell, striking the edge of the counter she went down. She sustained a skin tear to her left knee and a small laceration to her right nasal bridge. No loss of consciousness. No hip, spine, or shoulder pain. No extremity pain. No abdominal or rib pain. No difficulty breathing. Patient states she is feeling "fine." Review of Systems Ten Systems: 10 systems reviewed and negative Constitutional: reports: Reviewed and negative Eyes: reports: Reviewed and negative Ears: reports: Reviewed and negative Nose: reports: Reviewed and negative Throat: reports: Reviewed and negative Cardiac: reports: Reviewed and negative Respiratory: reports: Reviewed and negative GI: reports: Reviewed and negative : reports: Reviewed and negative Skin: reports: Abrasion (s), Laceration (s), Other (contusions) Musculoskeletal: reports: Reviewed and negative Neurologic: reports: Reviewed and negative Psychiatric: reports: Reviewed and negative Endocrine: reports: Reviewed and negative Immunocompromised: reports: Reviewed and negative PD PAST MEDICAL HISTORY - Past Medical History Past Medical History: Yes Cardiovascular: Hypertension, High cholesterol Respiratory: COPD, Shortness of breath, Sleep apnea, Other Neuro: None Endocrine/Autoimmune: Type 2 diabetes GI: GERD, GI bleed 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 : Incontinence HEENT: None Psych: Depression, Anxiety Musculoskeletal: Osteoarthritis, Gout, Chronic back pain Derm: None - Past Surgical History Past Surgical History: Yes General: Colonoscopy Ortho: 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 Cardiovascular: CABG HEENT: Tonsil/Adenoidectomy - Present Medications Home Medications: Ambulatory Orders Medication Instructions Recorded Confirmed Aspirin Chewable [St Matteo 81 mg PO DAILY 04/04/13 04/02/21 Aspirin] Cholecalciferol (Vitamin D3) 2,000 unit PO DAILY 04/04/13 04/02/21 [Vitamin D3] allopurinoL [Allopurinol] 300 mg PO DAILY 04/04/13 04/02/21 Ustekinumab [Stelara] 45 mg SUBQ 12/13/17 Atorvastatin Calcium 20 mg PO DAILY 12/14/17 04/02/21 Mirabegron [Myrbetriq] 25 mg PO DAILY 12/14/17 04/02/21 Multivitamin/Iron/Folic Acid 1 each PO DAILY 12/14/17 04/02/21 [Centrum Adults Tablet] [place]-3/Dha/Epa/Fish Oil [Fish Oil 1 each PO DAILY 12/14/17 04/02/21 Gummies] Psyllium Husk [Fiber] 5 g PO DAILY 12/14/17 04/02/21 hydrOXYzine HCL [Hydroxyzine HCl] 10 mg PO QPM 12/14/17 04/02/21 Ondansetron HCl [Zofran] 4 mg PO Q6H PRN #15 tablet 12/15/17 oxyCODONE [Roxicodone] 5 mg PO Q6H PRN #15 tablet 12/15/17 Levothyroxine [Synthroid] 25 mcg PO DAILY 04/02/21 04/02/21 Solifenacin Succinate [Vesicare] 5 mg PO DAILY 04/02/21 04/02/21 - Allergies Allergies/Adverse Reactions: Allergies Allergy/AdvReac Type Severity Reaction Status Date / Time promethazine HCl * Allergy Severe UNCONSCIOUS Verified 04/02/21 20:48 [From Phenergan] fentanyl Allergy Unknown unknown Verified 04/02/21 20:48 codeine Allergy Unknown Verified 04/02/21 20:48 morphine Allergy Hallucinati Verified 04/02/21 20:48 ons Penicillins Allergy Hives Verified 04/02/21 20:48 Sulfa (Sulfonamide Allergy Hives Verified 04/02/21 20:48 Antibiotics) - Social History Does the pt smoke?: No Smoking Status: Never smoker Does the pt drink ETOH?: Yes Does the pt have substance abuse?: No - Immunizations Immunizations are current?: Yes - POLST Patient has POLST: Yes POLST Status: DNR PD ED PE NORMAL - Vitals Vital signs reviewed: Yes - General General: Alert and oriented X 3, No acute distress, Well developed/nourished, Other (Not clinically intoxicated.) - HEENT HEENT: Atraumatic, PERRL, EOMI, Moist mucous membranes - Neck Neck: Supple, no meningeal sign, No bony TTP, Other (No step-off) - Cardiac Cardiac: RRR, No murmur, Strong equal pulses - Respiratory Respiratory: No respiratory distress, Clear bilaterally - Abdomen Abdomen: Soft, Non tender, Non distended - Back Back: No CVA TTP, No spinal TTP - Derm Derm: Normal color, Warm and dry, No rash, Other (1 cm laceration of the right nasal bridge. No foreign body. 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 No crepitus. Results - Vitals Vitals: Vital Signs - 24 hr 04/02/21 04/03/21 23:00 00:13 Temperature 36.5 C Heart Rate 60 61 Respiratory 14 15 Rate Blood Pressure 121/62 122/60 O2 Saturation 99 98 Oxygen O2 Source Room air - Rads (name of study) CT head Radiology: Prelim report reviewed, EMP read indepedently, See rad report (neg) CT cervical spine Radiology: Prelim report reviewed, EMP read indepedently, See rad report (DJD, No acute findings) CT face Radiology: Prelim report reviewed, EMP read indepedently, See rad report (Po ssible nondisplaced nasal bone fx) Procedures - Laceration (location) Right nasal bridge Length in cm: 1 Wound type: Linear, Superficial, Clean Neurovascular status: Sensory intact, Motor intact, Vascular intact Wound preparation: Irrigated copiously NS, To the base Skin layer closure: Dermabond, Steri strips Other: Patient tolerated well, No complications, Neurovascular intact, Tetanus UTD PD MEDICAL DECISION MAKING - ED course Complexity details: reviewed results, re-evaluated patient, considered differential, d/w patient ED course: Patient is well-appearing in the emergency department. CTs of the head face and neck were performed and unremarkable. Skin tear was dressed with bacitracin and gauze after cleaning. The nasal bridge laceration was repaired with Dermabond and Steri-Strip good wound edge approximation. We have discussed wound care and the usual indications for return. Patient has a sober ride home and is clinically sober at this time. Departure - Departure Disposition: 01 Home, Self Care Clinical Impression: Skin tear Alcohol intoxication Qualifiers: Complication of substance-induced condition: uncomplicated Qualified Code(s): F10.920 - Alcohol use, unspecified with intoxication, uncomplicated Facial laceration Qualifiers: Encounter type: initial encounter Qualified Code(s): S01.81XA - Laceration without foreign body of other part of head, initial encounter Condition: Stable Instructions: ED Alcohol Intoxication, ED Laceration Facial Skin Glue Comments: CT scan of your face shows a possible slight break in your nasal bone, but it is most out of place. If this is truly a break, will heal well on its own with no further intervention. Discharge Date/Time: 04/03/21 00:13
--- NOTE | 2021-04-02 21:39 | CT Report ---
PROCEDURE: HEAD WO INDICATIONS: fall/injury TECHNIQUE: Noncontrast 4.5 mm thick angled axial sections acquired from the foramen magnum to the vertex. For r adiation dose reduction, the following was used: automated exposure control, adjustment of mA and/or kV according to patient size. COMPARISON: None. FINDINGS: Image quality: Excellent. CSF spaces: Basal cisterns are patent. No extra-axial fluid collections. Ventricles are symmetric in size and shape. Brain: No midline shift. No intracranial masses or hemorrhage. Scattered and confluent hypodensitie s are seen in the subcortical and periventricular white matter. There is diffuse cerebral and cerebel lar volume loss for age. Skull and face: Calvarium bones are intact, without suspicious lesions. Please see dedicated facial CT for facial findings. Sinuses: Visualized sinuses and mastoids are clear. IMPRESSION: 1.No acute intracranial abnormality. 2.Moderate chronic microvascular ischemic changes. Reviewed by: Ricki Arshad MD on 04/02/2021 9:37 PM PDT Approved by: Ricki Arshad MD on 04/02/2021 9:37 PM PDT Station ID: [id number]
--- NOTE | 2021-04-02 21:42 | CT Report ---
PROCEDURE: MAXILLOFACIAL WO INDICATIONS: fall/injury TECHNIQUE: Noncontrast 1.5 mm thick axial images acquired from the mandible through the frontal sinuses, with co gypsy and sagittal reformatting. For radiation dose reduction, the following was used: automated ex posure control, adjustment of mA and/or kV according to patient size. COMPARISON: None. FINDINGS: Image quality: Excellent. Bones and teeth: Suspected minimally displaced nasal bone fractures bilaterally. The nasal septum is midline. Orbital messina are intact. Sinus messina show no fracture or deformity. Visualized portions o f the mandible demonstrate no fractures or subluxation. Zygomatic arches are intact. Pterygoid plat es are intact. Visualized portions of the skull base and auditory canals are intact. Degenerative c hanges are seen at the temporomandibular joints. Degenerative changes are also seen in the included c ervical spine. Sinuses: Paranasal sinuses are aerated, without fluid levels, mucosal thickening, or mucoceles. Mastoid air cells are aerated. Soft tissues: Subcutaneous soft tissue edema is seen at the nose. No enlarged lymph nodes. No soft t issue lacerations or debris. Chronic microvascular ischemic changes and cerebral volume loss are not ed in the brain. Vascular: Visualized vascular structures appear normal in the absence of contrast. Bony vascular fo ramina and canals are intact. IMPRESSION: Suspected minimally displaced bilateral nasal bone fractures with overlying soft tissue edema, greate r on the right. Reviewed by: Ricki Arshad MD on 04/02/2021 9:41 PM PDT Approved by: Ricki Arshad MD on 04/02/2021 9:41 PM PDT Station ID: [id number]
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
[2021-04-02] MEDS ORDERED: BACITRACIN ZINC OINT 1 PACKET TOP STA (21:48)
[2021-04-03 00:14] VITALS: BP 122/60
== END 2021-04-03 00:13 | disposition home or self-care (01) ==
LOC: EDUNIT# → ED 20:40
DX: S01.21XA Laceration without foreign body of nose, initial encounter (principal); S80.212A Abrasion, left knee, initial encounter; W01.198A Fall on same level from slipping, tripping and stumbling with subsequent striking against other object, initial encounter; I10 Essential (primary) hypertension; E11.9 Type 2 diabetes mellitus without complications; F10.920 Alcohol use, unspecified with intoxication, uncomplicated
CPT/HCPCS: 12011; 70450; 70486; 72125; 99284; A9270

== ENCOUNTER 2021-06-15 12:08 | Outpatient (CLI) | payer OTHER, MEDICARE | END 2021-06-15 12:09 | disposition critical access hospital (66) | LOC: EMS 12:08 | DX: Z04.1 Encounter for examination and observation following transport accident (principal); M79.602 Pain in left arm; M54.2 Cervicalgia | CPT/HCPCS: A0425; A0429 ==

== ENCOUNTER 2021-06-15 12:19 | Emergency (ER) | payer OTHER, MEDICARE ==
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
[2021-06-15] MEDS ORDERED: ACETAMINOPHEN 325 MG TABLET PO STA (12:33)
[2021-06-15] MEDS ORDERED: KETOROLAC 30 MG/ML VIAL IM STA (12:33)
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
[2021-06-15 14:26] VITALS: BP 138/70
== END 2021-06-15 14:25 | disposition home or self-care (01) ==
LOC: EDUNIT# → ED 12:19
DX: S46.912A Strain of unspecified muscle, fascia and tendon at shoulder and upper arm level, left arm, initial encounter (principal); S16.1XXA Strain of muscle, fascia and tendon at neck level, initial encounter; S29.012A Strain of muscle and tendon of back wall of thorax, initial encounter; V49.9XXA Car occupant (driver) (passenger) injured in unspecified traffic accident, initial encounter; W22.11XA Striking against or struck by driver side automobile airbag, initial encounter; Y92.410 Unspecified street and highway as the place of occurrence of the external cause; M50.30 Other cervical disc degeneration, unspecified cervical region; M51.34 Other intervertebral disc degeneration, thoracic region; M19.012 Primary osteoarthritis, left shoulder; I10 Essential (primary) hypertension; E11.9 Type 2 diabetes mellitus without complications; Z79.82 Long term (current) use of aspirin
CPT/HCPCS: 72125; 72128; 73030; 96372; 99283; 99284; A9270

== ENCOUNTER 2021-08-10 01:06 | Outpatient (CLI) | payer MEDICARE | END 2021-08-10 01:07 | disposition critical access hospital (66) | LOC: EMS 01:06 | DX: I48.91 Unspecified atrial fibrillation (principal) | CPT/HCPCS: A0425; A0429 ==

== ENCOUNTER 2021-08-10 01:18 | Emergency (ER) | payer MEDICARE, OTHER ==
[2021-08-10] MEDS ORDERED: diltiaZEM INJ 5 MG/ML VIAL IVP STA (01:32)
[2021-08-10] MEDS ORDERED: SODIUM CHLORIDE 0.9% 1,000 ML IV STA (01:32)
[2021-08-10 01:56] LABS: BASOPHILS # (AUTO) 0.1 10^3/uL (0.0-0.1); BASOPHILS % (AUTO) 0.9 %; EOSINOPHILS # (AUTO) 0.6 10^3/uL (0.0-0.7); HCT - HEMATOCRIT 41.4 % (37.0-47.0); HGB - HEMOGLOBIN 13.1 g/dL (12.0-16.0); MEAN CORPUSCULAR HEMOGLOBIN 32.5 pg (27.0-31.0); MEAN CORPUSCULAR HGB CONC 31.6 g/dL (32.0-36.0); MEAN CORPUSCULAR VOLUME 102.7 fL (81.0-99.0); MEAN PLATELET VOLUME 9.5 fL (7.9-10.8); MONOCYTES # (AUTO) 0.6 10^3/uL (0.0-1.0); MONOCYTES % (AUTO) 8.2 %; NEUTROPHILS # (AUTO) 4.2 10^3/uL (1.5-6.6); NEUTROPHILS % (AUTO) 55.8 %; PLT - PLATELET COUNT 194 10^3/uL (130-450); RED BLOOD COUNT 4.03 10^6/uL (4.20-5.40); RED CELL DISTRIBUTION WIDTH 15.2 % (12.0-15.0); WHITE BLOOD COUNT 7.5 x10^3/uL (4.8-10.8)
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
[2021-08-10 02:08] LABS: ALBUMIN 3.8 g/dL (3.2-5.5); ALBUMIN/GLOBULIN RATIO 1.4 (1.0-2.2); ALKALINE PHOSPHATASE 65 IU/L (42-121); ALT ALANINE AMINOTRANSFERASE < 10 IU/L (10-60); AST ASPARTATE AMINOTRANSFERASE 18 IU/L (10-42); BILIRUBIN,TOTAL 0.7 mg/dL (0.2-1.0); BUN - BLOOD UREA NITROGEN 23 mg/dL (6-20); CALCIUM 8.9 mg/dL (8.5-10.3); CARBON DIOXIDE - CO2 25 mmol/L (21-32); CHLORIDE 106 mmol/L (101-111); CREATININE 1.2 mg/dL (0.4-1.0); GFR - MDRD 43 (>89); GLUCOSE 105 mg/dL (70-100); LIPASE 22 U/L (22-51); POTASSIUM 4.4 mmol/L (3.5-5.0); SODIUM 141 mmol/L (135-145); TOTAL PROTEIN 6.5 g/dL (6.7-8.2)
--- NOTE | 2021-08-10 02:11 | ED Physician Documentation ---
History of Present Illness - Stated complaint Stated Complaint: CHEST PX - Chief complaint Chief Complaint: Cardiac - History obtained from History obtained from: Patient, EMS - History of Present Illness Timing: Today - Additonal information Additional information: 85-year-old female with a history of hypertension COPD type 2 diabetes and coronary artery disease s/p CABG was working in her house today excessively feeling quite well and she got ready to go to bed this evening and as she laid down she had a pressure on her chest like someone was sitting on her chest. She became concerned and called paramedics. The patient recalls the pain started about 1130pm and lasted about 35 minutes. The medics arrived to find the patient without pain but with a heart rate of 160. This appeared regular. They were unable to demonstrate conclusively that this was atrial fibrillation. She had no symptoms and was transported the hospital. Review of Systems Constitutional: denies: Fever Eyes: denies: Decreased vision Ears: denies: Ear pain Nose: denies: Congestion Throat: denies: Sore throat Cardiac: reports: Chest pain / pressure, Palpitations. denies: Pedal edema, Calf pain Respiratory: denies: Dyspnea, Cough, Hemoptysis, Wheezing GI: denies: Abdominal Pain, Nausea, Constipation, Diarrhea : denies: Dysuria, Frequency Skin: denies: Rash Musculoskeletal: denies: Neck pain, Back pain, Extremity pain PD PAST MEDICAL HISTORY - Past Medical History Cardiovascular: Hypertension, High cholesterol Respiratory: COPD, Shortness of breath, Sleep apnea, Other Neuro: None Endocrine/Autoimmune: Type 2 diabetes GI: GERD, GI bleed DIRECTOR OF CURRICULUM AND INSTRUCTION: None : Incontinence HEENT: None Psych: Depression, Anxiety Musculoskeletal: Osteoarthritis, Gout, Chronic back pain, Other (frozen shoulder left from rotator cuff process. ) Derm: None - Past Surgical History Past Surgical History: Yes General: Colonoscopy Ortho: Spine surgery /DIRECTOR OF CURRICULUM AND INSTRUCTION: Hysterectomy Cardiovascular: CABG HEENT: Tonsil/Adenoidectomy - Present Medications Home Medications: Ambulatory Orders Medication Instructions Recorded Confirmed Aspirin Chewable [St Matteo 81 mg PO DAILY 04/04/13 04/02/21 Aspirin] Cholecalciferol (Vitamin D3) 2,000 unit PO DAILY 04/04/13 04/02/21 [Vitamin D3] allopurinoL [Allopurinol] 300 mg PO DAILY 04/04/13 04/02/21 Ustekinumab [Stelara] 45 mg SUBQ 12/13/17 Atorvastatin Calcium 20 mg PO DAILY 12/14/17 04/02/21 Mirabegron [Myrbetriq] 25 mg PO DAILY 12/14/17 04/02/21 Multivitamin/Iron/Folic Acid 1 each PO DAILY 12/14/17 04/02/21 [Centrum Adults Tablet] [place]-3/Dha/Epa/Fish Oil [Fish Oil 1 each PO DAILY 12/14/17 04/02/21 Gummies] Psyllium Husk [Fiber] 5 g PO DAILY 12/14/17 04/02/21 hydrOXYzine HCL [Hydroxyzine HCl] 10 mg PO QPM 12/14/17 04/02/21 ondansetron HCL [Zofran] 4 mg PO Q6H PRN #15 tablet 12/15/17 oxyCODONE [Roxicodone] 5 mg PO Q6H PRN #15 tablet 12/15/17 Levothyroxine [Synthroid] 25 mcg PO DAILY 04/02/21 04/02/21 Solifenacin Succinate [Vesicare] 5 mg PO DAILY 04/02/21 04/02/21 Ubidecarenone/Vit E Acet [Co Q-10 1 cap PO DAILY 08/10/21 08/10/21 100 mg Softgel] - Allergies Allergies/Adverse Reactions: Allergies Allergy/AdvReac Type Severity Reaction Status Date / Time promethazine HCl * Allergy Severe UNCONSCIOUS Verified 06/15/21 12:26 [From Phenergan] fentanyl Allergy Unknown unknown Verified 06/15/21 12:26 codeine Allergy Unknown Verified 06/15/21 12:26 morphine Allergy Hallucinati Verified 06/15/21 12:26 ons Penicillins Allergy Hives Verified 06/15/21 12:26 Sulfa (Sulfonamide Allergy Hives Verified 06/15/21 12:26 Antibiotics) dailry Allergy Unknown Uncoded 08/10/21 03:06 - Social History Does the pt smoke?: No Smoking Status: Never smoker Does the pt drink ETOH?: Yes Does the pt have substance abuse?: No - Immunizations Immunizations are current?: Yes - POLST Patient has POLST: Yes POLST Status: DNR PD ED PE NORMAL - Vitals Vital signs reviewed: Yes (tachy and hypertensive) - General General: Alert and oriented X 3, No acute distress, Well developed/nourished - HEENT HEENT: Atraumatic, PERRL, EOMI - Neck Neck: Supple, no meningeal sign, No bony TTP - Cardiac Cardiac: No murmur, Other (tachy to 150) - Respiratory Respiratory: No respiratory distress, Clear bilaterally - Abdomen Abdomen: Normal bowel sounds, Soft, Non tender, Non distended, No organomegaly - Back Back: No CVA TTP, No spinal TTP - Derm Derm: Normal color, Warm and dry, No rash - Extremities Extremities: No deformity, No edema - Neuro Neuro: Alert and oriented X 3, No motor deficit, No sensory deficit, Normal speech Eye Opening: Spontaneous Motor: Obeys Commands Verbal: Oriented GCS Score: 15 - Psych Psych: Normal mood, Normal affect Results - Vitals Vitals: Vital Signs - 24 hr 08/10/21 08/10/21 08/10/21 01:29 01:33 01:50 Temperature 36.8 C 36.8 C Heart Rate 145 H 145 H 132 H Respiratory 19 19 22 Rate Blood Pressure 127/93 H 127/93 H 152/96 H O2 Saturation 100 100 08/10/21 08/10/21 08/10/21 02:00 02:30 03:00 Temperature Heart Rate 78 92 88 Respiratory 19 20 16 Rate Blood Pressure 152/83 H 152/79 H 131/73 H O2 Saturation 99 97 98 08/10/21 08/10/21 08/10/21 03:18 03:55 04:24 Temperature Heart Rate 94 89 85 Respiratory 17 20 12 Rate Blood Pressure 131/73 H 133/107 H 145/57 H O2 Saturation 97 98 100 08/10/21 08/10/21 08/10/21 04:40 05:05 05:31 Temperature 36.0 C L Heart Rate 94 83 95 Respiratory 22 19 20 Rate Blood Pressure 127/68 139/63 H 123/64 O2 Saturation 99 100 99 08/10/21 08/10/21 06:14 06:55 Temperature 37.0 C Heart Rate 80 79 Respiratory 17 21 Rate Blood Pressure 151/93 H 165/82 H O2 Saturation 98 100 Oxygen O2 Source Room air - EKG (time done) 0122 Rate: Rate (enter#) (136) Rhythm: Sinus tachycardia QRS: LVH (with repolarization abnormality) Compare to prior EKG: Changed from prior EKG (SPT 11-16-2019 the rate has increased) Computer interpretation: Agree with computer 0200 Rate: Rate (enter#) (78) Rhythm: NSR (or ectopic atrial) QRS: LVH (with repolarization abnormality) Ischemia: Q waves Compare to prior EKG: Changed from prior EKG (SPT done earlier in the day the rate has decreased. ) Computer interpretation: Agree with computer - Labs Labs: Laboratory Tests 08/10/21 08/10/21 08/10/21 01:46 01:46 01:46 WBC 7.5 RBC 4.03 L Hgb 13.1 Hct 41.4 MCV 102.7 H MCH 32.5 H MCHC 31.6 L RDW 15.2 H Plt Count 194 MPV 9.5 Neut # (Auto) 4.2 Lymph # (Auto) 2.0 [place] # (Auto) 0.6 Eos # (Auto) 0.6 Baso # (Auto) 0.1 Absolute Nucleated RBC 0.00 Nucleated RBC % 0.0 Sodium 141 Potassium 4.4 Chloride 106 Carbon Dioxide 25 Anion Gap 10.0 BUN 23 H Creatinine 1.2 H Estimated GFR (MDRD) 43 L Glucose 105 H Lactic Acid Calcium 8.9 Total Bilirubin 0.7 AST 18 ALT < 10 L Alkaline Phosphatase 65 Troponin I High Sens 38.9 H* B-Natriuretic Peptide Total Protein 6.5 L Albumin 3.8 Globulin 2.7 Albumin/Globulin Ratio 1.4 Lipase 22 Urine Color Urine Clarity Urine pH Ur Specific [place] Urine Protein Urine Glucose (UA) Urine Ketones Urine Occult Blood Urine Nitrite Urine Bilirubin Urine Urobilinogen Ur Leukocyte Esterase Urine RBC Urine WBC Ur Squamous Epith Cells Urine Bacteria Ur Microscopic Review Urine Culture Comments Nasal Adenovirus (PCR) Nasal B. parapertussis DNA (PCR) Nasal Coronavir 229E PCR Nasal Coronavir HKU1 PCR Nasal Coronavir NL63 PCR Nasal Coronavir OC43 PCR Nasal Enterovir/Rhinovir PCR Nasal Influenza B PCR Nasal Influenza A PCR Nasal Parainfluen 1 PCR Nasal Parainfluen 2 PCR Nasal Parainfluen 3 PCR Nasal Parainfluen 4 PCR Nasal RSV (PCR) Nasal B.pertussis DNA PCR Nasal C.pneumoniae (PCR) Melvin Human Metapneumo PCR Nasal M.pneumoniae (PCR) Nasal SARS-CoV-2 (PCR) 08/10/21 08/10/21 08/10/21 01:46 01:46 02:28 WBC RBC Hgb Hct MCV MCH MCHC RDW Plt Count MPV Neut # (Auto) Lymph # (Auto) [place] # (Auto) Eos # (Auto) Baso # (Auto) Absolute Nucleated RBC Nucleated RBC % Sodium Potassium Chloride Carbon Dioxide Anion Gap BUN Creatinine Estimated GFR (MDRD) Glucose Lactic Acid 1.2 Calcium Total Bilirubin AST ALT Alkaline Phosphatase Troponin I High Sens B-Natriuretic Peptide 507 H Total Protein Albumin Globulin Albumin/Globulin Ratio Lipase Urine Color YELLOW Urine Clarity CLEAR Urine pH 6.0 Ur Specific [place] 1.020 Urine Protein TRACE Urine Glucose (UA) NEGATIVE Urine Ketones NEGATIVE Urine Occult Blood TRACE-INTA Urine Nitrite POSITIVE H Urine Bilirubin NEGATIVE Urine Urobilinogen 0.2 (NORMAL) Ur Leukocyte Esterase TRACE H Urine RBC 0-5 Urine WBC 6-10 H Ur Squamous Epith Cells RARE Squamous Urine Bacteria Few Ur Microscopic Review INDICATED Urine Culture Comments INDICATED Nasal Adenovirus (PCR) Nasal B. parapertussis DNA (PCR) Nasal Coronavir 229E PCR Nasal Coronavir HKU1 PCR Nasal Coronavir NL63 PCR Nasal Coronavir OC43 PCR Nasal Enterovir/Rhinovir PCR Nasal Influenza B PCR Nasal Influenza A PCR Nasal Parainfluen 1 PCR Nasal Parainfluen 2 PCR Nasal Parainfluen 3 PCR Nasal Parainfluen 4 PCR Nasal RSV (PCR) Nasal B.pertussis DNA PCR Nasal C.pneumoniae (PCR) [place] Human Metapneumo PCR Nasal M.pneumoniae (PCR) Nasal SARS-CoV-2 (PCR) 08/10/21 08/10/21 04:08 04:45 WBC RBC Hgb Hct MCV MCH MCHC RDW Plt Count MPV Neut # (Auto) Lymph # (Auto) [place] # (Auto) Eos # (Auto) Baso # (Auto) Absolute Nucleated RBC Nucleated RBC % Sodium Potassium Chloride Carbon Dioxide Anion Gap BUN Creatinine Estimated GFR (MDRD) Glucose Lactic Acid Calcium Total Bilirubin AST ALT Alkaline Phosphatase Troponin I High Sens 259.3 H* B-Natriuretic Peptide Total Protein Albumin Globulin Albumin/Globulin Ratio Lipase Urine Color Urine Clarity Urine pH Ur Specific [place] Urine Protein Urine Glucose (UA) Urine Ketones Urine Occult Blood Urine Nitrite Urine Bilirubin Urine Urobilinogen Ur Leukocyte Esterase Urine RBC Urine WBC Ur Squamous Epith Cells Urine Bacteria Ur Microscopic Review Urine Culture Comments Nasal Adenovirus (PCR) NOT DETECTED Nasal B. parapertussis DNA (PCR) NOT DETECTED Nasal Coronavir 229E PCR NOT DETECTED Nasal Coronavir HKU1 PCR NOT DETECTED Nasal Coronavir NL63 PCR NOT DETECTED Nasal Coronavir OC43 PCR NOT DETECTED Nasal Enterovir/Rhinovir PCR NOT DETECTED Nasal Influenza B PCR NOT DETECTED Nasal Influenza A PCR NOT DETECTED Nasal Parainfluen 1 PCR NOT DETECTED Nasal Parainfluen 2 PCR NOT DETECTED Nasal Parainfluen 3 PCR NOT DETECTED Nasal Parainfluen 4 PCR NOT DETECTED Nasal RSV (PCR) NOT DETECTED Nasal B.pertussis DNA PCR NOT DETECTED Nasal C.pneumoniae (PCR) NOT DETECTED [place] Human Metapneumo PCR NOT DETECTED Nasal M.pneumoniae (PCR) NOT DETECTED Nasal SARS-CoV-2 (PCR) NOT DETECTED - Rads (name of study) chest Radiology: Prelim report reviewed (Impression: No acute cardiopulmonary abnormality.), EMP read indepedently, See rad report Procedures - IVC sono (time) 0135 Bedside IVC sono: IVC measures (cm) (0.91), Dehydration (est 1-2 liter deficit) PD MEDICAL DECISION MAKING - ED course Complexity details: reviewed old records, reviewed results, re-evaluated patient, considered differential, d/w patient, d/w contamination consultant ([facility] hospitalist here recommends transfer ) ED course: 85 y/o female presents to the ED with an episode of chest pain that occurred as she got in to bed. Medics found her to be pain free with a heart rate at 160 and regular. Her symptoms had improved at the time the medics arrived. In the ED she is found to be rapid and occasionally irregular. It was difficult to make out the P waves in the rhythm strips. She was administered IV diltiazem and after 5mg in she had reduction of her heart rate to below 100 and she was given only 10 with reduction to the 70's. She feels well. Her strips were difficult to confirm regarding the underlying rhythm. Her initial trop was 38.9 and her second 259.3. She drinks regularly fruit juice with whiskey 2 drinks per day. The last time she went more than 4 days without alcohol was when she had her colon cancer surgery and was in the hospital for 11 days. She denies having any withdrawal symptoms. She appears to have a demand infarction and we have reached out to our area hospitals only to find a shortage of beds. Dr. Menjivar at [facility] has accepted the patient pending bed availability. She is started on a heparin drip and remains pain free. We have had a call from [facility] as a potential bed availability and at shift change care is turned over to Dr. Aguilar. Departure - Departure Disposition: 02 Transfer Acute Care Hosp Clinical Impression: NSTEMI (non-ST elevated myocardial infarction) Condition: Stable
[2021-08-10 02:33] LABS: BILIRUBIN,URINE NEGATIVE (NEGATIVE); GLUCOSE, URINE (UA) NEGATIVE (NEGATIVE); KETONES,URINE (UA) NEGATIVE (NEGATIVE); LEUKOCYTE ESTERASE, URINE TRACE (NEGATIVE); NITRITE,URINE POSITIVE (NEGATIVE); OCCULT BLOOD,URINE TRACE-INTA (NEGATIVE); PROTEIN,URINE TRACE mg/dL (NEGATIVE); UROBILINOGEN,URINE 0.2 (NORMAL) E.U./dL (NORMAL)
[2021-08-10 02:34] LABS: CLARITY,URINE CLEAR (CLEAR)
[2021-08-10 02:37] LABS: BACTERIA,URINE Few /HPF (None Seen); RBC,URINE 0-5 /HPF (0-5); SQUAMOUS EPITHELIAL CELL,UR RARE Squamous (<= Few)
[2021-08-10] MEDS ORDERED: HEPARIN 25000UNITS/500ML (D5W) 25,000 UNIT/500 ML BAG IV SCH (06:00)
[2021-08-10 06:02] LABS: B. PARAPERTUSSIS- RESP PCR PAN NOT DETECTED; B. PERTUSSIS- RESP PCR PANEL NOT DETECTED; C. PNEUMONIAE- RESP PCR PANEL NOT DETECTED; CORONAVIRUS 229E-RESP PCR NOT DETECTED; CORONAVIRUS HKU1-RESP PCR NOT DETECTED; CORONAVIRUS NL63-RESP PCR NOT DETECTED; CORONAVIRUS OC43-RESP PCR NOT DETECTED; HUMAN METAPNEUMOVIRUS NOT DETECTED; INFLUENZA A- RESP PCR PANEL NOT DETECTED; INFLUENZA B - RESP PCR PANEL NOT DETECTED; M. PNEUMONIAE- RESP PCR PANEL NOT DETECTED; PARAINFLUENZA VIRUS 1 NOT DETECTED; PARAINFLUENZA VIRUS 2 NOT DETECTED; PARAINFLUENZA VIRUS 3 NOT DETECTED; PARAINFLUENZA VIRUS 4 NOT DETECTED; RHINOVIRUS/ENTEROVIRUS NOT DETECTED; RSV- RESP PCR PANEL NOT DETECTED; SARS-CoV-2 -RESP PCR PANEL NOT DETECTED
--- NOTE | 2021-08-10 08:00 | ED Physician Documentation ---
ED Addendum - Addendum Addendum: 08/10/21 07:58Transfer center from [facility] [place] call back and connected me with both hospitalist and cardiology. I reviewed the case and findings with them and they are accepting of transfer. Disposition: The patient is transferred to acute care facility in stable condi [facility] Diagnoses: Paroxysmal atrial fibrillation 2. Chest pain 3. Elevated troponin with non-ST elevation MN.
[2021-08-10] MEDS ORDERED: ASPIRIN CHEW 81 MG TABLET PO STA (09:54)
[2021-08-10 10:23] VITALS: BP 132/57
== END 2021-08-10 10:50 | disposition short-term general hospital (02) ==
LOC: EDUNIT# → ED 01:18
DX: I21.4 Non-ST elevation (NSTEMI) myocardial infarction (principal); I48.0 Paroxysmal atrial fibrillation; I10 Essential (primary) hypertension; Z20.822 Contact with and (suspected) exposure to COVID-19; Z66 Do not resuscitate
CPT/HCPCS: 36415; 71045; 80053; 81001; 83605; 83690; 83880; 84484; 85025; 87086; 87181; 87631; 93005; 96374; 96375; 99284; 99285; A9270; 0202U; 81003; 85730

== ENCOUNTER 2021-09-11 08:34 | Outpatient (CLI) | payer MEDICARE ==
--- NOTE | 2021-09-11 10:27 | Ultrasound Report ---
PROCEDURE: Abdomen Complete INDICATIONS: ABD PAIN TECHNIQUE: Real-time scanning was performed of the abdominal and retroperitoneal organs, with image documentatio n. COMPARISON: CT abdomen and pelvis dated 05/13/2019 FINDINGS: Liver: Liver is normal in size and heterogeneous in echotexture. No focal intrahepatic abnormalitie s. Gallbladder: Gallbladder is normal in appearance without gallstones, gallbladder wall thickening, or pericholecystic fluid. Negative sonographic Liz's sign. Biliary ducts: Intrahepatic bile ducts are non-dilated. Extrahepatic bile duct caliber measures 9 m m. Normal is 6-7 mm or less in diameter, or 10 mm or less post-cholecystectomy. Pancreas: Visualized portions of the pancreas are sonographically normal. Spleen: Spleen is normal in size and homogeneous in echotexture. Kidneys: Kidneys are normal in size and echotexture. Right kidney measures 8.3 cm long; left kidney measures 8.2 cm long. No hydronephrosis or nephrolithiasis. No solid masses. There is a simple cys t in the superior pole the right kidney measuring 0.8 x 0.7 x 0.7 cm. There is a simple appearing cys t in the mid left kidney measuring 1.2 x 1.2 x 1.1 cm. Aorta: Visualized aorta is normal in caliber at less than 3 cm. Scattered calcified plaque througho ut the abdominal aorta Iliacs: Proximal common iliac arteries are normal in caliber at less than 2.5 cm. IVC: Intrahepatic inferior vena cava is patent. Miscellaneous: No free abdominal fluid. IMPRESSION: 1. Diffusely coarsened hepatic echotexture without focal intrahepatic lesions. Findings are likely re lated to hepatic steatosis or sequela of chronic hepatocellular disease. 2. Normal sonographic appearance of the gallbladder. 3. Prominent common bile duct measuring up to 9 mm in size. No evidence for choledocholithiasis. 4. Simple bilateral renal cysts. 5. Atherosclerosis. Reviewed by: Dipak Wild MD on 09/11/2021 10:25 AM PDT Approved by: Dipak Wild MD on 09/11/2021 10:25 AM PDT Station ID: [id number]
== END 2021-09-11 08:35 | disposition home or self-care (01) ==
LOC: DI 08:34
PROVIDERS: ATTEND Nurse Practitioner Family
DX: Z85.038 Personal history of other malignant neoplasm of large intestine (principal); R93.2 Abnormal findings on diagnostic imaging of liver and biliary tract; N28.1 Cyst of kidney, acquired; I70.0 Atherosclerosis of aorta

== ENCOUNTER 2021-10-24 21:43 | Outpatient (CLI) | payer MEDICARE | END 2021-10-24 21:44 | disposition critical access hospital (66) | LOC: EMS 21:43 | DX: R42 Dizziness and giddiness (principal); W18.39XA Other fall on same level, initial encounter; Y92.009 Unspecified place in unspecified non-institutional (private) residence as the place of occurrence of the external cause; Z79.01 Long term (current) use of anticoagulants | CPT/HCPCS: A0425; A0429 ==

== ENCOUNTER 2021-10-24 21:58 | Emergency (ER) | payer MEDICARE ==
--- OUTSIDE RECORDS SUMMARY | 2021-10-24 22:42 | EXTERNAL MEDICAL SUMMARY RPT | Continuity of Care Document ---
:1935 Author Organization [facility] Address [address] [place] [address] Phone Allergies No information. Encounters No information. Medications No information. Problems date description facility [id number] [facility] [employer] Results No information.
--- NOTE | 2021-10-24 23:27 | CT Report ---
PROCEDURE: HEAD WO INDICATIONS: head injury/on plavix TECHNIQUE: Noncontrast 4.5 mm thick angled axial sections acquired from the foramen magnum to the vertex. For r adiation dose reduction, the following was used: automated exposure control, adjustment of mA and/or kV according to patient size. COMPARISON: 04/02/2021 FINDINGS: Image quality: Excellent. CSF spaces: Basal cisterns are patent. No extra-axial fluid collections. Ventricles are normal in size and shape. Brain: No midline shift. No intracranial masses or hemorrhage. Marked symmetric periventricular an d bilateral white matter hypodensity. Moderate, age-related cerebral cortical atrophy. Osorio-white mat ter interface is normal. Skull and face: Calvarium and visualized facial bones are intact, without suspicious lesions. Sinuses: Visualized sinuses and mastoids are clear. IMPRESSION: 1. No CT evidence of acute intracranial trauma. 2. No fracture or significant soft tissue injury visible. 3. Age-related atrophy and marked white matter chronic microvascular ischemic change.. Reviewed by: Rosa Elena Murray MD on 10/24/2021 11:29 PM PDT Approved by: Rosa Elena Murray MD on 10/24/2021 11:29 PM PDT Station ID: [id number]
--- NOTE | 2021-10-24 23:30 | ED Physician Documentation ---
History of Present Illness - Stated complaint Stated Complaint: GLF - Chief complaint Chief Complaint: Heent - History obtained from History obtained from: Patient - Additonal information Additional information: Patient is an 86-year-old female with a recent history of HI, on Plavix who sustained a head injury at 9 PM. Patient was Reaching trying to close A curtain and fell backward striking the back of her head on the floor. She did not lose consciousness. She has a history of chronic back pain and had difficulty getting up and EMS was called. They were able to assist her up and encouraged her to come to the emergency department for evaluation.She denies feeling dizzy, lightheaded, having a headache, chest pain or difficulty breathing or prior to the fall. She would she just lost her balance as she was trying to reach for the curtain. Review of Systems Constitutional: denies: Fever Nose: denies: Congestion Cardiac: denies: Chest pain / pressure, Palpitations Respiratory: denies: Dyspnea, Cough GI: denies: Abdominal Pain, Vomiting : denies: Dysuria Musculoskeletal: denies: Neck pain Neurologic: reports: Head injury. denies: Syncope PD PAST MEDICAL HISTORY - Past Medical History Cardiovascular: Hypertension, High cholesterol Respiratory: COPD, Shortness of breath, Sleep apnea, Other Neuro: None Endocrine/Autoimmune: Type 2 diabetes GI: GERD, GI bleed MINING CONSULTANT: None : Incontinence HEENT: None Psych: Depression, Anxiety Musculoskeletal: Osteoarthritis, Gout, Chronic back pain, Other (frozen shoulder left from rotator cuff process. ) Derm: None - Past Surgical History Past Surgical History: Yes General: Colonoscopy Ortho: Spine surgery /MINING CONSULTANT: Hysterectomy Cardiovascular: CABG HEENT: Tonsil/Adenoidectomy - Present Medications Home Medications: Ambulatory Orders Medication Instructions Recorded Confirmed Aspirin Chewable [St Matteo 81 mg PO DAILY 04/04/13 04/02/21 Aspirin] Cholecalciferol (Vitamin D3) 2,000 unit PO DAILY 04/04/13 04/02/21 [Vitamin D3] allopurinoL [Allopurinol] 300 mg PO DAILY 04/04/13 04/02/21 Ustekinumab [Stelara] 45 mg SUBQ 12/13/17 Atorvastatin Calcium 20 mg PO DAILY 12/14/17 04/02/21 Mirabegron [Myrbetriq] 25 mg PO DAILY 12/14/17 04/02/21 Multivitamin/Iron/Folic Acid 1 each PO DAILY 12/14/17 04/02/21 [Centrum Adults Tablet] [place]-3/Dha/Epa/Fish Oil [Fish Oil 1 each PO DAILY 12/14/17 04/02/21 Gummies] Psyllium Husk [Fiber] 5 g PO DAILY 12/14/17 04/02/21 hydrOXYzine HCL [Hydroxyzine HCl] 10 mg PO QPM 12/14/17 04/02/21 ondansetron HCL [Zofran] 4 mg PO Q6H PRN #15 tablet 12/15/17 oxyCODONE [Roxicodone] 5 mg PO Q6H PRN #15 tablet 12/15/17 Levothyroxine [Synthroid] 25 mcg PO DAILY 04/02/21 04/02/21 Solifenacin Succinate [Vesicare] 5 mg PO DAILY 04/02/21 04/02/21 Ubidecarenone/Vit E Acet [Co Q-10 1 cap PO DAILY 08/10/21 08/10/21 100 mg Softgel] - Allergies Allergies/Adverse Reactions: Allergies Allergy/AdvReac Type Severity Reaction Status Date / Time promethazine HCl * Allergy Severe UNCONSCIOUS Verified 06/15/21 12:26 [From Phenergan] fentanyl Allergy Unknown unknown Verified 06/15/21 12:26 codeine Allergy Unknown Verified 06/15/21 12:26 morphine Allergy Hallucinati Verified 06/15/21 12:26 ons Penicillins Allergy Hives Verified 06/15/21 12:26 Sulfa (Sulfonamide Allergy Hives Verified 06/15/21 12:26 Antibiotics) dailry Allergy Unknown Uncoded 08/10/21 03:06 - Social History Does the pt smoke?: No Smoking Status: Never smoker Does the pt drink ETOH?: Yes Does the pt have substance abuse?: No - Immunizations Immunizations are current?: Yes - POLST Patient has POLST: Yes POLST Status: DNR PD ED PE NORMAL - General General: Alert and oriented X 3, No acute distress, Well developed/nourished - HEENT HEENT: Atraumatic, PERRL, EOMI, Moist mucous membranes - Neck Neck: Supple, no meningeal sign, No bony TTP, C-Spine cleared by NEXUS criteria - Cardiac Cardiac: RRR, No murmur, Strong equal pulses - Respiratory Respiratory: No respiratory distress, Clear bilaterally - Abdomen Abdomen: Normal bowel sounds, Soft, Non tender - Back Back: No spinal TTP - Derm Derm: Normal color, No rash - Extremities Extremities: No deformity, No edema - Neuro Neuro: Alert and oriented X 3, load blocker 2-12 intact, No motor deficit, Normal speech Eye Opening: Spontaneous Motor: Obeys Commands Verbal: Oriented GCS Score: 15 - Psych Psych: Normal mood, Normal affect Results - Vitals Vitals: Vital Signs - 24 hr 10/24/21 10/24/21 10/25/21 22:01 22:09 00:07 Temperature 36.2 C L 37 C Heart Rate 59 L 60 64 Respiratory 22 16 18 Rate Blood Pressure 132/78 H 167/94 H O2 Saturation 99 98 98 Oxygen O2 Source Room air PD MEDICAL DECISION MAKING - ED course Complexity details: reviewed results, d/w patient ED course: Patient evaluated after ground-level fall that appears mechanical in nature. On exam she has no visible injuries. As she is On Plavix, head CT was obtained and is negative for acute intracranial abnormalities. No other injuries noted on exam. Patient is ambulatory at discharge. Departure - Departure Disposition: 01 Home, Self Care Clinical Impression: Head injury Qualifiers: Encounter type: initial encounter Qualified Code(s): S09.90XA - Unspecified injury of head, initial encounter Condition: Stable Instructions: ED Head Injury Closed Comments: You were evaluated after a head injury this evening. You had a CT scan done of your brain which fortunately did not show any injuries on the inside of your head. Please take caution when moving around your house Try to limit any hazards that may cause you to fall. You can use Tylenol for any pain.Please try and get plenty of rest for the next day.If any times you have a worsening headache, weakness to 1 side your body, pains elsewhere or any concerns please return to the emergency department. Discharge Date/Time: 10/25/21 00:11
[2021-10-25 00:11] VITALS: BP 167/94
== END 2021-10-25 00:11 | disposition home or self-care (01) ==
LOC: EDUNIT# → ED 21:58
DX: S09.90XA Unspecified injury of head, initial encounter (principal); W18.39XA Other fall on same level, initial encounter; Y93.89 Activity, other specified; Z79.01 Long term (current) use of anticoagulants; Z66 Do not resuscitate
CPT/HCPCS: 36415; 99282; 99284

== ENCOUNTER 2022-03-18 09:22 | Emergency (ER) | payer MEDICARE ==
[2022-03-18] MEDS ORDERED: ASPIRIN CHEW 81 MG TABLET PO STA (09:42)
[2022-03-18] MEDS ORDERED: diltiaZEM INJ 5 MG/ML VIAL IVP STA (09:42)
--- NOTE | 2022-03-18 09:44 | ED Physician Documentation ---
PD HPI CHEST PAIN - Stated complaint Stated Complaint: CHEST PX - History obtained from History obtained from: Patient - Additional information Additional information: 86-year-old woman with history of COPD, coronary disease status post remote CABG. In July of this year we saw her for similar presentation to today, she had rapid A. fib and rising troponin. She was transferred up to [place] where per her report she had angiography with some sort of intervention but probably not stenting. She was awoken at 630 this morning by chest pressure. There is no associated shortness of breath. It is less painful than the last presentation. Review of Systems Ten Systems: 10 systems reviewed and negative Cardiac: reports: Chest pain / pressure Respiratory: denies: Dyspnea, Cough PD PAST MEDICAL HISTORY - Past Medical History Cardiovascular: Hypertension, High cholesterol Respiratory: COPD, Shortness of breath, Sleep apnea, Other Neuro: None Endocrine/Autoimmune: Type 2 diabetes GI: GERD, GI bleed CLOTH GRADER: None : Incontinence HEENT: None Psych: Depression, Anxiety Musculoskeletal: Osteoarthritis, Gout, Chronic back pain, Other (frozen shoulder left from rotator cuff process. ) Derm: None - Past Surgical History Past Surgical History: Yes General: Colonoscopy Ortho: Spine surgery /CLOTH GRADER: Hysterectomy Cardiovascular: CABG HEENT: Tonsil/Adenoidectomy - Present Medications Home Medications: Ambulatory Orders Medication Instructions Recorded Confirmed Aspirin Chewable [St Matteo 81 mg PO DAILY 04/04/13 04/02/21 Aspirin] Cholecalciferol (Vitamin D3) 2,000 unit PO DAILY 04/04/13 04/02/21 [Vitamin D3] allopurinoL [Allopurinol] 300 mg PO DAILY 04/04/13 04/02/21 Ustekinumab [Stelara] 45 mg SUBQ 12/13/17 Atorvastatin Calcium 20 mg PO DAILY 12/14/17 04/02/21 Mirabegron [Myrbetriq] 25 mg PO DAILY 12/14/17 04/02/21 Multivitamin/Iron/Folic Acid 1 each PO DAILY 12/14/17 04/02/21 [Centrum Adults Tablet] [place]-3/Dha/Epa/Fish Oil [Fish Oil 1 each PO DAILY 12/14/17 04/02/21 Gummies] Psyllium Husk [Fiber] 5 g PO DAILY 12/14/17 04/02/21 hydrOXYzine HCL [Hydroxyzine HCl] 10 mg PO QPM 12/14/17 04/02/21 ondansetron HCL [Zofran] 4 mg PO Q6H PRN #15 tablet 12/15/17 oxyCODONE [Roxicodone] 5 mg PO Q6H PRN #15 tablet 12/15/17 Levothyroxine [Synthroid] 25 mcg PO DAILY 04/02/21 04/02/21 Solifenacin Succinate [Vesicare] 5 mg PO DAILY 04/02/21 04/02/21 Ubidecarenone/Vit E Acet [Co Q-10 1 cap PO DAILY 08/10/21 08/10/21 100 mg Softgel] - Allergies Allergies/Adverse Reactions: Allergies Allergy/AdvReac Type Severity Reaction Status Date / Time promethazine HCl * Allergy Severe UNCONSCIOUS Verified 03/18/22 09:44 [From Phenergan] fentanyl Allergy Unknown unknown Verified 03/18/22 09:44 codeine Allergy Unknown Verified 03/18/22 09:44 morphine Allergy Hallucinati Verified 03/18/22 09:44 ons Penicillins Allergy Hives Verified 03/18/22 09:44 Sulfa (Sulfonamide Allergy Hives Verified 03/18/22 09:44 Antibiotics) dailry Allergy Unknown Uncoded 03/18/22 09:44 - Social History Does the pt smoke?: No Smoking Status: Never smoker Does the pt drink ETOH?: Yes Does the pt have substance abuse?: No - Immunizations Immunizations are current?: Yes - POLST Patient has POLST: Yes POLST Status: DNR PD ED PE NORMAL - Vitals Vital signs reviewed: Yes - General General: Alert and oriented X 3, No acute distress - HEENT HEENT: PERRL, EOMI - Neck Neck: Supple, no meningeal sign, No bony TTP - Cardiac Cardiac: Other (Rapid and regular without murmur) - Respiratory Respiratory: No respiratory distress, Clear bilaterally - Abdomen Abdomen: Non tender - Back Back: No CVA TTP, No spinal TTP - Derm Derm: Normal color, Warm and dry - Extremities Extremities: No edema, No calf tenderness / cord - Neuro Neuro: Alert and oriented X 3, Normal speech Results - Vitals Vitals: Vital Signs - 24 hr 03/18/22 03/18/22 03/18/22 09:30 10:11 10:30 Temperature 36.6 C 36.6 C Heart Rate 135 H 64 68 Respiratory 18 16 16 Rate Blood Pressure 125/98 H 122/47 L 133/67 H O2 Saturation 96 95 95 03/18/22 03/18/22 11:00 11:30 Temperature 36.6 C Heart Rate 68 68 Respiratory 16 18 Rate Blood Pressure 129/65 137/73 H O2 Saturation 95 97 Oxygen O2 Source Room air - EKG (time done) 0925 Rate: Rate (enter#) (137) Rhythm: Other (Narrow complex tachycardia without obvious P waves to me with LVH and lateral ST depression.) Compare to prior EKG: Other (Morphology is similar but more regular than the initial EKG done August 10 of this year.) Computer interpretation: Agree with computer - Labs Labs: Laboratory Tests 03/18/22 03/18/22 03/18/22 09:40 09:40 09:40 WBC 5.8 RBC 4.32 Hgb 14.3 Hct 42.8 MCV 99.1 H MCH 33.1 H MCHC 33.4 RDW 13.1 Plt Count 197 MPV 9.6 Neut # (Auto) 3.4 Lymph # (Auto) 1.4 L [place] # (Auto) 0.5 Eos # (Auto) 0.4 Baso # (Auto) 0.1 Absolute Nucleated RBC 0.00 Nucleated RBC % 0.0 Sodium 138 Potassium 4.8 Chloride 102 Carbon Dioxide 25 Anion Gap 11.0 BUN 33 H Creatinine 1.5 H Estimated GFR (MDRD) 33 L Glucose 95 Calcium 10.4 H Magnesium 1.8 Total Bilirubin 0.9 AST 19 ALT 10 Alkaline Phosphatase 73 Troponin I High Sens 29.0 H* Total Protein 7.2 Albumin 4.5 Globulin 2.7 Albumin/Globulin Ratio 1.7 03/18/22 11:33 WBC RBC Hgb Hct MCV MCH MCHC RDW Plt Count MPV Neut # (Auto) Lymph # (Auto) [place] # (Auto) Eos # (Auto) Baso # (Auto) Absolute Nucleated RBC Nucleated RBC % Sodium Potassium Chloride Carbon Dioxide Anion Gap BUN Creatinine Estimated GFR (MDRD) Glucose Calcium Magnesium Total Bilirubin AST ALT Alkaline Phosphatase Troponin I High Sens 339.5 H* Total Protein Albumin Globulin Albumin/Globulin Ratio - Rads (name of study) Single view chest x-ray is unremarkable Radiology: EMP read contemporaneously PD MEDICAL DECISION MAKING - ED course ED course: 86-year-old woman presents with a symptomatic narrow complex tachycardia. Had a similar presentation in July and her troponins went up and she was transferred to [facility]. I was able to receive her records from there and reviewed them. It was reported that she had no obstructive disease on her coronary angiogram. Results of Her diagnostic angiography were reviewed as well, she had a left heart cath with IVUS on August 13. She has diffuse coronary disease, Specifically nonfunctional with GONZALEZ to LAD, patent SVG to distal RCA, patent SVG to OM1, moderate to severe ostial left main disease 50%, no critical stenosis under IVUS, moderate proximal LAD disease 50%, FFR negative 86-year-old woman presents with a narrow complex tachydysrhythmia which resolved after the administration of 1 dose of diltiazem. She had an elevating troponin here. I discussed with her that this was very similar to what happened back in July and that there was no intervention done then and offered to send her back to [facility] and she said she would rather go home noting that if there was no intervention it was just a week in the hospital for no apparent reason. She understands the recommendation to go to a tertiary care center for cardiology evaluation but declines. Departure - Departure Disposition: 01 Home, Self Care Clinical Impression: Do not intubate, cardiopulmonary resuscitation (CPR)-only code status, Tachyar rhythmia Condition: Good Record reviewed to determine appropriate education?: Yes Instructions: Atrial Fibrillation Dc Comments: You were seen today for an elevated heart rate that caused some strain your heart. It seems like exactly What happened back in July. Call your doctor to arrange a follow-up appointment, make the next available appointment. In the interim, return anytime if worse or if new symptoms develop.
[2022-03-18 09:50] LABS: BASOPHILS # (AUTO) 0.1 10^3/uL (0.0-0.1); EOSINOPHILS # (AUTO) 0.4 10^3/uL (0.0-0.7); HCT - HEMATOCRIT 42.8 % (37.0-47.0); HGB - HEMOGLOBIN 14.3 g/dL (12.0-16.0); LYMPHOCYTES # (AUTO) 1.4 10^3/uL (1.5-3.5); LYMPHOCYTES % (AUTO) 24.4 %; MEAN CORPUSCULAR HEMOGLOBIN 33.1 pg (27.0-31.0); MEAN CORPUSCULAR HGB CONC 33.4 g/dL (32.0-36.0); MEAN CORPUSCULAR VOLUME 99.1 fL (81.0-99.0); MEAN PLATELET VOLUME 9.6 fL (7.9-10.8); MONOCYTES # (AUTO) 0.5 10^3/uL (0.0-1.0); MONOCYTES % (AUTO) 8.4 %; NEUTROPHILS # (AUTO) 3.4 10^3/uL (1.5-6.6); NEUTROPHILS % (AUTO) 58.9 %; PLT - PLATELET COUNT 197 10^3/uL (130-450); RED BLOOD COUNT 4.32 10^6/uL (4.20-5.40); RED CELL DISTRIBUTION WIDTH 13.1 % (12.0-15.0); WHITE BLOOD COUNT 5.8 x10^3/uL (4.8-10.8)
--- NOTE | 2022-03-18 09:57 | XRAY Report ---
PROCEDURE: Chest 1 View X-Ray INDICATIONS: chest pressure TECHNIQUE: One view of the chest was acquired. COMPARISON: 08/10/2021 FINDINGS: Surgical changes and devices: Median sternotomy changes. Lungs and pleura: No pleural effusions or pneumothorax. Lungs are clear. Mediastinum: Mediastinal contours appear normal. Heart size is normal. Aortic atherosclerosis. Bones and chest wall: No suspicious bony lesions. Overlying soft tissues appear unremarkable. IMPRESSION: No acute cardiopulmonary process demonstrated radiographically. Reviewed by: Blade Reddy MD on 03/18/2022 9:55 AM PDT Approved by: Blade Reddy MD on 03/18/2022 9:55 AM PDT Station ID: [id number]
[2022-03-18 10:01] LABS: ALBUMIN 4.5 g/dL (3.2-5.5); ALBUMIN/GLOBULIN RATIO 1.7 (1.0-2.2); BILIRUBIN,TOTAL 0.9 mg/dL (0.2-1.0); CALCIUM 10.4 mg/dL (8.5-10.3); CREATININE 1.5 mg/dL (0.4-1.0); MAGNESIUM 1.8 mg/dL (1.7-2.8); POTASSIUM 4.8 mmol/L (3.5-5.0); TOTAL PROTEIN 7.2 g/dL (6.7-8.2)
[2022-03-18 12:23] VITALS: BP 141/70
== END 2022-03-18 12:43 | disposition home or self-care (01) ==
LOC: ED 09:22
DX: R00.0 Tachycardia, unspecified (principal); Z66 Do not resuscitate
CPT/HCPCS: 36415; 71045; 80053; 83735; 84484; 85025; 93005; 96374; 99283; 99284; A9270

== ENCOUNTER 2022-03-19 08:36 | Emergency (ER) | payer MEDICARE ==
[2022-03-19] MEDS ORDERED: THIAMINE INJ 100 MG, MAGNESIUM SULFATE 2 GM, MULTIVITAMIN 10 ML, FOLIC ACID INJ 1 MG in... IV ONE ×5 (08:59)
[2022-03-19] MEDS ORDERED: diltiaZEM INJ 5 MG/ML VIAL IVP STA ×2 (08:59→16:50)
--- NOTE | 2022-03-19 09:03 | ED Physician Documentation ---
PD HPI CHEST PAIN - Stated complaint Stated Complaint: RAPID HEART RATE - Chief complaint Chief Complaint: Cardiac - History obtained from History obtained from: Patient - History of Present Illness Timing - onset: Today Timing - onset during: Rest Timing - duration: Minutes Timing - details: Abrupt onset, Still present Quality: Pressure Location: Substernal Improved by: Rest Similar symptoms before: Diagnosis (afib with RVR) Recently seen: Emergency Dept (yesterday) - Additional information Additional information: Gary Regalado is an 86-year-old female with a history of rapid heart rate that has been responsive to diltiazem. She was seen here in the emergency department yesterday for the same, given diltazem with good and lasting reduction in her he art rate. She did have chest pain at that time and she refused hospitalization. She had elevated troponin. She has had a similar episode in July of this year at which time she was transferred to [facility] in [place] where she did have angiogram done but apparently no stenting. She does not want to go to another hospital. Review of Systems Constitutional: denies: Fever Ears: denies: Ear pain Throat: denies: Sore throat Cardiac: reports: Chest pain / pressure, Palpitations Respiratory: reports: Dyspnea. denies: Cough GI: denies: Abdominal Pain, Nausea, Vomiting, Constipation, Diarrhea : reports: Frequency, Incontinent. denies: Dysuria Skin: denies: Rash Musculoskeletal: denies: Neck pain, Back pain, Extremity pain Neurologic: denies: Generalized weakness, Focal weakness, Numbness PD PAST MEDICAL HISTORY - Past Medical History Cardiovascular: Hypertension, High cholesterol Respiratory: COPD, Shortness of breath, Sleep apnea, Other Neuro: None Endocrine/Autoimmune: Type 2 diabetes GI: GERD, GI bleed IMPROVEMENT NURSE: None : Incontinence HEENT: None Psych: Depression, Anxiety Musculoskeletal: Osteoarthritis, Gout, Chronic back pain, Other Derm: None - Past Surgical History Past Surgical History: Yes General: Colonoscopy Ortho: Spine surgery /IMPROVEMENT NURSE: Hysterectomy Cardiovascular: CABG HEENT: Tonsil/Adenoidectomy - Present Medications Home Medications: Ambulatory Orders Medication Instructions Recorded Confirmed Aspirin Chewable [St Matteo 81 mg PO DAILY 04/04/13 04/02/21 Aspirin] Cholecalciferol (Vitamin D3) 2,000 unit PO DAILY 04/04/13 04/02/21 [Vitamin D3] allopurinoL [Allopurinol] 300 mg PO DAILY 04/04/13 04/02/21 Ustekinumab [Stelara] 45 mg SUBQ 12/13/17 Atorvastatin Calcium 20 mg PO DAILY 12/14/17 04/02/21 Mirabegron [Myrbetriq] 25 mg PO DAILY 12/14/17 04/02/21 Multivitamin/Iron/Folic Acid 1 each PO DAILY 12/14/17 04/02/21 [Centrum Adults Tablet] [place]-3/Dha/Epa/Fish Oil [Fish Oil 1 each PO DAILY 12/14/17 04/02/21 Gummies] Psyllium Husk [Fiber] 5 g PO DAILY 12/14/17 04/02/21 hydrOXYzine HCL [Hydroxyzine HCl] 10 mg PO QPM 12/14/17 04/02/21 ondansetron HCL [Zofran] 4 mg PO Q6H PRN #15 tablet 12/15/17 oxyCODONE [Roxicodone] 5 mg PO Q6H PRN #15 tablet 12/15/17 Levothyroxine [Synthroid] 25 mcg PO DAILY 04/02/21 04/02/21 Solifenacin Succinate [Vesicare] 5 mg PO DAILY 04/02/21 04/02/21 Ubidecarenone/Vit E Acet [Co Q-10 1 cap PO DAILY 08/10/21 08/10/21 100 mg Softgel] - Allergies Allergies/Adverse Reactions: Allergies Allergy/AdvReac Type Severity Reaction Status Date / Time promethazine HCl * Allergy Severe UNCONSCIOUS Verified 03/18/22 09:44 [From Phenergan] fentanyl Allergy Unknown unknown Verified 03/18/22 09:44 codeine Allergy Unknown Verified 03/18/22 09:44 morphine Allergy Hallucinati Verified 03/18/22 09:44 ons Penicillins Allergy Hives Verified 03/18/22 09:44 Sulfa (Sulfonamide Allergy Hives Verified 03/18/22 09:44 Antibiotics) dailry Allergy Unknown Uncoded 03/18/22 09:44 - Social History Does the pt smoke?: No Smoking Status: Never smoker Does the pt drink ETOH?: Yes Does the pt have substance abuse?: No - Immunizations Immunizations are current?: Yes - POLST Patient has POLST: Yes POLST Status: DNR PD ED PE NORMAL - Vitals Vital signs reviewed: Yes (tachy and hypertensive ) - General General: Alert and oriented X 3, No acute distress, Well developed/nourished - HEENT HEENT: Atraumatic, PERRL - Neck Neck: Supple, no meningeal sign, No bony TTP - Cardiac Cardiac: No murmur, Other (tachy to 110) - Respiratory Respiratory: No respiratory distress, Clear bilaterally - Abdomen Abdomen: Soft, Non tender - Back Back: No CVA TTP, No spinal TTP - Derm Derm: Normal color, Warm and dry, No rash - Extremities Extremities: No deformity, No edema - Neuro Neuro: Alert and oriented X 3, diesel engine operator 2-12 intact, No motor deficit, No sensory de ficit, Normal speech Eye Opening: Spontaneous Motor: Obeys Commands Verbal: Oriented GCS Score: 15 - Psych Psych: Normal mood, Normal affect Results - Vitals Vitals: Vital Signs - 24 hr 03/19/22 03/19/22 03/19/22 08:47 10:00 10:30 Temperature 36.6 C Heart Rate 129 H 81 72 Respiratory 16 17 20 Rate Blood Pressure 159/139 H 122/67 156/72 H O2 Saturation 99 96 99 03/19/22 03/19/22 03/19/22 11:30 13:14 14:04 Temperature Heart Rate 73 73 76 Respiratory 17 20 24 Rate Blood Pressure 140/77 H 157/85 H 155/142 H O2 Saturation 92 100 99 03/19/22 03/19/22 03/19/22 14:30 15:00 15:30 Temperature Heart Rate 90 80 81 Respiratory 19 10 L 12 Rate Blood Pressure 128/108 H 120/62 120/62 O2 Saturation 97 97 95 03/19/22 03/19/22 16:23 17:00 Temperature Heart Rate 88 78 Respiratory 17 16 Rate Blood Pressure 148/98 H 124/89 H O2 Saturation 99 98 Oxygen O2 Source Room air - EKG (time done) 0834 Rate: Rate (enter#) (108) Rhythm: Atrial fibrillation Ischemia: Other (LVH with strain) Compare to prior EKG: Changed from prior EKG (SPT yesterday rate is slower today and rythm is afib vs unknown. The LVH with strain is similar. ) Computer interpretation: Agree with computer - Labs Labs: Laboratory Tests 03/19/22 03/19/22 03/19/22 09:00 09:00 09:00 WBC 5.6 RBC 4.52 Hgb 14.8 Hct 44.4 MCV 98.2 MCH 32.7 H MCHC 33.3 RDW 13.2 Plt Count 204 MPV 9.2 Neut # (Auto) 3.1 Lymph # (Auto) 1.4 L [place] # (Auto) 0.5 Eos # (Auto) 0.5 Baso # (Auto) 0.1 Absolute Nucleated RBC 0.00 Nucleated RBC % 0.0 Sodium 136 Potassium 4.7 Chloride 101 Carbon Dioxide 23 Anion Gap 12.0 BUN 41 H Creatinine 1.7 H Estimated GFR (MDRD) 29 L Glucose 153 H Calcium 9.9 Magnesium 1.8 Total Bilirubin 1.0 AST 22 ALT < 10 L Alkaline Phosphatase 61 Troponin I High Sens 596.0 H* Total Protein 6.8 Albumin 4.4 Globulin 2.4 Albumin/Globulin Ratio 1.8 Lipase 21 L Urine Color Urine Clarity Urine pH Ur Specific [place] Urine Protein Urine Glucose (UA) Urine Ketones Urine Occult Blood Urine Nitrite Urine Bilirubin Urine Urobilinogen Ur Leukocyte Esterase Urine RBC Urine WBC Ur Squamous Epith Cells Urine Bacteria Ur Microscopic Review Urine Culture Comments SARS-CoV-2 (PCR) 03/19/22 03/19/22 03/19/22 10:58 12:32 15:24 WBC RBC Hgb Hct MCV MCH MCHC RDW Plt Count MPV Neut # (Auto) Lymph # (Auto) [place] # (Auto) Eos # (Auto) Baso # (Auto) Absolute Nucleated RBC Nucleated RBC % Sodium Potassium Chloride Carbon Dioxide Anion Gap BUN Creatinine Estimated GFR (MDRD) Glucose Calcium Magnesium Total Bilirubin AST ALT Alkaline Phosphatase Troponin I High Sens 626.1 H* Total Protein Albumin Globulin Albumin/Globulin Ratio Lipase Urine Color YELLOW Urine Clarity HAZY Urine pH 5.5 Ur Specific [place] 1.020 Urine Protein NEGATIVE Urine Glucose (UA) NEGATIVE Urine Ketones NEGATIVE Urine Occult Blood NEGATIVE Urine Nitrite POSITIVE H Urine Bilirubin NEGATIVE Urine Urobilinogen 0.2 (NORMAL) Ur Leukocyte Esterase NEGATIVE Urine RBC 0-5 Urine WBC 0-3 Ur Squamous Epith Cells FEW Squamous Urine Bacteria Moderate H Ur Microscopic Review INDICATED Urine Culture Comments INDICATED SARS-CoV-2 (PCR) NOT DETECTED Procedures - IVC sono (time) 0855 Bedside IVC sono: IVC measures (cm) (0.91), IVC collapsed c insp (cm) (complete), Dehydration (est 2 liter deficit) PD MEDICAL DECISION MAKING - ED course Complexity details: reviewed old records, reviewed results, re-evaluated patient, considered differential, d/w patient ED course: 86-year-old female with a rapid heart rate has had reduction in her heart rate with diltiazem yesterday and was symptom-free. She returns to the emergency department today again with symptoms of rapid heart rate and chest pressure. She was found to be dehydrated on interrogation of her inferior vena cava and she was administered intravenous fluid in the form of a banana bag. She does have a history of alcohol use regularly. She denies any prior symptoms of withdrawal. She reports 2 ounces of alcohol use daily. We did order diltiazem and this was unnecessary to be given after she was hydrated. Today she again has elevation in her troponin. Yesterday her trop went from 39 to 339. Today she has gone from 596 to 626. The patient is relieved of symptoms and wants to go home. I consulted our hospitalist and she recommends emphatically that the liya madrid has had an event and needs care with her wrapping clerk and is not a candidate to go home or be hospitalized here. The patient is on a wait list at [facility] in [place] and I have reviewed the patient's medication list and find that she is on no rate limiting medications. We had initially ordered 20 mg of diltiazem to be given and we did not give that when her rate slowed with fluids. We will administer 10 mg of diltiazem now.At shift change the patient [facility] and her care is turned over to the ED physician without specific expectations this evening. She is administered metoprolol tartrate 50mg as well a aspirin and lovenox. Departure - Departure Clinical Impression: Dehydration, Atrial fibrillation with RVR, Non-ST elevation IA (NSTEMI)
[2022-03-19 09:16] LABS: BASOPHILS # (AUTO) 0.1 10^3/uL (0.0-0.1); BASOPHILS % (AUTO) 0.9 %; EOSINOPHILS # (AUTO) 0.5 10^3/uL (0.0-0.7); HCT - HEMATOCRIT 44.4 % (37.0-47.0); HGB - HEMOGLOBIN 14.8 g/dL (12.0-16.0); LYMPHOCYTES # (AUTO) 1.4 10^3/uL (1.5-3.5); LYMPHOCYTES % (AUTO) 25.4 %; MEAN CORPUSCULAR HEMOGLOBIN 32.7 pg (27.0-31.0); MEAN CORPUSCULAR HGB CONC 33.3 g/dL (32.0-36.0); MEAN CORPUSCULAR VOLUME 98.2 fL (81.0-99.0); MEAN PLATELET VOLUME 9.2 fL (7.9-10.8); MONOCYTES # (AUTO) 0.5 10^3/uL (0.0-1.0); MONOCYTES % (AUTO) 8.8 %; NEUTROPHILS # (AUTO) 3.1 10^3/uL (1.5-6.6); NEUTROPHILS % (AUTO) 55.7 %; PLT - PLATELET COUNT 204 10^3/uL (130-450); RED BLOOD COUNT 4.52 10^6/uL (4.20-5.40); RED CELL DISTRIBUTION WIDTH 13.2 % (12.0-15.0); WHITE BLOOD COUNT 5.6 x10^3/uL (4.8-10.8)
[2022-03-19 09:29] LABS: ALBUMIN 4.4 g/dL (3.2-5.5); ALBUMIN/GLOBULIN RATIO 1.8 (1.0-2.2); ALKALINE PHOSPHATASE 61 IU/L (42-121); ALT ALANINE AMINOTRANSFERASE < 10 IU/L (10-60); AST ASPARTATE AMINOTRANSFERASE 22 IU/L (10-42); BUN - BLOOD UREA NITROGEN 41 mg/dL (6-20); CALCIUM 9.9 mg/dL (8.5-10.3); CARBON DIOXIDE - CO2 23 mmol/L (21-32); CHLORIDE 101 mmol/L (101-111); CREATININE 1.7 mg/dL (0.4-1.0); GFR - MDRD 29 (>89); GLUCOSE 153 mg/dL (70-100); LIPASE 21 U/L (22-51); MAGNESIUM 1.8 mg/dL (1.7-2.8); POTASSIUM 4.7 mmol/L (3.5-5.0); SODIUM 136 mmol/L (135-145); TOTAL PROTEIN 6.8 g/dL (6.7-8.2)
[2022-03-19 11:05] LABS: BILIRUBIN,URINE NEGATIVE (NEGATIVE); GLUCOSE, URINE (UA) NEGATIVE (NEGATIVE); KETONES,URINE (UA) NEGATIVE (NEGATIVE); LEUKOCYTE ESTERASE, URINE NEGATIVE (NEGATIVE); NITRITE,URINE POSITIVE (NEGATIVE); OCCULT BLOOD,URINE NEGATIVE (NEGATIVE); PH,URINE 5.5 PH (5.0-7.5); PROTEIN,URINE NEGATIVE (NEGATIVE); UROBILINOGEN,URINE 0.2 (NORMAL) E.U./dL (NORMAL)
[2022-03-19 11:07] LABS: CLARITY,URINE HAZY (CLEAR)
[2022-03-19 11:14] LABS: BACTERIA,URINE Moderate /HPF (None Seen); RBC,URINE 0-5 /HPF (0-5); SQUAMOUS EPITHELIAL CELL,UR FEW Squamous (<= Few); WBC,URINE 0-3 /HPF (0-5)
--- NOTE | 2022-03-19 17:05 | XRAY Report ---
PROCEDURE: Chest 1 View X-Ray INDICATIONS: chest pain TECHNIQUE: One view of the chest was acquired. COMPARISON: Chest x-ray one view, 03/18/2010 22. FINDINGS: Surgical changes and devices: Sternotomy. Lungs and pleura: No pleural effusions or pneumothorax. There is a calcified nodule in the right lo wer lung zone, compatible with an old granuloma. No acute pulmonary opacities. Mediastinum: Mediastinal contours appear normal. Heart size is normal. Prominent mitral annular jason cification. Bones and chest wall: No suspicious bony lesions. Overlying soft tissues appear unremarkable. Sever e left glenohumeral joint degeneration. IMPRESSION: 1. No acute cardiopulmonary disease. 2. A calcified granuloma in the right lower lobe. Reviewed by: Hong Catalan MD on 03/19/2022 5:04 PM PDT Approved by: Hong Catalan MD on 03/19/2022 5:04 PM PDT Station ID: [id number]
[2022-03-19] MEDS ORDERED: ASPIRIN CHEW 81 MG TABLET PO STA (18:15)
[2022-03-19] MEDS ORDERED: METOPROLOL TARTRATE 50 MG TABLET PO STA (18:15)
[2022-03-19] MEDS ORDERED: ENOXAPARIN 60 MG/0.6 ML SYRINGE SUBQ STA (18:16)
[2022-03-20 05:48] LABS: CALCIUM 8.9 mg/dL (8.5-10.3); CREATININE 1.5 mg/dL (0.4-1.0); POTASSIUM 4.2 mmol/L (3.5-5.0)
[2022-03-20 06:15] LABS: BASOPHILS % (AUTO) 0.9 %; EOSINOPHILS # (AUTO) 0.6 10^3/uL (0.0-0.7); EOSINOPHILS % (AUTO) 12.5 %; HCT - HEMATOCRIT 39.6 % (37.0-47.0); HGB - HEMOGLOBIN 13.2 g/dL (12.0-16.0); LYMPHOCYTES # (AUTO) 1.8 10^3/uL (1.5-3.5); LYMPHOCYTES % (AUTO) 37.7 %; MEAN CORPUSCULAR HEMOGLOBIN 32.7 pg (27.0-31.0); MEAN CORPUSCULAR HGB CONC 33.3 g/dL (32.0-36.0); MEAN PLATELET VOLUME 9.6 fL (7.9-10.8); MONOCYTES # (AUTO) 0.5 10^3/uL (0.0-1.0); MONOCYTES % (AUTO) 11.4 %; NEUTROPHILS # (AUTO) 1.7 10^3/uL (1.5-6.6); NEUTROPHILS % (AUTO) 37.3 %; PLT - PLATELET COUNT 179 10^3/uL (130-450); RED BLOOD COUNT 4.04 10^6/uL (4.20-5.40); RED CELL DISTRIBUTION WIDTH 13.4 % (12.0-15.0); WHITE BLOOD COUNT 4.6 x10^3/uL (4.8-10.8)
--- NOTE | 2022-03-20 06:28 | ED Physician Documentation ---
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 RN noticed that she had become bradycardic in the 40s. The patient is denying chest pain, difficulty breathing. She states that she is tired but this is not a new symptom for her. Repeat EKG time 0618; Rate 49, sinus bradycardia, no STEMI, T wave inversions in Inferior and lateral leads, 03/20/22 06:29 Third troponin in similar range to previous. Patient continues on medications for NSTEMI. We will hold further doses of metoprolol at this time. Care to be turned over to oncoming provider at shift change.
[2022-03-20] MEDS ORDERED: ENOXAPARIN 60 MG/0.6 ML SYRINGE SUBQ SCH (09:00)
[2022-03-20] MEDS ORDERED: ASPIRIN CHEW 81 MG TABLET PO SCH (09:00)
--- NOTE | 2022-03-20 15:15 | ED Physician Documentation ---
ED Addendum - Addendum Addendum: 03/20/22 15:10 The patient has remained stable and symptom-free through the day. She appears to be in sinus rhythm by the monitor with a rate in the 50s. Blood pressure is adequate with the last 06/29/1931 systolic. The patient had received beta-daiana through the night. I did talk with Dr. Arzate who is on-call for cardiology at [facility] in [place]. The patient had been up there with a heart cath in July and Dr. Arzate reviewed the findings of that which showed 50% stenoses in the main vessels. There was symmetric wall motion. No interventions were done at the time other than starting a beta-daiana and anticoagulants. I discussed with the certified pharmacy technician with the appropriate evaluation would be at this point given the episode of rapid A. fib in the elevation of the troponins. Given the recent heart cath, the certified pharmacy technician did not feel that any further intervention would be needed other than an echocardiogram to ensure adequate ejection fraction and no significant regional wall motion abnormality. If that was normal then the patient could be discharged with resumption of the low-dose beta-daiana and some anticoagulation, be at a DOAC or aspirin if there is concern for fall risk or other problems. We were able to get a echocardiogram here in the emergency department. It showed ejection fraction 60% and no regional wall abnormalities. The report does say some technically difficult findings but they still reported out good visibility. At this point discussed it with the patient and she would much favorably rather go home at this point. At this point no indication for transfer needed. Disposition: The patient discharged home in stable condition Diagnoses: 1. Paroxysmal atrial fibrillation with rapid ventricular response 2. Elevated troponin with demand ischemia
[2022-03-20 15:33] VITALS: BP 120/70
== END 2022-03-20 15:40 | disposition home or self-care (01) ==
LOC: ED 08:36
DX: I21.4 Non-ST elevation (NSTEMI) myocardial infarction (principal); I48.20 Chronic atrial fibrillation, unspecified; I10 Essential (primary) hypertension; E11.9 Type 2 diabetes mellitus without complications; E86.0 Dehydration
CPT/HCPCS: 36415; 71045; 80048; 80053; 81001; 83690; 83735; 84484; 85025; 87086; 87635; 93005; 93306; 96365; 96372; 96375; 99284; A9270; J1650; J3411; 81003

== ENCOUNTER 2022-05-12 09:28 | Outpatient (CLI) | payer MEDICARE | END 2022-05-12 23:59 | disposition short-term general hospital (02) | LOC: EMS 09:28 | DX: R07.89 Other chest pain (principal); R42 Dizziness and giddiness; R53.1 Weakness; I48.91 Unspecified atrial fibrillation | CPT/HCPCS: A0425; A0427 ==

== ENCOUNTER 2022-05-14 16:03 | Outpatient (CLI) | payer MEDICARE | END 2022-05-14 16:04 | disposition EMS.NT | LOC: EMS 16:03 | DX: S01.81XA Laceration without foreign body of other part of head, initial encounter (principal); W18.39XA Other fall on same level, initial encounter; Y92.512 Supermarket, store or market as the place of occurrence of the external cause ==

== ENCOUNTER 2022-06-09 16:42 | Emergency (ER) | payer MEDICARE ==
[2022-06-09 16:54] VITALS: BP 176/55
[2022-06-09 17:11] LABS: BASOPHILS # (AUTO) 0.1 10^3/uL (0.0-0.1); BASOPHILS % (AUTO) 1.2 %; EOSINOPHILS # (AUTO) 0.4 10^3/uL (0.0-0.7); EOSINOPHILS % (AUTO) 9.7 %; HCT - HEMATOCRIT 38.4 % (37.0-47.0); HGB - HEMOGLOBIN 12.2 g/dL (12.0-16.0); LYMPHOCYTES % (AUTO) 23.7 %; MEAN CORPUSCULAR HEMOGLOBIN 32.7 pg (27.0-31.0); MEAN CORPUSCULAR HGB CONC 31.8 g/dL (32.0-36.0); MEAN CORPUSCULAR VOLUME 102.9 fL (81.0-99.0); MEAN PLATELET VOLUME 9.2 fL (7.9-10.8); MONOCYTES # (AUTO) 0.5 10^3/uL (0.0-1.0); MONOCYTES % (AUTO) 12.4 %; NEUTROPHILS # (AUTO) 2.3 10^3/uL (1.5-6.6); NEUTROPHILS % (AUTO) 52.8 %; PLT - PLATELET COUNT 160 10^3/uL (130-450); RED BLOOD COUNT 3.73 10^6/uL (4.20-5.40); RED CELL DISTRIBUTION WIDTH 13.1 % (12.0-15.0); WHITE BLOOD COUNT 4.3 x10^3/uL (4.8-10.8)
[2022-06-09 17:23] LABS: CALCIUM 9.2 mg/dL (8.5-10.3); CREATININE 1.9 mg/dL (0.4-1.0); MAGNESIUM 1.7 mg/dL (1.7-2.8); PHOSPHORUS 3.6 mg/dL (2.5-4.6); POTASSIUM 4.1 mmol/L (3.5-5.0)
--- NOTE | 2022-06-09 17:44 | ED Physician Documentation ---
History of Present Illness - Stated complaint Stated Complaint: POTASSIUM PROBLEMS - Chief complaint Chief Complaint: General - History obtained from History obtained from: Patient - History of Present Illness Timing: Today Pain level max: 0 Pain level now: 0 - Additonal information Additional information: Patient symptoms for an outpatient blood draw that revealed high potassium. Patient is fully asymptomatic. No chest pain. No shortness of breath. Nothing makes it better or worse. Review of Systems Constitutional: denies: Fever GI: denies: Vomiting Skin: denies: Rash PD PAST MEDICAL HISTORY - Past Medical History Cardiovascular: Hypertension, High cholesterol Respiratory: COPD, Shortness of breath, Sleep apnea, Other Neuro: None Endocrine/Autoimmune: Type 2 diabetes GI: GERD, GI bleed GLOVE FORMER: None : Incontinence HEENT: None Psych: Depression, Anxiety Musculoskeletal: Osteoarthritis, Gout, Chronic back pain, Other Derm: None - Past Surgical History Past Surgical History: Yes General: Colonoscopy Ortho: Spine surgery /GLOVE FORMER: Hysterectomy Cardiovascular: CABG HEENT: Tonsil/Adenoidectomy - Present Medications Home Medications: Ambulatory Orders Medication Instructions Recorded Confirmed Aspirin Chewable [St Matteo 81 mg PO DAILY 04/04/13 04/02/21 Aspirin] Cholecalciferol (Vitamin D3) 2,000 unit PO DAILY 04/04/13 04/02/21 [Vitamin D3] allopurinoL [Allopurinol] 300 mg PO DAILY 04/04/13 04/02/21 Ustekinumab [Stelara] 45 mg SUBQ 12/13/17 Atorvastatin Calcium 20 mg PO DAILY 12/14/17 04/02/21 Mirabegron [Myrbetriq] 25 mg PO DAILY 12/14/17 04/02/21 Multivitamin/Iron/Folic Acid 1 each PO DAILY 12/14/17 04/02/21 [Centrum Adults Tablet] [place]-3/Dha/Epa/Fish Oil [Fish Oil 1 each PO DAILY 12/14/17 04/02/21 Gummies] Psyllium Husk [Fiber] 5 g PO DAILY 12/14/17 04/02/21 hydrOXYzine HCL [Hydroxyzine HCl] 10 mg PO QPM 12/14/17 04/02/21 ondansetron HCL [Zofran] 4 mg PO Q6H PRN #15 tablet 12/15/17 oxyCODONE [Roxicodone] 5 mg PO Q6H PRN #15 tablet 12/15/17 Levothyroxine [Synthroid] 25 mcg PO DAILY 04/02/21 04/02/21 Solifenacin Succinate [Vesicare] 5 mg PO DAILY 04/02/21 04/02/21 Ubidecarenone/Vit E Acet [Co Q-10 1 cap PO DAILY 08/10/21 08/10/21 100 mg Softgel] Aspirin EC [Ecotrin] 81 mg PO DAILY 30 Days #30 tablet 03/20/22 Metoprolol Succinate [Toprol Xl] 25 mg PO DAILY 30 Days #30 tablet 03/20/22 - Allergies Allergies/Adverse Reactions: Allergies Allergy/AdvReac Type Severity Reaction Status Date / Time promethazine HCl * Allergy Severe UNCONSCIOUS Verified 06/09/22 16:54 [From Phenergan] fentanyl Allergy Unknown unknown Verified 06/09/22 16:54 codeine Allergy Unknown Verified 06/09/22 16:54 morphine Allergy Hallucinati Verified 06/09/22 16:54 ons Penicillins Allergy Hives Verified 06/09/22 16:54 Sulfa (Sulfonamide Allergy Hives Verified 06/09/22 16:54 Antibiotics) dailry Allergy Unknown Uncoded 06/09/22 16:54 - Social History Does the pt smoke?: No Smoking Status: Never smoker Does the pt drink ETOH?: Yes Does the pt have substance abuse?: No - Immunizations Immunizations are current?: Yes - POLST Patient has POLST: Yes POLST Status: DNR PD ED PE NORMAL - Vitals Vital signs reviewed: Yes - General General: Alert and oriented X 3, No acute distress - HEENT HEENT: Moist mucous membranes - Neck Neck: Supple, no meningeal sign - Respiratory Respiratory: No respiratory distress - Derm Derm: Warm and dry - Neuro Neuro: Alert and oriented X 3 Results - Vitals Vitals: Vital Signs - 24 hr 06/09/22 16:50 Temperature 36.0 C L Heart Rate 66 Respiratory 20 Rate Blood Pressure 176/55 H O2 Saturation 99 Oxygen O2 Source Room air - Labs Labs: Laboratory Tests 06/09/22 06/09/22 17:07 17:07 WBC 4.3 L RBC 3.73 L Hgb 12.2 Hct 38.4 MCV 102.9 H MCH 32.7 H MCHC 31.8 L RDW 13.1 Plt Count 160 MPV 9.2 Neut # (Auto) 2.3 Lymph # (Auto) 1.0 L Hardy # (Auto) 0.5 Eos # (Auto) 0.4 Baso # (Auto) 0.1 Absolute Nucleated RBC 0.00 Nucleated RBC % 0.0 Sodium 141 Potassium 4.1 Chloride 107 Carbon Dioxide 26 Anion Gap 8.0 BUN 23 H Creatinine 1.9 H Estimated GFR (MDRD) 25 L Glucose 100 Calcium 9.2 Phosphorus 3.6 Magnesium 1.7 PD MEDICAL DECISION MAKING - ED course Complexity details: reviewed results, considered differential, d/w patient ED course: Normal potassium on redraw. Patient asymptomatic. We will have her follow-up with her doctor for further care. Patient counseled regarding signs and symptoms for which I believe and urgent re-evaluation would be necessary. Patient with good understanding of and agreement to plan and is comfortable going home at this time This document was made in part using voice recognition software. While efforts are made to proofread this document, sound alike and grammatical errors may occur. Departure - Departure Disposition: 01 Home, Self Care Clinical Impression: Encounter for medical screening examination Condition: Good Instructions: ED Screening Exam Medical Nonurgent Follow-Up: your,doctor in 1 week [Other] Comments: Your potassium levels are normal on recheck. Please follow-up with your doctor for further care. Your potassium level is 4.1 tonight Discharge Date/Time: 06/09/22 18:05
== END 2022-06-09 18:05 | disposition home or self-care (01) ==
LOC: ED 16:42
DX: Z03.89 Encounter for observation for other suspected diseases and conditions ruled out (principal)
CPT/HCPCS: 36415; 80048; 83735; 84100; 85025; 99281; 99283

== ENCOUNTER 2022-11-28 10:14 | Outpatient (CLI) | payer MEDICARE ==
[2022-11-28 12:46] LABS: BASOPHILS # (AUTO) 0.1 10^3/uL (0.0-0.1); BASOPHILS % (AUTO) 1.1 %; EOSINOPHILS # (AUTO) 0.4 10^3/uL (0.0-0.7); EOSINOPHILS % (AUTO) 7.4 %; HCT - HEMATOCRIT 41.8 % (37.0-47.0); HGB - HEMOGLOBIN 13.2 g/dL (12.0-16.0); LYMPHOCYTES % (AUTO) 18.3 %; MEAN CORPUSCULAR HEMOGLOBIN 30.7 pg (27.0-31.0); MEAN CORPUSCULAR HGB CONC 31.6 g/dL (32.0-36.0); MEAN CORPUSCULAR VOLUME 97.2 fL (81.0-99.0); MEAN PLATELET VOLUME 10.1 fL (7.9-10.8); MONOCYTES # (AUTO) 0.5 10^3/uL (0.0-1.0); MONOCYTES % (AUTO) 8.8 %; NEUTROPHILS # (AUTO) 3.4 10^3/uL (1.5-6.6); NEUTROPHILS % (AUTO) 64.2 %; PLT - PLATELET COUNT 217 10^3/uL (130-450); RED CELL DISTRIBUTION WIDTH 14.1 % (12.0-15.0); WHITE BLOOD COUNT 5.3 x10^3/uL (4.8-10.8)
[2022-11-28 13:01] LABS: ALBUMIN 4.3 g/dL (3.2-5.5); ALBUMIN/GLOBULIN RATIO 1.7 (1.0-2.2); ALKALINE PHOSPHATASE 61 IU/L (42-121); ALT ALANINE AMINOTRANSFERASE 10 IU/L (10-60); AST ASPARTATE AMINOTRANSFERASE 20 IU/L (10-42); BILIRUBIN,TOTAL 0.7 mg/dL (0.2-1.0); BUN - BLOOD UREA NITROGEN 25 mg/dL (6-20); CALCIUM 9.2 mg/dL (8.5-10.3); CARBON DIOXIDE - CO2 24 mmol/L (21-32); CHLORIDE 106 mmol/L (101-111); CHOL/HDL RATIO 2.2 (<4.4); CHOLESTEROL 145 mg/dL; GFR - MDRD 24 (>89); GLUCOSE 90 mg/dL (70-100); HDL CHOLESTEROL 66 mg/dL; LDL CHOLESTEROL,CALCULATED 56 mg/dL; LDL/HDL RATIO 0.8 (<4.4); POTASSIUM 4.5 mmol/L (3.5-5.0); SODIUM 141 mmol/L (135-145); TOTAL PROTEIN 6.8 g/dL (6.7-8.2); TRIGLYCERIDES 115 mg/dL; VLDL CHOLESTEROL 23 mg/dL
[2022-11-28 13:24] LABS: THYROID STIMULATING HORMONE 1.55 uIU/mL (0.34-5.60)
== END 2022-11-28 10:15 | disposition home or self-care (01) ==
LOC: LAB.N 10:14
PROVIDERS: ATTEND Family Medicine
DX: I13.0 Hypertensive heart and chronic kidney disease with heart failure and stage 1 through stage 4 chronic kidney disease, or unspecified chronic kidney disease (principal); N18.32 Chronic kidney disease, stage 3b; I50.9 Heart failure, unspecified; I25.10 Atherosclerotic heart disease of native coronary artery without angina pectoris; R41.3 Other amnesia; I48.0 Paroxysmal atrial fibrillation; R32 Unspecified urinary incontinence
CPT/HCPCS: 36415; 80053; 80061; 83721; 84443; 85025

== ENCOUNTER 2022-12-16 16:23 | Emergency (ER) | payer MEDICARE ==
[2022-12-16] MEDS ORDERED: SODIUM CHLORIDE 0.9% 1,000 ML IV STA (17:26)
--- NOTE | 2022-12-16 17:27 | ED Physician Documentation ---
PD HPI ALTERED MENTAL STATUS - Stated complaint Stated Complaint: CONFUSION/BACK PX - Chief complaint Chief Complaint: Abd Pain - History obtained from History obtained from: Patient, Family - History of Present Illness Timing - onset: How many days ago (few days of less appetite, less PO intake, and some right abd/flank pain. Seemed confused this morning per caregiver. Has had weakness and some falls the past week. No apparent head injury with them.) Timing - duration: Days Timing - details: Gradual onset, Still present, Waxing and waning Quality / character: Confused Associated symptoms: No: Fever, Headache, Cough, NVD Contributing factors: Recent med change (caregiver states the patient seen in office for trouble sleeping and anxiety. Was prescribed Risperdal though caregiver not sure if has taken any doses yet, and also had Tramadol increased from BID to TID just 2 dfays ago.). No: Anticoagulated Basline status: Alert and oriented X 3, Walker Similar symptoms before: Diagnosis (has had symptoms like this with infections in the past.) Recently seen: Clinic (had Risperdal added for anxiety just few days ago, but family believes she has not taken any yet. Had tramadol increased from 2 to 3 doses daily a few days ago.) Review of Systems Unable to obtain: Other (info from caregivers) Constitutional: denies: Fever Cardiac: denies: Chest pain / pressure Respiratory: denies: Dyspnea, Cough GI: reports: Abdominal Pain. denies: Vomiting, Diarrhea : denies: Dysuria Skin: denies: Abrasion (s), Laceration (s) Neurologic: reports: Generalized weakness, Confused. denies: Focal weakness, Numbness, Headache, Head injury PD PAST MEDICAL HISTORY - Past Medical History Cardiovascular: Hypertension, High cholesterol Respiratory: COPD, Shortness of breath, Sleep apnea, Other Neuro: None Endocrine/Autoimmune: Type 2 diabetes GI: GERD, GI bleed EYELETTER: None : Incontinence HEENT: None Psych: Depression, Anxiety Musculoskeletal: Osteoarthritis, Gout, Chronic back pain, Other Derm: None - Past Surgical History Past Surgical History: Yes General: Colonoscopy Ortho: Spine surgery /EYELETTER: Hysterectomy Cardiovascular: CABG HEENT: Tonsil/Adenoidectomy - Present Medications Home Medications: Ambulatory Orders Medication Instructions Recorded Confirmed Aspirin Chewable [St Matteo 81 mg PO DAILY 04/04/13 04/02/21 Aspirin] Cholecalciferol (Vitamin D3) 2,000 unit PO DAILY 04/04/13 04/02/21 [Vitamin D3] allopurinoL [Allopurinol] 300 mg PO DAILY 04/04/13 04/02/21 Ustekinumab [Stelara] 45 mg SUBQ 12/13/17 Atorvastatin Calcium 20 mg PO DAILY 12/14/17 04/02/21 Mirabegron [Myrbetriq] 25 mg PO DAILY 12/14/17 04/02/21 Multivitamin/Iron/Folic Acid 1 each PO DAILY 12/14/17 04/02/21 [Centrum Adults Tablet] [place]-3/Dha/Epa/Fish Oil [Fish Oil 1 each PO DAILY 12/14/17 04/02/21 Gummies] Psyllium Husk [Fiber] 5 g PO DAILY 12/14/17 04/02/21 hydrOXYzine HCL [Hydroxyzine HCl] 10 mg PO QPM 12/14/17 04/02/21 ondansetron HCL [Zofran] 4 mg PO Q6H PRN #15 tablet 12/15/17 oxyCODONE [Roxicodone] 5 mg PO Q6H PRN #15 tablet 12/15/17 Levothyroxine [Synthroid] 25 mcg PO DAILY 04/02/21 04/02/21 Solifenacin Succinate [Vesicare] 5 mg PO DAILY 04/02/21 04/02/21 Ubidecarenone/Vit E Acet [Co Q-10 1 cap PO DAILY 08/10/21 08/10/21 100 mg Softgel] Aspirin EC [Ecotrin] 81 mg PO DAILY 30 Days #30 tablet 03/20/22 Metoprolol Succinate [Toprol Xl] 25 mg PO DAILY 30 Days #30 tablet 03/20/22 Nitrofurantoin [Macrobid] 100 mg PO BID #10 cap 12/16/22 - Allergies Allergies/Adverse Reactions: Allergies Allergy/AdvReac Type Severity Reaction Status Date / Time promethazine HCl * Allergy Severe UNCONSCIOUS Verified 06/09/22 16:54 [From Phenergan] fentanyl Allergy Unknown unknown Verified 06/09/22 16:54 codeine Allergy Unknown Verified 06/09/22 16:54 morphine Allergy Hallucinati Verified 06/09/22 16:54 ons Penicillins Allergy Hives Verified 06/09/22 16:54 Sulfa (Sulfonamide Allergy Hives Verified 06/09/22 16:54 Antibiotics) dailry Allergy Unknown Uncoded 06/09/22 16:54 - Social History Does the pt smoke?: No Smoking Status: Never smoker Does the pt drink ETOH?: Yes Does the pt have substance abuse?: No - Immunizations Immunizations are current?: Yes - POLST Patient has POLST: Yes POLST Status: DNR PD ED PE NORMAL - Vitals Vital signs reviewed: Yes - General General: Alert and oriented X 3, No acute distress (pleasant and answers questions fully. Normal speech and pronunciation. ), Well developed/nourished - HEENT HEENT: Atraumatic, Pharynx benign - Neck Neck: Supple, no meningeal sign, No adenopathy - Cardiac Cardiac: RRR, No murmur - Respiratory Respiratory: Clear bilaterally - Abdomen Abdomen: Normal bowel sounds, Soft, Non distended, Other (some tender right low abdomen and right lateral abd. No guarding nor percussion tenderness. ) - Back Back: No CVA TTP - Derm Derm: Normal color, Warm and dry - Extremities Extremities: Normal ROM s pain, No edema, No calf tenderness / cord - Neuro Neuro: Alert and oriented X 3, No motor deficit, No sensory deficit, Normal speech Eye Opening: Spontaneous Motor: Obeys Commands Verbal: Oriented GCS Score: 15 - Psych Psych: Normal mood Results - Vitals Vitals: Vital Signs - 24 hr 12/16/22 12/16/22 12/16/22 16:33 18:56 21:19 Temperature 36.1 C L Heart Rate 52 L 58 L 65 Respiratory 16 18 18 Rate Blood Pressure 152/65 H 149/73 H O2 Saturation 100 100 100 Oxygen O2 Source Room air - Labs Labs: Laboratory Tests 12/16/22 12/16/22 12/16/22 16:59 16:59 20:17 WBC 5.6 RBC 3.99 L Hgb 12.4 Hct 38.2 MCV 95.7 MCH 31.1 H MCHC 32.5 RDW 14.2 Plt Count 180 MPV 9.9 Neut # (Auto) 3.8 Lymph # (Auto) 0.9 L Gray # (Auto) 0.6 Eos # (Auto) 0.3 Baso # (Auto) 0.0 Absolute Nucleated RBC 0.00 Nucleated RBC % 0.0 Sodium 140 Potassium 4.2 Chloride 105 Carbon Dioxide 26 Anion Gap 9.0 BUN 31 H Creatinine 1.8 H Estimated GFR (MDRD) 27 L Glucose 101 H Calcium 9.5 Magnesium 1.8 Total Bilirubin 0.5 AST 20 ALT < 10 L Alkaline Phosphatase 59 Total Protein 6.7 Albumin 4.0 Globulin 2.7 Albumin/Globulin Ratio 1.5 Lipase 24 Urine Color YELLOW Urine Clarity HAZY Urine pH 6.0 Ur Specific [place] <=1.005 Urine Protein NEGATIVE Urine Glucose (UA) NEGATIVE Urine Ketones NEGATIVE Urine Occult Blood NEGATIVE Urine Nitrite POSITIVE H Urine Bilirubin NEGATIVE Urine Urobilinogen 0.2 (NORMAL) Ur Leukocyte Esterase NEGATIVE Urine RBC 0-5 Urine WBC 0-3 Ur Squamous Epith Cells RARE Squamous Urine Bacteria Many H Ur Microscopic Review INDICATED Urine Culture Comments INDICATED - Rads (name of study) head CT Relevant Findings:: Prelim report reviewed (age related changes. No acute injury.), EMP independent interpretation of test, See rad report abd/pelvic CT Relevant Findings:: Prelim report reviewed (no stones nor acute abd process. constipation.), EMP independent interpretation of test, See rad report chest xray Relevant Findings:: Prelim report reviewed, EMP independent interpretation of test (no infiltrates nor effusions. ), See rad report PD Medical Decision Making - ED course Complexity details: considered differential (confused this morning, but better now and conversant. She had had med changes in past couple of days so most likely that. But consider infectious, metabolic/electrolytes, concussive from falls, ICH amongst other causes. ), d/w patient, d/w family Departure - Departure Disposition: 01 Home, Self Care Clinical Impression: Altered mental status, Chronic renal failure Condition: Stable Follow-Up: Mitch George MD [Primary Care Provider] - Prescriptions: Nitrofurantoin [Macrobid] 100 mg PO BID #10 cap Comments: The head CT and belly CT as well as chest x-ray did not show any acute abnormalities. There is a moderate amount of stool so some of the belly cramping may be from some constipation. Consider stool softener. Otherwise there is a baseline level of kidney failure which is comparable to prior test. No other acute abnormality noted on the electrolytes, blood sugar, blood count. The urine test is pending at this time. At this point I would suggest the altered mentation this morning might relate to the increased dose of tramadol assuming she had taken the extra dosing. I would revert back to the 2 tablets daily instead of 3. I would also hold off on the wrist. I will so as to not confuse the issue if there is a recurrent disorientation/confusion. Follow-up with your primary care. Encourage frequent fluids.
[2022-12-16 17:34] LABS: BASOPHILS % (AUTO) 0.5 %; EOSINOPHILS # (AUTO) 0.3 10^3/uL (0.0-0.7); EOSINOPHILS % (AUTO) 4.9 %; HCT - HEMATOCRIT 38.2 % (37.0-47.0); HGB - HEMOGLOBIN 12.4 g/dL (12.0-16.0); LYMPHOCYTES # (AUTO) 0.9 10^3/uL (1.5-3.5); LYMPHOCYTES % (AUTO) 16.2 %; MEAN CORPUSCULAR HEMOGLOBIN 31.1 pg (27.0-31.0); MEAN CORPUSCULAR HGB CONC 32.5 g/dL (32.0-36.0); MEAN CORPUSCULAR VOLUME 95.7 fL (81.0-99.0); MEAN PLATELET VOLUME 9.9 fL (7.9-10.8); MONOCYTES # (AUTO) 0.6 10^3/uL (0.0-1.0); MONOCYTES % (AUTO) 10.1 %; NEUTROPHILS # (AUTO) 3.8 10^3/uL (1.5-6.6); NEUTROPHILS % (AUTO) 67.9 %; PLT - PLATELET COUNT 180 10^3/uL (130-450); RED BLOOD COUNT 3.99 10^6/uL (4.20-5.40); RED CELL DISTRIBUTION WIDTH 14.2 % (12.0-15.0); WHITE BLOOD COUNT 5.6 x10^3/uL (4.8-10.8)
[2022-12-16 17:42] LABS: ALBUMIN/GLOBULIN RATIO 1.5 (1.0-2.2); ALKALINE PHOSPHATASE 59 IU/L (42-121); ALT ALANINE AMINOTRANSFERASE < 10 IU/L (10-60); AST ASPARTATE AMINOTRANSFERASE 20 IU/L (10-42); BILIRUBIN,TOTAL 0.5 mg/dL (0.2-1.0); BUN - BLOOD UREA NITROGEN 31 mg/dL (6-20); CALCIUM 9.5 mg/dL (8.5-10.3); CARBON DIOXIDE - CO2 26 mmol/L (21-32); CHLORIDE 105 mmol/L (101-111); CREATININE 1.8 mg/dL (0.4-1.0); GFR - MDRD 27 (>89); GLUCOSE 101 mg/dL (70-100); LIPASE 24 U/L (22-51); MAGNESIUM 1.8 mg/dL (1.7-2.8); POTASSIUM 4.2 mmol/L (3.5-5.0); SODIUM 140 mmol/L (135-145); TOTAL PROTEIN 6.7 g/dL (6.7-8.2)
--- NOTE | 2022-12-16 18:21 | XRAY Report ---
PROCEDURE: Chest 1 View X-Ray INDICATIONS: chest pain TECHNIQUE: One view of the chest was acquired. COMPARISON: Lung bases on CT abdomen pelvis also performed today. CXR 03/19/2022, 03/18/2022. FINDINGS: Surgical changes and devices: Post median sternotomy. Lungs and pleura: No pleural effusions or pneumothorax. Lungs are clear. The right middle lobe calc ified granuloma. Mediastinum: Mediastinal contours appear normal. Aortic arch atherosclerotic calcifications. Heart size is within normal limits. Probable mitral annular calcification. Bones and chest wall: No suspicious bony lesions. Overlying soft tissues appear unremarkable. IMPRESSION: No acute cardiopulmonary process. Reviewed by: Dionisio Miller MD on 12/16/2022 6:19 PM PDT Approved by: Dionisio Miller MD on 12/16/2022 6:19 PM PDT Station ID: [id number]
--- NOTE | 2022-12-16 18:26 | CT Report ---
PROCEDURE: HEAD WO INDICATIONS: confused/ recent falls TECHNIQUE: Noncontrast 4.5 mm thick angled axial sections acquired from the foramen magnum to the vertex. For r adiation dose reduction, the following was used: automated exposure control, adjustment of mA and/or kV according to patient size. COMPARISON: 10/16/2021 FINDINGS: Image quality: Motion artifact is noted. CSF spaces: Basal cisterns are patent. No extra-axial fluid collections. Ventricles are normal in size and shape. Brain: No midline shift. No intracranial masses or hemorrhage. Osorio-white matter interface is norm al. Age-appropriate brain parenchymal volume loss and chronic small vessel ischemic change can be se en. Skull and face: Calvarium and visualized facial bones are intact, without suspicious lesions. Sinuses: Visualized sinuses and mastoids are clear. IMPRESSION: Motion limited study, without acute intracranial hemorrhage seen. No other acute intracranial abnormality is seen. Age-appropriate brain parenchymal volume loss and chronic small vessel ischemic change can be seen. Reviewed by: Thierry Park MD on 12/16/2022 5:24 PM CONNER Approved by: Thierry Park MD on 12/16/2022 5:24 PM AKHAILEY Station ID: [id number]
--- NOTE | 2022-12-16 18:29 | CT Report ---
PROCEDURE: ABDOMEN/PELVIS WO INDICATIONS: right lower abd pain/back pain TECHNIQUE: A CT scan of the abdomen and pelvis was performed without the use of intravenous contrast. Images we re recorded and evaluated at appropriate window settings. Reformats: coronal and sagittal. For radiat ion dose reduction, the following was used: automated exposure control, adjustment of mA and/or kV ac cording to patient size. COMPARISON: CT abdomen pelvis 05/13/2019. FINDINGS: Image quality: Good. Evaluation of the solid parenchymal organs is limited without IV contrast. Lung bases and heart: No pleural effusion. Right middle lobe calcified granuloma. Post median sternot hermilo. Liver: Unremarkable. Gallbladder and biliary tree: Not distended. No biliary ductal dilatation is seen. Spleen: No splenomegaly. Pancreas: Fatty atrophy. Adrenals: No adrenal nodule. Kidneys and ureters: No hydronephrosis. No renal cystic lesion which requires follow up. Bowel and peritoneum: Prominent stool in the colon. Anastomosis at the hepatic flexure. No small oli l obstruction. No ascites. No pneumoperitoneum. Lymph nodes: No central or retroperitoneal adenopathy. Vessels: No infrarenal aortic aneurysm. Circumferential calcified atherosclerotic plaque. PELVIS Reproductive organs: Not well evaluated. Bladder: No wall thickness, accounting for underdistention. Pelvic lymph nodes: No pelvic adenopathy by size criteria. Bones: No aggressive osseous abnormality. Levoscoliosis. Retrolisthesis of L3 on L4 measuring is 0.8 cm, unchanged. Suspect is ankylosis of L2-L3. The right hip arthroplasty. The hardware artifact. Other: No significant ventral or inguinal hernia. IMPRESSION: 1. Prominent stool the colon. This suggests constipation. 2. No bowel small obstruction. No free fluid. 3. No kidney stone. No hydronephrosis. 4. No compression fracture. Similar grade 1 retrolisthesis of L3 on L4. DDD. Reviewed by: Dionisio Miller MD on 12/16/2022 6:28 PM PDT Approved by: Dionisio Miller MD on 12/16/2022 6:28 PM PDT Station ID: [id number]
[2022-12-16 20:32] LABS: BILIRUBIN,URINE NEGATIVE (NEGATIVE); GLUCOSE, URINE (UA) NEGATIVE (NEGATIVE); KETONES,URINE (UA) NEGATIVE (NEGATIVE); LEUKOCYTE ESTERASE, URINE NEGATIVE (NEGATIVE); NITRITE,URINE POSITIVE (NEGATIVE); OCCULT BLOOD,URINE NEGATIVE (NEGATIVE); PROTEIN,URINE NEGATIVE (NEGATIVE); UROBILINOGEN,URINE 0.2 (NORMAL) E.U./dL (NORMAL)
[2022-12-16 20:34] LABS: CLARITY,URINE HAZY (CLEAR)
[2022-12-16 20:41] LABS: RBC,URINE 0-5 /HPF (0-5); SQUAMOUS EPITHELIAL CELL,UR RARE Squamous (<= Few); WBC,URINE 0-3 /HPF (0-5)
[2022-12-16 20:42] LABS: BACTERIA,URINE Many /HPF (None Seen)
[2022-12-16] MEDS ORDERED: NITROFURANTOIN MACRO 100 MG CAPSULE PO STA (21:00)
[2022-12-16] MEDS ORDERED: ONDANSETRON 4 MG/2 ML VIAL IVP STA (21:00)
[2022-12-16 21:24] VITALS: BP 149/73
== END 2022-12-16 22:07 | disposition home or self-care (01) ==
LOC: ED 16:23
DX: R41.82 Altered mental status, unspecified (principal); I12.9 Hypertensive chronic kidney disease with stage 1 through stage 4 chronic kidney disease, or unspecified chronic kidney disease; E11.22 Type 2 diabetes mellitus with diabetic chronic kidney disease; N18.9 Chronic kidney disease, unspecified; E78.00 Pure hypercholesterolemia, unspecified; J44.9 Chronic obstructive pulmonary disease, unspecified; Z66 Do not resuscitate; Z79.899 Other long term (current) drug therapy; Z79.82 Long term (current) use of aspirin
CPT/HCPCS: 36415; 80053; 81001; 81003; 83690; 83735; 85025; 87086; 87181; 96361; 96374; 99284

== ENCOUNTER 2022-12-23 11:02 | Outpatient (CLI) | payer MEDICARE | END 2022-12-23 11:03 | disposition home or self-care (01) | LOC: LAB.N 11:02 | PROVIDERS: ATTEND Family Medicine | DX: F03.90 Unspecified dementia, unspecified severity, without behavioral disturbance, psychotic disturbance, mood disturbance, and anxiety (principal) | CPT/HCPCS: 36415; 82607; 83921 ==

== ENCOUNTER 2023-02-02 15:10 | Outpatient (CLI) | payer MEDICARE ==
[2023-02-02 18:04] LABS: BASOPHILS # (AUTO) 0.1 10^3/uL (0.0-0.1); BASOPHILS % (AUTO) 0.9 %; EOSINOPHILS # (AUTO) 0.5 10^3/uL (0.0-0.7); EOSINOPHILS % (AUTO) 7.3 %; HCT - HEMATOCRIT 28.2 % (37.0-47.0); HGB - HEMOGLOBIN 8.5 g/dL (12.0-16.0); LYMPHOCYTES # (AUTO) 1.1 10^3/uL (1.5-3.5); LYMPHOCYTES % (AUTO) 16.7 %; MEAN CORPUSCULAR HEMOGLOBIN 28.5 pg (27.0-31.0); MEAN CORPUSCULAR HGB CONC 30.1 g/dL (32.0-36.0); MEAN CORPUSCULAR VOLUME 94.6 fL (81.0-99.0); MEAN PLATELET VOLUME 9.5 fL (7.9-10.8); MONOCYTES # (AUTO) 0.8 10^3/uL (0.0-1.0); MONOCYTES % (AUTO) 11.8 %; NEUTROPHILS # (AUTO) 4.1 10^3/uL (1.5-6.6); NEUTROPHILS % (AUTO) 62.8 %; PLT - PLATELET COUNT 415 10^3/uL (130-450); RED BLOOD COUNT 2.98 10^6/uL (4.20-5.40); RED CELL DISTRIBUTION WIDTH 13.9 % (12.0-15.0); WHITE BLOOD COUNT 6.6 x10^3/uL (4.8-10.8)
[2023-02-02 19:00] LABS: ALBUMIN 3.7 g/dL (3.2-5.5); ALBUMIN/GLOBULIN RATIO 1.4 (1.0-2.2); BILIRUBIN,TOTAL 0.4 mg/dL (0.2-1.0); CALCIUM 9.4 mg/dL (8.5-10.3); CREATININE 1.5 mg/dL (0.6-1.3); POTASSIUM 5.5 mmol/L (3.5-4.5); TOTAL PROTEIN 6.4 g/dL (6.4-8.9)
[2023-02-03 08:57] LABS: ABSOLUTE RETICS # AUTO 0.032 10^6/uL (0.020-0.110); RED BLOOD COUNT 2.96 10^6/uL (4.20-5.40); RETICULOCYTE COUNT % (AUTO) 1.07 % (0.5-2.3)
[2023-02-03 09:31] LABS: FERRITIN 229.1 ng/mL (11.0-306.8)
== END 2023-02-02 15:11 | disposition home or self-care (01) ==
LOC: LAB.N 15:10
PROVIDERS: ATTEND Nurse Practitioner
DX: D64.9 Anemia, unspecified (principal); R05.9 Cough, unspecified
CPT/HCPCS: 36415; 80053; 81599; 82607; 82728; 82746; 83020; 83540; 84466; 85025; 85045

== ENCOUNTER 2023-02-19 08:00 | Outpatient (CLI) | payer MEDICARE ==
[2023-02-19 18:21] LABS: FECAL OCCULT BLOOD (FIT) POSITIVE (NEGATIVE)
== END 2023-02-19 23:59 | disposition home or self-care (01) ==
LOC: LAB.R 08:00
PROVIDERS: ATTEND Family Medicine
DX: D64.9 Anemia, unspecified (principal)
CPT/HCPCS: 82274

== ENCOUNTER 2023-02-19 14:01 | Emergency (ER) | payer MEDICARE ==
--- NOTE | 2023-02-19 14:25 | ED Physician Documentation ---
History of Present Illness - Stated complaint Stated Complaint: RT HAND LAC,CHEST/LOWER BACK PX - Chief complaint Chief Complaint: General - History obtained from History obtained from: Patient, Friend - History of Present Illness Pain level max: 5 Pain level now: 5 - Additonal information Additional information: Patient is an 87-year-old female who presents to the emergency department after a fall approximately 1 week ago at home. She injured her right hand and right posterior ribs. Had a skin tear to the dorsum of the right hand that was treated with Steri-Strips. She states that the hand is more swollen and painful now. She is also concerned about potential rib fracture. No hematuria. No nausea or vomiting. No diarrhea. No hematemesis. No loss of consciousness. Did not strike her head. No neck or back pain. Worse with movement, better with rest. No other injuries Review of Systems Constitutional: denies: Fever, Chills GI: denies: Vomiting, Diarrhea Skin: denies: Rash Musculoskeletal: denies: Neck pain, Back pain Neurologic: denies: Headache PD PAST MEDICAL HISTORY - Past Medical History Cardiovascular: Hypertension, High cholesterol Respiratory: COPD, Shortness of breath, Sleep apnea, Other Neuro: None Endocrine/Autoimmune: Type 2 diabetes GI: GERD, GI bleed TREE SCOUT: None : Incontinence HEENT: None Psych: Depression, Anxiety Musculoskeletal: Osteoarthritis, Gout, Chronic back pain, Other Derm: None - Past Surgical History Past Surgical History: Yes General: Colonoscopy Ortho: Spine surgery /TREE SCOUT: Hysterectomy Cardiovascular: CABG HEENT: Tonsil/Adenoidectomy - Present Medications Home Medications: Ambulatory Orders Medication Instructions Recorded Confirmed hydrOXYzine HCL [Hydroxyzine HCl] 10 mg PO QPM 12/14/17 02/19/23 Levothyroxine [Synthroid] 25 mcg PO DAILY 04/02/21 02/19/23 Solifenacin Succinate [Vesicare] 10 mg PO DAILY 04/02/21 02/19/23 Apixaban [Eliquis] 2.5 mg PO BID 02/19/23 02/19/23 Atorvastatin Calcium 40 mg PO DAILY 02/19/23 02/19/23 Clotrimazole/Betamethasone Dip 1 applic TP BID 02/19/23 02/19/23 [Clotrimazole-Betamethasone Lot] Nystatin [Nystop] 1 applic TOP BID 02/19/23 02/19/23 Omeprazole 40 mg PO DAILY 02/19/23 02/19/23 Timolol [Betimol] 1 drops OP DAILY 02/19/23 02/19/23 carvediloL [Coreg] 3.125 mg PO BID 02/19/23 02/19/23 clindamycin HCL [Cleocin HCl] 300 mg PO Q6H #40 cap 02/19/23 guaiFENesin [Mucinex] 600 mg PO BID 02/19/23 02/19/23 risperiDONE [Risperdal] 0.25 mg PO HS 02/19/23 02/19/23 traMADol [Ultram] 50 mg PO BID 02/19/23 02/19/23 - Allergies Allergies/Adverse Reactions: Allergies Allergy/AdvReac Type Severity Reaction Status Date / Time promethazine HCl * Allergy Severe UNCONSCIOUS Verified 02/19/23 14:10 [From Phenergan] fentanyl Allergy Unknown unknown Verified 02/19/23 14:10 codeine Allergy Unknown Verified 02/19/23 14:10 morphine Allergy Hallucinati Verified 02/19/23 14:10 ons Penicillins Allergy Hives Verified 02/19/23 14:10 Sulfa (Sulfonamide Allergy Hives Verified 02/19/23 14:10 Antibiotics) - Social History Does the pt smoke?: No Smoking Status: Never smoker Does the pt drink ETOH?: Yes Does the pt have substance abuse?: No - Immunizations Immunizations are current?: Yes - POLST Patient has POLST: Yes POLST Status: DNR PD ED PE NORMAL - Vitals Vital signs reviewed: Yes - General General: Alert and oriented X 3, No acute distress - HEENT HEENT: Atraumatic, PERRL, Moist mucous membranes - Neck Neck: Supple, no meningeal sign, No bony TTP - Cardiac Cardiac: RRR, Strong equal pulses - Respiratory Respiratory: No respiratory distress, Clear bilaterally - Back Back: No spinal TTP, Other (Mild tender to palpation right posterior rib, approximately rib 10. No crepitus. No ecchymosis.) - Derm Derm: Warm and dry - Extremities Extremities: Other (There is mild erythema and swelling to the dorsum of the right hand. Mild warmth. No tenderness over the palmar aspect of the hand. Fingers are normal. Wound is covered with Steri-Strips that appears to be healing. 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, No motor deficit, No sensory deficit, Normal speech - Psych Psych: Normal mood, Normal affect Results - Vitals Vitals: Vital Signs - 24 hr 02/19/23 02/19/23 14:04 16:28 Temperature 36.7 C Heart Rate 58 L 62 Respiratory 15 16 Rate Blood Pressure 134/35 H 135/48 H O2 Saturation 99 95 Oxygen O2 Source Room air - Rads (name of study) Right hand x-ray Relevant Findings:: Final report received, See rad report Right ribs with PA chest Relevant Findings:: Final report received, See rad report PD Medical Decision Making - ED course Complexity details: reviewed results, considered differential, d/w patient, d/w family ED course: 87-year-old female status post a ground-level fall. No acute findings on x-ray of the right hand or on x-ray of the right ribs. No evidence of fracture. No pneumothorax. The right hand does appear to have cellulitis and we will start on antibiotics for this. There is no drainage. No evidence of deep space infection in the hand. Neurovascular intact. Patient states that her tetanus shot is up-to-date. She has multiple antibiotic allergies so will place on clindamycin. Patient counseled regarding signs and symptoms for which I believe and urgent re-evaluation would be necessary. Patient with good understanding of and agreement to plan and is comfortable going home at this time This document was made in part using voice recognition software. While efforts are made to proofread this document, sound alike and grammatical errors may occur. Departure - Departure Disposition: 01 Home, Self Care Clinical Impression: Skin avulsion Cellulitis Qualifiers: Site of cellulitis: extremity Site of cellulitis of extremity: upper extremity Laterality: right Qualified Code(s): L03.113 - Cellulitis of right upper limb Hand contusion Qualifiers: Encounter type: initial encounter Laterality: right Qualified Code(s): S60.221A - Contusion of right hand, initial encounter Contusion of rib Qualifiers: Encounter type: initial encounter Laterality: right Qualified Code(s): S20.211A - Contusion of right front wall of thorax, initial encounter Condition: Good Instructions: ED Infec Skin Cellulitis Follow-Up: Mitch George MD [Primary Care Provider] - Within 3 Days Prescriptions: clindamycin HCL [Cleocin HCl] 300 mg PO Q6H #40 cap Comments: Take all antibiotic until gone. Your [facility]. Please follow-up with your doctor in 3 days for a wound check. Please return if you worsen. Return for increasing redness, swelling or drainage from the wound. You should notice improvement in 24 to 36 hours. Your x-rays do not show any acute abnormalities today. Forms: PCP List Discharge Date/Time: 02/19/23 16:29
--- NOTE | 2023-02-19 15:08 | XRAY Report ---
PROCEDURE: Hand 3 View RT INDICATIONS: fall, R hand pain TECHNIQUE: 3 views of the hand(s) acquired. COMPARISON: None. FINDINGS: Bones: No fractures or dislocations. No suspicious bony lesions. Osteopenia. First CMC joint spac e narrowing with osteophytosis and lateral subluxation of the thumb. Interphalangeal joint space narr owing with osteophytosis, most prominent at the second DIP joint. Chondrocalcinosis. Soft tissues: No suspicious soft tissue calcifications or masses. IMPRESSION: No acute bony abnormality. If pain persists with conservative management, consider repeat radiographs in 10-14 days or cross-sectional imaging. Interphalangeal and first CMC osteoarthritis. Chondrocalcinosis, which could be age-related, associated with CPPD or parathyroid disorder. Reviewed by: Alfonzo Manning on 02/19/2023 3:07 PM PDT Approved by: Alfonzo Manning on 02/19/2023 3:07 PM PDT Station ID: [id number]
--- NOTE | 2023-02-19 15:09 | XRAY Report ---
PROCEDURE: Ribs w/PA Chest RT INDICATIONS: fall, R rib pain TECHNIQUE: 2 views of the right ribs were acquired, along with a single view chest. COMPARISON: None. FINDINGS: Surgical changes and devices: Sternotomy. Bones and chest wall: No fractures or dislocations. No suspicious bony lesions. Overlying soft tis sues appear unremarkable. Lungs and pleura: No pleural effusions or pneumothorax. Lungs appear clear. Right middle lung zon e calcified granuloma. Mediastinum: Mediastinal contours appear normal. Heart size is normal. IMPRESSION: No displaced rib fracture or pneumothorax. Reviewed by: Alfonzo Manning on 02/19/2023 3:07 PM PDT Approved by: Alfonzo Manning on 02/19/2023 3:07 PM PDT Station ID: [id number]
[2023-02-19] MEDS ORDERED: CLINDAMYCIN 150 MG CAPSULE PO STA (16:08)
[2023-02-19 16:38] VITALS: BP 135/48; O2SAT 95
== END 2023-02-19 16:29 | disposition home or self-care (01) ==
LOC: ED 14:01
DX: S61.411D Laceration without foreign body of right hand, subsequent encounter (principal); L03.113 Cellulitis of right upper limb; S60.221D Contusion of right hand, subsequent encounter; S20.211D Contusion of right front wall of thorax, subsequent encounter; W19.XXXD Unspecified fall, subsequent encounter; D64.9 Anemia, unspecified; Z66 Do not resuscitate
CPT/HCPCS: 71101; 73130; 82274; 99283; 99284; A9270

== ENCOUNTER 2023-04-01 15:50 | Outpatient (CLI) | payer MEDICARE | END 2023-04-01 15:51 | disposition critical access hospital (66) | LOC: EMS 15:50 | DX: M54.2 Cervicalgia (principal) | CPT/HCPCS: A0425; A0429 ==

== ENCOUNTER 2023-04-01 16:12 | Emergency (ER) | payer MEDICARE ==
--- NOTE | 2023-04-01 16:23 | ED Physician Documentation ---
PD HPI NECK PAIN - Stated complaint Stated Complaint: NECK PX - History obtained from History obtained from: Patient - History of Present Illness Timing - onset: How many days ago (3) Timing - duration: Days (3) Timing - details: Gradual onset, Still present, Waxing and waning Location: Lower, Right (laterally toward the posterior belly SCM but also lateral posterior.) Quality: Pain, Aching Associated symptoms: No: Fever, Weakness, Numbness Worsened by: Movement, Twisting, Palpation Contributing factors: No: Twisting, Trauma Similar symptoms before: Has not had sx before Review of Systems Constitutional: denies: Fever, Chills Nose: denies: Rhinorrhea / runny nose, Congestion Throat: denies: Sore throat Respiratory: denies: Cough Neurologic: denies: Focal weakness, Numbness PD PAST MEDICAL HISTORY - Past Medical History Cardiovascular: Hypertension, High cholesterol Respiratory: COPD, Shortness of breath, Sleep apnea, Other Neuro: None Endocrine/Autoimmune: Type 2 diabetes GI: GERD, GI bleed 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 : Incontinence HEENT: None Psych: Depression, Anxiety Musculoskeletal: Osteoarthritis, Gout, Chronic back pain, Other Derm: None - Past Surgical History Past Surgical History: Yes General: Colonoscopy Ortho: Spine surgery /TELEPHONE ORDER SUPERVISOR: Hysterectomy Cardiovascular: CABG HEENT: Tonsil/Adenoidectomy - Present Medications Home Medications: Ambulatory Orders Medication Instructions Recorded Confirmed hydrOXYzine HCL [Hydroxyzine HCl] 10 mg PO QPM 12/14/17 02/19/23 Levothyroxine [Synthroid] 25 mcg PO DAILY 04/02/21 02/19/23 Solifenacin Succinate [Vesicare] 10 mg PO DAILY 04/02/21 02/19/23 Apixaban [Eliquis] 2.5 mg PO BID 02/19/23 02/19/23 Atorvastatin Calcium 40 mg PO DAILY 02/19/23 02/19/23 Clotrimazole/Betamethasone Dip 1 applic TP BID 02/19/23 02/19/23 [Clotrimazole-Betamethasone Lot] Nystatin [Nystop] 1 applic TOP BID 02/19/23 02/19/23 Omeprazole 40 mg PO DAILY 02/19/23 02/19/23 Timolol [Betimol] 1 drops OP DAILY 02/19/23 02/19/23 carvediloL [Coreg] 3.125 mg PO BID 02/19/23 02/19/23 clindamycin HCL [Cleocin HCl] 300 mg PO Q6H #40 cap 02/19/23 guaiFENesin [Mucinex] 600 mg PO BID 02/19/23 02/19/23 risperiDONE [Risperdal] 0.25 mg PO HS 02/19/23 02/19/23 traMADol [Ultram] 50 mg PO BID 02/19/23 02/19/23 - Allergies Allergies/Adverse Reactions: Allergies Allergy/AdvReac Type Severity Reaction Status Date / Time promethazine HCl * Allergy Severe UNCONSCIOUS Verified 02/19/23 14:10 [From Phenergan] fentanyl Allergy Unknown unknown Verified 02/19/23 14:10 codeine Allergy Unknown Verified 02/19/23 14:10 morphine Allergy Hallucinati Verified 02/19/23 14:10 ons Penicillins Allergy Hives Verified 02/19/23 14:10 Sulfa (Sulfonamide Allergy Hives Verified 02/19/23 14:10 Antibiotics) - Social History Does the pt smoke?: No Smoking Status: Never smoker Does the pt drink ETOH?: Yes Does the pt have substance abuse?: No - Immunizations Immunizations are current?: Yes - POLST Patient has POLST: Yes POLST Status: DNR PD ED PE NORMAL - Vitals Vital signs reviewed: Yes - General General: Alert and oriented X 3, Well developed/nourished, Other (she is holding a towel around her neck herself, stating it feels better. Seems uncomfortable with head movement. ) - HEENT HEENT: Atraumatic - Neck Neck: Supple, no meningeal sign, No bony TTP (she is not tender midline itself. Soft tissue/muscle tenderness right paracervical and at trapezius insertion, but also tender right lateral neck along psosterior belly of SCM muscle. No rash nor sores. Not tender to light touch. Not tender to shoulder nor upper chest. ), No adenopathy - Cardiac Cardiac: RRR, No murmur - Respiratory Respiratory: Clear bilaterally - Neuro Neuro: Alert and oriented X 3 (poor short term memory, baseline reported for pt, but aware in the present. ), No motor deficit, No sensory deficit, Normal speech Results - Vitals Vitals: Vital Signs - 24 hr 04/01/23 04/01/23 16:20 19:01 Temperature 36.1 C L Heart Rate 51 L 59 L Respiratory 18 18 Rate Blood Pressure 139/39 H O2 Saturation 96 100 Oxygen O2 Source Room air - Rads (name of study) cervi jason spine CT Relevant Findings:: Prelim report reviewed (arthritic changes diffusely and C7/T1 spondyolisthesis. ), EMP independent interpretation of test PD Medical Decision Making - ED course Complexity details: reviewed results (no acute abnormality. Arthritic and degenerative changes. SPondylolisthesis C7/T1. No fractures. ), re-evaluated patient (improved with some meds here. Her MAR from care facility shows Tylenol PRN and Tramadol PRN. Will have her use regularly for next week. ), considered differential (having seems muscular neck pain but does feel better with it supported by towel and does have degenerative disease by prior reports. Consider compression fracture or such. Can get CT to evaluate for structural process other than muscular/arthritic. ), d/w patient Departure - Departure Disposition: 01 Home, Self Care Clinical Impression: Neck muscle strain Condition: Stable Record reviewed to determine appropriate education?: Yes Instructions: ED Neck Pain No Trauma Follow-Up: Mitch George MD [Primary Care Provider] - Comments: This sounds like a muscular strain and spasm at the side muscle of the neck. We did do a CT scan to look for any structural or bony abnormalities. You do have some arthritis in through the spine notably but no signs of acute fracture. Heat and gentle stretching for the neck. I would suggest Tylenol 500 to 650 mg regularly 4 times a day. It does look like you are prescribed tramadol to take up to 3-4 times daily. I would have him continue with that. Recheck if not improved well over the next several days. Forms: PCP List Discharge Date/Time: 04/01/23 19:05
[2023-04-01 16:29] VITALS: BP 139/39
[2023-04-01] MEDS ORDERED: LIDOCAINE PATCH 5% TOP STA (16:59)
[2023-04-01] MEDS ORDERED: ACETAMINOPHEN 325 MG TABLET PO STA (16:59)
[2023-04-01] MEDS ORDERED: HYDROcod/ACETAM 5/325 MG TABLET PO STA (16:59)
--- NOTE | 2023-04-01 18:46 | CT Report ---
PROCEDURE: CERVICAL SPINE WO INDICATIONS: posterior/right neck pain acutely TECHNIQUE: Noncontrast 3 mm thick sections acquired from the skull base to the T4 level. Sagittal and coronal r eformats were then constructed. For radiation dose reduction, the following was used: automated exp osure control, adjustment of mA and/or kV according to patient size. COMPARISON: Cervical spine CT 06/15/2021 FINDINGS: Image quality: Excellent. Bones: No acute fractures or dislocations. Multifocal degenerative spondylolistheses throughout the cervical spine, which appears similar when compared to the CT from 06/15/2021. Multilevel disc space and degenerative endplate changes. Multilevel uncovertebral joint and facet hypertrophy. Visualized superior ribs are intact. Sternotomy wires are partially imaged. Soft tissues: Prevertebral soft tissues are normal in thickness. No paravertebral hematomas. No ap ical pneumothoraces. Aortic and bilateral carotid atherosclerotic calcifications are seen. Tortuous r etropharyngeal courses of the common carotid arteries bilaterally. IMPRESSION: No acute cervical spine fracture or subluxation. Moderate to severe multilevel spondylosis degenerati ve spondylolisthesis. Reviewed by: Ricki Arshad MD on 04/01/2023 6:45 PM PDT Approved by: Ricki Arshad MD on 04/01/2023 6:45 PM PDT Station ID: [id number]
[2023-04-01 19:09] VITALS: O2SAT 100
== END 2023-04-01 19:05 | disposition home or self-care (01) ==
LOC: EDUNIT# → ED 16:12
DX: S16.1XXA Strain of muscle, fascia and tendon at neck level, initial encounter (principal); X58.XXXA Exposure to other specified factors, initial encounter; I10 Essential (primary) hypertension; E78.00 Pure hypercholesterolemia, unspecified; J44.9 Chronic obstructive pulmonary disease, unspecified; E11.9 Type 2 diabetes mellitus without complications; Z79.899 Other long term (current) drug therapy; Z79.01 Long term (current) use of anticoagulants
CPT/HCPCS: 72125; 99283; 99284; A9270

== ENCOUNTER 2023-04-04 15:07 | Outpatient (CLI) | payer MEDICARE | END 2023-04-04 15:08 | disposition critical access hospital (66) | LOC: EMS 15:07 | DX: R51.9 Headache, unspecified (principal); M54.2 Cervicalgia; S81.011A Laceration without foreign body, right knee, initial encounter; W01.0XXA Fall on same level from slipping, tripping and stumbling without subsequent striking against object, initial encounter; Y93.89 Activity, other specified; Y92.218 Other school as the place of occurrence of the external cause; Z79.01 Long term (current) use of anticoagulants | CPT/HCPCS: A0425; A0429 ==

== ENCOUNTER 2023-04-04 15:29 | Emergency (ER) | payer MEDICARE ==
[2023-04-04 15:37] VITALS: O2SAT 98
[2023-04-04] MEDS ORDERED: traMADol 50 MG TABLET PO STA (15:38)
--- NOTE | 2023-04-04 15:38 | ED Physician Documentation ---
History of Present Illness - Stated complaint Stated Complaint: GLF - Additonal information Additional information: 87-year-old female who resides at home place presents to the emergency department after a witnessed mechanical ground-level fall while at [employer]. She had stood up and her heel got caught on the chair behind her and she fell backwards striking her head. There was no loss of consciousness. The patient is anticoagulated on Eliquis secondary to history of paroxysmal A-fib. Seen in this emergency department recently on April 01 for neck pain thought to be secondary to spondylolisthesis and degenerative disc disease. Is taking tramadol and Tylenol for this at her care facility Review of Systems Constitutional: denies: Fever Throat: reports: Reviewed and negative Cardiac: reports: Reviewed and negative Respiratory: reports: Reviewed and negative GI: reports: Reviewed and negative Musculoskeletal: reports: Neck pain Neurologic: reports: Head injury Psychiatric: reports: Reviewed and negative PD PAST MEDICAL HISTORY - Past Medical History Cardiovascular: Hypertension, High cholesterol Respiratory: COPD, Shortness of breath, Sleep apnea, Other Neuro: None Endocrine/Autoimmune: Type 2 diabetes GI: GERD, GI bleed 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 : Incontinence HEENT: None Psych: Depression, Anxiety Musculoskeletal: Osteoarthritis, Gout, Chronic back pain, Other Derm: None - Past Surgical History Past Surgical History: Yes General: Colonoscopy Ortho: Spine surgery /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: Hysterectomy Cardiovascular: CABG HEENT: Tonsil/Adenoidectomy - Present Medications Home Medications: Ambulatory Orders Medication Instructions Recorded Confirmed hydrOXYzine HCL [Hydroxyzine HCl] 10 mg PO QPM 12/14/17 02/19/23 Levothyroxine [Synthroid] 25 mcg PO DAILY 04/02/21 02/19/23 Solifenacin Succinate [Vesicare] 10 mg PO DAILY 04/02/21 02/19/23 Apixaban [Eliquis] 2.5 mg PO BID 02/19/23 02/19/23 Atorvastatin Calcium 40 mg PO DAILY 02/19/23 02/19/23 Clotrimazole/Betamethasone Dip 1 applic TP BID 02/19/23 02/19/23 [Clotrimazole-Betamethasone Lot] Nystatin [Nystop] 1 applic TOP BID 02/19/23 02/19/23 Omeprazole 40 mg PO DAILY 02/19/23 02/19/23 Timolol [Betimol] 1 drops OP DAILY 02/19/23 02/19/23 carvediloL [Coreg] 3.125 mg PO BID 02/19/23 02/19/23 clindamycin HCL [Cleocin HCl] 300 mg PO Q6H #40 cap 02/19/23 guaiFENesin [Mucinex] 600 mg PO BID 02/19/23 02/19/23 risperiDONE [Risperdal] 0.25 mg PO HS 02/19/23 02/19/23 traMADol [Ultram] 50 mg PO BID 02/19/23 02/19/23 - Allergies Allergies/Adverse Reactions: Allergies Allergy/AdvReac Type Severity Reaction Status Date / Time promethazine HCl * Allergy Severe UNCONSCIOUS Verified 04/04/23 15:32 [From Phenergan] fentanyl Allergy Unknown unknown Verified 04/04/23 15:32 codeine Allergy Unknown Verified 04/04/23 15:32 morphine Allergy Hallucinati Verified 04/04/23 15:32 ons Penicillins Allergy Hives Verified 04/04/23 15:32 Sulfa (Sulfonamide Allergy Hives Verified 04/04/23 15:32 Antibiotics) - Social History Does the pt smoke?: No Smoking Status: Never smoker Does the pt drink ETOH?: Yes Does the pt have substance abuse?: No - Immunizations Immunizations are current?: Yes - POLST Patient has POLST: Yes POLST Status: DNR PD ED PE NORMAL - General General: Alert and oriented X 3, No acute distress, Well developed/nourished - HEENT HEENT: No: Atraumatic (No evidence of traumatic ecchymosis or hematoma on the posterior occiput. Negative for raccoon eyes, palmer sign and hemotympanums.) - Neck Neck: Supple, no meningeal sign, Other (Lower cervical upper thoracic tenderness with palpation midline though no deformity or ecchymosis. No step-off.) - Cardiac Cardiac: RRR, No murmur - Respiratory Respiratory: No respiratory distress - Derm Derm: Normal color, Warm and dry - Extremities Extremities: Other (Superficial skin tear below the patella of the right knee. 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 No significant intracranial abnormality. Age-appropriate brain parenchymal volume loss and chronic small vessel ischemic change) CT cervical Relevant Findings:: Final report received (Negative for acute fracture. Significant cervical spine degenerative changes are seen which are worse inferiorly.) PD Medical Decision Making - ED course Complexity details: reviewed results, re-evaluated patient, d/w patient ED course: 87-year-old female who does have some underlying dementia as well as a history of A-fib anticoagulated on Eliquis presents emergency department after mechanical ground-level fall in which she tripped on the chair behind her at [employer] striking her head. No loss of consciousness. On presentation the emergency department she is alert and well-appearing. No evidence of traumatic cranial injury on exam. No focal neurodeficits. CT of the head and neck showed no acute intracranial findings or fractures. She does have fairly significant degenerative disc disease of the cervical column. This was evidenced on a very recent ED visit for neck pain. Currently taking tramadol and Tylenol. Chest x- ray was also negative. While here in the emergency department the patient has ambulated easily with out assistance in the emergency department as such she is discharged home with usual emergent return precautions discussed for concerns of closed head injury while anticoagulated. Departure - Departure Disposition: 01 Home, Self Care Clinical Impression: Ground-level fall, Anticoagulated Closed head injury Qualifiers: Encounter type: initial encounter Qualified Code(s): S09.90XA - Unspecified injury of head, initial encounter Instructions: ED Head Injury Closed Comments: Lora chan are seen today in the emergency department after you tripped at [employer] falling backward striking her head. You are on Eliquis secondary to your cardiac history. The CT of your head showed no bruising or bleeding within the brain. The CT of your neck showed no spinal fractures. You do have fairly significant degenerative disc disease in the neck. This is essentially unchanged from imaging completed on 01 April with her last ER visit. Your chest x-ray was also normal for age without any new findings. I am over the next several days I expect you to be generally sore after the fall. You can continue to take your usual medications including your Eliquis. If at any point you develop sudden severe headache, have uncontrolled vomiting, slurred speech, facial droop or any concerns of worsening symptoms please return immediately to the ER for repeat evaluation.
--- NOTE | 2023-04-04 16:08 | XRAY Report ---
PROCEDURE: Chest 1 View X-Ray INDICATIONS: glf TECHNIQUE: One view of the chest was acquired. COMPARISON: 02/19/2023 FINDINGS: Surgical changes and devices: Sternotomy wires and mediastinal clips are seen. Lungs and pleura: No pleural effusions or pneumothorax. Lungs are clear. Mediastinum: The aorta is prominent and tortuous. The cardiac contours are within normal limits. Trace cification can be seen involving the mitral valve annulus. Bones and chest wall: No displaced rib fracture is seen. No suspicious bony lesions. Degenerative ch anges are seen throughout, including involving the left shoulder. Atherosclerotic calcification is se en. IMPRESSION: No syl acute plain film abnormality is seen. If there is strong clinical concern for a post traumatic abnormality that is not seen on this plain f ilm study, then please consider a dedicated chest CT with IV contrast for further evaluation. Postoperative and degenerative changes are seen. Reviewed by: Thierry Park MD on 04/04/2023 3:06 PM [facility] Approved by: Thierry Park MD on 04/04/2023 3:06 PM [facility] Station ID: [id number]
--- NOTE | 2023-04-04 16:46 | CT Report ---
PROCEDURE: CERVICAL SPINE WO INDICATIONS: neck pain after glf TECHNIQUE: Noncontrast 3 mm thick sections acquired from the skull base to the T4 level. Sagittal and coronal r eformats were then constructed. For radiation dose reduction, the following was used: automated exp osure control, adjustment of mA and/or kV according to patient size. COMPARISON: 04/01/2023. Correlation is made with the accompanying head CT. FINDINGS: Image quality: Excellent. Bones: No fractures or dislocations. Visualized superior ribs are intact. Focal degenerative change can be seen involving the C1-C2 interface anteriorly. Soft tissue calcifica tion can be seen posterior to the dens. Minimal anterolisthesis can be seen at C3-C4 and at C4-C5. Mi nimal retrolisthesis is seen at C5-C6 and C6-C7. There is at least moderate disc space narrowing seen at C4-C5, with moderate to severe disc space narrowing seen at C6-C7 and C7-T1. Posteriorly directed endplate osteophytes are seen at C5-6 and C6-C7. Grade 1 anterolisthesis is seen at C7-T1. Soft tissues: Prevertebral soft tissues are normal in thickness. No paravertebral hematomas. No ap ical pneumothoraces. Dense atherosclerotic calcification is seen. Sternotomy wires are partially seen . IMPRESSION: Negative for acute fracture. 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 Reviewed by: Thierry Park MD on 04/04/2023 3:45 PM [facility]NER Approved by: Thierry Park MD on 04/04/2023 3:45 PM HIHAILEY Station ID: [id number]
--- NOTE | 2023-04-04 16:47 | CT Report ---
PROCEDURE: HEAD WO INDICATIONS: glf; anticoagulated TECHNIQUE: Noncontrast 4.5 mm thick angled axial sections acquired from the foramen magnum to the vertex. For r adiation dose reduction, the following was used: automated exposure control, adjustment of mA and/or kV according to patient size. COMPARISON: 12/16/2022, 10/16/2021. Correlation is made with the accompanying cervical spine CT. FINDINGS: Image quality: Excellent. CSF spaces: Basal cisterns are patent. No extra-axial fluid collections. Ventricles are normal in size and shape. Brain: No midline shift. No intracranial masses or hemorrhage. Osorio-white matter interface is norm al. Skull and face: Calvarium and visualized facial bones are intact, without suspicious lesions. Sinuses: Visualized sinuses and mastoids are clear. IMPRESSION: No intracranial hemorrhage is seen. No significant intracranial abnormality is seen. Age-appropriate brain parenchymal volume loss and chronic small vessel ischemic change can be seen. Reviewed by: Thierry Park MD on 04/04/2023 3:46 PM [facility]NER Approved by: Thierry Park MD on 04/04/2023 3:46 PM [facility]NER Station ID: [id number]
[2023-04-04 17:28] VITALS: BP 138/60
== END 2023-04-04 17:24 | disposition home or self-care (01) ==
LOC: EDUNIT# → ED 15:29
DX: S09.90XA Unspecified injury of head, initial encounter (principal); M50.31 Other cervical disc degeneration, high cervical region; I48.91 Unspecified atrial fibrillation; Z79.01 Long term (current) use of anticoagulants; Z66 Do not resuscitate
CPT/HCPCS: 70450; 71045; 72125; 99284; A9270

== ENCOUNTER 2023-07-07 10:08 | Outpatient (CLI) | payer MEDICARE ==
[2023-07-07 12:12] LABS: BASOPHILS % (AUTO) 0.6 %; EOSINOPHILS # (AUTO) 0.7 10^3/uL (0.0-0.7); EOSINOPHILS % (AUTO) 10.5 %; HCT - HEMATOCRIT 32.7 % (37.0-47.0); HGB - HEMOGLOBIN 9.8 g/dL (12.0-16.0); LYMPHOCYTES # (AUTO) 0.9 10^3/uL (1.5-3.5); MEAN CORPUSCULAR HEMOGLOBIN 27.3 pg (27.0-31.0); MEAN CORPUSCULAR VOLUME 91.1 fL (81.0-99.0); MEAN PLATELET VOLUME 10.7 fL (7.9-10.8); MONOCYTES # (AUTO) 0.6 10^3/uL (0.0-1.0); MONOCYTES % (AUTO) 9.4 %; NEUTROPHILS # (AUTO) 4.1 10^3/uL (1.5-6.6); NEUTROPHILS % (AUTO) 65.2 %; PLT - PLATELET COUNT 233 10^3/uL (130-450); RED BLOOD COUNT 3.59 10^6/uL (4.20-5.40); RED CELL DISTRIBUTION WIDTH 15.5 % (12.0-15.0); WHITE BLOOD COUNT 6.4 x10^3/uL (4.8-10.8)
[2023-07-07 12:45] LABS: ALBUMIN 4.1 g/dL (3.2-5.5); ALBUMIN/GLOBULIN RATIO 1.9 (1.0-2.2); BILIRUBIN,TOTAL 0.4 mg/dL (0.2-1.0); CREATININE 2.3 mg/dL (0.6-1.3); POTASSIUM 4.4 mmol/L (3.5-4.5); TOTAL PROTEIN 6.3 g/dL (6.4-8.9)
[2023-07-07 12:48] LABS: THYROID STIMULATING HORMONE 5.04 uIU/mL (0.34-5.60)
[2023-07-07 12:55] LABS: FERRITIN 56.9 ng/mL (11.0-306.8)
[2023-07-07 12:56] LABS: ESTIMATED AVERAGE GLUCOSE 111 mg/dL (70-100); HEMOGLOBIN A1c% 5.5 % (4.27-6.07)
== END 2023-07-07 10:09 | disposition home or self-care (01) ==
LOC: LAB.N 10:08
PROVIDERS: ATTEND Family Medicine
DX: E22.2 Syndrome of inappropriate secretion of antidiuretic hormone (principal); D64.9 Anemia, unspecified; E87.5 Hyperkalemia; F03.90 Unspecified dementia, unspecified severity, without behavioral disturbance, psychotic disturbance, mood disturbance, and anxiety; F22 Delusional disorders; I25.10 Atherosclerotic heart disease of native coronary artery without angina pectoris; I48.0 Paroxysmal atrial fibrillation; I50.9 Heart failure, unspecified
CPT/HCPCS: 36415; 80053; 82728; 83036; 83540; 83880; 84443; 84466; 85025

== ENCOUNTER 2023-10-12 08:00 | Outpatient (CLI) | payer MEDICARE | END 2023-10-12 08:01 | disposition home or self-care (01) | LOC: LAB.N 08:00 | PROVIDERS: ATTEND Physician Assistant Medical | DX: J01.90 Acute sinusitis, unspecified (principal) ==

== ENCOUNTER 2023-10-12 11:00 | Outpatient (CLI) | payer MEDICARE ==
--- NOTE | 2023-10-12 16:19 | XRAY Report ---
PROCEDURE: Chest 2V INDICATIONS: COUGH TECHNIQUE: 2 views of the chest were acquired. COMPARISON: Chest x-ray 04/04/2023 FINDINGS: Surgical changes and devices: Sternal wires consistent with previous bypass procedure. Lungs and pleura: No pleural effusions or pneumothorax. Subtle appearance of right basilar coarsenin g. Mediastinum: Mediastinal contours appear normal. Heart size is enlarged. Bones and chest wall: No suspicious bony lesions. Overlying soft tissues appear unremarkable. IMPRESSION: Subtle right basilar coarsening suggestive of pneumonia. Reviewed by: Nehal Juarez MD on 10/12/2023 4:18 PM PDT Approved by: Nehal Juarez MD on 10/12/2023 4:18 PM PDT Station ID: [id number]
== END 2023-10-12 11:15 | disposition home or self-care (01) ==
LOC: DI.N 11:00
PROVIDERS: ATTEND Physician Assistant Medical
DX: R05.9 Cough, unspecified (principal); R91.8 Other nonspecific abnormal finding of lung field; J01.90 Acute sinusitis, unspecified

== ENCOUNTER 2023-10-26 08:00 | Outpatient (CLI) | payer MEDICARE | END 2023-10-26 23:59 | disposition home or self-care (01) | LOC: PC 08:00 | PROVIDERS: ATTEND Nurse Practitioner Gerontology | DX: Z51.5 Encounter for palliative care (principal); B37.31 Acute candidiasis of vulva and vagina; N39.45 Continuous leakage; F32.A Depression, unspecified; M19.012 Primary osteoarthritis, left shoulder; F10.21 Alcohol dependence, in remission; R41.3 Other amnesia; Z87.01 Personal history of pneumonia (recurrent); Z63.8 Other specified problems related to primary support group | CPT/HCPCS: 99350 ==

== ENCOUNTER 2023-11-26 08:00 | Outpatient (CLI) | payer MEDICARE | END 2023-11-26 23:59 | disposition home or self-care (01) | LOC: PC 08:00 | PROVIDERS: ATTEND Nurse Practitioner Gerontology | DX: Z51.5 Encounter for palliative care (principal); B37.31 Acute candidiasis of vulva and vagina; L30.9 Dermatitis, unspecified; F10.10 Alcohol abuse, uncomplicated; F32.9 Major depressive disorder, single episode, unspecified; F03.90 Unspecified dementia, unspecified severity, without behavioral disturbance, psychotic disturbance, mood disturbance, and anxiety | CPT/HCPCS: 99310 ==

== ENCOUNTER 2023-12-04 12:46 | Outpatient (CLI) | payer MEDICARE ==
[2023-12-04 18:17] LABS: ALBUMIN 4.2 g/dL (3.2-5.5); ALBUMIN/GLOBULIN RATIO 1.9 (1.0-2.2); BILIRUBIN,TOTAL 0.4 mg/dL (0.2-1.0); CALCIUM 9.8 mg/dL (8.5-10.3); POTASSIUM 4.2 mmol/L (3.5-4.5); TOTAL PROTEIN 6.4 g/dL (6.4-8.9)
[2023-12-04 18:20] LABS: BASOPHILS % (AUTO) 0.7 %; EOSINOPHILS % (AUTO) 18.7 %; HCT - HEMATOCRIT 34.5 % (37.0-47.0); HGB - HEMOGLOBIN 10.3 g/dL (12.0-16.0); LYMPHOCYTES % (AUTO) 13.9 %; MEAN CORPUSCULAR HEMOGLOBIN 28.7 pg (27.0-31.0); MEAN CORPUSCULAR HGB CONC 29.9 g/dL (32.0-36.0); MEAN CORPUSCULAR VOLUME 96.1 fL (81.0-99.0); MEAN PLATELET VOLUME 10.4 fL (7.9-10.8); MONOCYTES % (AUTO) 9.4 %; NEUTROPHILS % (AUTO) 57.1 %; PLT - PLATELET COUNT 262 10^3/uL (130-450); RED BLOOD COUNT 3.59 10^6/uL (4.20-5.40); RED CELL DISTRIBUTION WIDTH 14.6 % (12.0-15.0); WHITE BLOOD COUNT 8.5 x10^3/uL (4.8-10.8)
[2023-12-04 18:25] LABS: THYROID STIMULATING HORMONE 1.2 uIU/mL (0.34-5.60)
[2023-12-04 18:31] LABS: ABNORMAL LYMPHS % (MANUAL) 0 %; BAND NEUTROPHILS % (MANUAL) 0 %
[2023-12-04 19:38] LABS: BASOPHILS # (MANUAL) 0.1 10^3/uL (0-0.1); BASOPHILS % (MANUAL) 1 %; DIFFERENTIAL COMMENT MANUAL DIFFERENTIAL; EOSINOPHILS # (MANUAL) 1.1 10^3/uL (0-0.7); LYMPHOCYTES # (MANUAL) 1.4 10^3/uL (1.5-3.5); LYMPHOCYTES % (MANUAL) 16 %; MONOCYTES # (MANUAL) 0.9 10^3/uL (0.0-1.0); NEUTROPHILS # (MANUAL) 5.1 10^3/uL (1.5-6.6); PLATELET ESTIMATE, MANUAL NORMAL (130-450,000) (NORMAL); PLATELET MORPHOLOGY NORMAL APPEARANCE (NORMAL); RBC MORPHOLOGY (MULTIPLE) NORMAL APPEARANCE (NORMAL)
== END 2023-12-04 12:47 | disposition home or self-care (01) ==
LOC: LAB.N 12:46
PROVIDERS: ATTEND Nurse Practitioner Gerontology
DX: N18.32 Chronic kidney disease, stage 3b (principal); I50.9 Heart failure, unspecified; D64.9 Anemia, unspecified
CPT/HCPCS: 36415; 80053; 84443; 85025

== ENCOUNTER 2023-12-16 10:30 | Outpatient (CLI) | payer MEDICARE | END 2023-12-16 23:59 | disposition home or self-care (01) | LOC: PC 10:30 | PROVIDERS: ATTEND Nurse Practitioner Gerontology | DX: Z51.5 Encounter for palliative care (principal); N18.4 Chronic kidney disease, stage 4 (severe); J30.9 Allergic rhinitis, unspecified; E78.5 Hyperlipidemia, unspecified; I50.9 Heart failure, unspecified; I13.0 Hypertensive heart and chronic kidney disease with heart failure and stage 1 through stage 4 chronic kidney disease, or unspecified chronic kidney disease; I48.91 Unspecified atrial fibrillation; Z02.89 Encounter for other administrative examinations; Z71.89 Other specified counseling; Z79.899 Other long term (current) drug therapy; Z85.038 Personal history of other malignant neoplasm of large intestine; Z87.891 Personal history of nicotine dependence | CPT/HCPCS: 99350; G0318; 99417 ==

== ENCOUNTER 2023-12-25 22:56 | Emergency (ER) | payer MEDICARE ==
[2023-12-26] MEDS: CHERRY SYRUP 10 ML UDC PO ONE (00:16)
[2023-12-26] MEDS: DEXAMETHASONE 10 MG/ML VIAL PO STA (00:16)
[2023-12-26] MEDS: KETOROLAC 30 MG/ML VIAL IM STA (02:11)
--- NOTE | 2023-12-26 03:16 | ED Physician Documentation ---
PD HPI BACK PAIN - Stated complaint Stated Complaint: BACK PX - Chief complaint Chief Complaint: Back Pain - History obtained from History obtained from: Patient - History of Present Illness Timing - onset: Yesterday Timing - duration: Days (1) Timing - details: Gradual onset, Still present Location: Lower, Right Quality: Pain, Spasm, Sharp, Similar to prior episodes Associated symptoms: Incontinent of urine (as usual). No: Fever, Weakness, Numbness, Unable to urinate, Hematuria, Incontinent of stool Improves with: Rest, Meds Worsened by: Movement, Twisting, Palpation Contributing factors: Other (The patient believes she has been sitting too long doing needle point.) Similar symptoms before: Diagnosis (scaitica) Recently seen: Not recently seen - Additional information Additional information: Gary Regalado is an 88-year-old female who has a prior history of back pain and has had 4 prior back surgeries. She presents today with pain in her right lower back radiating down the right leg. She has had episode of this about 1 week ago it resolved she has had an episode of this today and this is not resolved. She is residing at [facility]. Review of Systems Constitutional: denies: Fever Nose: denies: Congestion Throat: denies: Sore throat Cardiac: denies: Chest pain / pressure Respiratory: denies: Dyspnea, Cough GI: denies: Abdominal Pain, Nausea, Vomiting, Constipation, Diarrhea : reports: Incontinent (normally) Musculoskeletal: reports: Back pain, Extremity pain. denies: Neck pain PD PAST MEDICAL HISTORY - Past Medical History Past Medical History: Yes Cardiovascular: Hypertension, High cholesterol Respiratory: COPD, Shortness of breath, Sleep apnea, Other Neuro: None Endocrine/Autoimmune: Type 2 diabetes GI: GERD, GI bleed RECONCILIATION CLERK: None : Incontinence HEENT: None Psych: Depression, Anxiety Musculoskeletal: Osteoarthritis, Gout, Chronic back pain, Other Derm: None - Past Surgical History Past Surgical History: Yes General: Colonoscopy Ortho: Spine surgery /RECONCILIATION CLERK: Hysterectomy Cardiovascular: CABG HEENT: Tonsil/Adenoidectomy - Present Medications Home Medications: Ambulatory Orders Medication Instructions Recorded Confirmed hydrOXYzine HCL [Hydroxyzine HCl] 10 mg PO QPM 12/14/17 12/25/23 Levothyroxine [Synthroid] 25 mcg PO DAILY 04/02/21 12/25/23 Solifenacin Succinate [Vesicare] 10 mg PO DAILY 04/02/21 02/19/23 Apixaban [Eliquis] 2.5 mg PO BID 02/19/23 12/25/23 Atorvastatin Calcium 20 mg PO DAILY 02/19/23 12/25/23 Clotrimazole/Betamethasone Dip 1 applic TP BID 02/19/23 12/25/23 [Clotrimazole-Betamethasone Lot] Nystatin [Nystop] 1 applic TOP BID 02/19/23 12/25/23 Omeprazole 40 mg PO DAILY 02/19/23 12/25/23 Timolol [Betimol] 1 drops OP DAILY 02/19/23 12/25/23 carvediloL [Coreg] 3.125 mg PO BID 02/19/23 12/25/23 guaiFENesin [Mucinex] 600 mg PO BID 02/19/23 12/25/23 risperiDONE [Risperdal] 0.5 mg PO HS 02/19/23 12/25/23 traMADol [Ultram] 50 mg PO BID 02/19/23 12/25/23 - Allergies Allergies/Adverse Reactions: Allergies Allergy/AdvReac Type Severity Reaction Status Date / Time promethazine HCl * Allergy Severe UNCONSCIOUS Verified 12/25/23 23:05 [From Phenergan] fentanyl Allergy Unknown unknown Verified 12/25/23 23:05 codeine Allergy Unknown Verified 12/25/23 23:05 morphine Allergy Hallucinati Verified 12/25/23 23:05 ons Penicillins Allergy Hives Verified 12/25/23 23:05 Sulfa (Sulfonamide Allergy Hives Verified 12/25/23 23:05 Antibiotics) - Social History Does the pt smoke?: No Smoking Status: Never smoker Does the pt drink ETOH?: Yes Does the pt have substance abuse?: No - Immunizations Immunizations are current?: Yes - POLST Patient has POLST: Yes POLST Status: DNR PD ED PE NORMAL - Vitals Vital signs reviewed: Yes (hypertensive mild ) - General General: Alert and oriented X 3, No acute distress, Well developed/nourished - HEENT HEENT: Atraumatic, PERRL, EOMI - Respiratory Respiratory: No respiratory distress - Abdomen Abdomen: Soft, Non tender - Back Back: No CVA TTP, No spinal TTP, Other (pain to palp in sciatic notch) - Derm Derm: Normal color, Warm and dry, No rash - Extremities Extremities: No deformity, No edema - Neuro Neuro: Alert and oriented X 3, tractor distributor 2-12 intact, No motor deficit, No sensory deficit, Normal speech Eye Opening: Spontaneous Motor: Obeys Commands Verbal: Oriented GCS Score: 15 - Psych Psych: Normal mood, Normal affect Results - Vitals Vitals: Vital Signs - 24 hr 12/25/23 12/26/23 12/26/23 23:01 00:16 03:07 Temperature 36.3 C L 36 C L Heart Rate 60 61 61 Respiratory 16 16 16 Rate Blood Pressure 136/67 H 150/76 H 132/56 H O2 Saturation 97 98 97 12/26/23 04:47 Temperature 36.2 C L Heart Rate 74 Respiratory 16 Rate Blood Pressure 164/81 H O2 Saturation 98 Oxygen O2 Source Room air PD Medical Decision Making - ED course Complexity details: reviewed results, re-evaluated patient, considered differential, d/w patient ED course: The patient does not have pain at rest she is administered a dose of dexamethasone 10 mg she is unable to be comfortable if she begins to move around and she is administered 30 mg of Toradol IM. She has marked improvement in her pain is able to stand at the bedside and wants to go home. Departure - Departure Disposition: 01 Home, Self Care Clinical Impression: Sciatica Qualifiers: Laterality: right Qualified Code(s): M54.31 - Sciatica, right side Condition: Stable Instructions: ED Sciatica Follow-Up: Mitch George MD [Provider Admit Priv/Credential] - Discharge Date/Time: 12/26/23 04:47
[2023-12-26 04:57] VITALS: BP 164/81; O2SAT 98
== END 2023-12-26 04:47 | disposition home or self-care (01) ==
LOC: EDUNIT# → ED 22:56
DX: M54.31 Sciatica, right side (principal); R41.0 Disorientation, unspecified; F03.90 Unspecified dementia, unspecified severity, without behavioral disturbance, psychotic disturbance, mood disturbance, and anxiety
CPT/HCPCS: 96372; 99283; A9270

== ENCOUNTER 2024-01-06 11:00 | Outpatient (CLI) | payer MEDICARE | END 2024-01-06 23:59 | disposition home or self-care (01) | LOC: PC 11:00 | PROVIDERS: ATTEND Nurse Practitioner Gerontology | DX: Z51.5 Encounter for palliative care (principal); R60.0 Localized edema; G62.9 Polyneuropathy, unspecified; N39.45 Continuous leakage; M48.061 Spinal stenosis, lumbar region without neurogenic claudication | CPT/HCPCS: 99350 ==

== ENCOUNTER 2024-02-09 16:21 | Outpatient (CLI) | payer MEDICARE | END 2024-02-09 23:59 | disposition EMS.NT | LOC: EMS 16:21 | DX: R07.9 Chest pain, unspecified (principal); Z66 Do not resuscitate ==

== ENCOUNTER 2024-02-22 09:53 | Outpatient (CLI) | payer MEDICARE ==
[2024-02-22 10:11] LABS: BASOPHILS # (AUTO) 0.1 10^3/uL (0.0-0.1); BASOPHILS % (AUTO) 0.7 %; EOSINOPHILS # (AUTO) 1.2 10^3/uL (0.0-0.7); EOSINOPHILS % (AUTO) 16.3 %; HCT - HEMATOCRIT 36.2 % (37.0-47.0); HGB - HEMOGLOBIN 10.9 g/dL (12.0-16.0); LYMPHOCYTES # (AUTO) 1.3 10^3/uL (1.5-3.5); LYMPHOCYTES % (AUTO) 16.7 %; MEAN CORPUSCULAR HEMOGLOBIN 29.3 pg (27.0-31.0); MEAN CORPUSCULAR HGB CONC 30.1 g/dL (32.0-36.0); MEAN CORPUSCULAR VOLUME 97.3 fL (81.0-99.0); MEAN PLATELET VOLUME 10.1 fL (7.9-10.8); MONOCYTES # (AUTO) 0.5 10^3/uL (0.0-1.0); MONOCYTES % (AUTO) 6.4 %; NEUTROPHILS # (AUTO) 4.5 10^3/uL (1.5-6.6); NEUTROPHILS % (AUTO) 59.6 %; PLT - PLATELET COUNT 181 10^3/uL (130-450); RED BLOOD COUNT 3.72 10^6/uL (4.20-5.40); RED CELL DISTRIBUTION WIDTH 14.6 % (12.0-15.0); WHITE BLOOD COUNT 7.6 x10^3/uL (4.8-10.8)
[2024-02-22 10:29] LABS: RBC MORPHOLOGY (MULTIPLE) 2+ ANISOCYTOSIS (NORMAL); SLIDE REVIEW? Indicated
[2024-02-22 10:44] LABS: ALBUMIN 4.3 g/dL (3.2-5.5); ALBUMIN/GLOBULIN RATIO 1.7 (1.0-2.2); ALKALINE PHOSPHATASE 78 IU/L (42-121); ALT ALANINE AMINOTRANSFERASE 7 IU/L (10-60); AST ASPARTATE AMINOTRANSFERASE 13 IU/L (10-42); BILIRUBIN,TOTAL 0.5 mg/dL (0.2-1.0); BUN - BLOOD UREA NITROGEN 78 mg/dL (6-20); CALCIUM 9.6 mg/dL (8.5-10.3); CARBON DIOXIDE - CO2 23 mmol/L (21-32); CHLORIDE 107 mmol/L (101-111); CHOL/HDL RATIO 2.1 (<4.4); CHOLESTEROL 132 mg/dL; CREATININE 2.1 mg/dL (0.6-1.3); GFR - MDRD 22 (>89); GLUCOSE 102 mg/dL (74-104); HDL CHOLESTEROL 62 mg/dL; LDL CHOLESTEROL,CALCULATED 47 mg/dL; LDL/HDL RATIO 0.8 (<4.4); POTASSIUM 4.5 mmol/L (3.5-4.5); SODIUM 141 mmol/L (135-145); TOTAL PROTEIN 6.9 g/dL (6.4-8.9); TRIGLYCERIDES 114 mg/dL; VLDL CHOLESTEROL 23 mg/dL
[2024-02-22 10:53] LABS: THYROID STIMULATING HORMONE 3.48 uIU/mL (0.34-5.60)
== END 2024-02-22 09:54 | disposition home or self-care (01) ==
LOC: LAB 09:53
PROVIDERS: ATTEND Family Medicine
DX: Z02.89 Encounter for other administrative examinations (principal); I12.9 Hypertensive chronic kidney disease with stage 1 through stage 4 chronic kidney disease, or unspecified chronic kidney disease; N18.4 Chronic kidney disease, stage 4 (severe); F32.2 Major depressive disorder, single episode, severe without psychotic features; Z79.01 Long term (current) use of anticoagulants; M19.012 Primary osteoarthritis, left shoulder; F22 Delusional disorders; I25.10 Atherosclerotic heart disease of native coronary artery without angina pectoris; I48.0 Paroxysmal atrial fibrillation; Z87.39 Personal history of other diseases of the musculoskeletal system and connective tissue
CPT/HCPCS: 36415; 80053; 80061; 83721; 84443; 85025

== ENCOUNTER 2024-03-04 12:06 | Outpatient (CLI) | payer MEDICARE ==
[2024-03-04 12:11] LABS: BILIRUBIN,URINE NEGATIVE (NEGATIVE); GLUCOSE, URINE (UA) NEGATIVE (NEGATIVE); KETONES,URINE (UA) NEGATIVE (NEGATIVE); LEUKOCYTE ESTERASE, URINE TRACE (NEGATIVE); NITRITE,URINE NEGATIVE (NEGATIVE); OCCULT BLOOD,URINE MODERATE (NEGATIVE); PROTEIN,URINE NEGATIVE (NEGATIVE); UROBILINOGEN,URINE 0.2 (NORMAL) E.U./dL (NORMAL)
[2024-03-04 12:17] LABS: CLARITY,URINE CLEAR (CLEAR)
[2024-03-04 12:26] LABS: BACTERIA,URINE Rare /HPF (None Seen); SQUAMOUS EPITHELIAL CELL,UR RARE Squamous (<= Few)
== END 2024-03-04 12:07 | disposition home or self-care (01) ==
LOC: LAB.R 12:06
PROVIDERS: ATTEND Nurse Practitioner Gerontology
DX: R30.0 Dysuria (principal)
CPT/HCPCS: 81001; 81003